=== PATIENT | female | born 1955 | race Caucasian/White ===

== ENCOUNTER 2016-02-29 07:53 | Outpatient (CLI) | payer MEDICARE, BC, OTHER ==
[~2016-02-29] VITALS: Ht 167.6 cm; Wt 86.4 kg
[~2016-02-29 07:53] MED LIST: GLYB5TA PO; OCTR200I IJ; OCTR50IN IM; SYNT137T7 PO; [UNRECOGNIZED DRUG - CODE] SQ
[2016-02-29] MEDS ORDERED: MAGNESIUM SULFATE IV ONE (08:15)
[2016-02-29] MEDS ORDERED: NS IV ONE (08:15)
== END 2016-02-29 09:45 | disposition home or self-care (01) ==
LOC: M INFU 07:53
PROVIDERS: ATTEND Internal Medicine
DX: N18.4 Chronic kidney disease, stage 4 (severe) (principal); D63.1 Anemia in chronic kidney disease; Z79.84 Long term (current) use of oral hypoglycemic drugs; Z87.891 Personal history of nicotine dependence; Z92.21 Personal history of antineoplastic chemotherapy; Z85.05 Personal history of malignant neoplasm of liver; Z88.8 Allergy status to other drugs, medicaments and biological substances; Z91.041 Radiographic dye allergy status; Z79.899 Other long term (current) drug therapy
CPT/HCPCS: 96360; J3475

== ENCOUNTER 2016-03-07 08:00 | Outpatient (CLI) | payer MEDICARE, BC, OTHER ==
[~2016-03-07 08:00] MED LIST changes: +MAGNESIUM SULFATE IV SCH; +NS IV SCH
== END 2016-03-07 09:45 | disposition home or self-care (01) ==
LOC: M INFU 08:00
PROVIDERS: ATTEND Internal Medicine
DX: N18.4 Chronic kidney disease, stage 4 (severe) (principal); Z79.899 Other long term (current) drug therapy
CPT/HCPCS: 96365; 96366; J3475

== ENCOUNTER 2016-03-14 07:59 | Outpatient (CLI) | payer MEDICARE, BC, OTHER ==
[~2016-03-14] VITALS: Ht 167.6 cm; Wt 86.4 kg
[~2016-03-14 07:59] MED LIST changes: -MAGNESIUM SULFATE IV SCH; -NS IV SCH
[2016-03-14] MEDS ORDERED: MAGNESIUM SULFATE IV SCH (09:00)
[2016-03-14] MEDS ORDERED: NS IV SCH (09:00)
== END 2016-03-14 09:30 | disposition home or self-care (01) ==
LOC: M INFU 07:59
PROVIDERS: ATTEND Internal Medicine
DX: N18.4 Chronic kidney disease, stage 4 (severe) (principal); Z79.899 Other long term (current) drug therapy; Z88.8 Allergy status to other drugs, medicaments and biological substances; Z91.040 Latex allergy status
CPT/HCPCS: 96374; J3475

== ENCOUNTER 2016-03-21 08:03 | Outpatient (CLI) | payer MEDICARE, BC, OTHER ==
[2016-03-21] MEDS ORDERED: MAGNESIUM SULFATE IV SCH (08:15)
[2016-03-21] MEDS ORDERED: NS IV SCH (08:15)
== END 2016-03-21 09:40 | disposition home or self-care (01) ==
LOC: M INFU 08:03
PROVIDERS: ATTEND Internal Medicine
DX: N18.4 Chronic kidney disease, stage 4 (severe) (principal); Z79.899 Other long term (current) drug therapy; Z88.8 Allergy status to other drugs, medicaments and biological substances; Z91.040 Latex allergy status; Z91.041 Radiographic dye allergy status
CPT/HCPCS: 96360; J3475

== ENCOUNTER 2016-03-28 08:00 | Outpatient (CLI) | payer MEDICARE, BC, OTHER ==
[~2016-03-28] VITALS: Ht 167.6 cm; Wt 86.4 kg
[~2016-03-28 08:00] MED LIST changes: +MAGNESIUM SULFATE IV SCH; +NS IV SCH
== END 2016-03-28 09:15 | disposition home or self-care (01) ==
LOC: M INFU 08:00
PROVIDERS: ATTEND Internal Medicine
DX: N18.4 Chronic kidney disease, stage 4 (severe) (principal); Z79.899 Other long term (current) drug therapy; Z88.8 Allergy status to other drugs, medicaments and biological substances; Z91.041 Radiographic dye allergy status
CPT/HCPCS: 96360; J3475

== ENCOUNTER 2016-04-04 07:57 | Outpatient (CLI) | payer MEDICARE, BC, OTHER ==
[~2016-04-04] VITALS: Ht 167.6 cm; Wt 86.4 kg
[~2016-04-04 07:57] MED LIST changes: -MAGNESIUM SULFATE IV SCH; -NS IV SCH
[2016-04-04] MEDS ORDERED: NS IV ONE (08:00)
[2016-04-04] MEDS ORDERED: MAGNESIUM SULFATE IV ONE (08:00)
== END 2016-04-04 09:45 | disposition home or self-care (01) ==
LOC: M INFU 07:57
PROVIDERS: ATTEND Hospitalist
DX: N18.4 Chronic kidney disease, stage 4 (severe) (principal); Z91.041 Radiographic dye allergy status; Z91.040 Latex allergy status; Z88.8 Allergy status to other drugs, medicaments and biological substances; Z79.899 Other long term (current) drug therapy
CPT/HCPCS: 96360; J3475

== ENCOUNTER 2016-04-10 07:52 | Outpatient (CLI) | payer MEDICARE, BC, OTHER ==
[~2016-04-10] VITALS: Ht 167.6 cm; Wt 86.4 kg
[2016-04-10] MEDS ORDERED: NS IV ONE (09:00)
[2016-04-10] MEDS ORDERED: MAGNESIUM SULFATE IV ONE (09:00)
== END 2016-04-10 09:25 | disposition home or self-care (01) ==
LOC: M INFU 07:52
PROVIDERS: ATTEND Internal Medicine
DX: N18.4 Chronic kidney disease, stage 4 (severe) (principal); Z91.041 Radiographic dye allergy status; Z88.8 Allergy status to other drugs, medicaments and biological substances; Z79.899 Other long term (current) drug therapy

== ENCOUNTER 2016-04-19 07:56 | Outpatient (CLI) | payer MEDICARE, BC, OTHER ==
[~2016-04-19] VITALS: Ht 167.6 cm; Wt 86.4 kg
[2016-04-19] MEDS ORDERED: MAGNESIUM SULFATE IV ONE (09:00)
[2016-04-19] MEDS ORDERED: NS IV ONE (09:00)
== END 2016-04-19 09:45 | disposition home or self-care (01) ==
LOC: M INFU 07:56
PROVIDERS: ATTEND Hospitalist
DX: E86.0 Dehydration (principal); E83.42 Hypomagnesemia; Z79.899 Other long term (current) drug therapy; Z88.8 Allergy status to other drugs, medicaments and biological substances; Z91.040 Latex allergy status
CPT/HCPCS: 96360; J3475

== ENCOUNTER 2016-04-20 08:01 | Outpatient (CLI) | payer MEDICARE, BC, OTHER ==
[~2016-04-20] VITALS: Ht 167.6 cm; Wt 85.5 kg
[~2016-04-20 08:01] MED LIST changes: +MAGNESIUM SULFATE IV ONE; +NS IV ONE
== END 2016-04-20 09:15 | disposition home or self-care (01) ==
LOC: M INFU 08:01
PROVIDERS: ATTEND Hospitalist
DX: E86.0 Dehydration (principal); E83.42 Hypomagnesemia; Z79.899 Other long term (current) drug therapy; Z88.8 Allergy status to other drugs, medicaments and biological substances; Z91.040 Latex allergy status
CPT/HCPCS: 96360; J3475

== ENCOUNTER 2016-05-15 08:02 | Outpatient (CLI) | payer MEDICARE, BC, OTHER ==
[~2016-05-15 08:02] MED LIST changes: -MAGNESIUM SULFATE IV ONE; +MAGNESIUM SULFATE IV SCH; -NS IV ONE; +NS IV SCH
== END 2016-05-15 09:45 | disposition home or self-care (01) ==
LOC: M INFU 08:02
PROVIDERS: ATTEND Hospitalist
DX: E86.0 Dehydration (principal); E83.42 Hypomagnesemia; E11.9 Type 2 diabetes mellitus without complications; D64.9 Anemia, unspecified; Z85.05 Personal history of malignant neoplasm of liver; Z91.041 Radiographic dye allergy status; Z88.8 Allergy status to other drugs, medicaments and biological substances; Z91.040 Latex allergy status; Z87.891 Personal history of nicotine dependence; Z79.899 Other long term (current) drug therapy
CPT/HCPCS: 96365; J3475

== ENCOUNTER 2016-05-18 07:52 | Outpatient (CLI) | payer MEDICARE, BC, OTHER ==
[~2016-05-18] VITALS: Ht 167.6 cm; Wt 83.2 kg
[~2016-05-18 07:52] MED LIST changes: -MAGNESIUM SULFATE IV SCH; -NS IV SCH
[2016-05-18] MEDS ORDERED: MAGNESIUM SULFATE IV ONE (08:00)
[2016-05-18] MEDS ORDERED: NS IV ONE (08:00)
== END 2016-05-18 10:00 | disposition home or self-care (01) ==
LOC: M INFU 07:52
PROVIDERS: ATTEND Hospitalist
DX: E86.0 Dehydration (principal); E83.42 Hypomagnesemia
CPT/HCPCS: 96365; J3475

== ENCOUNTER 2016-05-21 11:50 | Outpatient (CLI) | payer MEDICARE, BC, OTHER ==
[2016-05-21] MEDS ORDERED: NS IV ONE (12:00)
[2016-05-21] MEDS ORDERED: MAGNESIUM SULFATE IV ONE (12:00)
== END 2016-05-21 14:15 | disposition home or self-care (01) ==
LOC: M INFU 11:50
DX: E86.0 Dehydration (principal); E83.42 Hypomagnesemia
CPT/HCPCS: 96365; J3475

== ENCOUNTER 2016-05-29 07:56 | Outpatient (CLI) | payer MEDICARE, BC, OTHER ==
[~2016-05-29] VITALS: Ht 167.6 cm; Wt 83.2 kg
[2016-05-29] MEDS ORDERED: NS IV ONE (08:30)
[2016-05-29] MEDS ORDERED: MAGNESIUM SULFATE IV ONE (08:30)
== END 2016-05-29 09:45 | disposition home or self-care (01) ==
LOC: M INFU 07:56
PROVIDERS: ATTEND Internal Medicine
DX: E86.0 Dehydration (principal); E83.42 Hypomagnesemia; E11.9 Type 2 diabetes mellitus without complications; Z88.8 Allergy status to other drugs, medicaments and biological substances; Z91.041 Radiographic dye allergy status; Z91.040 Latex allergy status; Z79.899 Other long term (current) drug therapy; Z87.891 Personal history of nicotine dependence; Z85.09 Personal history of malignant neoplasm of other digestive organs; Z79.84 Long term (current) use of oral hypoglycemic drugs
CPT/HCPCS: 96365; J3475

== ENCOUNTER 2016-06-01 07:56 | Outpatient (CLI) | payer MEDICARE, BC, OTHER ==
[2016-06-01] MEDS ORDERED: MAGNESIUM SULFATE IV ONE (09:00)
[2016-06-01] MEDS ORDERED: NS IV ONE (09:00)
== END 2016-06-01 09:45 | disposition home or self-care (01) ==
LOC: M INFU 07:56
PROVIDERS: ATTEND Internal Medicine
DX: E86.0 Dehydration (principal); E83.42 Hypomagnesemia; E07.9 Disorder of thyroid, unspecified; D64.9 Anemia, unspecified; E11.9 Type 2 diabetes mellitus without complications; Z91.041 Radiographic dye allergy status; Z88.8 Allergy status to other drugs, medicaments and biological substances; Z91.040 Latex allergy status; Z80.8 Family history of malignant neoplasm of other organs or systems; Z85.05 Personal history of malignant neoplasm of liver; Z87.891 Personal history of nicotine dependence; Z79.84 Long term (current) use of oral hypoglycemic drugs; Z79.899 Other long term (current) drug therapy
CPT/HCPCS: 96365; J3475

== ENCOUNTER 2016-06-11 07:59 | Outpatient (CLI) | payer MEDICARE, BC, OTHER ==
[~2016-06-11] VITALS: Ht 167.6 cm; Wt 83.2 kg
[2016-06-11] MEDS ORDERED: MAGNESIUM SULFATE IV SCH (08:30)
[2016-06-11] MEDS ORDERED: NS IV SCH (08:30)
== END 2016-06-11 10:00 | disposition home or self-care (01) ==
LOC: M INFU 07:59
PROVIDERS: ATTEND Internal Medicine
DX: E86.0 Dehydration (principal); E83.42 Hypomagnesemia; E07.9 Disorder of thyroid, unspecified; D64.9 Anemia, unspecified; E11.9 Type 2 diabetes mellitus without complications; Z85.05 Personal history of malignant neoplasm of liver; N18.9 Chronic kidney disease, unspecified; Z87.891 Personal history of nicotine dependence; Z88.8 Allergy status to other drugs, medicaments and biological substances; Z91.040 Latex allergy status; Z91.041 Radiographic dye allergy status; Z88.3 Allergy status to other anti-infective agents; Z79.84 Long term (current) use of oral hypoglycemic drugs; Z79.899 Other long term (current) drug therapy
CPT/HCPCS: 96365; J3475

== ENCOUNTER 2016-06-15 06:50 | Outpatient (CLI) | payer MEDICARE, BC, OTHER ==
[2016-06-15] MEDS ORDERED: MAGNESIUM SULFATE IV SCH (07:30)
[2016-06-15] MEDS ORDERED: NS IV SCH (07:30)
== END 2016-06-15 08:35 | disposition home or self-care (01) ==
LOC: M INFU 06:50
PROVIDERS: ATTEND Internal Medicine
DX: E86.0 Dehydration (principal); E83.42 Hypomagnesemia; Z87.891 Personal history of nicotine dependence; E07.9 Disorder of thyroid, unspecified; E11.9 Type 2 diabetes mellitus without complications; Z79.899 Other long term (current) drug therapy; Z88.3 Allergy status to other anti-infective agents; Z88.8 Allergy status to other drugs, medicaments and biological substances; Z91.041 Radiographic dye allergy status; Z91.040 Latex allergy status
CPT/HCPCS: 96365; J3475

== ENCOUNTER 2016-06-20 08:00 | Outpatient (CLI) | payer MEDICARE, BC, OTHER ==
[~2016-06-20] VITALS: Ht 167.6 cm; Wt 85.5 kg
[2016-06-20] MEDS ORDERED: NS IV ONE (08:15)
[2016-06-20] MEDS ORDERED: MAGNESIUM SULFATE IV ONE (08:15)
== END 2016-06-20 09:40 | disposition home or self-care (01) ==
LOC: M INFU 08:00
PROVIDERS: ATTEND Internal Medicine
DX: E86.0 Dehydration (principal); E83.42 Hypomagnesemia; Z91.041 Radiographic dye allergy status; Z88.3 Allergy status to other anti-infective agents; Z88.8 Allergy status to other drugs, medicaments and biological substances; Z91.040 Latex allergy status; Z79.899 Other long term (current) drug therapy; Z79.84 Long term (current) use of oral hypoglycemic drugs
CPT/HCPCS: 96360; J3475

== ENCOUNTER 2016-06-22 07:52 | Outpatient (CLI) | payer MEDICARE, BC, OTHER ==
[~2016-06-22] VITALS: Ht 167.6 cm; Wt 85.5 kg
[2016-06-22] MEDS ORDERED: MAGNESIUM SULFATE IV ONE (08:00)
[2016-06-22] MEDS ORDERED: NS IV ONE (08:00)
== END 2016-06-22 09:30 | disposition home or self-care (01) ==
LOC: M INFU 07:52
PROVIDERS: ATTEND Internal Medicine
DX: E86.0 Dehydration (principal); E83.42 Hypomagnesemia; Z91.041 Radiographic dye allergy status; Z88.3 Allergy status to other anti-infective agents; Z88.8 Allergy status to other drugs, medicaments and biological substances; Z91.040 Latex allergy status; Z79.84 Long term (current) use of oral hypoglycemic drugs; Z79.899 Other long term (current) drug therapy; Z87.891 Personal history of nicotine dependence
CPT/HCPCS: 96360; J3475

== ENCOUNTER 2016-06-26 07:58 | Outpatient (CLI) | payer MEDICARE, BC, OTHER ==
[2016-06-26] MEDS ORDERED: NS IV SCH (08:15)
[2016-06-26] MEDS ORDERED: MAGNESIUM SULFATE IV SCH (08:15)
== END 2016-06-26 10:15 | disposition home or self-care (01) ==
LOC: M INFU 07:58
PROVIDERS: ATTEND Hospitalist
DX: E86.0 Dehydration (principal); E83.42 Hypomagnesemia; Z80.8 Family history of malignant neoplasm of other organs or systems; Z87.891 Personal history of nicotine dependence; Z91.041 Radiographic dye allergy status; Z88.8 Allergy status to other drugs, medicaments and biological substances; Z91.040 Latex allergy status; Z88.3 Allergy status to other anti-infective agents; Z79.899 Other long term (current) drug therapy
CPT/HCPCS: 96365; 96366; J3475

== ENCOUNTER 2016-07-03 07:56 | Outpatient (CLI) | payer MEDICARE, BC, OTHER ==
[~2016-07-03] VITALS: Ht 167.6 cm; Wt 85.5 kg
[2016-07-03] MEDS ORDERED: MAGNESIUM SULFATE IV ONE (08:00)
[2016-07-03] MEDS ORDERED: NS IV ONE (08:00)
== END 2016-07-03 09:25 | disposition home or self-care (01) ==
LOC: M INFU 07:56
PROVIDERS: ATTEND Internal Medicine
DX: E86.0 Dehydration (principal); E83.42 Hypomagnesemia; Z87.891 Personal history of nicotine dependence; Z91.041 Radiographic dye allergy status; Z79.899 Other long term (current) drug therapy; Z88.3 Allergy status to other anti-infective agents; Z88.8 Allergy status to other drugs, medicaments and biological substances; Z91.040 Latex allergy status
CPT/HCPCS: 96360; J3475

== ENCOUNTER → 2016-07-04 | Outpatient (CLI) | payer MEDICARE, BC, OTHER ==
[2016-07-04 10:50] LABS: BASO % 0.3 % (0.0-1.0); EOS # 0.2 K/mm3 (0.0-0.50); EOS % 4.9 % (0.0-3.0); LARGE UNSTAINED CELL # 0.1 K/mm3 (0.0-0.4); LARGE UNSTAINED CELL % 2.3 % (0.0-4.0); LYMPH # 1.3 K/mm3 (1.5-4.5); MEAN CORPUSCULAR HEMOGLOBIN 29.1 pg (27.0-33.0); MEAN CORPUSCULAR HGB CONC 32.2 g/dl (32.0-36.5); MEAN CORPUSCULAR VOLUME 90.4 fl (80.0-96.0); MONO # 0.3 K/mm3 (0.0-0.8); MONO % 7.1 % (0.0-5.0); NEUTROPHILS # 2.4 K/mm3 (1.8-7.7); NEUTROPHILS % 56.4 % (36.0-66.0); PLATELET COUNT, AUTOMATED 161 k/mm3 (150-450); RED CELL DISTRIBUTION WIDTH 15.4 % (11.5-14.5); WHITE BLOOD COUNT 4.2 K/mm3 (4.0-10.0)
[2016-07-04 11:12] LABS: ALBUMIN 3.4 GM/DL (3.2-5.2); ALBUMIN/GLOBULIN RATIO 0.85 (1.00-1.93); BILIRUBIN,TOTAL 0.6 MG/DL (0.2-1.0); CALCIUM LEVEL 8.9 MG/DL (8.8-10.2); CREATININE FOR GFR 1.65 MG/DL (0.55-1.02); FREE T4 1.19 NG/DL (0.76-1.46); GLOMERULAR FILTRATION RATE 33.8 (>45); TOTAL PROTEIN 7.4 GM/DL (6.4-8.2); URIC ACID 9.8 MG/DL (2.6-6.0)
== END ==
LOC: M LAB 10:24
PROVIDERS: ATTEND Family Medicine
DX: E11.9 Type 2 diabetes mellitus without complications (principal); E78.1 Pure hyperglyceridemia; E03.9 Hypothyroidism, unspecified; N18.3 Chronic kidney disease, stage 3 (moderate)

== ENCOUNTER 2016-07-06 09:30 | Outpatient (CLI) | payer MEDICARE, BC, OTHER ==
[~2016-07-06 09:30] MED LIST changes: +MAGNESIUM SULFATE IV ONE; +NS IV ONE
== END 2016-07-06 10:55 | disposition home or self-care (01) ==
LOC: M INFU 09:30
PROVIDERS: ATTEND Internal Medicine
DX: E86.0 Dehydration (principal); E83.42 Hypomagnesemia; Z91.041 Radiographic dye allergy status; Z88.8 Allergy status to other drugs, medicaments and biological substances; Z91.040 Latex allergy status; Z87.891 Personal history of nicotine dependence; Z79.84 Long term (current) use of oral hypoglycemic drugs; Z79.899 Other long term (current) drug therapy
CPT/HCPCS: 96365; J3475

== ENCOUNTER 2016-07-10 07:51 | Outpatient (CLI) | payer MEDICARE, BC, OTHER ==
[~2016-07-10 07:51] MED LIST changes: -MAGNESIUM SULFATE IV ONE; -NS IV ONE
[2016-07-10] MEDS ORDERED: NS IV ONE (08:00)
[2016-07-10] MEDS ORDERED: MAGNESIUM SULFATE IV ONE (08:00)
== END 2016-07-10 09:30 | disposition home or self-care (01) ==
LOC: M INFU 07:51
PROVIDERS: ATTEND Hospitalist
DX: E86.0 Dehydration (principal); E83.42 Hypomagnesemia; Z88.8 Allergy status to other drugs, medicaments and biological substances; Z91.040 Latex allergy status; Z91.041 Radiographic dye allergy status; Z87.891 Personal history of nicotine dependence; Z79.84 Long term (current) use of oral hypoglycemic drugs; Z79.899 Other long term (current) drug therapy
CPT/HCPCS: 96360; J3475

== ENCOUNTER 2016-07-13 08:02 | Outpatient (CLI) | payer MEDICARE, BC, OTHER ==
[2016-07-13] MEDS ORDERED: NS IV ONE (08:30)
[2016-07-13] MEDS ORDERED: MAGNESIUM SULFATE IV ONE (08:30)
== END 2016-07-13 09:30 | disposition home or self-care (01) ==
LOC: M INFU 08:02
PROVIDERS: ATTEND Hospitalist
DX: E86.0 Dehydration (principal); E83.42 Hypomagnesemia; Z88.8 Allergy status to other drugs, medicaments and biological substances; Z91.041 Radiographic dye allergy status; Z91.040 Latex allergy status; Z87.891 Personal history of nicotine dependence; Z79.84 Long term (current) use of oral hypoglycemic drugs; Z79.899 Other long term (current) drug therapy
CPT/HCPCS: 96360; J3475

== ENCOUNTER 2016-07-24 07:57 | Outpatient (CLI) | payer MEDICARE, BC, OTHER ==
[~2016-07-24] VITALS: Ht 167.6 cm; Wt 85.5 kg
[~2016-07-24 07:57] MED LIST changes: +MAGNESIUM SULFATE IV ONE; +NS IV ONE
== END 2016-07-24 09:25 | disposition home or self-care (01) ==
LOC: M INFU 07:57
PROVIDERS: ATTEND Internal Medicine
DX: E86.0 Dehydration (principal); E83.42 Hypomagnesemia; Z85.05 Personal history of malignant neoplasm of liver; Z87.891 Personal history of nicotine dependence; Z91.041 Radiographic dye allergy status; Z88.3 Allergy status to other anti-infective agents; Z91.040 Latex allergy status; Z88.8 Allergy status to other drugs, medicaments and biological substances; Z79.899 Other long term (current) drug therapy
CPT/HCPCS: 96360; J3475

== ENCOUNTER 2016-07-26 15:22 | Outpatient (CLI) | payer MEDICARE, BC, OTHER ==
[~2016-07-26] VITALS: Ht 167.6 cm; Wt 85.5 kg
== END 2016-07-26 16:46 | disposition home or self-care (01) ==
LOC: M INFU 15:22
PROVIDERS: ATTEND Internal Medicine
DX: E86.0 Dehydration (principal); E83.42 Hypomagnesemia; Z91.041 Radiographic dye allergy status; Z88.8 Allergy status to other drugs, medicaments and biological substances; Z91.040 Latex allergy status; Z87.891 Personal history of nicotine dependence; Z79.84 Long term (current) use of oral hypoglycemic drugs; Z79.899 Other long term (current) drug therapy
CPT/HCPCS: 96365; J3475

== ENCOUNTER 2016-07-31 07:59 | Outpatient (CLI) | payer MEDICARE, BC, OTHER ==
[~2016-07-31] VITALS: Ht 167.6 cm; Wt 85.5 kg
[~2016-07-31 07:59] MED LIST changes: -MAGNESIUM SULFATE IV ONE; -NS IV ONE
[2016-07-31] MEDS ORDERED: NS IV SCH (08:00)
[2016-07-31] MEDS ORDERED: MAGNESIUM SULFATE IV SCH (08:00)
== END 2016-07-31 09:30 | disposition home or self-care (01) ==
LOC: M INFU 07:59
PROVIDERS: ATTEND Internal Medicine Nephrology
DX: E86.0 Dehydration (principal); E83.42 Hypomagnesemia; Z91.040 Latex allergy status; Z91.041 Radiographic dye allergy status; Z88.8 Allergy status to other drugs, medicaments and biological substances; Z87.891 Personal history of nicotine dependence; Z79.84 Long term (current) use of oral hypoglycemic drugs; Z79.899 Other long term (current) drug therapy
CPT/HCPCS: 96360; J3475

== ENCOUNTER 2016-08-07 07:54 | Outpatient (CLI) | payer MEDICARE, BC, OTHER ==
[~2016-08-07] VITALS: Ht 167.6 cm; Wt 85.6 kg
[~2016-08-07 07:54] MED LIST changes: +MAGNESIUM SULFATE IV ONE; +NS IV ONE
== END 2016-08-07 09:25 | disposition home or self-care (01) ==
LOC: M INFU 07:54
PROVIDERS: ATTEND Hospitalist
DX: E83.42 Hypomagnesemia (principal); E86.0 Dehydration; Z88.8 Allergy status to other drugs, medicaments and biological substances; Z91.041 Radiographic dye allergy status; Z79.899 Other long term (current) drug therapy
CPT/HCPCS: 96360; J3475

== ENCOUNTER → 2016-08-11 | Outpatient (CLI) | payer MEDICARE, BC, OTHER ==
[~2016-08-11] MED LIST changes: -MAGNESIUM SULFATE IV ONE; -NS IV ONE
== END ==
LOC: M LAB 09:50
PROVIDERS: ATTEND Internal Medicine Nephrology
DX: E83.42 Hypomagnesemia (principal)

== ENCOUNTER → 2016-08-11 | Outpatient (CLI) | payer MEDICARE, BC, OTHER | LOC: M LAB 09:45 | PROVIDERS: ATTEND Family Medicine | DX: E11.22 Type 2 diabetes mellitus with diabetic chronic kidney disease (principal); E83.42 Hypomagnesemia ==

== ENCOUNTER 2016-08-15 13:54 | Outpatient (CLI) | payer MEDICARE, BC, OTHER ==
[2016-08-15] MEDS ORDERED: MAGNESIUM SULFATE IV ONE (15:00)
[2016-08-15] MEDS ORDERED: NS IV ONE (15:00)
[2016-12-18] MEDS ORDERED: LEVO10VL IM (07:55)
[2016-12-18] MEDS ORDERED: SYNT150T PO (07:55)
== END 2016-08-15 15:30 | disposition home or self-care (01) ==
LOC: M INFU 13:54
PROVIDERS: ATTEND Internal Medicine
DX: E86.0 Dehydration (principal); E83.42 Hypomagnesemia; Z88.8 Allergy status to other drugs, medicaments and biological substances; Z91.041 Radiographic dye allergy status; Z91.040 Latex allergy status; Z87.891 Personal history of nicotine dependence; Z79.84 Long term (current) use of oral hypoglycemic drugs; Z79.899 Other long term (current) drug therapy
CPT/HCPCS: 96365; J3475

== ENCOUNTER 2016-08-17 07:53 | Outpatient (CLI) | payer MEDICARE, BC, OTHER ==
[2016-08-17] MEDS ORDERED: NS IV ONE (08:00)
[2016-08-17] MEDS ORDERED: MAGNESIUM SULFATE IV ONE (08:00)
[2016-08-17] MEDS ORDERED: MAGN70CA IV (09:31)
[2016-08-17] MEDS ORDERED: MAGN20IN4 IV (09:31)
[2016-12-18] MEDS ORDERED: LEVO10VL IM (07:55)
[2016-12-18] MEDS ORDERED: SYNT150T PO (07:55)
== END 2016-08-17 09:25 | disposition home or self-care (01) ==
LOC: M INFU 07:53
PROVIDERS: ATTEND Internal Medicine
DX: E86.0 Dehydration (principal); E83.42 Hypomagnesemia; Z91.041 Radiographic dye allergy status; Z91.048 Other nonmedicinal substance allergy status; Z88.8 Allergy status to other drugs, medicaments and biological substances; Z87.891 Personal history of nicotine dependence; Z79.899 Other long term (current) drug therapy; Z79.84 Long term (current) use of oral hypoglycemic drugs
CPT/HCPCS: 96365; J3475

== ENCOUNTER 2016-08-23 07:29 | Outpatient (CLI) | payer MEDICARE, BC, OTHER ==
[~2016-08-23 07:29] MED LIST changes: +MAGN20IN4 IV; +MAGN70CA IV; +MAGNESIUM SULFATE IV ONE; +NS IV ONE
[2016-12-18] MEDS ORDERED: LEVO10VL IM (07:55)
[2016-12-18] MEDS ORDERED: SYNT150T PO (07:55)
== END 2016-08-23 09:00 | disposition home or self-care (01) ==
LOC: M INFU 07:29
PROVIDERS: ATTEND Internal Medicine
DX: E86.0 Dehydration (principal); E83.42 Hypomagnesemia; Z91.040 Latex allergy status; Z88.8 Allergy status to other drugs, medicaments and biological substances; Z91.041 Radiographic dye allergy status; Z87.891 Personal history of nicotine dependence; Z79.84 Long term (current) use of oral hypoglycemic drugs; Z79.899 Other long term (current) drug therapy
CPT/HCPCS: 96365; J3475

== ENCOUNTER 2016-08-28 08:31 | Outpatient (CLI) | payer MEDICARE, BC, OTHER ==
[~2016-08-28 08:31] MED LIST changes: -CIPR-249 PO; -HYDR-3713 PO; -LEVO10VL IM; -PYRI1TAB5 PO; -SYNT150T PO; -TYLE325T5 PO
[2016-08-28] MEDS ORDERED: MAGNESIUM SULFATE IV ONE (10:00)
[2016-08-28] MEDS ORDERED: NS IV ONE (10:00)
[2016-12-18] MEDS ORDERED: LEVO10VL IM (07:55)
[2016-12-18] MEDS ORDERED: SYNT150T PO (07:55)
== END 2016-08-28 10:15 | disposition home or self-care (01) ==
LOC: M INFU 08:31
PROVIDERS: ATTEND Internal Medicine Nephrology
DX: E86.0 Dehydration (principal); E83.42 Hypomagnesemia; C7A.012 Malignant carcinoid tumor of the ileum; Z91.041 Radiographic dye allergy status; Z91.040 Latex allergy status; Z88.8 Allergy status to other drugs, medicaments and biological substances; Z87.891 Personal history of nicotine dependence; Z79.84 Long term (current) use of oral hypoglycemic drugs; Z79.899 Other long term (current) drug therapy
CPT/HCPCS: 36415; 80048; 96365; J3475

== ENCOUNTER → 2016-08-28 | Outpatient (CLI) | payer MEDICARE, BC, OTHER ==
[~2016-08-28] MED LIST changes: +CIPR-249 PO; +HYDR-3713 PO; +LEVO10VL IM; -MAGNESIUM SULFATE IV ONE; -NS IV ONE; +PYRI1TAB5 PO; +SYNT150T PO; +TYLE325T5 PO
[2016-08-28 10:52] LABS: CALCIUM LEVEL 8.6 MG/DL (8.8-10.2); CREATININE FOR GFR 1.79 MG/DL (0.55-1.02); GLOMERULAR FILTRATION RATE 30.6 (>45); POTASSIUM SERUM 4.5 MEQ/L (3.5-5.1)
== END ==
LOC: M LAB 09:56
DX: C7A.012 Malignant carcinoid tumor of the ileum (principal)

== ENCOUNTER 2016-08-30 08:26 | Outpatient (CLI) | payer MEDICARE, BC, OTHER ==
[~2016-08-30] VITALS: Ht 167.6 cm; Wt 85.5 kg
[~2016-08-30 08:26] MED LIST changes: +MAGNESIUM SULFATE IV ONE; +NS IV ONE
[2016-12-18] MEDS ORDERED: LEVO10VL IM (07:55)
[2016-12-18] MEDS ORDERED: SYNT150T PO (07:55)
== END 2016-08-30 10:00 | disposition home or self-care (01) ==
LOC: M INFU 08:26
PROVIDERS: ATTEND Internal Medicine Nephrology
DX: E86.0 Dehydration (principal); E83.42 Hypomagnesemia; Z91.041 Radiographic dye allergy status; Z91.040 Latex allergy status; Z88.8 Allergy status to other drugs, medicaments and biological substances; Z87.891 Personal history of nicotine dependence; Z79.84 Long term (current) use of oral hypoglycemic drugs; Z79.899 Other long term (current) drug therapy
CPT/HCPCS: 96365; J3475

== ENCOUNTER 2016-09-04 08:28 | Outpatient (CLI) | payer MEDICARE, BC, OTHER ==
[~2016-09-04 08:28] MED LIST changes: -MAGNESIUM SULFATE IV ONE; -NS IV ONE
[2016-09-04] MEDS ORDERED: MAGNESIUM SULFATE IV ONE (09:00)
[2016-09-04] MEDS ORDERED: NS IV ONE (09:00)
[2016-12-18] MEDS ORDERED: SYNT150T PO (07:55)
[2016-12-18] MEDS ORDERED: LEVO10VL IM (07:55)
== END 2016-09-04 10:20 | disposition home or self-care (01) ==
LOC: M INFU 08:28
PROVIDERS: ATTEND Hospitalist
DX: E86.0 Dehydration (principal); E83.42 Hypomagnesemia; Z91.041 Radiographic dye allergy status; Z88.8 Allergy status to other drugs, medicaments and biological substances; Z91.040 Latex allergy status; Z87.891 Personal history of nicotine dependence; Z79.84 Long term (current) use of oral hypoglycemic drugs; Z79.899 Other long term (current) drug therapy
CPT/HCPCS: 96365; J3475

== ENCOUNTER 2016-09-06 07:57 | Outpatient (CLI) | payer MEDICARE, BC, OTHER ==
[2016-09-06] MEDS ORDERED: NS IV ONE (08:00)
[2016-09-06] MEDS ORDERED: MAGNESIUM SULFATE IV ONE (08:00)
[2016-12-18] MEDS ORDERED: SYNT150T PO (07:55)
[2016-12-18] MEDS ORDERED: LEVO10VL IM (07:55)
== END 2016-09-06 09:25 | disposition home or self-care (01) ==
LOC: M INFU 07:57
PROVIDERS: ATTEND Hospitalist
DX: E86.0 Dehydration (principal); E83.42 Hypomagnesemia; Z87.891 Personal history of nicotine dependence; Z88.8 Allergy status to other drugs, medicaments and biological substances; Z91.040 Latex allergy status; Z91.041 Radiographic dye allergy status; Z79.84 Long term (current) use of oral hypoglycemic drugs; Z79.899 Other long term (current) drug therapy
CPT/HCPCS: 96365; J3475

== ENCOUNTER 2016-09-12 07:53 | Outpatient (CLI) | payer MEDICARE, BC, OTHER ==
[~2016-09-12] VITALS: Ht 167.6 cm; Wt 85.5 kg
[2016-09-12] MEDS ORDERED: MAGNESIUM SULFATE IV SCH (08:00)
[2016-09-12] MEDS ORDERED: NS IV SCH (08:00)
[2016-12-18] MEDS ORDERED: LEVO10VL IM (07:55)
[2016-12-18] MEDS ORDERED: SYNT150T PO (07:55)
== END 2016-09-12 09:30 | disposition home or self-care (01) ==
LOC: M INFU 07:53
PROVIDERS: ATTEND Internal Medicine
DX: E86.0 Dehydration (principal); E83.42 Hypomagnesemia; Z91.041 Radiographic dye allergy status; Z88.8 Allergy status to other drugs, medicaments and biological substances; Z91.040 Latex allergy status; Z87.891 Personal history of nicotine dependence; Z79.84 Long term (current) use of oral hypoglycemic drugs; Z79.899 Other long term (current) drug therapy
CPT/HCPCS: 96365; J3475

== ENCOUNTER 2016-09-18 07:57 | Outpatient (CLI) | payer MEDICARE, BC, OTHER ==
[~2016-09-18] VITALS: Ht 167.6 cm; Wt 85.5 kg
[~2016-09-18 07:57] MED LIST changes: +MAGNESIUM SULFATE IV ONE; +NS IV ONE
[2016-12-18] MEDS ORDERED: LEVO10VL IM (07:55)
[2016-12-18] MEDS ORDERED: SYNT150T PO (07:55)
== END 2016-09-18 09:30 | disposition home or self-care (01) ==
LOC: M INFU 07:57
PROVIDERS: ATTEND Internal Medicine
DX: E86.0 Dehydration (principal); E83.42 Hypomagnesemia; Z91.041 Radiographic dye allergy status; Z91.040 Latex allergy status; Z88.8 Allergy status to other drugs, medicaments and biological substances; Z87.891 Personal history of nicotine dependence; Z79.84 Long term (current) use of oral hypoglycemic drugs; Z79.899 Other long term (current) drug therapy
CPT/HCPCS: 96365; J3475

== ENCOUNTER 2016-09-25 07:52 | Outpatient (CLI) | payer MEDICARE, BC, OTHER ==
[2016-12-18] MEDS ORDERED: LEVO10VL IM (07:55)
[2016-12-18] MEDS ORDERED: SYNT150T PO (07:55)
== END 2016-09-25 09:15 | disposition home or self-care (01) ==
LOC: M INFU 07:52
PROVIDERS: ATTEND Internal Medicine
DX: E86.0 Dehydration (principal); E83.42 Hypomagnesemia; Z88.8 Allergy status to other drugs, medicaments and biological substances; Z88.3 Allergy status to other anti-infective agents; Z91.040 Latex allergy status; Z91.041 Radiographic dye allergy status; Z87.891 Personal history of nicotine dependence; Z79.84 Long term (current) use of oral hypoglycemic drugs; Z79.899 Other long term (current) drug therapy
CPT/HCPCS: 96365; J3475

== ENCOUNTER 2016-10-02 07:52 | Outpatient (CLI) | payer MEDICARE, BC, OTHER ==
[~2016-10-02 07:52] MED LIST changes: -MAGNESIUM SULFATE IV ONE; -NS IV ONE
[2016-10-02] MEDS ORDERED: MAGNESIUM SULFATE IV ONE (08:00)
[2016-10-02] MEDS ORDERED: NS IV ONE (08:00)
[2016-12-18] MEDS ORDERED: LEVO10VL IM (07:55)
[2016-12-18] MEDS ORDERED: SYNT150T PO (07:55)
== END 2016-10-02 09:55 | disposition home or self-care (01) ==
LOC: M INFU 07:52
PROVIDERS: ATTEND Hospitalist
DX: E86.0 Dehydration (principal); E83.42 Hypomagnesemia; Z88.3 Allergy status to other anti-infective agents; Z88.8 Allergy status to other drugs, medicaments and biological substances; Z91.041 Radiographic dye allergy status; Z91.040 Latex allergy status; Z87.891 Personal history of nicotine dependence; Z79.84 Long term (current) use of oral hypoglycemic drugs; Z79.899 Other long term (current) drug therapy
CPT/HCPCS: 36415; 83735; 96365; 96366; J3475

== ENCOUNTER 2016-10-23 07:06 | Outpatient (CLI) | payer MEDICARE, BC, OTHER ==
[~2016-10-23 07:06] MED LIST changes: +MAGNESIUM SULFATE IV SCH; +NS IV SCH
[2016-12-18] MEDS ORDERED: SYNT150T PO (07:55)
[2016-12-18] MEDS ORDERED: LEVO10VL IM (07:55)
== END 2016-10-23 08:50 | disposition home or self-care (01) ==
LOC: M INFU 07:06
PROVIDERS: ATTEND Internal Medicine
DX: E83.42 Hypomagnesemia (principal); N18.3 Chronic kidney disease, stage 3 (moderate); Z88.3 Allergy status to other anti-infective agents; Z88.8 Allergy status to other drugs, medicaments and biological substances; Z91.040 Latex allergy status; Z91.041 Radiographic dye allergy status; Z87.891 Personal history of nicotine dependence; Z79.84 Long term (current) use of oral hypoglycemic drugs; Z79.899 Other long term (current) drug therapy; Z85.05 Personal history of malignant neoplasm of liver; Z92.21 Personal history of antineoplastic chemotherapy
CPT/HCPCS: 96365; J3475

== ENCOUNTER 2016-10-25 07:05 | Outpatient (CLI) | payer MEDICARE, BC, OTHER ==
[~2016-10-25] VITALS: Ht 142.2 cm; Wt 83.2 kg
[2016-12-18] MEDS ORDERED: SYNT150T PO (07:55)
[2016-12-18] MEDS ORDERED: LEVO10VL IM (07:55)
== END 2016-10-25 08:40 | disposition home or self-care (01) ==
LOC: M INFU 07:05
PROVIDERS: ATTEND Internal Medicine
DX: E83.42 Hypomagnesemia (principal); N18.3 Chronic kidney disease, stage 3 (moderate); Z88.3 Allergy status to other anti-infective agents; Z88.8 Allergy status to other drugs, medicaments and biological substances; Z91.040 Latex allergy status; Z91.041 Radiographic dye allergy status; Z79.84 Long term (current) use of oral hypoglycemic drugs; Z79.899 Other long term (current) drug therapy; Z85.05 Personal history of malignant neoplasm of liver; Z92.21 Personal history of antineoplastic chemotherapy; Z87.891 Personal history of nicotine dependence
CPT/HCPCS: 96365; J3475

== ENCOUNTER → 2016-10-29 | Outpatient (CLI) | payer MEDICARE, BC, OTHER ==
[~2016-10-29] VITALS: Ht 167.6 cm; Wt 83.2 kg
[~2016-10-29] MED LIST changes: +CIPR-249 PO; +HYDR-3713 PO; +LEVO10VL IM; +PYRI1TAB5 PO; +SYNT150T PO; +TYLE325T5 PO
== END ==
LOC: M INFU 16:40
PROVIDERS: ATTEND Internal Medicine
DX: E83.42 Hypomagnesemia (principal); Z53.9 Procedure and treatment not carried out, unspecified reason

== ENCOUNTER 2016-10-30 07:59 | Outpatient (CLI) | payer MEDICARE, BC, OTHER ==
[~2016-10-30 07:59] MED LIST changes: -CIPR-249 PO; -HYDR-3713 PO; -LEVO10VL IM; -MAGNESIUM SULFATE IV SCH; -NS IV SCH; -PYRI1TAB5 PO; -SYNT150T PO; -TYLE325T5 PO
[2016-10-30] MEDS ORDERED: MAGNESIUM SULFATE IV SCH (08:00)
[2016-10-30] MEDS ORDERED: NS IV SCH (08:00)
[2016-12-18] MEDS ORDERED: LEVO10VL IM (07:55)
[2016-12-18] MEDS ORDERED: SYNT150T PO (07:55)
== END 2016-10-30 09:30 | disposition home or self-care (01) ==
LOC: M INFU 07:59
PROVIDERS: ATTEND Hospitalist
DX: E83.42 Hypomagnesemia (principal); N18.3 Chronic kidney disease, stage 3 (moderate); Z88.8 Allergy status to other drugs, medicaments and biological substances; Z88.3 Allergy status to other anti-infective agents; Z91.041 Radiographic dye allergy status; Z91.040 Latex allergy status; Z85.05 Personal history of malignant neoplasm of liver; Z92.21 Personal history of antineoplastic chemotherapy; Z87.891 Personal history of nicotine dependence; Z79.84 Long term (current) use of oral hypoglycemic drugs; Z79.899 Other long term (current) drug therapy
CPT/HCPCS: 96365; J3475

== ENCOUNTER 2016-11-01 07:58 | Outpatient (CLI) | payer MEDICARE, BC, OTHER ==
[~2016-11-01] VITALS: Ht 167.6 cm; Wt 85.5 kg
[2016-11-01] MEDS ORDERED: NS IV SCH (08:00)
[2016-11-01] MEDS ORDERED: MAGNESIUM SULFATE IV SCH (08:00)
[2016-12-18] MEDS ORDERED: LEVO10VL IM (07:55)
[2016-12-18] MEDS ORDERED: SYNT150T PO (07:55)
== END 2016-11-01 09:15 | disposition home or self-care (01) ==
LOC: M INFU 07:58
PROVIDERS: ATTEND Hospitalist
DX: E83.42 Hypomagnesemia (principal); N18.3 Chronic kidney disease, stage 3 (moderate); Z85.05 Personal history of malignant neoplasm of liver; Z92.21 Personal history of antineoplastic chemotherapy; Z88.3 Allergy status to other anti-infective agents; Z88.8 Allergy status to other drugs, medicaments and biological substances; Z91.041 Radiographic dye allergy status; Z91.040 Latex allergy status; Z87.891 Personal history of nicotine dependence; Z79.84 Long term (current) use of oral hypoglycemic drugs; Z79.899 Other long term (current) drug therapy
CPT/HCPCS: 96365; J3475

== ENCOUNTER 2016-11-08 08:01 | Outpatient (CLI) | payer MEDICARE, BC, OTHER ==
[2016-11-08] MEDS ORDERED: MAGNESIUM SULFATE IV SCH (08:30)
[2016-11-08] MEDS ORDERED: NS IV SCH (08:30)
[2016-12-18] MEDS ORDERED: LEVO10VL IM (07:55)
[2016-12-18] MEDS ORDERED: SYNT150T PO (07:55)
== END 2016-11-08 09:30 | disposition home or self-care (01) ==
LOC: M INFU 08:01
PROVIDERS: ATTEND Internal Medicine
DX: E83.42 Hypomagnesemia (principal); N18.3 Chronic kidney disease, stage 3 (moderate); Z79.84 Long term (current) use of oral hypoglycemic drugs; Z79.899 Other long term (current) drug therapy; Z91.041 Radiographic dye allergy status
CPT/HCPCS: 96365; J3475

== ENCOUNTER 2016-11-13 07:57 | Outpatient (CLI) | payer MEDICARE, BC, OTHER ==
[~2016-11-13] VITALS: Ht 167.6 cm; Wt 85.5 kg
[2016-11-13] MEDS ORDERED: MAGNESIUM SULFATE IV ONE (09:00)
[2016-11-13] MEDS ORDERED: NS IV ONE (09:00)
[2016-12-18] MEDS ORDERED: LEVO10VL IM (07:55)
[2016-12-18] MEDS ORDERED: SYNT150T PO (07:55)
== END 2016-11-13 09:45 | disposition home or self-care (01) ==
LOC: M INFU 07:57
PROVIDERS: ATTEND Internal Medicine
DX: E83.42 Hypomagnesemia (principal); N18.3 Chronic kidney disease, stage 3 (moderate); Z85.05 Personal history of malignant neoplasm of liver; Z92.21 Personal history of antineoplastic chemotherapy; Z88.3 Allergy status to other anti-infective agents; Z88.8 Allergy status to other drugs, medicaments and biological substances; Z91.041 Radiographic dye allergy status; Z91.040 Latex allergy status; Z79.84 Long term (current) use of oral hypoglycemic drugs; Z79.899 Other long term (current) drug therapy; Z87.891 Personal history of nicotine dependence
CPT/HCPCS: 96365; J3475

== ENCOUNTER 2016-11-15 07:51 | Outpatient (CLI) | payer MEDICARE, BC, OTHER ==
[2016-11-15] MEDS ORDERED: NS IV ONE (08:00)
[2016-11-15] MEDS ORDERED: MAGNESIUM SULFATE IV ONE (08:00)
[2016-12-18] MEDS ORDERED: SYNT150T PO (07:55)
[2016-12-18] MEDS ORDERED: LEVO10VL IM (07:55)
== END 2016-11-15 09:30 | disposition home or self-care (01) ==
LOC: M INFU 07:51
PROVIDERS: ATTEND Internal Medicine
DX: E83.42 Hypomagnesemia (principal); N18.3 Chronic kidney disease, stage 3 (moderate); Z85.05 Personal history of malignant neoplasm of liver; Z92.21 Personal history of antineoplastic chemotherapy; Z88.3 Allergy status to other anti-infective agents; Z88.8 Allergy status to other drugs, medicaments and biological substances; Z91.041 Radiographic dye allergy status; Z91.040 Latex allergy status; Z79.84 Long term (current) use of oral hypoglycemic drugs; Z79.899 Other long term (current) drug therapy; Z87.891 Personal history of nicotine dependence
CPT/HCPCS: 96365; J3475

== ENCOUNTER 2016-11-20 07:59 | Outpatient (CLI) | payer MEDICARE, BC, OTHER ==
[~2016-11-20] VITALS: Ht 167.6 cm; Wt 85.5 kg
[2016-11-20] MEDS ORDERED: NS IV SCH (08:00)
[2016-11-20] MEDS ORDERED: MAGNESIUM SULFATE IV SCH (08:00)
[2016-12-18] MEDS ORDERED: LEVO10VL IM (07:55)
[2016-12-18] MEDS ORDERED: SYNT150T PO (07:55)
== END 2016-11-20 10:00 | disposition home or self-care (01) ==
LOC: M INFU 07:59
PROVIDERS: ATTEND Internal Medicine
DX: E83.42 Hypomagnesemia (principal); N18.3 Chronic kidney disease, stage 3 (moderate); Z85.05 Personal history of malignant neoplasm of liver; Z92.21 Personal history of antineoplastic chemotherapy; Z88.3 Allergy status to other anti-infective agents; Z88.8 Allergy status to other drugs, medicaments and biological substances; Z91.041 Radiographic dye allergy status; Z91.040 Latex allergy status; Z79.84 Long term (current) use of oral hypoglycemic drugs; Z79.899 Other long term (current) drug therapy; Z87.891 Personal history of nicotine dependence
CPT/HCPCS: 96365; J3475

== ENCOUNTER 2016-11-22 07:52 | Outpatient (CLI) | payer MEDICARE, BC, OTHER ==
[~2016-11-22] VITALS: Ht 167.6 cm; Wt 85.5 kg
[2016-11-22] MEDS ORDERED: MAGNESIUM SULFATE IV ONE (08:00)
[2016-11-22] MEDS ORDERED: NS IV ONE (08:00)
[2016-12-18] MEDS ORDERED: SYNT150T PO (07:55)
[2016-12-18] MEDS ORDERED: LEVO10VL IM (07:55)
== END 2016-11-22 08:45 | disposition home or self-care (01) ==
LOC: M INFU 07:52
PROVIDERS: ATTEND Internal Medicine
DX: E83.42 Hypomagnesemia (principal); N18.3 Chronic kidney disease, stage 3 (moderate); Z85.05 Personal history of malignant neoplasm of liver; Z92.21 Personal history of antineoplastic chemotherapy; Z88.3 Allergy status to other anti-infective agents; Z88.8 Allergy status to other drugs, medicaments and biological substances; Z91.040 Latex allergy status; Z91.041 Radiographic dye allergy status; Z87.891 Personal history of nicotine dependence; Z79.84 Long term (current) use of oral hypoglycemic drugs; Z79.899 Other long term (current) drug therapy
CPT/HCPCS: 96365; J3475

== ENCOUNTER → 2016-11-27 | Outpatient (CLI) | payer MEDICARE, BC, OTHER ==
[~2016-11-27] VITALS: Ht 167.6 cm; Wt 85.5 kg
[~2016-11-27] MED LIST changes: +CIPR-249 PO; +HYDR-3713 PO; +LEVO10VL IM; +MAGNESIUM SULFATE IV ONE; +NS IV ONE; +PYRI1TAB5 PO; +SYNT150T PO; +TYLE325T5 PO
== END ==
LOC: M INFU 07:50
PROVIDERS: ATTEND Hospitalist
DX: E83.42 Hypomagnesemia (principal); N18.3 Chronic kidney disease, stage 3 (moderate); Z85.05 Personal history of malignant neoplasm of liver; Z92.21 Personal history of antineoplastic chemotherapy; Z88.3 Allergy status to other anti-infective agents; Z88.8 Allergy status to other drugs, medicaments and biological substances; Z91.040 Latex allergy status; Z91.041 Radiographic dye allergy status; Z79.84 Long term (current) use of oral hypoglycemic drugs; Z79.899 Other long term (current) drug therapy; Z87.891 Personal history of nicotine dependence
CPT/HCPCS: 96365; J3475

== ENCOUNTER 2016-11-29 07:57 | Outpatient (CLI) | payer MEDICARE, BC, OTHER ==
[~2016-11-29] VITALS: Ht 167.6 cm; Wt 85.5 kg
[~2016-11-29 07:57] MED LIST changes: -CIPR-249 PO; -HYDR-3713 PO; -LEVO10VL IM; -MAGNESIUM SULFATE IV ONE; -NS IV ONE; -PYRI1TAB5 PO; -SYNT150T PO; -TYLE325T5 PO
[2016-11-29] MEDS ORDERED: NS IV ONE (08:00)
[2016-11-29] MEDS ORDERED: MAGNESIUM SULFATE IV ONE (08:00)
[2016-11-30] MEDS ORDERED: TYLE325T5 PO (16:28)
[2016-11-30] MEDS ORDERED: CIPR-249 PO (18:54)
[2016-11-30] MEDS ORDERED: PYRI1TAB5 PO (18:55)
[2016-11-30] MEDS ORDERED: HYDR-3713 PO (18:57)
[2016-12-18] MEDS ORDERED: LEVO10VL IM (07:55)
[2016-12-18] MEDS ORDERED: SYNT150T PO (07:55)
== END 2016-11-29 09:30 | disposition home or self-care (01) ==
LOC: M INFU 07:57
PROVIDERS: ATTEND Hospitalist
DX: E83.42 Hypomagnesemia (principal); N18.3 Chronic kidney disease, stage 3 (moderate); Z85.05 Personal history of malignant neoplasm of liver; Z92.21 Personal history of antineoplastic chemotherapy; Z88.3 Allergy status to other anti-infective agents; Z88.8 Allergy status to other drugs, medicaments and biological substances; Z91.040 Latex allergy status; Z91.041 Radiographic dye allergy status; Z79.899 Other long term (current) drug therapy; Z79.84 Long term (current) use of oral hypoglycemic drugs; Z87.891 Personal history of nicotine dependence
CPT/HCPCS: 96365; J3475

== ENCOUNTER 2016-11-30 16:12 | Emergency (ER) | payer MEDICARE, BC, OTHER ==
[~2016-11-30] VITALS: Ht 170.2 cm; Wt 82.8 kg
[2016-11-30] MEDS ORDERED: TYLE325T5 PO (16:28)
[2016-11-30 17:30] LABS: CALCIUM OXALATE CRYSTALS SMALL
[2016-11-30] MEDS ORDERED: NORCO, ANEXSIA 5/325MG TABLET (HYDROcodone/ACETAMINOPHEN) PO ONE (17:30)
[2016-11-30] MEDS ORDERED: CIPR-249 PO (18:54)
[2016-11-30] MEDS ORDERED: PYRI1TAB5 PO (18:55)
[2016-11-30] MEDS ORDERED: HYDR-3713 PO (18:57)
[2016-11-30 19:02] VITALS: BP 152/93
--- NOTE | 2016-11-30 19:08 | REP ---
Urinary tract sonography: History: Right flank pain. History of metastatic disease. Nephrolithiasis. Comparison renal sonography February 2008. Comparison CT study is from April 2008 as well. There was a history of metastatic carcinoid at that time. Sonographic findings: Scanning through the region of the urinary bladder demonstrates that it is empty at the time of scanning. Renal cortical echogenicity pattern is slightly increased which may reflect chronic renal disease. No hydronephrosis seen on either side. Right renal dimensions are 9.6 x 4.1 x 4.2 cm. The left kidney measures 8.6 x 4.3 x 4.5 cm. There is a lower pole shadowing calculus in the right kidney suspected measuring 1.1 cm in greatest diameter. A second suspected stone is seen in the lower pole right kidney measuring 0.9 cm. No renal mass lesion is seen. There is a 1.7 x 1.5 x 0.7 cm cyst in the lower pole of the left kidney. No renal mass lesion is seen. Impression: No evidence of hydronephrosis. Two possible stones right kidney. 1.7 cm cyst lower pole left kidney. Otherwise negative. Signed by Gage Sage MD 11/30/2016 07:25 P
[2016-12-18] MEDS ORDERED: LEVO10VL IM (07:55)
[2016-12-18] MEDS ORDERED: SYNT150T PO (07:55)
== END 2016-11-30 19:09 | disposition home or self-care (01) ==
LOC: M ED 16:12
DX: N10 Acute pyelonephritis (principal); N20.0 Calculus of kidney; C18.9 Malignant neoplasm of colon, unspecified; Z87.891 Personal history of nicotine dependence; Z79.899 Other long term (current) drug therapy; Z88.8 Allergy status to other drugs, medicaments and biological substances; Z91.040 Latex allergy status; Z91.89 Other specified personal risk factors, not elsewhere classified; Z91.041 Radiographic dye allergy status

== ENCOUNTER 2016-12-04 08:04 | Outpatient (CLI) | payer MEDICARE, BC, OTHER ==
[~2016-12-04] VITALS: Ht 167.6 cm; Wt 85.5 kg
[~2016-12-04 08:04] MED LIST changes: +CIPR-249 PO; +HYDR-3713 PO; +PYRI1TAB5 PO; +TYLE325T5 PO
[2016-12-04] MEDS: NS IV ONE (08:16)
[2016-12-04] MEDS: MAGNESIUM SULFATE IV ONE (08:16)
[2016-12-18] MEDS ORDERED: LEVO10VL IM (07:55)
[2016-12-18] MEDS ORDERED: SYNT150T PO (07:55)
== END 2016-12-04 09:25 | disposition home or self-care (01) ==
LOC: M INFU 08:04
PROVIDERS: ATTEND Internal Medicine
DX: E83.42 Hypomagnesemia (principal); N18.3 Chronic kidney disease, stage 3 (moderate); Z85.05 Personal history of malignant neoplasm of liver; Z92.21 Personal history of antineoplastic chemotherapy; Z88.8 Allergy status to other drugs, medicaments and biological substances; Z88.3 Allergy status to other anti-infective agents; Z91.040 Latex allergy status; Z91.041 Radiographic dye allergy status; Z79.84 Long term (current) use of oral hypoglycemic drugs; Z79.899 Other long term (current) drug therapy; Z87.891 Personal history of nicotine dependence
CPT/HCPCS: 96365; J3475

== ENCOUNTER 2017-01-02 14:28 | Outpatient (CLI) | payer MEDICARE, BC, OTHER ==
[~2017-01-02] VITALS: Ht 167.6 cm; Wt 85.5 kg
[~2017-01-02 14:28] MED LIST changes: +LEVO10VL IM; +SYNT150T PO
[2017-01-02] MEDS ORDERED: LEVO175T2 PO (14:57)
[2017-01-02] MEDS ORDERED: MAGNESIUM SULFATE IV ONE (15:00)
[2017-01-02] MEDS ORDERED: NS IV ONE (15:00)
== END 2017-01-02 16:25 | disposition home or self-care (01) ==
LOC: M INFU 14:28
PROVIDERS: ATTEND General Practice
DX: E83.42 Hypomagnesemia (principal); N18.3 Chronic kidney disease, stage 3 (moderate); Z85.05 Personal history of malignant neoplasm of liver; Z92.21 Personal history of antineoplastic chemotherapy; Z88.3 Allergy status to other anti-infective agents; Z88.8 Allergy status to other drugs, medicaments and biological substances; Z91.040 Latex allergy status; Z91.041 Radiographic dye allergy status; Z87.891 Personal history of nicotine dependence; Z79.84 Long term (current) use of oral hypoglycemic drugs; Z79.899 Other long term (current) drug therapy
CPT/HCPCS: 96365; J3475

== ENCOUNTER 2017-01-08 07:56 | Outpatient (CLI) | payer MEDICARE, BC, OTHER ==
[~2017-01-08 07:56] MED LIST changes: +LEVO175T2 PO
[2017-01-08] MEDS ORDERED: NS IV ONE (08:00)
[2017-01-08] MEDS ORDERED: MAGNESIUM SULFATE IV ONE (08:00)
== END 2017-01-08 09:25 | disposition home or self-care (01) ==
LOC: M INFU 07:56
PROVIDERS: ATTEND Internal Medicine
DX: E83.42 Hypomagnesemia (principal); N18.3 Chronic kidney disease, stage 3 (moderate); Z85.05 Personal history of malignant neoplasm of liver; Z92.21 Personal history of antineoplastic chemotherapy; Z88.3 Allergy status to other anti-infective agents; Z88.8 Allergy status to other drugs, medicaments and biological substances; Z91.041 Radiographic dye allergy status; Z91.040 Latex allergy status; Z87.891 Personal history of nicotine dependence; Z79.84 Long term (current) use of oral hypoglycemic drugs; Z79.899 Other long term (current) drug therapy
CPT/HCPCS: 96365; J3475

== ENCOUNTER 2017-01-15 07:59 | Outpatient (CLI) | payer MEDICARE, BC, OTHER ==
[~2017-01-15] VITALS: Ht 167.6 cm; Wt 85.5 kg
[2017-01-15] MEDS ORDERED: MAGNESIUM SULFATE IV ONE (09:00)
[2017-01-15] MEDS ORDERED: NS IV ONE (09:00)
== END 2017-01-15 09:30 | disposition home or self-care (01) ==
LOC: M INFU 07:59
PROVIDERS: ATTEND Internal Medicine
DX: E83.42 Hypomagnesemia (principal); N18.3 Chronic kidney disease, stage 3 (moderate); E11.9 Type 2 diabetes mellitus without complications; E03.9 Hypothyroidism, unspecified; D64.9 Anemia, unspecified; Z79.899 Other long term (current) drug therapy; Z87.891 Personal history of nicotine dependence; Z88.8 Allergy status to other drugs, medicaments and biological substances; Z91.041 Radiographic dye allergy status; Z85.05 Personal history of malignant neoplasm of liver
CPT/HCPCS: 96365; J3475

== ENCOUNTER 2017-01-17 07:36 | Outpatient (CLI) | payer MEDICARE, BC, OTHER ==
[~2017-01-17] VITALS: Ht 167.6 cm; Wt 85.5 kg
[2017-01-17 08:00] VITALS: BP 151/72
[2017-01-17] MEDS ORDERED: NS IV ONE (08:00)
[2017-01-17] MEDS ORDERED: MAGNESIUM SULFATE IV ONE (08:00)
== END 2017-01-17 09:25 | disposition home or self-care (01) ==
LOC: M INFU 07:36
PROVIDERS: ATTEND Internal Medicine
DX: E83.42 Hypomagnesemia (principal); N18.3 Chronic kidney disease, stage 3 (moderate); Z85.05 Personal history of malignant neoplasm of liver; Z92.21 Personal history of antineoplastic chemotherapy; Z88.3 Allergy status to other anti-infective agents; Z88.8 Allergy status to other drugs, medicaments and biological substances; Z91.041 Radiographic dye allergy status; Z91.040 Latex allergy status; Z79.899 Other long term (current) drug therapy; Z87.442 Personal history of urinary calculi; Z87.891 Personal history of nicotine dependence
CPT/HCPCS: 96365; J3475

== ENCOUNTER 2017-01-22 08:03 | Outpatient (CLI) | payer MEDICARE, BC, OTHER ==
[~2017-01-22] VITALS: Ht 167.6 cm; Wt 85.5 kg
[~2017-01-22 08:03] MED LIST changes: +MAGNESIUM SULFATE IV SCH; +NS IV SCH
== END 2017-01-22 09:30 | disposition home or self-care (01) ==
LOC: M INFU 08:03
PROVIDERS: ATTEND Internal Medicine
DX: E83.42 Hypomagnesemia (principal); N18.3 Chronic kidney disease, stage 3 (moderate); Z85.038 Personal history of other malignant neoplasm of large intestine; Z85.05 Personal history of malignant neoplasm of liver; Z92.21 Personal history of antineoplastic chemotherapy; Z87.442 Personal history of urinary calculi; Z87.891 Personal history of nicotine dependence; Z91.041 Radiographic dye allergy status; Z88.3 Allergy status to other anti-infective agents; Z88.8 Allergy status to other drugs, medicaments and biological substances; Z91.040 Latex allergy status; Z79.899 Other long term (current) drug therapy
CPT/HCPCS: 96365; J3475

== ENCOUNTER 2017-01-24 07:59 | Outpatient (CLI) | payer MEDICARE, BC, OTHER ==
[~2017-01-24] VITALS: Ht 167.6 cm; Wt 85.5 kg
[~2017-01-24 07:59] MED LIST changes: -MAGNESIUM SULFATE IV SCH; -NS IV SCH
[2017-01-24] MEDS ORDERED: NS IV ONE (08:00)
[2017-01-24] MEDS ORDERED: MAGNESIUM SULFATE IV ONE (08:00)
== END 2017-01-24 09:40 | disposition home or self-care (01) ==
LOC: M INFU 07:59
PROVIDERS: ATTEND Internal Medicine
DX: E83.42 Hypomagnesemia (principal); N18.3 Chronic kidney disease, stage 3 (moderate); Z85.038 Personal history of other malignant neoplasm of large intestine; Z85.05 Personal history of malignant neoplasm of liver; Z87.442 Personal history of urinary calculi; Z92.21 Personal history of antineoplastic chemotherapy; Z87.891 Personal history of nicotine dependence; Z91.041 Radiographic dye allergy status; Z88.3 Allergy status to other anti-infective agents; Z88.8 Allergy status to other drugs, medicaments and biological substances; Z91.040 Latex allergy status; Z79.84 Long term (current) use of oral hypoglycemic drugs; Z79.899 Other long term (current) drug therapy
CPT/HCPCS: 96365; J3475

== ENCOUNTER 2017-01-29 08:04 | Outpatient (CLI) | payer MEDICARE, BC, OTHER ==
[~2017-01-29] VITALS: Ht 167.6 cm; Wt 81.8 kg
[~2017-01-29 08:04] MED LIST changes: +MAGNESIUM SULFATE IV ONE; +NS IV ONE
== END 2017-01-29 10:00 | disposition home or self-care (01) ==
LOC: M INFU 08:04
PROVIDERS: ATTEND Internal Medicine
DX: E83.42 Hypomagnesemia (principal); N18.3 Chronic kidney disease, stage 3 (moderate); Z85.038 Personal history of other malignant neoplasm of large intestine; Z85.05 Personal history of malignant neoplasm of liver; Z87.442 Personal history of urinary calculi; Z87.891 Personal history of nicotine dependence; Z92.21 Personal history of antineoplastic chemotherapy; Z91.041 Radiographic dye allergy status; Z88.3 Allergy status to other anti-infective agents; Z88.8 Allergy status to other drugs, medicaments and biological substances; Z91.040 Latex allergy status; Z79.899 Other long term (current) drug therapy
CPT/HCPCS: 96365; J3475

== ENCOUNTER 2017-01-31 08:26 | Outpatient (CLI) | payer MEDICARE, BC, OTHER ==
[~2017-01-31] VITALS: Ht 167.6 cm; Wt 83.2 kg
[~2017-01-31 08:26] MED LIST changes: -MAGNESIUM SULFATE IV ONE; -NS IV ONE
[2017-01-31] MEDS ORDERED: MAGNESIUM SULFATE IV ONE (09:00)
[2017-01-31] MEDS ORDERED: NS IV ONE (09:00)
== END 2017-01-31 10:00 | disposition home or self-care (01) ==
LOC: M INFU 08:26
PROVIDERS: ATTEND Internal Medicine
DX: E83.42 Hypomagnesemia (principal); N18.3 Chronic kidney disease, stage 3 (moderate); Z85.038 Personal history of other malignant neoplasm of large intestine; Z85.05 Personal history of malignant neoplasm of liver; Z87.442 Personal history of urinary calculi; Z92.21 Personal history of antineoplastic chemotherapy; Z87.891 Personal history of nicotine dependence; Z91.041 Radiographic dye allergy status; Z88.3 Allergy status to other anti-infective agents; Z88.8 Allergy status to other drugs, medicaments and biological substances; Z91.040 Latex allergy status; Z79.899 Other long term (current) drug therapy
CPT/HCPCS: 96365; J3475

== ENCOUNTER 2017-02-14 08:05 | Outpatient (CLI) | payer MEDICARE, BC, OTHER ==
[2017-02-14] MEDS: NS IV (08:40)
[2017-02-14] MEDS: MAGNESIUM SULFATE IV (08:40)
== END 2017-02-14 10:00 | disposition home or self-care (01) ==
LOC: M INFU 08:05
DX: E83.42 Hypomagnesemia (principal); N18.3 Chronic kidney disease, stage 3 (moderate); Z85.038 Personal history of other malignant neoplasm of large intestine; Z85.05 Personal history of malignant neoplasm of liver; Z87.442 Personal history of urinary calculi; Z92.21 Personal history of antineoplastic chemotherapy; Z91.041 Radiographic dye allergy status; Z88.3 Allergy status to other anti-infective agents; Z88.8 Allergy status to other drugs, medicaments and biological substances; Z91.040 Latex allergy status; Z79.899 Other long term (current) drug therapy
CPT/HCPCS: 96365

== ENCOUNTER 2017-02-21 06:59 | Outpatient (CLI) | payer MEDICARE, BC, OTHER ==
[2017-02-21] MEDS: MAGNESIUM SULFATE IV (07:16)
[2017-02-21] MEDS: NS IV (07:16)
== END 2017-02-21 08:30 | disposition home or self-care (01) ==
LOC: M INFU 06:59
DX: E83.42 Hypomagnesemia (principal); N19 Unspecified kidney failure; Z85.038 Personal history of other malignant neoplasm of large intestine; Z85.05 Personal history of malignant neoplasm of liver; Z87.442 Personal history of urinary calculi; Z91.041 Radiographic dye allergy status; Z88.8 Allergy status to other drugs, medicaments and biological substances
CPT/HCPCS: 96365

== ENCOUNTER 2017-02-26 07:56 | Outpatient (CLI) | payer MEDICARE, BC, OTHER ==
[2017-02-26] MEDS: MAGNESIUM SULFATE IV (08:16)
[2017-02-26] MEDS: NS IV (08:16)
== END 2017-02-26 09:30 | disposition home or self-care (01) ==
LOC: M INFU 07:56
DX: E83.42 Hypomagnesemia (principal); N18.3 Chronic kidney disease, stage 3 (moderate); Z91.041 Radiographic dye allergy status; Z91.040 Latex allergy status; Z88.8 Allergy status to other drugs, medicaments and biological substances; Z79.899 Other long term (current) drug therapy
CPT/HCPCS: 96365

== ENCOUNTER 2017-02-28 08:02 | Outpatient (CLI) | payer MEDICARE, BC, OTHER ==
[~2017-02-28 08:02] MED LIST changes: -CIPR-249 PO; -GLYB5TA PO; -HYDR-3713 PO; -LEVO10VL IM; -LEVO175T2 PO; -MAGN20IN4 IV; -MAGN70CA IV; +MAGNESIUM SULFATE IV; +NS IV; -OCTR200I IJ; -OCTR50IN IM; -PYRI1TAB5 PO; -SYNT137T7 PO; -SYNT150T PO; -TYLE325T5 PO; -[UNRECOGNIZED DRUG - CODE] SQ
[2017-02-28] MEDS: MAGNESIUM SULFATE IV (08:16)
[2017-02-28] MEDS: NS IV (08:16)
== END 2017-02-28 09:30 | disposition home or self-care (01) ==
LOC: M INFU 08:02
DX: E83.42 Hypomagnesemia (principal); N18.3 Chronic kidney disease, stage 3 (moderate); Z91.041 Radiographic dye allergy status; Z91.040 Latex allergy status; Z88.8 Allergy status to other drugs, medicaments and biological substances; Z79.899 Other long term (current) drug therapy
CPT/HCPCS: 96365

== ENCOUNTER 2017-03-07 08:12 | Outpatient (CLI) | payer MEDICARE, BC, OTHER ==
[2017-03-07] MEDS: NS IV (09:01)
[2017-03-07] MEDS: MAGNESIUM SULFATE IV (09:01)
== END 2017-03-07 10:15 | disposition home or self-care (01) ==
LOC: M INFU 08:12
DX: E83.42 Hypomagnesemia (principal); N18.3 Chronic kidney disease, stage 3 (moderate); Z91.041 Radiographic dye allergy status; Z88.8 Allergy status to other drugs, medicaments and biological substances; Z91.040 Latex allergy status; Z88.3 Allergy status to other anti-infective agents; Z79.899 Other long term (current) drug therapy
CPT/HCPCS: 96365

== ENCOUNTER 2017-03-11 08:38 | Outpatient (CLI) | payer MEDICARE, BC, OTHER ==
[2017-03-11] MEDS: NS IV (09:03)
[2017-03-11] MEDS: MAGNESIUM SULFATE IV (09:03)
== END 2017-03-11 10:15 | disposition home or self-care (01) ==
LOC: M INFU 08:38
DX: E83.42 Hypomagnesemia (principal); N18.3 Chronic kidney disease, stage 3 (moderate); Z88.8 Allergy status to other drugs, medicaments and biological substances; Z91.040 Latex allergy status; Z91.041 Radiographic dye allergy status; Z88.3 Allergy status to other anti-infective agents; Z79.899 Other long term (current) drug therapy
CPT/HCPCS: 96365

== ENCOUNTER 2017-03-14 08:03 | Outpatient (CLI) | payer MEDICARE, BC, OTHER ==
[2017-03-14] MEDS: NS IV (08:16)
[2017-03-14] MEDS: MAGNESIUM SULFATE IV (08:16)
== END 2017-03-14 09:30 | disposition home or self-care (01) ==
LOC: M INFU 08:03
DX: E83.42 Hypomagnesemia (principal); N18.3 Chronic kidney disease, stage 3 (moderate); Z79.899 Other long term (current) drug therapy; Z91.041 Radiographic dye allergy status; Z88.3 Allergy status to other anti-infective agents; Z88.8 Allergy status to other drugs, medicaments and biological substances; Z91.040 Latex allergy status
CPT/HCPCS: 96365

== ENCOUNTER 2017-03-21 07:35 | Outpatient (CLI) | payer MEDICARE, BC, OTHER ==
[2017-03-21] MEDS: MAGNESIUM SULFATE IV (07:45)
[2017-03-21] MEDS: NS IV (07:45)
== END 2017-03-21 09:00 | disposition home or self-care (01) ==
LOC: M INFU 07:35
DX: E83.42 Hypomagnesemia (principal); N18.3 Chronic kidney disease, stage 3 (moderate); Z79.890 Hormone replacement therapy; Z79.899 Other long term (current) drug therapy; Z91.041 Radiographic dye allergy status; Z88.8 Allergy status to other drugs, medicaments and biological substances
CPT/HCPCS: J3475

== ENCOUNTER 2017-04-08 08:01 | Outpatient (CLI) | payer MEDICARE, BC, OTHER ==
[2017-04-08] MEDS: MAGNESIUM SULFATE IV (08:44)
[2017-04-08] MEDS: NS IV (08:44)
== END 2017-04-08 10:00 | disposition home or self-care (01) ==
LOC: M INFU 08:01
DX: E83.42 Hypomagnesemia (principal); N18.3 Chronic kidney disease, stage 3 (moderate); Z91.041 Radiographic dye allergy status; Z88.8 Allergy status to other drugs, medicaments and biological substances; Z88.3 Allergy status to other anti-infective agents; Z91.040 Latex allergy status; Z79.899 Other long term (current) drug therapy
CPT/HCPCS: J3475

== ENCOUNTER 2017-04-11 08:02 | Outpatient (CLI) | payer MEDICARE, BC, OTHER ==
[2017-04-11] MEDS: MAGNESIUM SULFATE IV (08:26)
[2017-04-11] MEDS: NS IV (08:26)
== END 2017-04-11 09:30 | disposition home or self-care (01) ==
LOC: M INFU 08:02
DX: E83.42 Hypomagnesemia (principal); N18.3 Chronic kidney disease, stage 3 (moderate); Z79.899 Other long term (current) drug therapy; Z91.040 Latex allergy status; Z88.3 Allergy status to other anti-infective agents; Z88.8 Allergy status to other drugs, medicaments and biological substances; Z91.041 Radiographic dye allergy status
CPT/HCPCS: J3475

== ENCOUNTER 2017-04-18 07:30 | Outpatient (CLI) | payer MEDICARE, BC, OTHER ==
[2017-04-18] MEDS: NS IV (08:01)
[2017-04-18] MEDS: MAGNESIUM SULFATE IV (08:01)
== END 2017-04-18 09:15 | disposition home or self-care (01) ==
LOC: M INFU 07:30
DX: E83.42 Hypomagnesemia (principal); N18.3 Chronic kidney disease, stage 3 (moderate); Z79.899 Other long term (current) drug therapy; Z91.041 Radiographic dye allergy status; Z88.8 Allergy status to other drugs, medicaments and biological substances; Z87.891 Personal history of nicotine dependence; Z85.05 Personal history of malignant neoplasm of liver
CPT/HCPCS: J3475

== ENCOUNTER 2017-04-24 07:53 | Outpatient (CLI) | payer MEDICARE, BC, OTHER ==
[2017-04-24] MEDS: MAGNESIUM SULFATE IV (08:22)
[2017-04-24] MEDS: NS IV (08:22)
== END 2017-04-24 09:30 | disposition home or self-care (01) ==
LOC: M INFU 07:53
DX: E83.42 Hypomagnesemia (principal); N18.3 Chronic kidney disease, stage 3 (moderate); E11.9 Type 2 diabetes mellitus without complications; I12.9 Hypertensive chronic kidney disease with stage 1 through stage 4 chronic kidney disease, or unspecified chronic kidney disease; Z79.84 Long term (current) use of oral hypoglycemic drugs; Z79.899 Other long term (current) drug therapy; Z85.05 Personal history of malignant neoplasm of liver; Z85.038 Personal history of other malignant neoplasm of large intestine; Z87.891 Personal history of nicotine dependence; Z91.040 Latex allergy status; Z91.041 Radiographic dye allergy status; Z88.8 Allergy status to other drugs, medicaments and biological substances
CPT/HCPCS: J3475

== ENCOUNTER 2017-04-26 08:07 | Outpatient (CLI) | payer MEDICARE, BC, OTHER ==
[2017-04-26] MEDS: MAGNESIUM SULFATE IV (08:22)
[2017-04-26] MEDS: NS IV (08:22)
== END 2017-04-26 09:35 | disposition home or self-care (01) ==
LOC: M INFU 08:07
DX: E83.42 Hypomagnesemia (principal); N18.3 Chronic kidney disease, stage 3 (moderate); D64.9 Anemia, unspecified; E11.9 Type 2 diabetes mellitus without complications; Z79.899 Other long term (current) drug therapy; Z88.8 Allergy status to other drugs, medicaments and biological substances; Z91.041 Radiographic dye allergy status; Z85.05 Personal history of malignant neoplasm of liver
CPT/HCPCS: J3475

== ENCOUNTER 2017-05-01 08:05 | Outpatient (CLI) | payer MEDICARE, BC, OTHER ==
[2017-05-01] MEDS: NS IV (08:14)
[2017-05-01] MEDS: MAGNESIUM SULFATE IV (08:14)
== END 2017-05-01 09:30 | disposition home or self-care (01) ==
LOC: M INFU 08:05
DX: E83.42 Hypomagnesemia (principal); N18.3 Chronic kidney disease, stage 3 (moderate); E11.9 Type 2 diabetes mellitus without complications; Z79.899 Other long term (current) drug therapy; Z91.041 Radiographic dye allergy status; Z87.891 Personal history of nicotine dependence; Z85.05 Personal history of malignant neoplasm of liver
CPT/HCPCS: J3475

== ENCOUNTER 2017-05-06 07:27 | Outpatient (CLI) | payer MEDICARE, BC, OTHER ==
[2017-05-06] MEDS: MAGNESIUM SULFATE IV (08:03)
[2017-05-06] MEDS: NS IV (08:03)
== END 2017-05-06 09:25 | disposition home or self-care (01) ==
LOC: M INFU 07:27
DX: E83.42 Hypomagnesemia (principal); N18.3 Chronic kidney disease, stage 3 (moderate); E11.9 Type 2 diabetes mellitus without complications; Z85.05 Personal history of malignant neoplasm of liver; Z79.899 Other long term (current) drug therapy; Z91.041 Radiographic dye allergy status; Z87.891 Personal history of nicotine dependence
CPT/HCPCS: J3475

== ENCOUNTER 2017-05-07 13:30 | Outpatient (CLI) | payer MEDICARE, BC, OTHER ==
[2017-05-07] MEDS: MAGNESIUM SULFATE IV (13:59)
[2017-05-07] MEDS: NS IV (13:59)
== END 2017-05-07 15:15 | disposition home or self-care (01) ==
LOC: M INFU 13:30
DX: E83.42 Hypomagnesemia (principal); N18.3 Chronic kidney disease, stage 3 (moderate); Z79.899 Other long term (current) drug therapy; Z91.041 Radiographic dye allergy status; Z88.3 Allergy status to other anti-infective agents; Z88.8 Allergy status to other drugs, medicaments and biological substances; Z91.040 Latex allergy status
CPT/HCPCS: J3475

== ENCOUNTER 2017-05-15 15:59 | Outpatient (CLI) | payer MEDICARE, BC, OTHER ==
[2017-05-15] MEDS: MAGNESIUM SULFATE IV (16:11)
[2017-05-15] MEDS: NS IV (16:11)
== END 2017-05-15 18:30 | disposition home or self-care (01) ==
LOC: M INFU 15:59
DX: E86.0 Dehydration (principal); E83.42 Hypomagnesemia; D64.9 Anemia, unspecified; Z79.899 Other long term (current) drug therapy; Z88.4 Allergy status to anesthetic agent; Z88.8 Allergy status to other drugs, medicaments and biological substances; Z91.040 Latex allergy status; Z91.041 Radiographic dye allergy status; Z85.05 Personal history of malignant neoplasm of liver; Z87.891 Personal history of nicotine dependence
CPT/HCPCS: J3475

== ENCOUNTER 2017-05-17 10:38 | Outpatient (CLI) | payer MEDICARE, BC, OTHER ==
[2017-05-17] MEDS: NS IV (11:14)
[2017-05-17] MEDS: MAGNESIUM SULFATE IV (11:14)
== END 2017-05-17 12:30 | disposition home or self-care (01) ==
LOC: M INFU 10:38
DX: E83.42 Hypomagnesemia (principal); E03.9 Hypothyroidism, unspecified; E86.0 Dehydration; E11.9 Type 2 diabetes mellitus without complications; D64.9 Anemia, unspecified; Z79.899 Other long term (current) drug therapy; Z91.040 Latex allergy status; Z91.048 Other nonmedicinal substance allergy status; Z87.891 Personal history of nicotine dependence; Z88.8 Allergy status to other drugs, medicaments and biological substances; Z85.05 Personal history of malignant neoplasm of liver
CPT/HCPCS: J3475

== ENCOUNTER 2017-05-31 13:31 | Outpatient (CLI) | payer MEDICARE, BC, OTHER ==
[2017-05-31] MEDS: MAGNESIUM SULFATE IV (13:43)
[2017-05-31] MEDS: NS IV (13:43)
== END 2017-05-31 16:25 | disposition home or self-care (01) ==
LOC: M INFU 13:31
DX: E83.42 Hypomagnesemia (principal); E86.0 Dehydration; D64.9 Anemia, unspecified; N18.9 Chronic kidney disease, unspecified; Z79.899 Other long term (current) drug therapy; Z85.05 Personal history of malignant neoplasm of liver; Z87.891 Personal history of nicotine dependence; Z91.040 Latex allergy status; Z91.041 Radiographic dye allergy status; Z88.8 Allergy status to other drugs, medicaments and biological substances
CPT/HCPCS: J3475

== ENCOUNTER 2017-06-05 07:59 | Outpatient (CLI) | payer MEDICARE, BC, OTHER ==
[2017-06-05] MEDS: NS IV (08:19)
[2017-06-05] MEDS: MAGNESIUM SULFATE IV (08:19)
== END 2017-06-05 10:35 | disposition home or self-care (01) ==
LOC: M INFU 07:59
DX: E86.0 Dehydration (principal); E83.42 Hypomagnesemia; N18.9 Chronic kidney disease, unspecified; E11.9 Type 2 diabetes mellitus without complications; D64.9 Anemia, unspecified; Z79.899 Other long term (current) drug therapy; Z91.040 Latex allergy status; Z91.041 Radiographic dye allergy status; Z88.8 Allergy status to other drugs, medicaments and biological substances; Z85.05 Personal history of malignant neoplasm of liver; Z87.891 Personal history of nicotine dependence
CPT/HCPCS: J3475

== ENCOUNTER 2017-06-07 08:20 | Outpatient (CLI) | payer MEDICARE, BC, OTHER ==
[2017-06-07] MEDS: NS IV (08:30)
[2017-06-07] MEDS: MAGNESIUM SULFATE IV (08:30)
== END 2017-06-07 10:45 | disposition home or self-care (01) ==
LOC: M INFU 08:20
DX: E86.0 Dehydration (principal); E83.42 Hypomagnesemia; Z79.899 Other long term (current) drug therapy; Z91.040 Latex allergy status; Z91.041 Radiographic dye allergy status; Z88.8 Allergy status to other drugs, medicaments and biological substances; Z85.05 Personal history of malignant neoplasm of liver; Z87.891 Personal history of nicotine dependence
CPT/HCPCS: J3475

== ENCOUNTER 2017-06-11 07:55 | Outpatient (CLI) | payer MEDICARE, BC, OTHER ==
[2017-06-11] MEDS: NS IV (08:14)
[2017-06-11] MEDS: MAGNESIUM SULFATE IV (08:14)
== END 2017-06-11 10:15 | disposition home or self-care (01) ==
LOC: M INFU 07:55
DX: E83.42 Hypomagnesemia (principal); E86.0 Dehydration; Z79.899 Other long term (current) drug therapy; Z91.041 Radiographic dye allergy status; Z88.8 Allergy status to other drugs, medicaments and biological substances; Z91.040 Latex allergy status; Z85.05 Personal history of malignant neoplasm of liver; Z87.891 Personal history of nicotine dependence
CPT/HCPCS: J3475

== ENCOUNTER 2017-06-14 08:01 | Outpatient (CLI) | payer MEDICARE, BC, OTHER ==
[2017-06-14] MEDS: MAGNESIUM SULFATE IV (08:16)
[2017-06-14] MEDS: NS IV (08:16)
== END 2017-06-14 10:25 | disposition home or self-care (01) ==
LOC: M INFU 08:01
DX: E86.0 Dehydration (principal); E83.42 Hypomagnesemia; Z91.041 Radiographic dye allergy status; Z88.8 Allergy status to other drugs, medicaments and biological substances; Z88.3 Allergy status to other anti-infective agents; Z91.040 Latex allergy status; Z79.899 Other long term (current) drug therapy
CPT/HCPCS: J3475

== ENCOUNTER 2017-06-18 13:52 | Outpatient (CLI) | payer MEDICARE, BC, OTHER ==
[2017-06-18] MEDS: MAGNESIUM SULFATE IV (14:43)
[2017-06-18] MEDS: NS IV (14:43)
== END 2017-06-18 15:55 | disposition home or self-care (01) ==
LOC: M INFU 13:52
DX: E86.0 Dehydration (principal); E83.42 Hypomagnesemia; Z79.899 Other long term (current) drug therapy; Z88.8 Allergy status to other drugs, medicaments and biological substances; Z91.041 Radiographic dye allergy status; Z91.040 Latex allergy status; Z85.05 Personal history of malignant neoplasm of liver; Z87.891 Personal history of nicotine dependence
CPT/HCPCS: J3475

== ENCOUNTER 2017-06-20 15:42 | Outpatient (CLI) | payer MEDICARE, BC, OTHER ==
[2017-06-20] MEDS: MAGNESIUM SULFATE IV (16:05)
[2017-06-20] MEDS: NS IV (16:05)
[2017-06-20 16:58] LABS: PTH INTACT 62.6 PG/ML (18.5-88.0)
[2017-06-20 20:56] LABS: MAGNESIUM LEVEL 1.9 MG/DL (1.8-2.4)
== END 2017-06-20 18:15 | disposition home or self-care (01) ==
LOC: M INFU 15:42
DX: E86.0 Dehydration (principal); E83.42 Hypomagnesemia; Z79.899 Other long term (current) drug therapy; Z88.8 Allergy status to other drugs, medicaments and biological substances; Z91.040 Latex allergy status; Z91.041 Radiographic dye allergy status; Z85.05 Personal history of malignant neoplasm of liver; Z87.891 Personal history of nicotine dependence
CPT/HCPCS: J3475

== ENCOUNTER 2017-06-26 12:58 | Outpatient (CLI) | payer MEDICARE, BC, OTHER ==
[2017-06-26] MEDS: NS IV (13:12)
[2017-06-26] MEDS: MAGNESIUM SULFATE IV (13:12)
== END 2017-06-26 15:25 | disposition home or self-care (01) ==
LOC: M INFU 12:58
DX: E83.42 Hypomagnesemia (principal); E86.0 Dehydration; Z79.899 Other long term (current) drug therapy; Z91.041 Radiographic dye allergy status; Z88.8 Allergy status to other drugs, medicaments and biological substances; Z91.040 Latex allergy status; Z85.05 Personal history of malignant neoplasm of liver; Z87.891 Personal history of nicotine dependence
CPT/HCPCS: J3475

== ENCOUNTER 2017-06-28 06:25 | Outpatient (CLI) | payer MEDICARE, BC, OTHER ==
[2017-06-28] MEDS: MAGNESIUM SULFATE IV (07:11)
[2017-06-28] MEDS: NS IV (07:11)
== END 2017-06-28 09:25 | disposition home or self-care (01) ==
LOC: M INFU 06:25
DX: E83.42 Hypomagnesemia (principal); E86.0 Dehydration; Z79.899 Other long term (current) drug therapy; Z91.041 Radiographic dye allergy status; Z88.8 Allergy status to other drugs, medicaments and biological substances; Z91.040 Latex allergy status; Z85.05 Personal history of malignant neoplasm of liver; Z87.891 Personal history of nicotine dependence
CPT/HCPCS: J3475

== ENCOUNTER 2017-07-02 08:01 | Outpatient (CLI) | payer MEDICARE, BC, OTHER ==
[2017-07-02] MEDS: NS IV (08:41)
[2017-07-02] MEDS: MAGNESIUM SULFATE IV (08:41)
== END 2017-07-02 11:00 | disposition home or self-care (01) ==
LOC: M INFU 08:01
DX: E83.42 Hypomagnesemia (principal); E86.0 Dehydration; Z79.899 Other long term (current) drug therapy; Z88.8 Allergy status to other drugs, medicaments and biological substances; Z91.040 Latex allergy status; Z85.05 Personal history of malignant neoplasm of liver; Z87.891 Personal history of nicotine dependence
CPT/HCPCS: J3475

== ENCOUNTER 2017-07-05 14:00 | Outpatient (CLI) | payer MEDICARE, BC, OTHER ==
[2017-07-05] MEDS: NS IV (14:20)
[2017-07-05] MEDS: MAGNESIUM SULFATE IV (14:20)
== END 2017-07-05 16:30 | disposition home or self-care (01) ==
LOC: M INFU 14:00
DX: E83.42 Hypomagnesemia (principal); E86.0 Dehydration; Z79.899 Other long term (current) drug therapy
CPT/HCPCS: J3475

== ENCOUNTER 2017-07-09 10:45 | Outpatient (CLI) | payer MEDICARE, BC, OTHER ==
[2017-07-09 11:25] LABS: HEMATOCRIT 22.2 % (36.0-47.0); HEMOGLOBIN 7.1 g/dl (12.0-15.5); MEAN CORPUSCULAR VOLUME 84.4 fl (80.0-96.0); PLATELET COUNT, AUTOMATED 181 10^3/uL (150-450); RED BLOOD COUNT 2.63 10^6/uL (4.00-5.40); WHITE BLOOD COUNT 3.2 10^3/uL (4.0-10.0)
[2017-07-09 14:06] LABS: IMMEDIATE SPIN CROSSMATCH 1 1
[2017-07-09 14:20] LABS: BASO % 0.7 % (0.0-1.0); EOS # 0.3 10^3/uL (0.0-0.50); EOS % 8.6 % (0.0-3.0); IMMATURE GRANULOCYTE % 0.7 % (0-3.0); LYMPH # 0.7 10^3/uL (1.5-4.5); LYMPH % 21.5 % (24.0-44.0); MONO # 0.3 10^3/uL (0.0-0.8); MONO % 11.3 % (0.0-5.0); NEUTROPHILS # 1.7 10^3/uL (1.8-7.7); NEUTROPHILS % 57.2 % (36.0-66.0)
[2017-07-09 14:25] LABS: PLATELET ESTIMATE NORMAL (NORMAL)
[2017-07-09 14:26] LABS: DIFF SLIDE NUMBER 261
== END 2017-07-09 16:30 | disposition home or self-care (01) ==
LOC: M INFU 10:45
DX: E86.0 Dehydration (principal); E83.42 Hypomagnesemia; D63.8 Anemia in other chronic diseases classified elsewhere; Z79.899 Other long term (current) drug therapy; Z91.041 Radiographic dye allergy status; Z88.8 Allergy status to other drugs, medicaments and biological substances; Z91.040 Latex allergy status; Z85.05 Personal history of malignant neoplasm of liver; Z87.891 Personal history of nicotine dependence
CPT/HCPCS: 36430

== ENCOUNTER 2017-07-16 06:58 | Outpatient (CLI) | payer MEDICARE, BC, OTHER ==
[2017-07-16] MEDS: MAGNESIUM SULFATE IV (07:46)
[2017-07-16] MEDS: NS IV (07:46)
== END 2017-07-16 10:00 | disposition home or self-care (01) ==
LOC: M INFU 06:58
DX: E86.0 Dehydration (principal); E83.42 Hypomagnesemia; D63.8 Anemia in other chronic diseases classified elsewhere; Z79.899 Other long term (current) drug therapy; Z91.040 Latex allergy status; Z91.041 Radiographic dye allergy status; Z88.8 Allergy status to other drugs, medicaments and biological substances; Z85.05 Personal history of malignant neoplasm of liver; Z87.891 Personal history of nicotine dependence
CPT/HCPCS: J3475

== ENCOUNTER 2017-07-19 13:50 | Outpatient (CLI) | payer MEDICARE, BC, OTHER ==
[2017-07-19] MEDS: MAGNESIUM SULFATE IV (14:30)
[2017-07-19] MEDS: NS IV (14:30)
== END 2017-07-19 16:25 | disposition home or self-care (01) ==
LOC: M INFU 13:50
DX: E83.42 Hypomagnesemia (principal); E89.0 Postprocedural hypothyroidism; D63.1 Anemia in chronic kidney disease; N18.9 Chronic kidney disease, unspecified; Z79.899 Other long term (current) drug therapy; Z91.040 Latex allergy status; Z91.041 Radiographic dye allergy status; Z88.8 Allergy status to other drugs, medicaments and biological substances; Z85.05 Personal history of malignant neoplasm of liver; Z87.891 Personal history of nicotine dependence
CPT/HCPCS: J3475

== ENCOUNTER 2017-07-22 08:04 | Outpatient (CLI) | payer MEDICARE, BC, OTHER ==
[2017-07-22] MEDS: MAGNESIUM SULFATE IV (08:19)
[2017-07-22] MEDS: NS IV (08:19)
== END 2017-07-22 10:20 | disposition home or self-care (01) ==
LOC: M INFU 08:04
DX: E86.0 Dehydration (principal); E83.42 Hypomagnesemia; D63.8 Anemia in other chronic diseases classified elsewhere; Z79.899 Other long term (current) drug therapy; Z91.040 Latex allergy status; Z91.041 Radiographic dye allergy status; Z88.8 Allergy status to other drugs, medicaments and biological substances; Z85.05 Personal history of malignant neoplasm of liver; Z87.891 Personal history of nicotine dependence
CPT/HCPCS: J3475

== ENCOUNTER 2017-07-25 07:25 | Outpatient (CLI) | payer MEDICARE, BC, OTHER ==
[2017-07-25] MEDS: NS IV (08:10)
[2017-07-25] MEDS: MAGNESIUM SULFATE IV (08:10)
[2017-07-25 08:15] LABS: HEMATOCRIT 26.8 % (36.0-47.0); HEMOGLOBIN 8.6 g/dl (12.0-15.5); MEAN CORPUSCULAR HGB CONC 32.1 g/dl (32.0-36.5); PLATELET COUNT, AUTOMATED 144 10^3/uL (150-450); RED BLOOD COUNT 3.19 10^6/uL (4.00-5.40); RED CELL DISTRIBUTION WIDTH 14.7 % (11.5-14.5); WHITE BLOOD COUNT 4.2 10^3/uL (4.0-10.0)
[2017-07-25 08:44] LABS: ALBUMIN 3.4 GM/DL (3.2-5.2); ALBUMIN/GLOBULIN RATIO 0.94 (1.00-1.93); ALKALINE PHOSPHATASE 132 U/L (45-117); ALT/SGPT 23 U/L (12-78); ANION GAP 9 MEQ/L (8-16); AST/SGOT 25 U/L (7-37); BILIRUBIN,TOTAL 0.5 MG/DL (0.2-1.0); BLOOD UREA NITROGEN 30 MG/DL (7-18); CALCIUM LEVEL 8.4 MG/DL (8.8-10.2); CARBON DIOXIDE LEVEL 17 MEQ/L (21-32); CHLORIDE LEVEL 116 MEQ/L (98-107); CREATININE FOR GFR 3.34 MG/DL (0.55-1.30); GLOMERULAR FILTRATION RATE 14.9 (>45); GLUCOSE, FASTING 160 MG/DL (70-100); SODIUM LEVEL 142 MEQ/L (136-145)
== END 2017-07-25 10:20 | disposition home or self-care (01) ==
LOC: M INFU 07:25
DX: E83.42 Hypomagnesemia (principal); N18.3 Chronic kidney disease, stage 3 (moderate); E86.0 Dehydration; Z79.899 Other long term (current) drug therapy; Z91.040 Latex allergy status; Z91.041 Radiographic dye allergy status; Z88.8 Allergy status to other drugs, medicaments and biological substances; Z85.05 Personal history of malignant neoplasm of liver; Z87.891 Personal history of nicotine dependence
CPT/HCPCS: J3475

== ENCOUNTER 2017-07-29 12:49 | Outpatient (CLI) | payer MEDICARE, BC, OTHER ==
[2017-07-29] MEDS: MAGNESIUM SULFATE IV (14:28)
[2017-07-29] MEDS: NS IV (14:28)
== END 2017-07-29 15:00 | disposition home or self-care (01) ==
LOC: M INFU 12:49
DX: E86.0 Dehydration (principal); E83.42 Hypomagnesemia; Z87.442 Personal history of urinary calculi; Z87.19 Personal history of other diseases of the digestive system; Z91.041 Radiographic dye allergy status; Z88.3 Allergy status to other anti-infective agents; Z88.8 Allergy status to other drugs, medicaments and biological substances; Z91.040 Latex allergy status; Z79.899 Other long term (current) drug therapy
CPT/HCPCS: J3475

== ENCOUNTER → 2017-08-03 | Outpatient (CLI) | payer MEDICARE, BC, OTHER | LOC: M INFU 08:00 | DX: Z53.09 Procedure and treatment not carried out because of other contraindication (principal) ==

== ENCOUNTER 2017-08-06 07:52 | Outpatient (CLI) | payer MEDICARE, BC, OTHER ==
[2017-08-06] MEDS: NS IV (08:13)
[2017-08-06] MEDS: MAGNESIUM SULFATE IV (08:13)
== END 2017-08-06 10:30 | disposition home or self-care (01) ==
LOC: M INFU 07:52
DX: E86.0 Dehydration (principal); E83.42 Hypomagnesemia; Z79.899 Other long term (current) drug therapy; Z91.041 Radiographic dye allergy status; Z88.8 Allergy status to other drugs, medicaments and biological substances; Z91.040 Latex allergy status; Z85.05 Personal history of malignant neoplasm of liver; Z87.891 Personal history of nicotine dependence
CPT/HCPCS: J3475

== ENCOUNTER 2017-08-09 06:54 | Outpatient (CLI) | payer MEDICARE, BC, OTHER ==
[2017-08-09] MEDS: NS IV (07:25)
[2017-08-09] MEDS: MAGNESIUM SULFATE IV (07:25)
== END 2017-08-09 09:25 | disposition home or self-care (01) ==
LOC: M INFU 06:54
DX: E86.0 Dehydration (principal); E83.42 Hypomagnesemia; Z87.442 Personal history of urinary calculi; Z79.899 Other long term (current) drug therapy; Z91.041 Radiographic dye allergy status; Z88.3 Allergy status to other anti-infective agents; Z88.8 Allergy status to other drugs, medicaments and biological substances; Z91.040 Latex allergy status
CPT/HCPCS: J3475

== ENCOUNTER 2017-08-13 07:51 | Outpatient (CLI) | payer MEDICARE, BC, OTHER ==
[2017-08-13] MEDS: NS IV (08:21)
[2017-08-13] MEDS: MAGNESIUM SULFATE IV (08:21)
== END 2017-08-13 10:30 | disposition home or self-care (01) ==
LOC: M INFU 07:51
DX: E86.0 Dehydration (principal); E83.42 Hypomagnesemia; Z87.442 Personal history of urinary calculi; Z91.041 Radiographic dye allergy status; Z88.3 Allergy status to other anti-infective agents; Z88.8 Allergy status to other drugs, medicaments and biological substances; Z91.040 Latex allergy status; Z79.899 Other long term (current) drug therapy
CPT/HCPCS: J3475

== ENCOUNTER 2017-08-16 07:56 | Outpatient (CLI) | payer MEDICARE, BC, OTHER ==
[2017-08-16] MEDS: NS IV (08:40)
[2017-08-16] MEDS: MAGNESIUM SULFATE IV (08:40)
[2017-08-16 12:12] LABS: CREATININE, URINE 69.1 MG/DL; MAU/CREAT RATIO 334.2 MCG/MG (0.0-30.0)
[2017-08-16 12:22] LABS: FREE T4 0.47 NG/DL (0.76-1.46); MAGNESIUM LEVEL 2.2 MG/DL (1.8-2.4)
[2017-08-16 12:22] LABS: URIC ACID 5.9 MG/DL (2.6-6.0)
[2017-08-16 12:28] LABS: ESTIMATED AVERAGE GLUCOSE 157 MG/DL (60-110); HEMOGLOBIN A1c 7.1 %
== END 2017-08-16 11:00 | disposition home or self-care (01) ==
LOC: M INFU 07:56
DX: E86.0 Dehydration (principal); E83.42 Hypomagnesemia; Z87.442 Personal history of urinary calculi; Z91.041 Radiographic dye allergy status; Z88.3 Allergy status to other anti-infective agents; Z88.8 Allergy status to other drugs, medicaments and biological substances; Z91.040 Latex allergy status; Z79.899 Other long term (current) drug therapy
CPT/HCPCS: J3475

== ENCOUNTER 2017-08-20 07:52 | Outpatient (CLI) | payer MEDICARE, BC, OTHER ==
[2017-08-20] MEDS: MAGNESIUM SULFATE IV (08:32)
[2017-08-20] MEDS: NS IV (08:32)
[2017-08-20 11:17] LABS: HEMATOCRIT 25.1 % (36.0-47.0); HEMOGLOBIN 7.7 g/dl (12.0-15.5)
[2017-08-22 15:43] LABS: IMMEDIATE SPIN CROSSMATCH 1 1
== END 2017-08-20 11:00 | disposition home or self-care (01) ==
LOC: M INFU 07:52
DX: E86.0 Dehydration (principal); E83.42 Hypomagnesemia; Z87.442 Personal history of urinary calculi; Z79.899 Other long term (current) drug therapy; Z91.041 Radiographic dye allergy status; Z88.3 Allergy status to other anti-infective agents; Z88.8 Allergy status to other drugs, medicaments and biological substances; Z91.040 Latex allergy status
CPT/HCPCS: J3475

== ENCOUNTER → 2017-08-22 | Outpatient (CLI) | payer MEDICARE, BC, OTHER | LOC: M INFU 15:05 | DX: D64.9 Anemia, unspecified (principal); Z91.041 Radiographic dye allergy status; Z88.3 Allergy status to other anti-infective agents; Z88.8 Allergy status to other drugs, medicaments and biological substances; Z79.899 Other long term (current) drug therapy | CPT/HCPCS: 36430 ==

== ENCOUNTER 2017-08-23 07:58 | Outpatient (CLI) | payer MEDICARE, BC, OTHER ==
[2017-08-23] MEDS: MAGNESIUM SULFATE IV (08:14)
[2017-08-23] MEDS: NS IV (08:14)
== END 2017-08-23 10:15 | disposition home or self-care (01) ==
LOC: M INFU 07:58
DX: E86.0 Dehydration (principal); E83.42 Hypomagnesemia; Z91.041 Radiographic dye allergy status; Z88.3 Allergy status to other anti-infective agents; Z88.8 Allergy status to other drugs, medicaments and biological substances; Z91.040 Latex allergy status; Z79.899 Other long term (current) drug therapy
CPT/HCPCS: J3475

== ENCOUNTER 2017-08-27 07:24 | Outpatient (CLI) | payer MEDICARE, BC, OTHER ==
[2017-08-27] MEDS: NS IV (07:41)
[2017-08-27] MEDS: MAGNESIUM SULFATE IV (07:41)
== END 2017-08-27 09:50 | disposition home or self-care (01) ==
LOC: M INFU 07:24
DX: E86.0 Dehydration (principal); E83.42 Hypomagnesemia; Z91.041 Radiographic dye allergy status; Z88.3 Allergy status to other anti-infective agents; Z91.040 Latex allergy status; Z88.8 Allergy status to other drugs, medicaments and biological substances; Z79.899 Other long term (current) drug therapy
CPT/HCPCS: J3475

== ENCOUNTER 2017-08-30 06:53 | Outpatient (CLI) | payer MEDICARE, BC, OTHER ==
[2017-08-30] MEDS: NS IV (07:05)
[2017-08-30] MEDS: MAGNESIUM SULFATE IV (07:05)
== END 2017-08-30 09:15 | disposition home or self-care (01) ==
LOC: M INFU 06:53
DX: E86.0 Dehydration (principal); E83.42 Hypomagnesemia; Z91.041 Radiographic dye allergy status; Z88.3 Allergy status to other anti-infective agents; Z88.8 Allergy status to other drugs, medicaments and biological substances; Z91.040 Latex allergy status
CPT/HCPCS: J3475

== ENCOUNTER 2017-09-04 07:52 | Outpatient (CLI) | payer MEDICARE, BC, OTHER ==
[2017-09-04] MEDS: NS IV (08:10)
[2017-09-04] MEDS: MAGNESIUM SULFATE IV (08:10)
== END 2017-09-04 10:25 | disposition home or self-care (01) ==
LOC: M INFU 07:52
DX: E83.42 Hypomagnesemia (principal); E86.0 Dehydration; D63.8 Anemia in other chronic diseases classified elsewhere; Z79.899 Other long term (current) drug therapy; Z91.040 Latex allergy status; Z91.041 Radiographic dye allergy status; Z88.8 Allergy status to other drugs, medicaments and biological substances; Z85.05 Personal history of malignant neoplasm of liver; Z87.891 Personal history of nicotine dependence
CPT/HCPCS: J3475

== ENCOUNTER 2017-09-06 07:24 | Outpatient (CLI) | payer MEDICARE, BC, OTHER ==
[2017-09-06] MEDS: NS IV (08:00)
[2017-09-06] MEDS: MAGNESIUM SULFATE IV (08:00)
== END 2017-09-06 10:20 | disposition home or self-care (01) ==
LOC: M INFU 07:24
DX: E83.42 Hypomagnesemia (principal); E86.0 Dehydration; Z79.899 Other long term (current) drug therapy; Z88.8 Allergy status to other drugs, medicaments and biological substances; Z91.040 Latex allergy status; Z91.041 Radiographic dye allergy status; Z87.891 Personal history of nicotine dependence; Z85.05 Personal history of malignant neoplasm of liver
CPT/HCPCS: J3475

== ENCOUNTER 2017-09-09 07:54 | Outpatient (CLI) | payer MEDICARE, BC, OTHER ==
[2017-09-09] MEDS: NS IV (08:47)
[2017-09-09] MEDS: MAGNESIUM SULFATE IV (08:47)
== END 2017-09-09 10:30 | disposition home or self-care (01) ==
LOC: M INFU 07:54
DX: E83.42 Hypomagnesemia (principal); E86.0 Dehydration; D63.8 Anemia in other chronic diseases classified elsewhere; Z79.899 Other long term (current) drug therapy; Z91.040 Latex allergy status; Z91.041 Radiographic dye allergy status; Z88.8 Allergy status to other drugs, medicaments and biological substances; Z85.05 Personal history of malignant neoplasm of liver; Z87.891 Personal history of nicotine dependence
CPT/HCPCS: J3475

== ENCOUNTER 2017-09-12 07:48 | Outpatient (CLI) | payer MEDICARE, BC, OTHER ==
[2017-09-12] MEDS: NS IV (08:09)
[2017-09-12] MEDS: MAGNESIUM SULFATE IV (08:09)
== END 2017-09-12 10:20 | disposition home or self-care (01) ==
LOC: M INFU 07:48
DX: E86.0 Dehydration (principal); E83.42 Hypomagnesemia; Z91.041 Radiographic dye allergy status; Z88.3 Allergy status to other anti-infective agents; Z88.8 Allergy status to other drugs, medicaments and biological substances; Z91.040 Latex allergy status; Z79.899 Other long term (current) drug therapy
CPT/HCPCS: J3475

== ENCOUNTER 2017-09-17 08:29 | Outpatient (CLI) | payer MEDICARE, BC, OTHER ==
[2017-09-17] MEDS: NS IV (08:46)
[2017-09-17] MEDS: MAGNESIUM SULFATE IV (08:46)
== END 2017-09-17 10:45 | disposition home or self-care (01) ==
LOC: M INFU 08:29
DX: E86.0 Dehydration (principal); E83.42 Hypomagnesemia; Z91.041 Radiographic dye allergy status; Z88.3 Allergy status to other anti-infective agents; Z88.8 Allergy status to other drugs, medicaments and biological substances; Z91.040 Latex allergy status; Z79.899 Other long term (current) drug therapy
CPT/HCPCS: J3475

== ENCOUNTER 2017-09-18 11:15 | Outpatient (CLI) | payer MEDICARE, BC, OTHER ==
[2017-09-18] MEDS: NS IV (11:39)
[2017-09-18] MEDS: MAGNESIUM SULFATE IV (11:39)
[2017-09-18 12:29] LABS: PHOSPHORUS LEVEL 3.9 MG/DL (2.5-4.9)
[2017-09-18 12:29] LABS: ANION GAP 13 MEQ/L (8-16); BLOOD UREA NITROGEN 54 MG/DL (7-18); CALCIUM LEVEL 8.9 MG/DL (8.8-10.2); CARBON DIOXIDE LEVEL 15 MEQ/L (21-32); CHLORIDE LEVEL 113 MEQ/L (98-107); CREATININE FOR GFR 5.37 MG/DL (0.55-1.30); GLOMERULAR FILTRATION RATE 8.6 (>45); GLUCOSE, FASTING 173 MG/DL (70-100); POTASSIUM SERUM 3.9 MEQ/L (3.5-5.1); SODIUM LEVEL 141 MEQ/L (136-145)
== END 2017-09-18 13:00 | disposition home or self-care (01) ==
LOC: M INFU 11:15
DX: E86.0 Dehydration (principal); E83.42 Hypomagnesemia; N18.5 Chronic kidney disease, stage 5; Z79.899 Other long term (current) drug therapy; Z91.041 Radiographic dye allergy status; Z88.3 Allergy status to other anti-infective agents; Z88.8 Allergy status to other drugs, medicaments and biological substances; Z91.040 Latex allergy status
CPT/HCPCS: J3475

== ENCOUNTER 2017-09-20 07:09 | Outpatient (CLI) | payer MEDICARE, BC, OTHER ==
[2017-09-20] MEDS: MAGNESIUM SULFATE IV (07:37)
[2017-09-20] MEDS: NS IV (07:37)
== END 2017-09-20 08:45 | disposition home or self-care (01) ==
LOC: M INFU 07:09
DX: E86.0 Dehydration (principal); E83.42 Hypomagnesemia; Z91.041 Radiographic dye allergy status; Z91.040 Latex allergy status; Z88.3 Allergy status to other anti-infective agents; Z88.8 Allergy status to other drugs, medicaments and biological substances; Z79.899 Other long term (current) drug therapy
CPT/HCPCS: J3475

== ENCOUNTER 2017-09-23 07:30 | Outpatient (CLI) | payer MEDICARE, BC, OTHER ==
[2017-09-23] MEDS: MAGNESIUM SULFATE IV (07:47)
[2017-09-23] MEDS: NS IV (07:47)
== END 2017-09-23 10:00 | disposition home or self-care (01) ==
LOC: M INFU 07:30
DX: E86.0 Dehydration (principal); E83.42 Hypomagnesemia; Z91.041 Radiographic dye allergy status; Z91.040 Latex allergy status; Z88.8 Allergy status to other drugs, medicaments and biological substances; Z88.3 Allergy status to other anti-infective agents; Z79.899 Other long term (current) drug therapy
CPT/HCPCS: J3475

== ENCOUNTER 2017-09-24 07:55 | Outpatient (CLI) | payer MEDICARE, BC, OTHER ==
[2017-09-24] MEDS: MAGNESIUM SULFATE IV (08:20)
[2017-09-24] MEDS: NS IV (08:20)
[2017-09-24 08:54] LABS: ANION GAP 14 MEQ/L (8-16); BLOOD UREA NITROGEN 53 MG/DL (7-18); CALCIUM LEVEL 8.8 MG/DL (8.8-10.2); CARBON DIOXIDE LEVEL 14 MEQ/L (21-32); CHLORIDE LEVEL 112 MEQ/L (98-107); CREATININE FOR GFR 4.93 MG/DL (0.55-1.30); GLOMERULAR FILTRATION RATE 9.5 (>45); GLUCOSE, FASTING 139 MG/DL (70-100); POTASSIUM SERUM 3.7 MEQ/L (3.5-5.1); SODIUM LEVEL 140 MEQ/L (136-145)
== END 2017-09-24 10:20 | disposition home or self-care (01) ==
LOC: M INFU 07:55
DX: E86.0 Dehydration (principal); E83.42 Hypomagnesemia; N18.5 Chronic kidney disease, stage 5; Z91.040 Latex allergy status; Z91.041 Radiographic dye allergy status; Z88.3 Allergy status to other anti-infective agents; Z88.8 Allergy status to other drugs, medicaments and biological substances; Z79.899 Other long term (current) drug therapy
CPT/HCPCS: J3475

== ENCOUNTER 2017-09-27 07:37 | Outpatient (CLI) | payer MEDICARE, BC, OTHER | END 2017-09-27 10:00 | disposition home or self-care (01) | LOC: M INFU 07:37 | DX: E86.0 Dehydration (principal); E83.42 Hypomagnesemia; N18.5 Chronic kidney disease, stage 5; Z91.040 Latex allergy status; Z91.041 Radiographic dye allergy status; Z88.3 Allergy status to other anti-infective agents; Z88.8 Allergy status to other drugs, medicaments and biological substances; Z79.899 Other long term (current) drug therapy | CPT/HCPCS: 96365 ==

== ENCOUNTER 2017-09-30 08:03 | Outpatient (CLI) | payer MEDICARE, BC, OTHER ==
[2017-09-30] MEDS: NS IV (08:17)
[2017-09-30] MEDS: MAGNESIUM SULFATE IV (08:17)
== END 2017-09-30 10:25 | disposition home or self-care (01) ==
LOC: M INFU 08:03
DX: E86.0 Dehydration (principal); E83.42 Hypomagnesemia; N18.5 Chronic kidney disease, stage 5; Z91.041 Radiographic dye allergy status; Z88.3 Allergy status to other anti-infective agents; Z88.8 Allergy status to other drugs, medicaments and biological substances; Z91.040 Latex allergy status; Z79.899 Other long term (current) drug therapy
CPT/HCPCS: J3475

== ENCOUNTER 2017-10-04 15:08 | Outpatient (CLI) | payer MEDICARE, BC, OTHER ==
[2017-10-08] MEDS: MAGNESIUM SULFATE IV (07:00)
[2017-10-08] MEDS: NS IV (07:00)
== END 2017-10-08 10:45 | disposition home or self-care (01) ==
LOC: M INFU 15:08
DX: E86.0 Dehydration (principal); E83.42 Hypomagnesemia; N18.5 Chronic kidney disease, stage 5; Z91.041 Radiographic dye allergy status; Z88.3 Allergy status to other anti-infective agents; Z88.8 Allergy status to other drugs, medicaments and biological substances; Z91.040 Latex allergy status; Z79.899 Other long term (current) drug therapy
CPT/HCPCS: J3475

== ENCOUNTER 2017-10-04 15:27 | Inpatient (IN) | payer MEDICARE, BC, OTHER ==
[2017-10-04 17:45] LABS: HEMATOCRIT 27.7 % (36.0-47.0); HEMOGLOBIN 8.7 g/dl (12.0-15.5); MEAN CORPUSCULAR HGB CONC 31.4 g/dl (32.0-36.5); MEAN CORPUSCULAR VOLUME 79.6 fl (80.0-96.0); PLATELET COUNT, AUTOMATED 235 10^3/uL (150-450); RED BLOOD COUNT 3.48 10^6/uL (4.00-5.40); RED CELL DISTRIBUTION WIDTH 14.8 % (11.5-14.5); WHITE BLOOD COUNT 6.3 10^3/uL (4.0-10.0)
[2017-10-04] MEDS: NS IV (17:45)
[2017-10-04] MEDS: MAGNESIUM SULFATE IV (17:45)
[2017-10-04] MEDS ORDERED: ENTER DRUG NAME HERE (PATIENT'S OWN MED) IV (17:45)
[2017-10-04 18:07] LABS: ALKALINE PHOSPHATASE 304 U/L (45-117); ALT/SGPT 54 U/L (12-78); ANION GAP 14 MEQ/L (8-16); AST/SGOT 73 U/L (7-37); BLOOD UREA NITROGEN 56 MG/DL (7-18); CALCIUM LEVEL 9.8 MG/DL (8.8-10.2); CARBON DIOXIDE LEVEL 17 MEQ/L (21-32); CHLORIDE LEVEL 107 MEQ/L (98-107); CREATININE FOR GFR 5.67 MG/DL (0.55-1.30); GLOMERULAR FILTRATION RATE 8.1 (>45); GLUCOSE, FASTING 181 MG/DL (70-100); MAGNESIUM LEVEL 2.1 MG/DL (1.8-2.4); PHOSPHORUS LEVEL 4.9 MG/DL (2.5-4.9); POTASSIUM SERUM 3.7 MEQ/L (3.5-5.1); SODIUM LEVEL 138 MEQ/L (136-145); URIC ACID 6.9 MG/DL (2.6-6.0)
[2017-10-04] MEDS ORDERED: LIDOCAINE 1% MDV 20ML VIAL As Ordered (18:09)
[2017-10-04] MEDS: LIDOCAINE 1% MDV 20ML VIAL SC (18:15)
[2017-10-04 19:45] LABS: CRYSTALS, BODY FLUID URIC ACID (NONE SEEN); SOURCE, BODY FLUID CRYSTALS LFT KNEE
[2017-10-04 19:48] LABS: SOURCE, BODY FLUID GLUCOSE LFT KNEE
[2017-10-04 19:49] LABS: SOURCE, BODY FLUID URIC ACID LFT KNEE; URIC ACID, BODY FLUID 28.8 MG/DL (NOT ESTABLISHED)
[2017-10-04 20:15] LABS: BF MONONUCLEAR CELL % 3.9 % (0-0); BF POLYMORPHONUCLEAR CELL % 96.1 % (0-0)
[2017-10-04 20:18] LABS: APPEARANCE, BODY FLUID TURBID (CLEAR); BF DIFF IF INDICATED? YES (NO); RBC BODY FLUID 5 10^3/uL (<2); SOURCE, BODY FLUID LFT KNEE; SYNOVIAL FLUID COLOR YELLOW (YELLOW); WBC BODY FLUID 14250 /uL (0-10)
[2017-10-04] MEDS: predniSONE 20 MG TAB PO (21:32)
[2017-10-04] MEDS: NS 1,000 ML IV (23:02)
[2017-10-04] MEDS ORDERED: VANCOMYCIN HCL 1,000 MG, VIAL MATE ADAPTER 1 EACH in D5W 250 ML IV (23:15)
[2017-10-04] MEDS ORDERED: ACETAMINOPHEN TAB 650MG DOSE (2X325MG) PO (23:15)
[2017-10-05] MEDS: cefTRIAXone SOD 2 GM in D5W MINI-BAG PLUS 50 ML IV
[2017-10-05 01:17] LABS: ERYTHROCYTE SEDIMENTATION RATE > 140 mm/hr (0-30)
[2017-10-05] MEDS: VANCOMYCIN HCL 500 MG in D5W MINI-BAG PLUS 100 ML IV (03:35)
[2017-10-05 05:11] LABS: HEMATOCRIT 23.5 % (36.0-47.0); HEMOGLOBIN 7.3 g/dl (12.0-15.5); MEAN CORPUSCULAR HEMOGLOBIN 24.7 pg (27.0-33.0); MEAN CORPUSCULAR HGB CONC 31.1 g/dl (32.0-36.5); MEAN CORPUSCULAR VOLUME 79.7 fl (80.0-96.0); PLATELET COUNT, AUTOMATED 194 10^3/uL (150-450); RED BLOOD COUNT 2.95 10^6/uL (4.00-5.40); RED CELL DISTRIBUTION WIDTH 14.7 % (11.5-14.5); WHITE BLOOD COUNT 3.9 10^3/uL (4.0-10.0)
[2017-10-05] MEDS: LEVOTHYROXINE 150MCG TABLET (0.15MG) PO (05:30)
[2017-10-05] MEDS: VANCOMYCIN HCL 750 MG, VIAL MATE ADAPTER 1 EACH in D5W 250 ML IV (05:30)
[2017-10-05 05:31] LABS: ALBUMIN 2.5 GM/DL (3.2-5.2); ALKALINE PHOSPHATASE 313 U/L (45-117); ALT/SGPT 48 U/L (12-78); ANION GAP 12 MEQ/L (8-16); AST/SGOT 78 U/L (7-37); BILIRUBIN,TOTAL 0.7 MG/DL (0.2-1.0); BLOOD UREA NITROGEN 57 MG/DL (7-18); CALCIUM LEVEL 9.5 MG/DL (8.8-10.2); CARBON DIOXIDE LEVEL 16 MEQ/L (21-32); CHLORIDE LEVEL 109 MEQ/L (98-107); CREATININE FOR GFR 5.43 MG/DL (0.55-1.30); GLOMERULAR FILTRATION RATE 8.5 (>45); GLUCOSE, FASTING 258 MG/DL (70-100); POTASSIUM SERUM 4.2 MEQ/L (3.5-5.1); SODIUM LEVEL 137 MEQ/L (136-145); TOTAL PROTEIN 7.5 GM/DL (6.4-8.2)
[2017-10-05] MEDS: HEPARIN SOD (PORCINE) 5000 UNITS/ML VIAL SC ×2 (05:34→18:15)
[2017-10-05 06:43] LABS: BODY FLUID RHEUMATOID SCREEN NEGATIVE (NEGATIVE)
[2017-10-05 06:45] LABS: MUCIN CLOT TEST 4+ (4+)
[2017-10-05] MEDS: predniSONE 20 MG TAB PO (10:31)
[2017-10-05 11:12] LABS: FERRITIN 464 NG/ML (8-252); IRON (FE) 17 UG/DL (50-170); TOTAL IRON BINDING CAPACITY 154 UG/DL (250-450)
[2017-10-05] MEDS: SODIUM BICARBONATE 325 MG TAB PO ×2 (12:14→21:51)
[2017-10-05] MEDS: SODIUM BICARBONATE 75 MEQ in NS 0.45% 1,000 ML IV (12:15)
[2017-10-05] MEDS: FEBUXOSTAT 40 MG TABLET (ULORIC) PO (12:24)
[2017-10-05 12:50] LABS: HEMATOCRIT 23.8 % (36.0-47.0); HEMOGLOBIN 7.5 g/dl (12.0-15.5); MEAN CORPUSCULAR HEMOGLOBIN 24.8 pg (27.0-33.0); MEAN CORPUSCULAR HGB CONC 31.5 g/dl (32.0-36.5); MEAN CORPUSCULAR VOLUME 78.8 fl (80.0-96.0); PLATELET COUNT, AUTOMATED 191 10^3/uL (150-450); RED BLOOD COUNT 3.02 10^6/uL (4.00-5.40); RED CELL DISTRIBUTION WIDTH 14.8 % (11.5-14.5); WHITE BLOOD COUNT 4.1 10^3/uL (4.0-10.0)
[2017-10-05] MEDS ORDERED: VANCOMYCIN INTERMITTENT/PULSE DOSING BY CLINICAL PHARMACIST PER DOSING PROTOCOL XX (13:30)
[2017-10-05 16:47] LABS: APPEARANCE, URINE CLEAR (CLEAR); BACTERIA, URINE AUTO 1+ (NEGATIVE); BILIRUBIN, URINE AUTO NEGATIVE (NEGATIVE); BLOOD, URINE BLOOD 1+ (NEGATIVE); COLOR, URINE YELLOW (YELLOW); GLUCOSE, URINE (UA) AUTO 2+ mg/dL (NEGATIVE); KETONE, URINE AUTO NEGATIVE (NEGATIVE); LEUKOCYTE ESTERASE, URINE AUTO TRACE (NEGATIVE); MUCUS, URINE SMALL (NEGATIVE); NITRITE, URINE AUTO NEGATIVE (NEGATIVE); PROTEIN, URINE AUTO 1+ mg/dL (NEGATIVE); RBC, URINE AUTO 2 /HPF (0-3); SPECIFIC GRAVITY URINE AUTO 1.012 (1.002-1.035); SQUAMOUS EPITHELIAL CELL UR AU 0 /HPF (0-6); UROBILINOGEN, URINE AUTO 0.2 mg/dL (0.0-2.0); WBC, URINE AUTO 6 /HPF (0-3)
[2017-10-05] MEDS: IRON SUCROSE 25 MG in NS 50 ML IV (19:29)
[2017-10-05] MEDS: IRON SUCROSE 375 MG in NS 250 ML IV (21:28)
[2017-10-05] MEDS: PANTOPRAZOLE 40MG TAB (PROTONIX) PO (22:50)
[2017-10-06 01:59] LABS: IMMEDIATE SPIN CROSSMATCH 1 1
[2017-10-06 06:21] LABS: HEMATOCRIT 28.8 % (36.0-47.0); HEMOGLOBIN 9.4 g/dl (12.0-15.5); MEAN CORPUSCULAR HEMOGLOBIN 25.9 pg (27.0-33.0); MEAN CORPUSCULAR HGB CONC 32.6 g/dl (32.0-36.5); MEAN CORPUSCULAR VOLUME 79.3 fl (80.0-96.0); PLATELET COUNT, AUTOMATED 238 10^3/uL (150-450); RED BLOOD COUNT 3.63 10^6/uL (4.00-5.40); RED CELL DISTRIBUTION WIDTH 16.2 % (11.5-14.5); WHITE BLOOD COUNT 8.9 10^3/uL (4.0-10.0)
[2017-10-06 06:45] LABS: ALBUMIN 2.5 GM/DL (3.2-5.2); ALBUMIN/GLOBULIN RATIO 0.51 (1.00-1.93); ALKALINE PHOSPHATASE 257 U/L (45-117); ALT/SGPT 39 U/L (12-78); ANION GAP 13 MEQ/L (8-16); AST/SGOT 38 U/L (7-37); BILIRUBIN,TOTAL 0.8 MG/DL (0.2-1.0); BLOOD UREA NITROGEN 63 MG/DL (7-18); CALCIUM LEVEL 9.5 MG/DL (8.8-10.2); CARBON DIOXIDE LEVEL 16 MEQ/L (21-32); CHLORIDE LEVEL 108 MEQ/L (98-107); CREATININE FOR GFR 4.92 MG/DL (0.55-1.30); GLOMERULAR FILTRATION RATE 9.5 (>45); GLUCOSE, FASTING 239 MG/DL (70-100); POTASSIUM SERUM 3.5 MEQ/L (3.5-5.1); SODIUM LEVEL 137 MEQ/L (136-145); TOTAL PROTEIN 7.4 GM/DL (6.4-8.2); VANCOMYCIN RANDOM 15.5 UG/ML
[2017-10-06] MEDS: LEVOTHYROXINE 150MCG TABLET (0.15MG) PO (06:56)
[2017-10-06] MEDS ORDERED: IRON SUCROSE 100MG 5ML VIAL (J1756 PER 1MG) IV (08:00)
[2017-10-06] MEDS: SODIUM BICARBONATE 325 MG TAB PO ×2 (10:15→20:33)
[2017-10-06] MEDS: FEBUXOSTAT 40 MG TABLET (ULORIC) PO (10:15)
[2017-10-06] MEDS: predniSONE 20 MG TAB PO (10:16)
[2017-10-06] MEDS: PANTOPRAZOLE 40MG TAB (PROTONIX) PO (10:16)
[2017-10-06] MEDS: SODIUM BICARBONATE 75 MEQ in NS 0.45% 1,000 ML IV ×3 (11:31→22:13)
[2017-10-06] MEDS: HEPARIN SOD (PORCINE) 5000 UNITS/ML VIAL SC ×2 (15:16→22:13)
[2017-10-07 05:13] LABS: HEMATOCRIT 25.2 % (36.0-47.0); HEMOGLOBIN 8.2 g/dl (12.0-15.5); MEAN CORPUSCULAR HEMOGLOBIN 25.9 pg (27.0-33.0); MEAN CORPUSCULAR HGB CONC 32.5 g/dl (32.0-36.5); MEAN CORPUSCULAR VOLUME 79.5 fl (80.0-96.0); PLATELET COUNT, AUTOMATED 204 10^3/uL (150-450); RED BLOOD COUNT 3.17 10^6/uL (4.00-5.40); RED CELL DISTRIBUTION WIDTH 15.7 % (11.5-14.5); WHITE BLOOD COUNT 6.1 10^3/uL (4.0-10.0)
[2017-10-07] MEDS: HEPARIN SOD (PORCINE) 5000 UNITS/ML VIAL SC (05:20)
[2017-10-07] MEDS: LEVOTHYROXINE 150MCG TABLET (0.15MG) PO (05:20)
[2017-10-07 05:30] LABS: ALBUMIN 2.2 GM/DL (3.2-5.2); ALBUMIN/GLOBULIN RATIO 0.52 (1.00-1.93); ALKALINE PHOSPHATASE 192 U/L (45-117); ALT/SGPT 32 U/L (12-78); ANION GAP 12 MEQ/L (8-16); AST/SGOT 22 U/L (7-37); BILIRUBIN,TOTAL 0.6 MG/DL (0.2-1.0); BLOOD UREA NITROGEN 64 MG/DL (7-18); C REACTIVE PROTEIN QUANTITATIV 7.64 MG/DL (0.00-0.30); CALCIUM LEVEL 8.5 MG/DL (8.8-10.2); CARBON DIOXIDE LEVEL 21 MEQ/L (21-32); CHLORIDE LEVEL 108 MEQ/L (98-107); GLOMERULAR FILTRATION RATE 10.3 (>45); GLUCOSE, FASTING 231 MG/DL (70-100); POTASSIUM SERUM 3.4 MEQ/L (3.5-5.1); SODIUM LEVEL 141 MEQ/L (136-145); TOTAL PROTEIN 6.4 GM/DL (6.4-8.2)
[2017-10-07] MEDS: POTASSIUM CHLORIDE 10 MEQ SR TABLET PO (06:44)
[2017-10-07] MEDS: predniSONE 10 MG TAB PO (08:27)
[2017-10-07] MEDS: SODIUM BICARBONATE 325 MG TAB PO (08:27)
[2017-10-07] MEDS: FEBUXOSTAT 40 MG TABLET (ULORIC) PO (08:27)
[2017-10-07] MEDS: PANTOPRAZOLE 40MG TAB (PROTONIX) PO (08:27)
[2017-10-07] MEDS: SODIUM BICARBONATE 75 MEQ in NS 0.45% 1,000 ML IV (08:28)
[2017-10-07 09:52] LABS: PTH INTACT 111.2 PG/ML (18.5-88.0)
== END 2017-10-07 14:35 | disposition home or self-care (01) | DRG 683 ==
LOC: M PCU 10-05 03:17 → M ED 15:27 → M ED INP 22:57
PROC: 30233N1 Transfusion of Nonautologous Red Blood Cells into Peripheral Vein, Percutaneous Approach (ICD-10-PCS; principal; 2017-10-06)
DX: N18.4 Chronic kidney disease, stage 4 (severe) (principal); E87.2 Acidosis; M1A.3620 Chronic gout due to renal impairment, left knee, without tophus (tophi); N17.9 Acute kidney failure, unspecified; D63.1 Anemia in chronic kidney disease; E03.9 Hypothyroidism, unspecified; Z92.21 Personal history of antineoplastic chemotherapy; Z85.030 Personal history of malignant carcinoid tumor of large intestine; Z90.49 Acquired absence of other specified parts of digestive tract; Z87.442 Personal history of urinary calculi; Z79.899 Other long term (current) drug therapy; Z90.712 Acquired absence of cervix with remaining uterus; Z91.041 Radiographic dye allergy status; Z91.040 Latex allergy status; Z88.8 Allergy status to other drugs, medicaments and biological substances; Z87.891 Personal history of nicotine dependence; Z93.3 Colostomy status; Z92.3 Personal history of irradiation

== ENCOUNTER 2017-10-09 15:56 | Outpatient (CLI) | payer MEDICARE, BC, OTHER ==
[2017-10-09] MEDS ORDERED: MAGNESIUM SULFATE IV (16:00)
[2017-10-09] MEDS ORDERED: NS IV (16:00)
[2017-10-09] MEDS: NS IV (16:14)
[2017-10-09] MEDS: MAGNESIUM SULFATE IV (16:14)
[2017-10-09 17:27] LABS: ANION GAP 12 MEQ/L (8-16); BLOOD UREA NITROGEN 55 MG/DL (7-18); CALCIUM LEVEL 8.3 MG/DL (8.8-10.2); CARBON DIOXIDE LEVEL 21 MEQ/L (21-32); CHLORIDE LEVEL 107 MEQ/L (98-107); GLOMERULAR FILTRATION RATE 12.1 (>45); GLUCOSE, FASTING 189 MG/DL (70-100); PHOSPHORUS LEVEL 3.1 MG/DL (2.5-4.9); POTASSIUM SERUM 3.2 MEQ/L (3.5-5.1); SODIUM LEVEL 140 MEQ/L (136-145)
== END 2017-10-09 18:30 | disposition home or self-care (01) ==
LOC: M INFU 15:56
DX: E83.42 Hypomagnesemia (principal); E86.0 Dehydration; D63.8 Anemia in other chronic diseases classified elsewhere; Z79.899 Other long term (current) drug therapy; Z91.040 Latex allergy status; Z91.041 Radiographic dye allergy status; Z88.8 Allergy status to other drugs, medicaments and biological substances; Z85.05 Personal history of malignant neoplasm of liver; Z87.891 Personal history of nicotine dependence
CPT/HCPCS: J3475

== ENCOUNTER 2017-10-11 07:01 | Outpatient (CLI) | payer MEDICARE, BC, OTHER ==
[2017-10-11] MEDS: MAGNESIUM SULFATE IV (07:13)
[2017-10-11] MEDS: NS IV (07:13)
== END 2017-10-11 09:35 ==
LOC: M INFU 07:01
DX: E86.0 Dehydration (principal); E83.42 Hypomagnesemia; N18.5 Chronic kidney disease, stage 5; C34.90 Malignant neoplasm of unspecified part of unspecified bronchus or lung; C18.9 Malignant neoplasm of colon, unspecified; E11.9 Type 2 diabetes mellitus without complications; Z79.899 Other long term (current) drug therapy; Z91.041 Radiographic dye allergy status; Z88.3 Allergy status to other anti-infective agents; Z88.8 Allergy status to other drugs, medicaments and biological substances
CPT/HCPCS: J3475

== ENCOUNTER 2017-10-15 07:33 | Outpatient (CLI) | payer MEDICARE, BC, OTHER ==
[2017-10-15] MEDS: NS IV (08:06)
[2017-10-15] MEDS: MAGNESIUM SULFATE IV (08:06)
== END 2017-10-15 09:45 | disposition home or self-care (01) ==
LOC: M INFU 07:33
DX: E86.0 Dehydration (principal); E83.42 Hypomagnesemia; N17.9 Acute kidney failure, unspecified; N18.4 Chronic kidney disease, stage 4 (severe); C34.90 Malignant neoplasm of unspecified part of unspecified bronchus or lung; C18.9 Malignant neoplasm of colon, unspecified; D64.9 Anemia, unspecified; E11.9 Type 2 diabetes mellitus without complications; M10.9 Gout, unspecified; Z79.899 Other long term (current) drug therapy
CPT/HCPCS: J3475

== ENCOUNTER 2017-10-16 13:57 | Outpatient (CLI) | payer MEDICARE, BC, OTHER ==
[2017-10-16] MEDS: SODIUM CHLORIDE 0.9% 1000 ML IV (14:11)
== END 2017-10-16 16:15 | disposition home or self-care (01) ==
LOC: M INFU 13:57
DX: E86.0 Dehydration (principal); E83.42 Hypomagnesemia; N17.9 Acute kidney failure, unspecified; M10.9 Gout, unspecified; C34.90 Malignant neoplasm of unspecified part of unspecified bronchus or lung; C18.9 Malignant neoplasm of colon, unspecified; N18.4 Chronic kidney disease, stage 4 (severe); E11.9 Type 2 diabetes mellitus without complications; Z87.442 Personal history of urinary calculi; Z79.899 Other long term (current) drug therapy; Z91.041 Radiographic dye allergy status; Z88.8 Allergy status to other drugs, medicaments and biological substances; Z88.3 Allergy status to other anti-infective agents
CPT/HCPCS: 96360

== ENCOUNTER 2017-10-17 07:28 | Outpatient (CLI) | payer MEDICARE, BC, OTHER ==
[2017-10-17] MEDS ORDERED: MAGNESIUM SULFATE IV (07:45)
[2017-10-17] MEDS ORDERED: NS IV (07:45)
== END 2017-10-17 09:45 | disposition home or self-care (01) ==
LOC: M INFU 07:28
DX: E86.0 Dehydration (principal); E83.42 Hypomagnesemia; N18.5 Chronic kidney disease, stage 5; Z91.041 Radiographic dye allergy status; Z88.8 Allergy status to other drugs, medicaments and biological substances
CPT/HCPCS: 96365

== ENCOUNTER 2017-10-22 09:06 | Outpatient (CLI) | payer MEDICARE, BC, OTHER ==
[2017-10-22] MEDS: NS IV (09:25)
[2017-10-22] MEDS: MAGNESIUM SULFATE IV (09:25)
== END 2017-10-22 11:45 | disposition home or self-care (01) ==
LOC: M INFU 09:06
DX: E86.0 Dehydration (principal); E83.42 Hypomagnesemia; N17.9 Acute kidney failure, unspecified; Z91.041 Radiographic dye allergy status; Z88.8 Allergy status to other drugs, medicaments and biological substances
CPT/HCPCS: J3475

== ENCOUNTER 2017-10-25 07:25 | Outpatient (CLI) | payer MEDICARE, BC, OTHER ==
[2017-10-25] MEDS: NS 1,000 ML IV (07:42)
== END 2017-10-25 10:30 | disposition home or self-care (01) ==
LOC: M INFU 07:25
DX: E83.42 Hypomagnesemia (principal); E86.0 Dehydration; D63.8 Anemia in other chronic diseases classified elsewhere; Z79.899 Other long term (current) drug therapy; Z91.040 Latex allergy status; Z91.041 Radiographic dye allergy status; Z88.8 Allergy status to other drugs, medicaments and biological substances; Z85.05 Personal history of malignant neoplasm of liver; Z87.891 Personal history of nicotine dependence
CPT/HCPCS: 96365

== ENCOUNTER 2017-10-28 06:56 | Outpatient (CLI) | payer MEDICARE, BC, OTHER ==
[2017-10-28] MEDS: NS IV (08:27)
[2017-10-28] MEDS: MAGNESIUM SULFATE IV (08:27)
== END 2017-10-28 10:15 | disposition home or self-care (01) ==
LOC: M INFU 06:56
DX: E86.0 Dehydration (principal); E83.42 Hypomagnesemia; N17.9 Acute kidney failure, unspecified; Z91.040 Latex allergy status; Z88.8 Allergy status to other drugs, medicaments and biological substances; Z79.899 Other long term (current) drug therapy
CPT/HCPCS: J3475

== ENCOUNTER 2017-10-30 08:10 | Outpatient (CLI) | payer MEDICARE, BC, OTHER ==
[~2017-10-30 08:10] MED LIST changes: -MAGNESIUM SULFATE IV; +NS 1,000 ML IV; -NS IV
[2017-10-30] MEDS: MAGNESIUM SULFATE IV (08:24)
[2017-10-30] MEDS: NS IV (08:24)
== END 2017-10-30 10:20 | disposition home or self-care (01) ==
LOC: M INFU 08:10
DX: E86.0 Dehydration (principal); E83.42 Hypomagnesemia; N18.4 Chronic kidney disease, stage 4 (severe); E11.9 Type 2 diabetes mellitus without complications; Z79.899 Other long term (current) drug therapy; Z88.3 Allergy status to other anti-infective agents; Z88.8 Allergy status to other drugs, medicaments and biological substances; Z91.041 Radiographic dye allergy status; Z87.891 Personal history of nicotine dependence; Z85.07 Personal history of malignant neoplasm of pancreas; Z90.49 Acquired absence of other specified parts of digestive tract; Z90.710 Acquired absence of both cervix and uterus; Z87.442 Personal history of urinary calculi; Z85.118 Personal history of other malignant neoplasm of bronchus and lung; Z85.038 Personal history of other malignant neoplasm of large intestine
CPT/HCPCS: J3475

== ENCOUNTER 2017-11-04 07:41 | Outpatient (CLI) | payer MEDICARE, BC, OTHER ==
[2017-11-04] MEDS: MAGNESIUM SULFATE IV (08:05)
[2017-11-04] MEDS: NS IV (08:05)
== END 2017-11-04 10:30 | disposition home or self-care (01) ==
LOC: M INFU 07:41
DX: E86.0 Dehydration (principal); E83.42 Hypomagnesemia; N18.4 Chronic kidney disease, stage 4 (severe); E11.9 Type 2 diabetes mellitus without complications; Z79.899 Other long term (current) drug therapy; Z88.3 Allergy status to other anti-infective agents; Z88.8 Allergy status to other drugs, medicaments and biological substances; Z91.041 Radiographic dye allergy status; Z90.49 Acquired absence of other specified parts of digestive tract; Z90.710 Acquired absence of both cervix and uterus; Z87.442 Personal history of urinary calculi; Z85.118 Personal history of other malignant neoplasm of bronchus and lung; Z85.038 Personal history of other malignant neoplasm of large intestine; Z85.07 Personal history of malignant neoplasm of pancreas; Z87.891 Personal history of nicotine dependence
CPT/HCPCS: J3475

== ENCOUNTER 2017-11-06 07:22 | Outpatient (CLI) | payer MEDICARE, BC, OTHER ==
[2017-11-06] MEDS: NS 1,000 ML IV (07:15)
== END 2017-11-06 09:40 | disposition home or self-care (01) ==
LOC: M INFU 07:22
DX: E86.0 Dehydration (principal); E83.42 Hypomagnesemia; N18.4 Chronic kidney disease, stage 4 (severe); E11.9 Type 2 diabetes mellitus without complications; Z79.899 Other long term (current) drug therapy; Z88.8 Allergy status to other drugs, medicaments and biological substances; Z88.3 Allergy status to other anti-infective agents; Z91.041 Radiographic dye allergy status; Z90.49 Acquired absence of other specified parts of digestive tract; Z90.710 Acquired absence of both cervix and uterus; Z87.442 Personal history of urinary calculi; Z85.118 Personal history of other malignant neoplasm of bronchus and lung; Z85.038 Personal history of other malignant neoplasm of large intestine; Z85.07 Personal history of malignant neoplasm of pancreas; Z87.891 Personal history of nicotine dependence
CPT/HCPCS: 96365

== ENCOUNTER 2017-11-07 07:01 | Outpatient (CLI) | payer MEDICARE, BC, OTHER ==
[2017-11-07] MEDS: MAGNESIUM SULFATE IV (07:57)
[2017-11-07] MEDS: NS IV (07:57)
== END 2017-11-07 10:15 ==
LOC: M INFU 07:01
DX: E86.0 Dehydration (principal); E83.42 Hypomagnesemia; N18.4 Chronic kidney disease, stage 4 (severe); E11.9 Type 2 diabetes mellitus without complications; Z79.899 Other long term (current) drug therapy; Z91.041 Radiographic dye allergy status; Z88.8 Allergy status to other drugs, medicaments and biological substances; Z88.3 Allergy status to other anti-infective agents; Z90.49 Acquired absence of other specified parts of digestive tract; Z90.710 Acquired absence of both cervix and uterus; Z87.442 Personal history of urinary calculi; Z85.118 Personal history of other malignant neoplasm of bronchus and lung; Z85.038 Personal history of other malignant neoplasm of large intestine; Z87.891 Personal history of nicotine dependence; Z85.07 Personal history of malignant neoplasm of pancreas
CPT/HCPCS: J3475

== ENCOUNTER 2017-11-11 07:55 | Outpatient (CLI) | payer MEDICARE, BC, OTHER ==
[2017-11-11] MEDS: MAGNESIUM SULFATE IV (08:13)
[2017-11-11] MEDS: NS IV (08:13)
== END 2017-11-11 10:30 | disposition home or self-care (01) ==
LOC: M INFU 07:55
DX: E86.0 Dehydration (principal); E83.42 Hypomagnesemia; N18.4 Chronic kidney disease, stage 4 (severe); E11.9 Type 2 diabetes mellitus without complications; Z87.891 Personal history of nicotine dependence; Z85.07 Personal history of malignant neoplasm of pancreas; Z87.442 Personal history of urinary calculi; Z85.118 Personal history of other malignant neoplasm of bronchus and lung; Z85.038 Personal history of other malignant neoplasm of large intestine; Z88.8 Allergy status to other drugs, medicaments and biological substances; Z88.3 Allergy status to other anti-infective agents; Z79.899 Other long term (current) drug therapy; Z90.49 Acquired absence of other specified parts of digestive tract; Z90.710 Acquired absence of both cervix and uterus
CPT/HCPCS: J3475

== ENCOUNTER 2017-11-13 08:00 | Outpatient (CLI) | payer MEDICARE, BC, OTHER ==
[2017-11-13] MEDS: NS 1,000 ML IV (08:17)
== END 2017-11-13 10:25 | disposition home or self-care (01) ==
LOC: M INFU 08:00
DX: E83.42 Hypomagnesemia (principal); E86.0 Dehydration; N18.4 Chronic kidney disease, stage 4 (severe); E11.9 Type 2 diabetes mellitus without complications; D63.1 Anemia in chronic kidney disease; Z79.899 Other long term (current) drug therapy; Z91.040 Latex allergy status; Z91.041 Radiographic dye allergy status; Z88.8 Allergy status to other drugs, medicaments and biological substances; Z85.05 Personal history of malignant neoplasm of liver; Z87.891 Personal history of nicotine dependence; Z85.07 Personal history of malignant neoplasm of pancreas; Z90.49 Acquired absence of other specified parts of digestive tract; Z90.710 Acquired absence of both cervix and uterus; Z87.442 Personal history of urinary calculi; Z85.118 Personal history of other malignant neoplasm of bronchus and lung; Z85.038 Personal history of other malignant neoplasm of large intestine
CPT/HCPCS: 96365

== ENCOUNTER 2017-11-14 13:41 | Outpatient (CLI) | payer MEDICARE, BC, OTHER ==
[2017-11-14] MEDS: MAGNESIUM SULFATE IV (13:54)
[2017-11-14] MEDS: NS IV (13:54)
== END 2017-11-14 16:15 | disposition home or self-care (01) ==
LOC: M INFU 13:41
DX: E86.0 Dehydration (principal); E83.42 Hypomagnesemia; N17.9 Acute kidney failure, unspecified; Z91.041 Radiographic dye allergy status; Z88.8 Allergy status to other drugs, medicaments and biological substances
CPT/HCPCS: J3475

== ENCOUNTER 2017-11-18 08:04 | Outpatient (CLI) | payer MEDICARE, BC, OTHER ==
[2017-11-18] MEDS: NS 1,000 ML IV (08:20)
== END 2017-11-18 10:30 | disposition home or self-care (01) ==
LOC: M INFU 08:04
DX: E86.0 Dehydration (principal); E83.42 Hypomagnesemia; N17.9 Acute kidney failure, unspecified; Z91.041 Radiographic dye allergy status; Z88.8 Allergy status to other drugs, medicaments and biological substances
CPT/HCPCS: 96365

== ENCOUNTER 2017-11-21 13:49 | Outpatient (CLI) | payer MEDICARE, BC, OTHER | END 2017-11-21 16:20 | disposition home or self-care (01) | LOC: M INFU 13:49 | DX: E86.0 Dehydration (principal); E83.42 Hypomagnesemia; M10.9 Gout, unspecified; N17.9 Acute kidney failure, unspecified; Z91.041 Radiographic dye allergy status; Z88.8 Allergy status to other drugs, medicaments and biological substances | CPT/HCPCS: 96360 ==

== ENCOUNTER 2017-11-22 07:33 | Outpatient (CLI) | payer MEDICARE, BC, OTHER ==
[2017-11-22] MEDS: MAGNESIUM SULFATE IV (08:03)
[2017-11-22] MEDS: NS IV (08:03)
== END 2017-11-22 10:15 | disposition home or self-care (01) ==
LOC: M INFU 07:33
DX: E86.0 Dehydration (principal); E83.42 Hypomagnesemia; M10.9 Gout, unspecified; N17.9 Acute kidney failure, unspecified; Z91.041 Radiographic dye allergy status; Z88.8 Allergy status to other drugs, medicaments and biological substances
CPT/HCPCS: J3475

== ENCOUNTER 2017-11-25 07:58 | Outpatient (CLI) | payer MEDICARE, BC, OTHER ==
[2017-11-25] MEDS: NS IV (09:20)
[2017-11-25] MEDS: MAGNESIUM SULFATE IV (09:20)
== END 2017-11-25 10:25 | disposition home or self-care (01) ==
LOC: M INFU 07:58
DX: E83.42 Hypomagnesemia (principal); E86.0 Dehydration; N17.9 Acute kidney failure, unspecified; Z79.899 Other long term (current) drug therapy; Z91.040 Latex allergy status; Z88.8 Allergy status to other drugs, medicaments and biological substances; Z87.891 Personal history of nicotine dependence
CPT/HCPCS: J3475

== ENCOUNTER 2017-11-27 08:02 | Outpatient (CLI) | payer MEDICARE, BC, OTHER ==
[2017-11-27] MEDS: NS 1,000 ML IV (08:30)
[2017-11-27 08:51] LABS: ANION GAP 12 MEQ/L (8-16); BLOOD UREA NITROGEN 54 MG/DL (7-18); CALCIUM LEVEL 8.7 MG/DL (8.8-10.2); CARBON DIOXIDE LEVEL 16 MEQ/L (21-32); CHLORIDE LEVEL 113 MEQ/L (98-107); CREATININE FOR GFR 7.36 MG/DL (0.55-1.30); GLUCOSE, FASTING 125 MG/DL (70-100); MAGNESIUM LEVEL 1.8 MG/DL (1.8-2.4); POTASSIUM SERUM 3.5 MEQ/L (3.5-5.1); SODIUM LEVEL 141 MEQ/L (136-145); URIC ACID 5.5 MG/DL (2.6-6.0)
== END 2017-11-27 10:45 | disposition home or self-care (01) ==
LOC: M INFU 08:02
DX: E86.0 Dehydration (principal); E83.42 Hypomagnesemia; N17.9 Acute kidney failure, unspecified; M10.9 Gout, unspecified; Z91.041 Radiographic dye allergy status; Z88.8 Allergy status to other drugs, medicaments and biological substances
CPT/HCPCS: 83735

== ENCOUNTER 2017-11-29 07:58 | Outpatient (CLI) | payer MEDICARE, BC, OTHER ==
[2017-11-29] MEDS: NS IV (08:34)
[2017-11-29] MEDS: MAGNESIUM SULFATE IV (08:34)
== END 2017-11-29 10:55 | disposition home or self-care (01) ==
LOC: M INFU 07:58
DX: E86.0 Dehydration (principal); E83.42 Hypomagnesemia; N17.9 Acute kidney failure, unspecified; M10.9 Gout, unspecified; Z91.041 Radiographic dye allergy status; Z88.8 Allergy status to other drugs, medicaments and biological substances
CPT/HCPCS: J3475

== ENCOUNTER 2017-12-02 07:56 | Outpatient (CLI) | payer MEDICARE, BC, OTHER ==
[2017-12-02] MEDS: NS IV (08:10)
[2017-12-02] MEDS: MAGNESIUM SULFATE IV (08:10)
== END 2017-12-02 10:30 | disposition home or self-care (01) ==
LOC: M INFU 07:56
DX: E86.0 Dehydration (principal); E83.42 Hypomagnesemia; N17.9 Acute kidney failure, unspecified; M10.9 Gout, unspecified; Z91.041 Radiographic dye allergy status; Z88.8 Allergy status to other drugs, medicaments and biological substances
CPT/HCPCS: J3475

== ENCOUNTER 2017-12-05 12:50 | Outpatient (CLI) | payer MEDICARE, BC, OTHER | END 2017-12-05 15:10 | disposition home or self-care (01) | LOC: M INFU 12:50 | DX: E86.0 Dehydration (principal); E83.42 Hypomagnesemia; N17.9 Acute kidney failure, unspecified; M10.9 Gout, unspecified; Z91.041 Radiographic dye allergy status; Z88.8 Allergy status to other drugs, medicaments and biological substances | CPT/HCPCS: 96360 ==

== ENCOUNTER 2017-12-06 07:52 | Outpatient (CLI) | payer MEDICARE, BC, OTHER ==
[2017-12-06] MEDS: MAGNESIUM SULFATE IV (08:04)
[2017-12-06] MEDS: NS IV (08:04)
== END 2017-12-06 10:15 | disposition home or self-care (01) ==
LOC: M INFU 07:52
DX: E86.0 Dehydration (principal); E83.42 Hypomagnesemia; N17.9 Acute kidney failure, unspecified; M10.9 Gout, unspecified; Z91.041 Radiographic dye allergy status; Z88.8 Allergy status to other drugs, medicaments and biological substances
CPT/HCPCS: J3475

== ENCOUNTER 2017-12-09 07:59 | Outpatient (CLI) | payer MEDICARE, BC, OTHER ==
[2017-12-09] MEDS: NS IV (08:28)
[2017-12-09] MEDS: MAGNESIUM SULFATE IV (08:28)
== END 2017-12-09 10:45 | disposition home or self-care (01) ==
LOC: M INFU 07:59
DX: E83.42 Hypomagnesemia (principal); E86.0 Dehydration; N18.4 Chronic kidney disease, stage 4 (severe); E11.9 Type 2 diabetes mellitus without complications; Z79.899 Other long term (current) drug therapy; Z91.041 Radiographic dye allergy status; Z88.8 Allergy status to other drugs, medicaments and biological substances; Z85.038 Personal history of other malignant neoplasm of large intestine; Z85.118 Personal history of other malignant neoplasm of bronchus and lung; Z85.07 Personal history of malignant neoplasm of pancreas; Z90.710 Acquired absence of both cervix and uterus; Z90.49 Acquired absence of other specified parts of digestive tract
CPT/HCPCS: J3475

== ENCOUNTER 2017-12-11 07:52 | Outpatient (CLI) | payer MEDICARE, BC, OTHER ==
[2017-12-11] MEDS: NS 1,000 ML IV (08:16)
== END 2017-12-11 10:25 | disposition home or self-care (01) ==
LOC: M INFU 07:52
DX: E83.42 Hypomagnesemia (principal); E86.0 Dehydration; N18.6 End stage renal disease; M10.9 Gout, unspecified; Z79.899 Other long term (current) drug therapy; Z88.8 Allergy status to other drugs, medicaments and biological substances; Z91.041 Radiographic dye allergy status
CPT/HCPCS: 96365

== ENCOUNTER 2017-12-13 07:56 | Outpatient (CLI) | payer MEDICARE, BC, OTHER ==
[2017-12-13] MEDS: MAGNESIUM SULFATE IV (08:23)
[2017-12-13] MEDS: NS IV (08:23)
[2017-12-13 08:35] LABS: BASO % 0.5 % (0.0-1.0); EOS # 0.2 10^3/uL (0.0-0.50); EOS % 3.1 % (0.0-3.0); HEMATOCRIT 24.2 % (36.0-47.0); HEMOGLOBIN 7.1 g/dl (12.0-15.5); IMMATURE GRANULOCYTE % 0.5 % (0-3.0); LYMPH # 0.9 10^3/uL (1.5-4.5); LYMPH % 16.2 % (24.0-44.0); MEAN CORPUSCULAR HGB CONC 29.3 g/dl (32.0-36.5); MEAN CORPUSCULAR VOLUME 88.6 fl (80.0-96.0); MONO # 0.4 10^3/uL (0.0-0.8); MONO % 7.9 % (0.0-5.0); NEUTROPHILS % 71.8 % (36.0-66.0); PLATELET COUNT, AUTOMATED 195 10^3/uL (150-450); RED BLOOD COUNT 2.73 10^6/uL (4.00-5.40); RED CELL DISTRIBUTION WIDTH 19.5 % (11.5-14.5); WHITE BLOOD COUNT 5.6 10^3/uL (4.0-10.0)
[2017-12-13 09:03] LABS: ANION GAP 13 MEQ/L (8-16); BLOOD UREA NITROGEN 62 MG/DL (7-18); CALCIUM LEVEL 8.8 MG/DL (8.8-10.2); CARBON DIOXIDE LEVEL 15 MEQ/L (21-32); CHLORIDE LEVEL 115 MEQ/L (98-107); CREATININE FOR GFR 6.99 MG/DL (0.55-1.30); GLOMERULAR FILTRATION RATE 6.3 (>45); GLUCOSE, FASTING 126 MG/DL (70-100); MAGNESIUM LEVEL 1.7 MG/DL (1.8-2.4); POTASSIUM SERUM 4.9 MEQ/L (3.5-5.1); SODIUM LEVEL 143 MEQ/L (136-145); URIC ACID 7.3 MG/DL (2.6-6.0)
== END 2017-12-13 10:30 | disposition home or self-care (01) ==
LOC: M INFU 07:56
DX: E83.42 Hypomagnesemia (principal); E86.0 Dehydration; N17.9 Acute kidney failure, unspecified; M10.9 Gout, unspecified; Z79.899 Other long term (current) drug therapy; Z88.8 Allergy status to other drugs, medicaments and biological substances; Z91.041 Radiographic dye allergy status
CPT/HCPCS: J3475

== ENCOUNTER 2017-12-16 08:56 | Outpatient (CLI) | payer MEDICARE, BC, OTHER ==
[2017-12-16] MEDS: MAGNESIUM SULFATE IV (09:29)
[2017-12-16] MEDS: NS IV (09:29)
[2017-12-16 11:44] LABS: IMMEDIATE SPIN CROSSMATCH 1 1
== END 2017-12-16 14:45 | disposition home or self-care (01) ==
LOC: M INFU 08:56
DX: E86.0 Dehydration (principal); E83.42 Hypomagnesemia; N18.6 End stage renal disease; M10.9 Gout, unspecified; Z79.899 Other long term (current) drug therapy; Z88.8 Allergy status to other drugs, medicaments and biological substances; Z91.041 Radiographic dye allergy status
CPT/HCPCS: 36430

== ENCOUNTER 2017-12-20 07:33 | Outpatient (CLI) | payer MEDICARE, BC, OTHER ==
[2017-12-20] MEDS: NS IV (08:01)
[2017-12-20] MEDS: MAGNESIUM SULFATE IV (08:01)
[2017-12-20 10:02] LABS: IMMEDIATE SPIN CROSSMATCH 1 1
== END 2017-12-20 12:15 | disposition home or self-care (01) ==
LOC: M INFU 07:33
DX: E86.0 Dehydration (principal); E83.42 Hypomagnesemia; D63.8 Anemia in other chronic diseases classified elsewhere; N17.9 Acute kidney failure, unspecified; M10.9 Gout, unspecified; Z91.041 Radiographic dye allergy status; Z88.8 Allergy status to other drugs, medicaments and biological substances
CPT/HCPCS: 36430

== ENCOUNTER 2017-12-23 07:48 | Outpatient (CLI) | payer MEDICARE, BC, OTHER ==
[2017-12-23] MEDS: MAGNESIUM SULFATE IV (08:33)
[2017-12-23] MEDS: NS IV (08:33)
[2017-12-23 08:44] LABS: HEMATOCRIT 31.4 % (36.0-47.0); HEMOGLOBIN 9.4 g/dl (12.0-15.5); MEAN CORPUSCULAR HEMOGLOBIN 26.8 pg (27.0-33.0); MEAN CORPUSCULAR HGB CONC 29.9 g/dl (32.0-36.5); MEAN CORPUSCULAR VOLUME 89.5 fl (80.0-96.0); PLATELET COUNT, AUTOMATED 180 10^3/uL (150-450); RED BLOOD COUNT 3.51 10^6/uL (4.00-5.40); RED CELL DISTRIBUTION WIDTH 19.1 % (11.5-14.5); WHITE BLOOD COUNT 5.3 10^3/uL (4.0-10.0)
[2017-12-23 09:04] LABS: ANION GAP 11 MEQ/L (8-16); BLOOD UREA NITROGEN 58 MG/DL (7-18); CALCIUM LEVEL 8.7 MG/DL (8.8-10.2); CARBON DIOXIDE LEVEL 16 MEQ/L (21-32); CHLORIDE LEVEL 112 MEQ/L (98-107); CREATININE FOR GFR 6.81 MG/DL (0.55-1.30); GLOMERULAR FILTRATION RATE 6.5 (>45); GLUCOSE, FASTING 143 MG/DL (70-100); MAGNESIUM LEVEL 1.9 MG/DL (1.8-2.4); POTASSIUM SERUM 4.8 MEQ/L (3.5-5.1); SODIUM LEVEL 139 MEQ/L (136-145); URIC ACID 6.1 MG/DL (2.6-6.0)
[2017-12-23 10:33] LABS: BASO % 0.6 % (0.0-1.0); EOS # 0.3 10^3/uL (0.0-0.50); EOS % 4.6 % (0.0-3.0); IMMATURE GRANULOCYTE % 0.2 % (0-3.0); LYMPH % 18.6 % (24.0-44.0); MONO # 0.4 10^3/uL (0.0-0.8); MONO % 7.5 % (0.0-5.0); NEUTROPHILS # 3.7 10^3/uL (1.8-7.7); NEUTROPHILS % 68.5 % (36.0-66.0)
[2017-12-23 10:40] LABS: DIFF SLIDE NUMBER 149
== END 2017-12-23 10:45 | disposition home or self-care (01) ==
LOC: M INFU 07:48
DX: E86.0 Dehydration (principal); E83.42 Hypomagnesemia; N17.9 Acute kidney failure, unspecified; M10.9 Gout, unspecified; Z91.041 Radiographic dye allergy status
CPT/HCPCS: 36591

== ENCOUNTER 2017-12-24 07:53 | Outpatient (CLI) | payer MEDICARE, BC, OTHER ==
[2017-12-24] MEDS ORDERED: NS 1,000 ML IV (08:15)
== END 2017-12-24 10:30 | disposition home or self-care (01) ==
LOC: M INFU 07:53
DX: E86.0 Dehydration (principal); E83.42 Hypomagnesemia; N17.9 Acute kidney failure, unspecified; M10.9 Gout, unspecified
CPT/HCPCS: 96365

== ENCOUNTER 2017-12-27 12:54 | Outpatient (CLI) | payer MEDICARE, BC, OTHER ==
[2017-12-27] MEDS: MAGNESIUM SULFATE IV (13:42)
[2017-12-27] MEDS: NS IV (13:42)
== END 2017-12-27 15:50 | disposition home or self-care (01) ==
LOC: M INFU 12:54
DX: E86.0 Dehydration (principal); N17.9 Acute kidney failure, unspecified; N83.4 Prolapse and hernia of ovary and fallopian tube; M10.9 Gout, unspecified
CPT/HCPCS: J3475

== ENCOUNTER 2017-12-30 07:53 | Outpatient (CLI) | payer MEDICARE, BC, OTHER ==
[2017-12-30] MEDS: MAGNESIUM SULFATE IV (08:12)
[2017-12-30] MEDS: NS IV (08:12)
== END 2017-12-30 10:30 | disposition home or self-care (01) ==
LOC: M INFU 07:53
DX: E83.42 Hypomagnesemia (principal); E86.0 Dehydration; N17.9 Acute kidney failure, unspecified; M10.9 Gout, unspecified; Z79.899 Other long term (current) drug therapy; Z91.041 Radiographic dye allergy status; Z88.3 Allergy status to other anti-infective agents; Z88.8 Allergy status to other drugs, medicaments and biological substances
CPT/HCPCS: J3475

== ENCOUNTER 2018-01-01 07:51 | Outpatient (CLI) | payer MEDICARE, BC, OTHER ==
[2018-01-01] MEDS: NS 1,000 ML IV (07:57)
== END 2018-01-01 10:25 | disposition home or self-care (01) ==
LOC: M INFU 07:51
DX: E83.42 Hypomagnesemia (principal); E86.0 Dehydration; M10.9 Gout, unspecified; Z79.899 Other long term (current) drug therapy; Z88.8 Allergy status to other drugs, medicaments and biological substances; Z91.041 Radiographic dye allergy status
CPT/HCPCS: 96365

== ENCOUNTER 2018-01-03 08:36 | Outpatient (CLI) | payer MEDICARE, BC, OTHER ==
[2018-01-03] MEDS: NS IV (08:52)
[2018-01-03] MEDS: MAGNESIUM SULFATE IV (08:52)
== END 2018-01-03 11:10 | disposition home or self-care (01) ==
LOC: M INFU 08:36
DX: E83.42 Hypomagnesemia (principal); E86.0 Dehydration; N17.9 Acute kidney failure, unspecified; M10.9 Gout, unspecified; Z79.899 Other long term (current) drug therapy; Z91.040 Latex allergy status; Z88.8 Allergy status to other drugs, medicaments and biological substances; Z85.05 Personal history of malignant neoplasm of liver; Z87.891 Personal history of nicotine dependence
CPT/HCPCS: J3475

== ENCOUNTER 2018-01-06 08:05 | Outpatient (CLI) | payer MEDICARE, BC, OTHER ==
[2018-01-06] MEDS: MAGNESIUM SULFATE IV (07:30)
[2018-01-06] MEDS: NS IV (07:30)
== END 2018-01-06 10:40 | disposition home or self-care (01) ==
LOC: M INFU 08:05
DX: E86.0 Dehydration (principal); E83.42 Hypomagnesemia; N17.9 Acute kidney failure, unspecified; M10.9 Gout, unspecified; Z91.041 Radiographic dye allergy status; Z88.8 Allergy status to other drugs, medicaments and biological substances
CPT/HCPCS: J3475

== ENCOUNTER 2018-01-08 07:54 | Outpatient (CLI) | payer MEDICARE, BC, OTHER ==
[2018-01-08] MEDS: NS IV (08:33)
[2018-01-08] MEDS: MAGNESIUM SULFATE IV (08:33)
[2018-01-08 09:04] LABS: ANION GAP 10 MEQ/L (8-16); BLOOD UREA NITROGEN 54 MG/DL (7-18); CALCIUM LEVEL 8.8 MG/DL (8.8-10.2); CARBON DIOXIDE LEVEL 17 MEQ/L (21-32); CHLORIDE LEVEL 114 MEQ/L (98-107); CREATININE FOR GFR 5.34 MG/DL (0.55-1.30); GLOMERULAR FILTRATION RATE 8.7 (>45); GLUCOSE, FASTING 214 MG/DL (70-100); MAGNESIUM LEVEL 1.7 MG/DL (1.8-2.4); POTASSIUM SERUM 4.2 MEQ/L (3.5-5.1); SODIUM LEVEL 141 MEQ/L (136-145); URIC ACID 5.8 MG/DL (2.6-6.0)
== END 2018-01-08 10:55 | disposition home or self-care (01) ==
LOC: M INFU 07:54
DX: E86.0 Dehydration (principal); E83.42 Hypomagnesemia; N17.9 Acute kidney failure, unspecified; M10.9 Gout, unspecified
CPT/HCPCS: J3475

== ENCOUNTER 2018-01-13 07:59 | Outpatient (CLI) | payer MEDICARE, BC, OTHER ==
[2018-01-13] MEDS: NS IV (08:13)
[2018-01-13] MEDS: MAGNESIUM SULFATE IV (08:13)
== END 2018-01-13 10:30 | disposition home or self-care (01) ==
LOC: M INFU 07:59
DX: E86.0 Dehydration (principal); E83.42 Hypomagnesemia; N17.9 Acute kidney failure, unspecified; M10.9 Gout, unspecified; Z91.041 Radiographic dye allergy status; Z88.8 Allergy status to other drugs, medicaments and biological substances
CPT/HCPCS: J3475

== ENCOUNTER 2018-01-15 08:02 | Outpatient (CLI) | payer MEDICARE, BC, OTHER ==
[2018-01-15] MEDS: NS 1,000 ML IV (08:21)
[2018-01-15 08:30] LABS: BASO % 0.4 % (0.0-1.0); EOS # 0.2 10^3/uL (0.0-0.50); EOS % 3.6 % (0.0-3.0); HEMATOCRIT 34.9 % (36.0-47.0); HEMOGLOBIN 10.6 g/dl (12.0-15.5); IMMATURE GRANULOCYTE % 0.7 % (0-3.0); LYMPH # 1.1 10^3/uL (1.5-4.5); LYMPH % 24.4 % (24.0-44.0); MEAN CORPUSCULAR HEMOGLOBIN 27.7 pg (27.0-33.0); MEAN CORPUSCULAR HGB CONC 30.4 g/dl (32.0-36.5); MEAN CORPUSCULAR VOLUME 91.1 fl (80.0-96.0); MONO # 0.5 10^3/uL (0.0-0.8); MONO % 11.2 % (0.0-5.0); NEUTROPHILS # 2.7 10^3/uL (1.8-7.7); NEUTROPHILS % 59.7 % (36.0-66.0); PLATELET COUNT, AUTOMATED 165 10^3/uL (150-450); RED BLOOD COUNT 3.83 10^6/uL (4.00-5.40); RED CELL DISTRIBUTION WIDTH 18.7 % (11.5-14.5); WHITE BLOOD COUNT 4.5 10^3/uL (4.0-10.0)
[2018-01-15 08:53] LABS: ANION GAP 11 MEQ/L (8-16); BLOOD UREA NITROGEN 58 MG/DL (7-18); CALCIUM LEVEL 8.5 MG/DL (8.8-10.2); CARBON DIOXIDE LEVEL 16 MEQ/L (21-32); CHLORIDE LEVEL 113 MEQ/L (98-107); CREATININE FOR GFR 5.06 MG/DL (0.55-1.30); GLOMERULAR FILTRATION RATE 9.2 (>45); GLUCOSE, FASTING 122 MG/DL (70-100); MAGNESIUM LEVEL 1.6 MG/DL (1.8-2.4); POTASSIUM SERUM 3.9 MEQ/L (3.5-5.1); SODIUM LEVEL 140 MEQ/L (136-145); URIC ACID 3.9 MG/DL (2.6-6.0)
== END 2018-01-15 10:35 | disposition home or self-care (01) ==
LOC: M INFU 08:02
DX: E86.0 Dehydration (principal); E83.42 Hypomagnesemia; N17.9 Acute kidney failure, unspecified; M10.9 Gout, unspecified; Z91.041 Radiographic dye allergy status; Z88.8 Allergy status to other drugs, medicaments and biological substances
CPT/HCPCS: 83735

== ENCOUNTER 2018-01-16 08:59 | Outpatient (CLI) | payer MEDICARE, BC, OTHER ==
[2018-01-16] MEDS: NS IV (09:23)
[2018-01-16] MEDS: MAGNESIUM SULFATE IV (09:23)
== END 2018-01-16 10:40 | disposition home or self-care (01) ==
LOC: M INFU 08:59
DX: E83.42 Hypomagnesemia (principal); E86.0 Dehydration; N17.9 Acute kidney failure, unspecified; M10.9 Gout, unspecified; Z79.899 Other long term (current) drug therapy; Z88.8 Allergy status to other drugs, medicaments and biological substances; Z91.041 Radiographic dye allergy status; Z85.038 Personal history of other malignant neoplasm of large intestine; Z85.07 Personal history of malignant neoplasm of pancreas; Z85.05 Personal history of malignant neoplasm of liver; Z87.891 Personal history of nicotine dependence
CPT/HCPCS: J3475

== ENCOUNTER 2018-01-20 08:03 | Outpatient (CLI) | payer MEDICARE, BC, OTHER ==
[2018-01-20] MEDS: NS IV (08:29)
[2018-01-20] MEDS: MAGNESIUM SULFATE IV (08:29)
== END 2018-01-20 10:45 | disposition home or self-care (01) ==
LOC: M INFU 08:03
DX: E86.0 Dehydration (principal); E83.42 Hypomagnesemia; Z91.041 Radiographic dye allergy status; Z88.8 Allergy status to other drugs, medicaments and biological substances
CPT/HCPCS: J3475

== ENCOUNTER 2018-01-24 07:59 | Outpatient (CLI) | payer MEDICARE, BC, OTHER ==
[2018-01-24] MEDS: NS IV (08:48)
[2018-01-24] MEDS: MAGNESIUM SULFATE IV (08:48)
== END 2018-01-24 10:08 | disposition home or self-care (01) ==
LOC: M INFU 07:59
DX: E86.0 Dehydration (principal); E83.42 Hypomagnesemia; N17.9 Acute kidney failure, unspecified; M10.9 Gout, unspecified; Z91.041 Radiographic dye allergy status; Z88.8 Allergy status to other drugs, medicaments and biological substances
CPT/HCPCS: J3475

== ENCOUNTER 2018-01-27 15:56 | Outpatient (CLI) | payer MEDICARE, BC, OTHER ==
[2018-01-27] MEDS: NS IV (16:30)
[2018-01-27] MEDS: MAGNESIUM SULFATE IV (16:30)
== END 2018-01-27 18:35 | disposition home or self-care (01) ==
LOC: M INFU 15:56
DX: E86.0 Dehydration (principal); E83.42 Hypomagnesemia
CPT/HCPCS: J3475

== ENCOUNTER 2018-01-31 14:02 | Outpatient (CLI) | payer MEDICARE, BC, OTHER ==
[~2018-01-31] VITALS: Ht 167.6 cm; Wt 65.0 kg
[~2018-01-31 14:02] MED LIST changes: +AFIN5TAB PO; +ALLO100T PO; +CIPR-249 PO; +FEBU40TA PO; +GLYB5TA PO; +HYDR-3713 PO; +LEVO10VL IM; +LEVO175T2 PO; +MAGN20IN5 IV; +MAGN70CA IV; +MAGNESIUM SULFATE IV ONE; -NS 1,000 ML IV; +NS IV ONE; +OCTR200I IJ; +OCTR50IN IM; +PRED10TA2 PO; +PYRI1TAB5 PO; +SODI325T9 PO; +SYNT137T7 PO; +SYNT150T PO; +TYLE325T5 PO; +[UNRECOGNIZED DRUG - CODE] INJ; +[UNRECOGNIZED DRUG - CODE] SQ
[2018-01-31 14:05] VITALS: BP 110/98
[2018-01-31 16:30] VITALS: BP 134/68
== END 2018-01-31 16:30 | disposition home or self-care (01) ==
LOC: M INFU 14:02
PROVIDERS: ATTEND Internal Medicine Nephrology
DX: E86.0 Dehydration (principal); E83.42 Hypomagnesemia
CPT/HCPCS: 96365; 96366; J3475

== ENCOUNTER 2018-02-03 08:04 | Outpatient (CLI) | payer MEDICARE, BC, OTHER ==
[~2018-02-03] VITALS: Ht 167.6 cm; Wt 65.0 kg
[2018-02-03 08:10] VITALS: BP 112/69
[2018-02-03 10:30] VITALS: BP 134/68
[2018-02-03] MEDS ORDERED: SODI325T9 PO (15:13)
== END 2018-02-03 10:30 | disposition home or self-care (01) ==
LOC: M INFU 08:04
PROVIDERS: ATTEND Internal Medicine Nephrology
DX: E86.0 Dehydration (principal); E83.42 Hypomagnesemia; Z91.041 Radiographic dye allergy status; Z88.8 Allergy status to other drugs, medicaments and biological substances
CPT/HCPCS: 96365; 96366; J3475

== ENCOUNTER → 2018-02-05 | Outpatient (CLI) | payer MEDICARE, BC, OTHER ==
[~2018-02-05] MED LIST changes: -MAGNESIUM SULFATE IV ONE; -NS IV ONE
--- NOTE | 2018-02-05 17:36 | REP ---
Bilateral upper extremity arterial and venous Doppler ultrasound: Vein mapping study. History: End-stage renal disease. Findings: There is no evidence of venous thrombosis in either left or right upper extremity veins. A brachial duplication or high brachial artery bifurcation is noted on the right incidentally. The right basilic vein originates from a single large brachial vein on the right at the level of the distal humerus. Right upper extremity vein diameter chart: Upper humerus cephalic vein 1.5 mm, lower humerus basilic vein 2.3 mm, cephalic vein 1.2 mm, upper forearm basilic 0.9, cephalic 1.2, wrist basilic 0.9, cephalic 0.6, median cubital 1.1. Left upper extremity vein diameter chart: Upper humerus basilic 2.8 mm, cephalic 1.3 mm, lower humerus basilic 2.7, cephalic 0.9, upper forearm basilic 1.0, cephalic 1.2, wrist basilic 0.7, cephalic 0.8, median cubital 1.3. Left upper extremity arterial Doppler velocity and size chart: Left axillary 47 cm/s, 4.5 mm. Brachial 8.4 cm/s, 3.3 mm. Radial 42 cm/s, 1.5 mm. Ulnar 62 cm/s, 1.3 mm. Right upper extremity arterial Doppler velocity and size chart: Right axillary artery 45 cm/s, 6.0 mm. Brachial 83.7 mm and 58.7 mm, 3.1 and 1.9 mm duplication. Radial 48 cm/s, 1.5 mm. Ulnar 40.5 cm/s, 1.2 mm. Electronically Signed by Gage Sage MD 02/05/2018 08:45 P
== END ==
LOC: M RAD 13:36
PROVIDERS: ATTEND Internal Medicine Nephrology
DX: N18.6 End stage renal disease (principal)

== ENCOUNTER 2018-02-06 09:54 | Day surgery (SDC) | payer MEDICARE, BC, OTHER ==
[~2018-02-06] VITALS: Ht 167.6 cm; Wt 61.6 kg
[2018-02-06] MEDS ORDERED: LR 1,000 ML IV SCH (10:15)
[2018-02-06] MEDS ORDERED: NS 1,000 ML IV SCH (11:15)
[2018-02-06] MEDS ORDERED: SODIUM CHLORIDE 0.9% 1000ML IV ONE (11:15)
[2018-02-06] MEDS ORDERED: fentaNYL 100 MCG/2 ML INJECTION (J3010) As Ordered ONE (11:20)
[2018-02-06] MEDS ORDERED: ONDANSETRON 4MG/2ML VIAL (J2405) As Ordered ONE (11:20)
[2018-02-06] MEDS ORDERED: dexameTHASONE 4 MG/ML 1ML VIAL (J1100) As Ordered ONE ×2 (11:20→11:24)
[2018-02-06] MEDS ORDERED: PROPOFOL 500 MG/50 ML VIAL As Ordered ONE (11:20)
[2018-02-06] MEDS ORDERED: LIDOCAINE 2% INJ 100 MG/5 ML SDV (FOR ANES.) As Ordered ONE (11:20)
[2018-02-06] MEDS ORDERED: MIDAZOLAM INJ 2 MG/2 ML VIAL (J2250) As Ordered ONE (11:20)
[2018-02-06] MEDS ORDERED: HEPARIN SOD (PORCINE) 5000 UNITS/ML VIAL As Ordered ONE (11:27)
[2018-02-06] MEDS ORDERED: LIDOCAINE 1% SDV INJ 30 ML VIAL As Ordered ONE (11:27)
[2018-02-06] MEDS ORDERED: BUPIVACAINE HCL 0.5% 30 ML VIAL As Ordered ONE (11:27)
[2018-02-06 14:10] VITALS: BP 110/69
--- NOTE | 2018-03-12 08:17 | RO ---
DATE OF PROCEDURE: 02/06/2019 PREOPERATIVE DIAGNOSIS: Chronic renal insufficiency nearing end-stage renal disease requiring renal replacement therapy. POSTOPERATIVE DIAGNOSIS: Chronic renal insufficiency nearing end-stage renal disease requiring renal replacement therapy. PROCEDURE PERFORMED: Left brachiocephalic arteriovenous fistula creation. SURGEON: Dr. Maverick Mendoza. OPERATING ROOM SPECIALIST: None. ANESTHESIA: Local monitored anesthesia care (MAC). ESTIMATED BLOOD LOSS: 25 mL ' IV FLUID: 800 mL. HEPARIN: None. COMPLICATIONS: None. DRAINS: None. SPECIMENS: None. IMPLANTS: None. INDICATION: The patient is a 62-year-old female with chronic renal insufficiency and an estimated GFR of approximately 7% who is nearing the requirement for renal replacement therapy via hemodialysis. The patient was evaluated and recommendation was to undergo a left radiocephalic possible brachiocephalic arteriovenous fistula creation. The procedure was described explained to the patient in detail including drawing of pictures demonstrating the procedure and the pertinent anatomy. Risks, benefits and alternative options were discussed with the patient. Alternative options included but were not limited to no intervention, benefits included but were not limited to having access for hemodialysis without having placement of a tunneled central venous catheter for graft placement. Risks included but were not limited to infection, bleeding, failure arteriovenous access to maintain patency with thrombolysis, failure of arteriovenous access to mature requiring secondary intervention, steal syndrome, possible need for further open surgical intervention cerebrovascular accident, myocardial infarction, pulmonary embolus, deep venous thrombosis (DVT) loss of limb, loss of life, poor outcome and poor results. All the patient's questions were answered. The patient voices understanding and acceptance of these risks, benefits and alternative options and consents to proceed. DESCRIPTION OF PROCEDURE: The patient was taken to the operating room, placed supine on the operating room table and then prepped and draped in a standard surgical fashion. An incision was made transversely at the antecubital fossa after tourniquet was applied and this did not demonstrate any adequate cephalic vein in the forearm or at the wrist for a left radiocephalic arteriovenous fistula. There was good cephalic vein noted at the antecubital fossa with the tourniquet in place. The cephalic vein was then dissected free and there was noted to be immediate antecubital vein which coursed from the cephalic vein to the basilic vein. The median antecubital vein was then sharply dissected free encircled with a Vesseloops. The brachial artery was sharply dissected free encircled with a Vesseloops. The median antecubital vein was transected after being ligated as far distal as possible. The median antecubital basilic vein and cephalic vein were dilated using heparinized saline. After which the median antecubital vein was anastomosed to the brachial artery in an end-to-side fashion with #6-0 Prolene suture. Flow was re-established in the brachial artery and noted to have good flow with Doppler ultrasound proximally and distally to the arteriovenous anastomosis as well as good flow into the median antecubital vein which had outflow into both the cephalic and basilic veins. The basilic vein was noted to be larger than the cephalic vein but there was good flow in the cephalic vein proximally and distally. Hemostasis was obtained after which the incision was closed using #2-0 Vicryl to approximate deeper layers and #3-0 Monocryl to approximate the skin in a running subcuticular fashion. Steri-Strips and dressings were applied. The patient tolerated the procedure well. All instrument, sponge, needle counts were correct at the end of the case were no complications. Dr. Mendoza was present for directed the entire case. The patient was transferred to recovery room awake, alert, extubated and in stable condition. The procedure was described and results discussed with the patient and her with all their questions being answered.
== END 2018-02-06 14:15 | disposition home or self-care (01) ==
LOC: M SDC 09:54
PROVIDERS: ATTEND Surgery Vascular Surgery
DX: N18.9 Chronic kidney disease, unspecified (principal)
CPT/HCPCS: 36821; J1100; J2250; J2405; J3010

== ENCOUNTER 2018-02-07 07:57 | Outpatient (CLI) | payer MEDICARE, BC, OTHER ==
[~2018-02-07] VITALS: Ht 167.6 cm; Wt 65.0 kg
[2018-02-07 08:00] VITALS: BP 141/73
[2018-02-07] MEDS ORDERED: NS IV ONE (08:00)
[2018-02-07] MEDS ORDERED: MAGNESIUM SULFATE IV ONE (08:00)
[2018-02-07 10:22] VITALS: BP 138/74
== END 2018-02-07 10:15 | disposition home or self-care (01) ==
LOC: M INFU 07:57
PROVIDERS: ATTEND Internal Medicine Nephrology
DX: E83.42 Hypomagnesemia (principal); E86.0 Dehydration

== ENCOUNTER 2018-02-12 13:00 | Outpatient (CLI) | payer MEDICARE, BC, OTHER ==
[~2018-02-12] VITALS: Ht 165.1 cm; Wt 65.0 kg
[2018-02-12 13:00] VITALS: BP 133/79
[~2018-02-12 13:00] MED LIST changes: +MAGNESIUM SULFATE IV ONE; +NS IV ONE
[2018-02-12 15:35] VITALS: BP 159/82
== END 2018-02-12 15:35 | disposition home or self-care (01) ==
LOC: M INFU 13:00
PROVIDERS: ATTEND Internal Medicine Nephrology
DX: E83.42 Hypomagnesemia (principal); E86.0 Dehydration
CPT/HCPCS: 96365; 96366; J3475

== ENCOUNTER 2018-02-14 09:27 | Outpatient (CLI) | payer MEDICARE, BC, OTHER ==
[~2018-02-14] VITALS: Ht 167.6 cm; Wt 61.8 kg
[2018-02-14] MEDS ORDERED: LIDOCAINE 2% MDV 20 ML VIAL As Ordered ONE (09:42)
[2018-02-14] MEDS ORDERED: ISOVUE-300 61% 50ML VIAL (Q9967) As Ordered ONE (09:42)
[2018-02-14] MEDS ORDERED: fentaNYL 100 MCG/2 ML INJECTION (J3010) As Ordered ONE (09:52)
[2018-02-14] MEDS ORDERED: MIDAZOLAM INJ 2 MG/2 ML VIAL (J2250) As Ordered ONE (09:52)
[2018-02-14] MEDS ORDERED: MAGNESIUM SULFATE IV ONE (14:00)
[2018-02-14] MEDS ORDERED: NS IV ONE (14:00)
[2018-02-14 14:10] VITALS: BP 149/70
[2018-02-14 16:49] VITALS: BP 144/77
== END 2018-02-14 16:50 | disposition home or self-care (01) ==
LOC: M INFU 09:27
PROVIDERS: ATTEND Internal Medicine Nephrology
DX: E83.42 Hypomagnesemia (principal); E86.0 Dehydration

== ENCOUNTER → 2018-02-14 | Outpatient (CLI) | payer MEDICARE, BC, OTHER ==
[~2018-02-14] MED LIST changes: -MAGNESIUM SULFATE IV ONE; -NS IV ONE
--- NOTE | 2018-03-17 09:54 | REPIR ---
DATE OF PROCEDURE: 02/14/2018 ATTENDING SURGEON: Dr. Maverick Mendoza RESEARCH AND DEVELOPMENT SCIENTIST: Sean Martinez and Chantell Roque PREOPERATIVE DIAGNOSIS: Chronic renal insufficiency nearing end-stage renal disease. threatened left brachiocephalic arteriovenous fistula. POSTOPERATIVE DIAGNOSIS: Chronic renal insufficiency nearing end-stage renal disease. threatened left brachiocephalic arteriovenous fistula. PROCEDURE: Left brachiocephalic arteriovenous fistulogram, left cephalic vein angioplasty with 3 mm x 20 mm balloon, left cephalic vein angioplasty with 4 mm x 100 mm balloon, left basilic vein angioplasty with 4 mm x 100 mm balloon. INDICATION: The patient is a 62-year-old female with renal failure requiring access for hemodialysis with an estimated GFR of approximately 7%. The patient underwent creation of a left brachiocephalic arteriovenous fistula with the veins being small and the patient will now undergo a fistulogram in order to ensure maintained patency and maturation of the arteriovenous fistula. Risks, benefits and alternative treatment options were discussed with the patient. ANESTHESIA: Local with sedation of 1 mg Versed, 100 mcg of fentanyl and 2 mL of 2% lidocaine. FLUORO TIME: 2.5 minutes. CONTRAST: 4 mL of Isovue-300. SEDATION TIME: 11:20 a.m. to 12:01 p.m. for a total of 41 minutes. The sedation was administered by myself through the access in the arteriovenous fistula. The cardiopulmonary monitoring was performed by the registered nurse in the room. The procedure was performed under my direct supervision and I was present for and directed the entire case. There were no sedation related complications. The patient was returned to pre sedation levels at the completion of the procedure. COMPLICATIONS: None. DRAINS: None. SPECIMENS: None. IMPLANTS: None. DESCRIPTION OF PROCEDURE: The patient was taken to the angiography suite, placed supine on the angiography table. The left upper extremity was prepped and draped in a standard surgical fashion. The arteriovenous fistula was cannulated with a micropuncture needle after anesthetizing the overlying skin with 2% lidocaine. The fistulogram showed dual outflow of the fistula through the connection to the brachial artery through the cephalic vein and basilic vein into the upper arm. There was stenosis at the translocated portion of vein in the antecubital fossa. The cephalic vein was then angioplastied with a 3 x 200 mm balloon and then further angioplastied with a 4 x 100 mm balloon. The basilic vein was angioplastied with a 4 x 100 mm balloon. A completion fistulogram showed resolution of the stenosis with excellent flow through the cephalic vein and basilic vein into the upper arm and centrally. The catheter and wires were removed. The sheath was removed and manual compression applied at the puncture site for hemostasis. Dressings were then applied. The patient tolerated the procedure well. All instrument, sponge and needle counts were correct at the end of the case. There were no complications. Dr. Mendoza was present for and directed the entire case. The patient was transferred to the holding area and subsequently discharged in stable condition.
== END | disposition home or self-care (01) ==
LOC: M IRPRO 09:25
PROVIDERS: ATTEND Surgery Vascular Surgery
DX: T82.858A Stenosis of other vascular prosthetic devices, implants and grafts, initial encounter (principal); N18.9 Chronic kidney disease, unspecified; E83.42 Hypomagnesemia; E86.0 Dehydration
CPT/HCPCS: 36902; 99152; 99153; C1725; C1769; C1894; J2250; J3010; J3475; Q9967

== ENCOUNTER 2018-02-20 15:34 | Outpatient (CLI) | payer MEDICARE, BC, OTHER ==
[~2018-02-20] VITALS: Ht 167.6 cm; Wt 61.8 kg
[~2018-02-20 15:34] MED LIST changes: +MAGNESIUM SULFATE IV ONE; +NS IV ONE
[2018-02-20 15:40] VITALS: BP 105/66
[2018-02-20 18:02] VITALS: BP 130/65
== END 2018-02-20 18:05 | disposition home or self-care (01) ==
LOC: M INFU 15:34
PROVIDERS: ATTEND Internal Medicine Nephrology
DX: E83.42 Hypomagnesemia (principal); E86.0 Dehydration
CPT/HCPCS: 96365; 96366; J3475

== ENCOUNTER 2018-02-21 09:59 | Outpatient (CLI) | payer MEDICARE, BC, OTHER ==
[~2018-02-21] VITALS: Ht 165.1 cm; Wt 61.8 kg
[~2018-02-21 09:59] MED LIST changes: -MAGNESIUM SULFATE IV ONE; +MAGNESIUM SULFATE IV SCH; -NS IV ONE; +NS IV SCH
[2018-02-21 10:09] VITALS: BP 125/64
[2018-02-21 12:35] VITALS: BP 118/63
== END 2018-02-21 12:30 | disposition home or self-care (01) ==
LOC: M INFU 09:59
PROVIDERS: ATTEND Internal Medicine Nephrology
DX: E83.42 Hypomagnesemia (principal); E86.0 Dehydration
CPT/HCPCS: 96365; 96366; J3475

== ENCOUNTER 2018-02-24 09:34 | Outpatient (CLI) | payer MEDICARE, BC, OTHER ==
[~2018-02-24] VITALS: Ht 167.6 cm; Wt 61.8 kg
[~2018-02-24 09:34] MED LIST changes: +MAGNESIUM SULFATE IV ONE; -MAGNESIUM SULFATE IV SCH; +NS IV ONE; -NS IV SCH
[2018-02-24 09:40] VITALS: BP 113/63
[2018-02-24 12:10] VITALS: BP 137/73
== END 2018-02-24 12:10 | disposition home or self-care (01) ==
LOC: M INFU 09:34
PROVIDERS: ATTEND Internal Medicine Nephrology
DX: E83.42 Hypomagnesemia (principal); E86.0 Dehydration; Z88.8 Allergy status to other drugs, medicaments and biological substances; Z91.041 Radiographic dye allergy status
CPT/HCPCS: 96365; 96366; J3475

== ENCOUNTER 2018-02-25 13:53 | Outpatient (CLI) | payer MEDICARE, BC, OTHER ==
[~2018-02-25] VITALS: Ht 165.1 cm; Wt 61.8 kg
[2018-02-25 14:00] VITALS: BP 147/77
[2018-02-25 16:47] VITALS: BP 152/86
== END 2018-02-25 15:50 | disposition home or self-care (01) ==
LOC: M INFU 13:53
PROVIDERS: ATTEND Internal Medicine Nephrology
DX: E83.42 Hypomagnesemia (principal); E86.0 Dehydration
CPT/HCPCS: 96365; 96366; J3475

== ENCOUNTER 2018-02-28 09:25 | Outpatient (CLI) | payer MEDICARE, BC, OTHER ==
[~2018-02-28] VITALS: Ht 165.1 cm; Wt 61.8 kg
[2018-02-28] MEDS ORDERED: NS IV ONE (12:00)
[2018-02-28] MEDS ORDERED: MAGNESIUM SULFATE IV ONE (12:00)
[2018-02-28 12:07] VITALS: BP 161/73
[2018-02-28 14:35] VITALS: BP 150/66
== END 2018-02-28 14:45 | disposition home or self-care (01) ==
LOC: M INFU 09:25
PROVIDERS: ATTEND Internal Medicine Nephrology
DX: E86.0 Dehydration (principal); E83.42 Hypomagnesemia
CPT/HCPCS: 96360; 96361; J3475

== ENCOUNTER → 2018-02-28 | Outpatient (CLI) | payer MEDICARE, BC, OTHER ==
[~2018-02-28] MED LIST changes: -MAGNESIUM SULFATE IV ONE; -NS IV ONE
== END ==
LOC: M IRPRO 09:24
PROVIDERS: ATTEND Surgery Vascular Surgery
DX: Z53.8 Procedure and treatment not carried out for other reasons (principal)

== ENCOUNTER 2018-03-03 08:04 | Outpatient (CLI) | payer MEDICARE, BC, OTHER ==
[~2018-03-03] VITALS: Ht 165.1 cm; Wt 61.8 kg
[~2018-03-03 08:04] MED LIST changes: +MAGNESIUM SULFATE IV ONE; +NS IV ONE
[2018-03-03 08:05] VITALS: BP 145/80
[2018-03-03 08:10] VITALS: BP 145/80
[2018-03-03 11:00] VITALS: BP 157/75
== END 2018-03-03 11:00 | disposition home or self-care (01) ==
LOC: M INFU 08:04
PROVIDERS: ATTEND Internal Medicine Nephrology
DX: E86.0 Dehydration (principal)
CPT/HCPCS: 96360; 96361; J3475

== ENCOUNTER 2018-03-05 13:11 | Outpatient (CLI) | payer MEDICARE, BC, OTHER ==
[~2018-03-05] VITALS: Ht 167.6 cm; Wt 61.8 kg
[2018-03-05 13:15] VITALS: BP 143/79
[2018-03-05 15:45] VITALS: BP 148/72
== END 2018-03-05 15:45 | disposition home or self-care (01) ==
LOC: M INFU 13:11
PROVIDERS: ATTEND Internal Medicine Nephrology
DX: E86.0 Dehydration (principal); E83.42 Hypomagnesemia
CPT/HCPCS: 96360; 96361; J3475

== ENCOUNTER 2018-03-07 13:52 | Outpatient (CLI) | payer MEDICARE, BC, OTHER ==
[~2018-03-07] VITALS: Ht 165.1 cm; Wt 61.8 kg
[2018-03-07 08:45] VITALS: BP 112/67
[~2018-03-07 13:52] MED LIST changes: -MAGNESIUM SULFATE IV ONE; +NS 1,000 ML IV SCH; -NS IV ONE
[2018-03-07 13:55] VITALS: BP 128/68
[2018-03-07] MEDS ORDERED: MAGNESIUM SULFATE 1 GM/100 ML D5W BAG (10MG/ML) (J3475) As Ordered ONE (13:58)
[2018-03-07] MEDS: MAGNESIUM SULFATE 1 GM/100 ML D5W BAG (10MG/ML) (J3475) IV SCH ×2 (14:11→15:35)
== END 2018-03-07 17:15 | disposition home or self-care (01) ==
LOC: M INFU 13:52
PROVIDERS: ATTEND Internal Medicine Nephrology
DX: E83.42 Hypomagnesemia (principal); E86.0 Dehydration; Z88.8 Allergy status to other drugs, medicaments and biological substances; Z91.041 Radiographic dye allergy status
CPT/HCPCS: 96365; 96366; J3475

== ENCOUNTER 2018-03-10 08:00 | Outpatient (CLI) | payer MEDICARE, BC, OTHER ==
[~2018-03-10] VITALS: Ht 165.1 cm; Wt 61.8 kg
[2018-03-10 08:00] VITALS: BP 119/58
[~2018-03-10 08:00] MED LIST changes: +MAGNESIUM SULFATE IV SCH; -NS 1,000 ML IV SCH; +NS IV SCH
[2018-03-10 10:40] VITALS: BP 125/59
== END 2018-03-10 10:40 | disposition home or self-care (01) ==
LOC: M INFU 08:00
PROVIDERS: ATTEND Internal Medicine Nephrology
DX: E83.42 Hypomagnesemia (principal); E86.0 Dehydration; Z88.8 Allergy status to other drugs, medicaments and biological substances; Z91.041 Radiographic dye allergy status
CPT/HCPCS: 96365; 96366; J3475

== ENCOUNTER 2018-03-12 08:02 | Outpatient (CLI) | payer MEDICARE, BC, OTHER ==
[~2018-03-12] VITALS: Ht 165.1 cm; Wt 61.8 kg
[~2018-03-12 08:02] MED LIST changes: +MAGNESIUM SULFATE IV ONE; -MAGNESIUM SULFATE IV SCH; +NS IV ONE; -NS IV SCH
[2018-03-12 08:05] VITALS: BP 135/74
[2018-03-12 11:00] VITALS: BP 157/69
== END 2018-03-12 11:00 | disposition home or self-care (01) ==
LOC: M INFU 08:02
PROVIDERS: ATTEND Internal Medicine Nephrology
DX: E86.0 Dehydration (principal); E83.42 Hypomagnesemia; Z88.8 Allergy status to other drugs, medicaments and biological substances; Z91.041 Radiographic dye allergy status
CPT/HCPCS: 96360; 96361; J3475

== ENCOUNTER 2018-03-14 07:57 | Outpatient (CLI) | payer MEDICARE, BC, OTHER ==
[~2018-03-14] VITALS: Ht 165.1 cm; Wt 61.8 kg
[2018-03-14 08:00] VITALS: BP 119/63
[2018-03-14 10:40] VITALS: BP 122/60
== END 2018-03-14 10:40 | disposition home or self-care (01) ==
LOC: M INFU 07:57
PROVIDERS: ATTEND Internal Medicine Nephrology
DX: E86.0 Dehydration (principal); E83.42 Hypomagnesemia; Z88.8 Allergy status to other drugs, medicaments and biological substances; Z91.041 Radiographic dye allergy status
CPT/HCPCS: 96365; 96366; J3475

== ENCOUNTER 2018-03-17 08:03 | Outpatient (CLI) | payer MEDICARE, BC, OTHER ==
[~2018-03-17] VITALS: Ht 162.6 cm; Wt 61.8 kg
[2018-03-17 08:05] VITALS: BP 137/64
[2018-03-17 10:20] VITALS: BP 134/73
== END 2018-03-17 10:25 | disposition home or self-care (01) ==
LOC: M INFU 08:03
PROVIDERS: ATTEND Internal Medicine Nephrology
DX: E86.0 Dehydration (principal); E83.42 Hypomagnesemia; Z88.8 Allergy status to other drugs, medicaments and biological substances; Z91.041 Radiographic dye allergy status
CPT/HCPCS: 96365; 96366; J3475

== ENCOUNTER 2018-03-21 15:10 | Outpatient (CLI) | payer MEDICARE, BC, OTHER ==
[~2018-03-21] VITALS: Ht 165.1 cm; Wt 60.5 kg
[2018-03-21 15:10] VITALS: BP 140/67
[2018-03-21 17:50] VITALS: BP 154/77
== END 2018-03-21 17:50 | disposition home or self-care (01) ==
LOC: M INFU 15:10
PROVIDERS: ATTEND Internal Medicine Nephrology
DX: E86.0 Dehydration (principal); E83.42 Hypomagnesemia; Z88.8 Allergy status to other drugs, medicaments and biological substances; Z91.041 Radiographic dye allergy status
CPT/HCPCS: 96365; 96366; J3475

== ENCOUNTER 2018-03-24 07:58 | Outpatient (CLI) | payer MEDICARE, BC, OTHER ==
[~2018-03-24] VITALS: Ht 165.1 cm; Wt 61.8 kg
[~2018-03-24 07:58] MED LIST changes: -MAGNESIUM SULFATE IV ONE; -NS IV ONE
[2018-03-24 08:00] VITALS: BP 119/61
[2018-03-24] MEDS ORDERED: MAGNESIUM SULFATE IV ONE (08:00)
[2018-03-24] MEDS ORDERED: NS IV ONE (08:00)
[2018-03-24 10:30] VITALS: BP 118/59
== END 2018-03-24 10:30 | disposition home or self-care (01) ==
LOC: M INFU 07:58
PROVIDERS: ATTEND Internal Medicine Nephrology
DX: E86.0 Dehydration (principal); E83.42 Hypomagnesemia; Z88.8 Allergy status to other drugs, medicaments and biological substances; Z91.041 Radiographic dye allergy status
CPT/HCPCS: 96365; 96366; J3475

== ENCOUNTER 2018-03-28 08:02 | Outpatient (CLI) | payer MEDICARE, BC, OTHER ==
[~2018-03-28] VITALS: Ht 165.1 cm; Wt 61.8 kg
[~2018-03-28 08:02] MED LIST changes: +MAGNESIUM SULFATE IV ONE; +NS IV ONE
[2018-03-28 08:05] VITALS: BP 112/58
[2018-03-28 10:45] VITALS: BP 150/67
== END 2018-03-28 10:45 | disposition home or self-care (01) ==
LOC: M INFU 08:02
PROVIDERS: ATTEND Internal Medicine Nephrology
DX: E86.0 Dehydration (principal); E83.49 Other disorders of magnesium metabolism; Z88.8 Allergy status to other drugs, medicaments and biological substances; Z91.041 Radiographic dye allergy status
CPT/HCPCS: 96365; 96366; J3475

== ENCOUNTER 2018-03-31 07:58 | Outpatient (CLI) | payer MEDICARE, BC, OTHER ==
[~2018-03-31] VITALS: Ht 154.9 cm; Wt 61.8 kg
[2018-03-31 08:00] VITALS: BP 143/84
[2018-03-31 10:43] VITALS: BP 135/70
== END 2018-03-31 10:35 | disposition home or self-care (01) ==
LOC: M INFU 07:58
PROVIDERS: ATTEND Internal Medicine Nephrology
DX: E80.6 Other disorders of bilirubin metabolism (principal); E83.42 Hypomagnesemia; Z79.84 Long term (current) use of oral hypoglycemic drugs; Z88.8 Allergy status to other drugs, medicaments and biological substances; Z91.041 Radiographic dye allergy status
CPT/HCPCS: 96365; 96366; J3475

== ENCOUNTER 2018-04-02 08:02 | Outpatient (CLI) | payer MEDICARE, BC, OTHER ==
[~2018-04-02] VITALS: Ht 162.6 cm; Wt 61.8 kg
[2018-04-02 08:00] VITALS: BP 135/66
[2018-04-02 10:40] VITALS: BP 143/71
== END 2018-04-02 10:45 ==
LOC: M INFU 08:02
PROVIDERS: ATTEND Internal Medicine Nephrology
DX: E86.0 Dehydration (principal); E83.49 Other disorders of magnesium metabolism; Z91.041 Radiographic dye allergy status; Z88.8 Allergy status to other drugs, medicaments and biological substances
CPT/HCPCS: 96365; 96366; J3475

== ENCOUNTER 2018-04-04 07:58 | Outpatient (CLI) | payer MEDICARE, BC, OTHER ==
[~2018-04-04] VITALS: Ht 165.1 cm; Wt 61.8 kg
[~2018-04-04 07:58] MED LIST changes: -MAGNESIUM SULFATE IV ONE; -NS IV ONE
[2018-04-04 08:00] VITALS: BP 146/62
[2018-04-04] MEDS ORDERED: MAGNESIUM SULFATE IV ONE (08:00)
[2018-04-04] MEDS ORDERED: NS IV ONE (08:00)
[2018-04-04 10:35] VITALS: BP 159/73
== END 2018-04-04 10:35 | disposition home or self-care (01) ==
LOC: M INFU 07:58
PROVIDERS: ATTEND Internal Medicine Nephrology
DX: E86.0 Dehydration (principal); E83.42 Hypomagnesemia; N19 Unspecified kidney failure; Z88.8 Allergy status to other drugs, medicaments and biological substances; Z91.041 Radiographic dye allergy status
CPT/HCPCS: 96365; 96366; J3475

== ENCOUNTER 2018-04-07 08:01 | Outpatient (CLI) | payer MEDICARE, BC, OTHER ==
[~2018-04-07] VITALS: Ht 165.1 cm; Wt 61.8 kg
[~2018-04-07 08:01] MED LIST changes: +MAGNESIUM SULFATE IV ONE; +NS IV ONE
[2018-04-07 08:12] VITALS: BP 127/61
[2018-04-07 10:45] VITALS: BP 149/71
== END 2018-04-07 10:45 | disposition home or self-care (01) ==
LOC: M INFU 08:01
PROVIDERS: ATTEND Internal Medicine Nephrology
DX: E86.0 Dehydration (principal); E83.42 Hypomagnesemia; Z88.8 Allergy status to other drugs, medicaments and biological substances; Z88.3 Allergy status to other anti-infective agents; Z91.041 Radiographic dye allergy status; D50.9 Iron deficiency anemia, unspecified
CPT/HCPCS: 82728; 83550; 86850; 86900; 86901; 86920; 96365; 96366; J3475

== ENCOUNTER → 2018-04-07 | Outpatient (REF) | payer MEDICARE, BC, OTHER ==
[2018-04-07 17:54] LABS: PERCENT SATURATION 36.1 % (13.2-45.0)
== END ==
LOC: M LAB REF 16:55
PROVIDERS: ATTEND Internal Medicine Nephrology
DX: D50.9 Iron deficiency anemia, unspecified (principal)

== ENCOUNTER 2018-04-08 09:29 | Outpatient (CLI) | payer MEDICARE, BC, OTHER ==
[~2018-04-08] VITALS: Ht 165.1 cm; Wt 61.9 kg
[2018-04-08] VITALS (8 sets, daily range): BP systolic 131–154; BP diastolic 65–82
[~2018-04-08 09:29] MED LIST changes: -MAGNESIUM SULFATE IV ONE; -NS IV ONE
== END 2018-04-08 15:30 | disposition home or self-care (01) ==
LOC: M INFU 09:29
PROVIDERS: ATTEND Internal Medicine Nephrology
DX: D64.9 Anemia, unspecified (principal); Z79.899 Other long term (current) drug therapy
CPT/HCPCS: 36430; P9016

== ENCOUNTER 2018-04-09 07:54 | Outpatient (CLI) | payer MEDICARE, BC, OTHER ==
[~2018-04-09] VITALS: Ht 167.6 cm; Wt 60.0 kg
[2018-04-09 08:00] VITALS: BP 156/71
[2018-04-09] MEDS ORDERED: NS IV ONE (08:00)
[2018-04-09] MEDS ORDERED: MAGNESIUM SULFATE IV ONE (08:00)
[2018-04-09 10:45] VITALS: BP 145/70
== END 2018-04-09 10:45 | disposition home or self-care (01) ==
LOC: M INFU 07:54
PROVIDERS: ATTEND Internal Medicine Nephrology
DX: E83.42 Hypomagnesemia (principal); E86.0 Dehydration; N18.9 Chronic kidney disease, unspecified; Z88.8 Allergy status to other drugs, medicaments and biological substances; Z91.041 Radiographic dye allergy status
CPT/HCPCS: 96365; 96366; J3475

== ENCOUNTER 2018-04-11 07:57 | Outpatient (CLI) | payer MEDICARE, BC, OTHER ==
[~2018-04-11] VITALS: Ht 165.1 cm; Wt 61.8 kg
[2018-04-11 08:00] VITALS: BP 141/68
[2018-04-11] MEDS ORDERED: NS IV ONE (08:00)
[2018-04-11] MEDS ORDERED: MAGNESIUM SULFATE IV ONE (08:00)
[2018-04-11 10:34] VITALS: BP 158/78
== END 2018-04-11 10:40 | disposition home or self-care (01) ==
LOC: M INFU 07:57
PROVIDERS: ATTEND Internal Medicine Nephrology
DX: N18.9 Chronic kidney disease, unspecified (principal); E86.0 Dehydration; E83.42 Hypomagnesemia; Z88.8 Allergy status to other drugs, medicaments and biological substances; Z91.041 Radiographic dye allergy status
CPT/HCPCS: 96365; 96366; J3475

== ENCOUNTER 2018-04-14 08:29 | Outpatient (CLI) | payer MEDICARE, BC, OTHER ==
[~2018-04-14] VITALS: Ht 165.1 cm; Wt 61.8 kg
[2018-04-14 08:35] VITALS: BP 146/70
[2018-04-14] MEDS ORDERED: NS IV ONE (09:00)
[2018-04-14] MEDS ORDERED: MAGNESIUM SULFATE IV ONE (09:00)
[2018-04-14 11:00] VITALS: BP 162/79
== END 2018-04-14 11:00 | disposition home or self-care (01) ==
LOC: M INFU 08:29
PROVIDERS: ATTEND Internal Medicine Nephrology
DX: E83.42 Hypomagnesemia (principal); E86.0 Dehydration; N18.9 Chronic kidney disease, unspecified; Z88.8 Allergy status to other drugs, medicaments and biological substances; Z91.041 Radiographic dye allergy status
CPT/HCPCS: 96365; 96366; J3475

== ENCOUNTER 2018-04-15 07:57 | Outpatient (CLI) | payer MEDICARE, BC, OTHER ==
[~2018-04-15] VITALS: Ht 165.1 cm; Wt 61.8 kg
[2018-04-15 08:00] VITALS: BP 144/72
[2018-04-15] MEDS ORDERED: NS IV ONE (09:00)
[2018-04-15] MEDS ORDERED: MAGNESIUM SULFATE IV ONE (09:00)
[2018-04-15 11:15] VITALS: BP 146/70
== END 2018-04-15 11:25 | disposition home or self-care (01) ==
LOC: M INFU 07:57
PROVIDERS: ATTEND Internal Medicine Nephrology
DX: E83.42 Hypomagnesemia (principal); E86.0 Dehydration; N18.9 Chronic kidney disease, unspecified; Z88.8 Allergy status to other drugs, medicaments and biological substances; Z88.3 Allergy status to other anti-infective agents; Z91.041 Radiographic dye allergy status; Z79.899 Other long term (current) drug therapy
CPT/HCPCS: 96365; 96366; J3475

== ENCOUNTER 2018-04-18 07:57 | Outpatient (CLI) | payer MEDICARE, BC, OTHER ==
[~2018-04-18] VITALS: Ht 162.6 cm; Wt 61.8 kg
[2018-04-18 08:00] VITALS: BP_SYST 145; BP_SYST 146; BP_DIAS 66; BP_DIAS 69
[2018-04-18] MEDS ORDERED: MAGNESIUM SULFATE IV ONE (08:00)
[2018-04-18] MEDS ORDERED: NS IV ONE (08:00)
[2018-04-18 10:58] VITALS: BP 163/76
== END 2018-04-18 11:00 | disposition home or self-care (01) ==
LOC: M INFU 07:57
PROVIDERS: ATTEND Internal Medicine Nephrology
DX: E86.0 Dehydration (principal); E83.42 Hypomagnesemia; Z88.8 Allergy status to other drugs, medicaments and biological substances; Z91.041 Radiographic dye allergy status
CPT/HCPCS: 96365; 96366; J3475

== ENCOUNTER 2018-04-21 15:00 | Outpatient (CLI) | payer MEDICARE, BC, OTHER ==
[~2018-04-21] VITALS: Ht 165.1 cm; Wt 61.8 kg
[~2018-04-21 15:00] MED LIST changes: +MAGNESIUM SULFATE IV ONE; +NS IV ONE
[2018-04-21 15:10] VITALS: BP 160/77
[2018-04-21 17:27] VITALS: BP 161/68
== END 2018-04-21 17:30 | disposition home or self-care (01) ==
LOC: M INFU 15:00
PROVIDERS: ATTEND Internal Medicine Nephrology
DX: E86.0 Dehydration (principal); E83.42 Hypomagnesemia; N18.9 Chronic kidney disease, unspecified; Z91.041 Radiographic dye allergy status; Z88.8 Allergy status to other drugs, medicaments and biological substances
CPT/HCPCS: 96365; 96366; J3475

== ENCOUNTER 2018-04-23 08:00 | Outpatient (CLI) | payer MEDICARE, BC, OTHER ==
[~2018-04-23] VITALS: Ht 165.1 cm; Wt 61.8 kg
[2018-04-23 08:05] VITALS: BP 152/82
[2018-04-23 11:00] VITALS: BP 158/76
== END 2018-04-23 11:00 | disposition home or self-care (01) ==
LOC: M INFU 08:00
PROVIDERS: ATTEND Internal Medicine Nephrology
DX: E86.0 Dehydration (principal); E83.42 Hypomagnesemia; Z88.8 Allergy status to other drugs, medicaments and biological substances; Z91.041 Radiographic dye allergy status
CPT/HCPCS: 96365; 96366; J3475

== ENCOUNTER 2018-04-25 07:55 | Outpatient (CLI) | payer MEDICARE, BC, OTHER ==
[~2018-04-25] VITALS: Ht 165.1 cm; Wt 61.8 kg
[~2018-04-25 07:55] MED LIST changes: -MAGNESIUM SULFATE IV ONE; -NS IV ONE
[2018-04-25] MEDS ORDERED: MAGNESIUM SULFATE IV ONE (08:00)
[2018-04-25] MEDS ORDERED: NS IV ONE (08:00)
[2018-04-25 08:23] VITALS: BP 148/73
[2018-04-25 11:00] VITALS: BP 166/77
== END 2018-04-25 10:50 | disposition home or self-care (01) ==
LOC: M INFU 07:55
PROVIDERS: ATTEND Internal Medicine Nephrology
DX: E86.0 Dehydration (principal); E83.42 Hypomagnesemia; Z88.8 Allergy status to other drugs, medicaments and biological substances; Z91.041 Radiographic dye allergy status
CPT/HCPCS: 96365; 96366; J3475

== ENCOUNTER → 2018-04-28 | Outpatient (CLI) | payer MEDICARE, BC, OTHER ==
[~2018-04-28] VITALS: Ht 165.1 cm; Wt 61.8 kg
[~2018-04-28] MED LIST changes: +MAGNESIUM SULFATE IV ONE; +NS IV ONE
[2018-04-28 08:02] VITALS: BP 142/67
[2018-04-28 10:40] VITALS: BP 142/76
== END ==
LOC: M INFU 07:52
PROVIDERS: ATTEND Internal Medicine Nephrology
DX: E83.42 Hypomagnesemia (principal); E86.0 Dehydration; Z91.041 Radiographic dye allergy status; Z88.8 Allergy status to other drugs, medicaments and biological substances
CPT/HCPCS: 96365; 96366; J3475

== ENCOUNTER 2018-05-01 14:24 | Outpatient (CLI) | payer MEDICARE, BC, OTHER ==
[~2018-05-01] VITALS: Ht 165.1 cm; Wt 61.8 kg
[~2018-05-01 14:24] MED LIST changes: -MAGNESIUM SULFATE IV ONE; -NS IV ONE
[2018-05-01 14:30] VITALS: BP 161/79
[2018-05-01] MEDS ORDERED: MAGNESIUM SULFATE IV ONE (14:45)
[2018-05-01] MEDS ORDERED: NS IV ONE (14:45)
[2018-05-01 17:02] VITALS: BP 162/70
== END 2018-05-01 17:00 | disposition home or self-care (01) ==
LOC: M INFU 14:24
PROVIDERS: ATTEND Internal Medicine Nephrology
DX: E83.42 Hypomagnesemia (principal); Z88.8 Allergy status to other drugs, medicaments and biological substances; Z91.041 Radiographic dye allergy status
CPT/HCPCS: 96365; 96366; J3475

== ENCOUNTER 2018-05-02 07:52 | Outpatient (CLI) | payer MEDICARE, BC, OTHER ==
[~2018-05-02] VITALS: Ht 162.6 cm; Wt 61.8 kg
[~2018-05-02 07:52] MED LIST changes: +MAGNESIUM SULFATE IV ONE; +NS IV ONE
[2018-05-02 07:55] VITALS: BP 168/77
[2018-05-02 10:15] VITALS: BP 140/81
== END 2018-05-02 10:20 | disposition home or self-care (01) ==
LOC: M INFU 07:52
PROVIDERS: ATTEND Internal Medicine Nephrology
DX: E83.42 Hypomagnesemia (principal); Z91.041 Radiographic dye allergy status; Z88.3 Allergy status to other anti-infective agents; Z88.8 Allergy status to other drugs, medicaments and biological substances
CPT/HCPCS: 96365; 96366; J3475

== ENCOUNTER 2018-05-07 17:30 | Outpatient (CLI) | payer MEDICARE, BC, OTHER ==
[~2018-05-07] VITALS: Ht 165.1 cm; Wt 61.8 kg
[~2018-05-07 17:30] MED LIST changes: -MAGNESIUM SULFATE IV ONE; -NS IV ONE
[2018-05-07 17:47] VITALS: BP 168/75
[2018-05-07] MEDS ORDERED: NS IV ONE (18:00)
[2018-05-07] MEDS ORDERED: MAGNESIUM SULFATE IV ONE (18:00)
[2018-05-07 20:35] VITALS: BP 164/77
== END 2018-05-07 20:45 | disposition home or self-care (01) ==
LOC: M INFU 17:30
PROVIDERS: ATTEND Internal Medicine Nephrology
DX: E83.42 Hypomagnesemia (principal); E86.0 Dehydration; Z88.3 Allergy status to other anti-infective agents; Z88.8 Allergy status to other drugs, medicaments and biological substances; Z91.041 Radiographic dye allergy status
CPT/HCPCS: 96365; 96366; J3475

== ENCOUNTER 2018-05-09 07:53 | Outpatient (CLI) | payer MEDICARE, BC, OTHER ==
[~2018-05-09] VITALS: Ht 167.6 cm; Wt 61.8 kg
[2018-05-09 07:55] VITALS: BP 155/77
[2018-05-09] MEDS ORDERED: MAGNESIUM SULFATE IV ONE (08:00)
[2018-05-09] MEDS ORDERED: NS IV ONE (08:00)
[2018-05-09 10:35] VITALS: BP 147/70
== END 2018-05-09 10:35 | disposition home or self-care (01) ==
LOC: M INFU 07:53
PROVIDERS: ATTEND Internal Medicine Nephrology
DX: E83.42 Hypomagnesemia (principal); E86.0 Dehydration; Z88.8 Allergy status to other drugs, medicaments and biological substances; Z91.041 Radiographic dye allergy status
CPT/HCPCS: 96365; 96366; J3475

== ENCOUNTER 2018-05-15 14:22 | Outpatient (CLI) | payer MEDICARE, BC, OTHER ==
[~2018-05-15] VITALS: Ht 162.6 cm; Wt 61.8 kg
[2018-05-15 14:25] VITALS: BP 141/65
[2018-05-15] MEDS ORDERED: NS IV ONE (14:30)
[2018-05-15] MEDS ORDERED: MAGNESIUM SULFATE IV ONE (14:30)
[2018-05-15 17:20] VITALS: BP 145/68
== END 2018-05-15 17:25 | disposition home or self-care (01) ==
LOC: M INFU 14:22
PROVIDERS: ATTEND Internal Medicine Nephrology
DX: E86.0 Dehydration (principal); E83.42 Hypomagnesemia; Z88.8 Allergy status to other drugs, medicaments and biological substances; Z91.041 Radiographic dye allergy status
CPT/HCPCS: 36415; 86850; 86900; 86901; 86920; 96365; 96366; J3475

== ENCOUNTER 2018-05-16 07:55 | Outpatient (CLI) | payer MEDICARE, BC, OTHER ==
[~2018-05-16] VITALS: Ht 165.1 cm; Wt 61.8 kg
[~2018-05-16 07:55] MED LIST changes: +MAGNESIUM SULFATE IV ONE; +NS IV ONE
[2018-05-16 08:05] VITALS: BP 125/58
[2018-05-16 10:25] VITALS: BP 158/76
[2018-05-16 15:00] VITALS: BP 140/56
== END 2018-05-16 10:30 | disposition home or self-care (01) ==
LOC: M INFU 07:55
PROVIDERS: ATTEND Internal Medicine Nephrology
DX: E83.42 Hypomagnesemia (principal); E86.0 Dehydration; Z88.8 Allergy status to other drugs, medicaments and biological substances; Z91.041 Radiographic dye allergy status
CPT/HCPCS: 96365; 96366; J3475

== ENCOUNTER 2018-05-16 07:56 | Outpatient (CLI) | payer MEDICARE, BC, OTHER ==
[~2018-05-16] VITALS: Ht 165.1 cm; Wt 61.8 kg
[~2018-05-16 07:56] MED LIST changes: -MAGNESIUM SULFATE IV ONE; -NS IV ONE
[2018-05-16 10:30] VITALS: BP 158/76
== END 2018-05-16 15:00 | disposition home or self-care (01) ==
LOC: M INFU 07:56
PROVIDERS: ATTEND Family Medicine
DX: D64.9 Anemia, unspecified (principal); Z91.041 Radiographic dye allergy status; Z88.8 Allergy status to other drugs, medicaments and biological substances
CPT/HCPCS: 36430; 96365; 96366; J3475; P9016

== ENCOUNTER 2018-05-19 08:09 | Outpatient (CLI) | payer MEDICARE, BC, OTHER ==
[~2018-05-19] VITALS: Ht 165.1 cm; Wt 62.8 kg
[~2018-05-19 08:09] MED LIST changes: +MAGNESIUM SULFATE IV ONE; +NS IV ONE
[2018-05-19 08:29] VITALS: BP 152/69
[2018-05-19 10:35] VITALS: BP 131/63
== END 2018-05-19 10:40 | disposition home or self-care (01) ==
LOC: M INFU 08:09
PROVIDERS: ATTEND Internal Medicine Nephrology
DX: E83.42 Hypomagnesemia (principal); E86.0 Dehydration; Z88.8 Allergy status to other drugs, medicaments and biological substances; Z91.041 Radiographic dye allergy status
CPT/HCPCS: 96365; 96366; J3475

== ENCOUNTER 2018-05-21 07:57 | Outpatient (CLI) | payer MEDICARE, BC, OTHER ==
[~2018-05-21] VITALS: Ht 165.1 cm; Wt 61.8 kg
[~2018-05-21 07:57] MED LIST changes: -MAGNESIUM SULFATE IV ONE; -NS IV ONE
[2018-05-21 08:00] VITALS: BP 148/71
[2018-05-21] MEDS ORDERED: NS IV ONE (08:00)
[2018-05-21] MEDS ORDERED: MAGNESIUM SULFATE IV ONE (08:00)
[2018-05-21 10:30] VITALS: BP 146/66
== END 2018-05-21 10:30 | disposition home or self-care (01) ==
LOC: M INFU 07:57
PROVIDERS: ATTEND Internal Medicine Nephrology
DX: E86.0 Dehydration (principal); E83.42 Hypomagnesemia; Z88.8 Allergy status to other drugs, medicaments and biological substances; Z91.041 Radiographic dye allergy status
CPT/HCPCS: 96365; 96366; J3475

== ENCOUNTER 2018-05-23 09:36 | Outpatient (CLI) | payer MEDICARE, BC, OTHER ==
[~2018-05-23] VITALS: Ht 165.1 cm; Wt 61.8 kg
[~2018-05-23 09:36] MED LIST changes: +MAGNESIUM SULFATE IV ONE; +NS IV ONE
[2018-05-23 09:55] VITALS: BP 161/74
[2018-05-23 12:04] VITALS: BP 144/73
== END 2018-05-23 12:10 | disposition home or self-care (01) ==
LOC: M INFU 09:36
PROVIDERS: ATTEND Internal Medicine Nephrology
DX: E86.0 Dehydration (principal); E83.42 Hypomagnesemia; Z88.8 Allergy status to other drugs, medicaments and biological substances; Z91.041 Radiographic dye allergy status
CPT/HCPCS: 96365; 96366; J3475

== ENCOUNTER 2018-05-28 07:57 | Outpatient (CLI) | payer MEDICARE, BC, OTHER ==
[~2018-05-28] VITALS: Ht 165.1 cm; Wt 62.8 kg
[2018-05-28 08:00] VITALS: BP 141/67
[2018-05-28 10:30] VITALS: BP 150/77
== END 2018-05-28 10:30 | disposition home or self-care (01) ==
LOC: M INFU 07:57
PROVIDERS: ATTEND Internal Medicine Nephrology
DX: E86.0 Dehydration (principal); E83.42 Hypomagnesemia; Z88.8 Allergy status to other drugs, medicaments and biological substances; Z91.041 Radiographic dye allergy status
CPT/HCPCS: 96365; 96366; J3475

== ENCOUNTER 2018-05-29 07:59 | Outpatient (CLI) | payer MEDICARE, BC, OTHER ==
[~2018-05-29] VITALS: Ht 165.1 cm; Wt 61.8 kg
[~2018-05-29 07:59] MED LIST changes: -MAGNESIUM SULFATE IV ONE; -NS IV ONE
[2018-05-29 08:00] VITALS: BP 141/66
[2018-05-29] MEDS ORDERED: MAGNESIUM SULFATE IV ONE (08:00)
[2018-05-29] MEDS ORDERED: NS IV ONE (08:00)
[2018-05-29 10:27] VITALS: BP 150/70
== END 2018-05-29 10:30 | disposition home or self-care (01) ==
LOC: M INFU 07:59
PROVIDERS: ATTEND Internal Medicine Nephrology
DX: E86.0 Dehydration (principal); E83.42 Hypomagnesemia; Z88.8 Allergy status to other drugs, medicaments and biological substances; Z91.041 Radiographic dye allergy status
CPT/HCPCS: 96365; 96366; J3475

== ENCOUNTER 2018-05-30 11:50 | Outpatient (CLI) | payer MEDICARE, BC, OTHER ==
[~2018-05-30] VITALS: Ht 154.9 cm; Wt 61.8 kg
[~2018-05-30 11:50] MED LIST changes: +MAGNESIUM SULFATE IV ONE; +NS IV ONE
[2018-05-30 12:00] VITALS: BP 129/63
[2018-05-30 14:15] VITALS: BP 132/66
== END 2018-05-30 14:15 | disposition home or self-care (01) ==
LOC: M INFU 11:50
PROVIDERS: ATTEND Internal Medicine Nephrology
DX: E86.0 Dehydration (principal); E83.42 Hypomagnesemia; Z88.8 Allergy status to other drugs, medicaments and biological substances; Z91.041 Radiographic dye allergy status
CPT/HCPCS: 96365; 96366; J3475

== ENCOUNTER 2018-06-03 07:55 | Outpatient (CLI) | payer MEDICARE, BC, OTHER ==
[~2018-06-03] VITALS: Ht 162.6 cm; Wt 61.8 kg
[~2018-06-03 07:55] MED LIST changes: -MAGNESIUM SULFATE IV ONE; -NS IV ONE
[2018-06-03 07:58] VITALS: BP 162/70
[2018-06-03] MEDS ORDERED: NS IV ONE (08:15)
[2018-06-03] MEDS ORDERED: MAGNESIUM SULFATE IV ONE (08:15)
[2018-06-03 10:40] VITALS: BP 151/72
== END 2018-06-03 10:45 | disposition home or self-care (01) ==
LOC: M INFU 07:55
PROVIDERS: ATTEND Internal Medicine Nephrology
DX: E86.0 Dehydration (principal); E83.42 Hypomagnesemia; Z88.8 Allergy status to other drugs, medicaments and biological substances; Z91.041 Radiographic dye allergy status
CPT/HCPCS: 96365; 96366; J3475

== ENCOUNTER 2018-06-04 07:54 | Outpatient (CLI) | payer MEDICARE, BC, OTHER ==
[~2018-06-04] VITALS: Ht 165.1 cm; Wt 61.8 kg
[2018-06-04] MEDS ORDERED: MAGNESIUM SULFATE IV ONE (08:00)
[2018-06-04] MEDS ORDERED: NS IV ONE (08:00)
[2018-06-04 08:10] VITALS: BP 144/69
[2018-06-04 10:41] VITALS: BP 155/67
== END 2018-06-04 10:40 | disposition home or self-care (01) ==
LOC: M INFU 07:54
PROVIDERS: ATTEND Internal Medicine Nephrology
DX: E86.0 Dehydration (principal); E83.42 Hypomagnesemia; Z88.8 Allergy status to other drugs, medicaments and biological substances; Z91.041 Radiographic dye allergy status
CPT/HCPCS: 96365; 96366; J3475

== ENCOUNTER 2018-06-06 07:56 | Outpatient (CLI) | payer MEDICARE, BC, OTHER ==
[~2018-06-06] VITALS: Ht 165.1 cm; Wt 61.8 kg
[~2018-06-06 07:56] MED LIST changes: +MAGNESIUM SULFATE IV ONE; +NS IV ONE
[2018-06-06 08:00] VITALS: BP 163/72
[2018-06-06 10:35] VITALS: BP 143/66
== END 2018-06-06 10:35 | disposition home or self-care (01) ==
LOC: M INFU 07:56
PROVIDERS: ATTEND Internal Medicine Nephrology
DX: E86.0 Dehydration (principal); E83.42 Hypomagnesemia; Z88.8 Allergy status to other drugs, medicaments and biological substances; Z91.041 Radiographic dye allergy status
CPT/HCPCS: 96365; 96366; J3475

== ENCOUNTER 2018-06-09 07:58 | Outpatient (CLI) | payer MEDICARE, BC, OTHER ==
[~2018-06-09] VITALS: Ht 167.6 cm; Wt 61.8 kg
[~2018-06-09 07:58] MED LIST changes: -MAGNESIUM SULFATE IV ONE; -NS IV ONE
[2018-06-09 08:00] VITALS: BP 143/62
[2018-06-09] MEDS ORDERED: NS IV ONE (08:00)
[2018-06-09] MEDS ORDERED: MAGNESIUM SULFATE IV ONE (08:00)
[2018-06-09 10:28] VITALS: BP 139/65
== END 2018-06-09 10:30 | disposition home or self-care (01) ==
LOC: M INFU 07:58
PROVIDERS: ATTEND Internal Medicine Nephrology
DX: E86.0 Dehydration (principal); E83.42 Hypomagnesemia
CPT/HCPCS: 96365; 96366; J3475

== ENCOUNTER 2018-06-12 14:18 | Outpatient (CLI) | payer MEDICARE, BC, OTHER ==
[~2018-06-12] VITALS: Ht 165.1 cm; Wt 61.8 kg
[2018-06-12 14:29] VITALS: BP 126/63
[2018-06-12] MEDS ORDERED: NS IV ONE (15:00)
[2018-06-12] MEDS ORDERED: MAGNESIUM SULFATE IV ONE (15:00)
[2018-06-12 17:30] VITALS: BP 149/67
== END 2018-06-12 17:30 | disposition home or self-care (01) ==
LOC: M INFU 14:18
PROVIDERS: ATTEND Internal Medicine Nephrology
DX: E86.0 Dehydration (principal); E83.42 Hypomagnesemia
CPT/HCPCS: 96365; 96366; J3475

== ENCOUNTER 2018-06-13 11:27 | Outpatient (CLI) | payer MEDICARE, BC, OTHER ==
[~2018-06-13] VITALS: Ht 165.1 cm; Wt 61.8 kg
[~2018-06-13 11:27] MED LIST changes: +MAGNESIUM SULFATE IV ONE; +NS IV ONE
[2018-06-13 11:44] VITALS: BP 148/66
[2018-06-13 14:00] VITALS: BP 160/68
== END 2018-06-13 14:00 | disposition home or self-care (01) ==
LOC: M INFU 11:27
PROVIDERS: ATTEND Internal Medicine Nephrology
DX: E86.0 Dehydration (principal); E83.42 Hypomagnesemia
CPT/HCPCS: 96365; 96366; J3475

== ENCOUNTER 2018-06-16 08:03 | Outpatient (CLI) | payer MEDICARE, BC, OTHER ==
[~2018-06-16] VITALS: Ht 165.1 cm; Wt 61.8 kg
[2018-06-16 08:25] VITALS: BP 139/63
[2018-06-16 10:30] VITALS: BP 121/62
== END 2018-06-16 10:30 | disposition home or self-care (01) ==
LOC: M INFU 08:03
PROVIDERS: ATTEND Internal Medicine Nephrology
DX: E86.0 Dehydration (principal); E83.42 Hypomagnesemia
CPT/HCPCS: 96365; 96366; J3475

== ENCOUNTER 2018-06-19 16:22 | Outpatient (CLI) | payer MEDICARE, BC, OTHER ==
[~2018-06-19] VITALS: Ht 162.6 cm; Wt 61.8 kg
[~2018-06-19 16:22] MED LIST changes: -MAGNESIUM SULFATE IV ONE; -NS IV ONE
[2018-06-19 16:30] VITALS: BP 147/70
[2018-06-19] MEDS ORDERED: NS IV ONE (17:00)
[2018-06-19] MEDS ORDERED: MAGNESIUM SULFATE IV ONE (17:00)
[2018-06-19 19:00] VITALS: BP 143/64
== END 2018-06-19 20:16 | disposition home or self-care (01) ==
LOC: M INFU 16:22
PROVIDERS: ATTEND Internal Medicine Nephrology
DX: E86.0 Dehydration (principal); E83.42 Hypomagnesemia
CPT/HCPCS: 96365; 96366; J3475

== ENCOUNTER 2018-06-20 12:49 | Outpatient (CLI) | payer MEDICARE, BC, OTHER ==
[~2018-06-20] VITALS: Ht 165.1 cm; Wt 61.8 kg
[2018-06-20 12:55] VITALS: BP 157/67
[2018-06-20 13:05] VITALS: BP 154/78
[2018-06-20] MEDS ORDERED: NS IV ONE (13:30)
[2018-06-20] MEDS ORDERED: MAGNESIUM SULFATE IV ONE (13:30)
[2018-06-20 15:45] VITALS: BP 147/65
== END 2018-06-20 15:05 | disposition home or self-care (01) ==
LOC: M INFU 12:49
PROVIDERS: ATTEND Internal Medicine Nephrology
DX: E86.0 Dehydration (principal); E83.42 Hypomagnesemia
CPT/HCPCS: 36415; 96365; 96366; J3475

== ENCOUNTER 2018-06-23 09:34 | Outpatient (CLI) | payer MEDICARE, BC, OTHER ==
[~2018-06-23] VITALS: Ht 165.1 cm; Wt 61.8 kg
[2018-06-23 09:30] VITALS: BP 132/69
[~2018-06-23 09:34] MED LIST changes: +MAGNESIUM SULFATE IV ONE; +NS IV ONE
[2018-06-23 12:00] VITALS: BP 145/66
== END 2018-06-23 12:00 | disposition home or self-care (01) ==
LOC: M INFU 09:34
PROVIDERS: ATTEND Internal Medicine Nephrology
DX: E86.0 Dehydration (principal); E83.42 Hypomagnesemia
CPT/HCPCS: 96365; 96366; J3475

== ENCOUNTER 2018-06-25 07:55 | Outpatient (CLI) | payer MEDICARE, BC, OTHER ==
[~2018-06-25] VITALS: Ht 167.6 cm; Wt 61.8 kg
[2018-06-25 08:00] VITALS: BP 135/61
[2018-06-25 10:20] VITALS: BP 150/68
== END 2018-06-25 10:20 | disposition home or self-care (01) ==
LOC: M INFU 07:55
PROVIDERS: ATTEND Internal Medicine Nephrology
DX: E83.42 Hypomagnesemia (principal); E86.0 Dehydration; Z91.041 Radiographic dye allergy status; Z88.8 Allergy status to other drugs, medicaments and biological substances
CPT/HCPCS: 96365; 96366; J3475

== ENCOUNTER 2018-06-27 07:56 | Outpatient (CLI) | payer MEDICARE, BC, OTHER ==
[~2018-06-27] VITALS: Ht 165.1 cm; Wt 61.8 kg
[2018-06-27 08:26] VITALS: BP 148/65
[2018-06-27 10:32] VITALS: BP 154/70
== END 2018-06-27 11:00 | disposition home or self-care (01) ==
LOC: M INFU 07:56
PROVIDERS: ATTEND Internal Medicine Nephrology
DX: E83.42 Hypomagnesemia (principal); E86.0 Dehydration
CPT/HCPCS: 96365; 96366; J3475

== ENCOUNTER 2018-06-30 07:58 | Outpatient (CLI) | payer MEDICARE, BC, OTHER ==
[~2018-06-30] VITALS: Ht 165.1 cm; Wt 61.8 kg
[~2018-06-30 07:58] MED LIST changes: -MAGNESIUM SULFATE IV ONE; -NS IV ONE
[2018-06-30] MEDS ORDERED: NS IV ONE ×4 (08:00)
[2018-06-30] MEDS ORDERED: MAGNESIUM SULFATE IV ONE ×4 (08:00)
[2018-06-30 08:05] VITALS: BP 159/65
[2018-06-30 10:27] VITALS: BP 149/70
== END 2018-06-30 10:35 | disposition home or self-care (01) ==
LOC: M INFU 07:58
PROVIDERS: ATTEND Internal Medicine Nephrology
DX: E86.0 Dehydration (principal); E83.42 Hypomagnesemia
CPT/HCPCS: 96365; 96366; J3475

== ENCOUNTER 2018-07-02 08:58 | Outpatient (CLI) | payer MEDICARE, BC, OTHER ==
[~2018-07-02] VITALS: Ht 165.1 cm; Wt 61.8 kg
[2018-07-02 09:00] VITALS: BP 151/70
[2018-07-02] MEDS ORDERED: NS IV ONE (10:00)
[2018-07-02] MEDS ORDERED: MAGNESIUM SULFATE IV ONE (10:00)
[2018-07-02 11:30] VITALS: BP 161/74
== END 2018-07-02 11:30 | disposition home or self-care (01) ==
LOC: M INFU 08:58
PROVIDERS: ATTEND Internal Medicine Nephrology
DX: E86.0 Dehydration (principal); E83.42 Hypomagnesemia
CPT/HCPCS: 96365; 96366; J3475

== ENCOUNTER 2018-07-07 07:55 | Outpatient (CLI) | payer MEDICARE, BC, OTHER ==
[~2018-07-07] VITALS: Ht 165.1 cm; Wt 61.8 kg
[2018-07-07 08:00] VITALS: BP 141/63
[2018-07-07] MEDS ORDERED: NS IV ONE (09:00)
[2018-07-07] MEDS ORDERED: MAGNESIUM SULFATE IV ONE (09:00)
[2018-07-07 10:40] VITALS: BP 146/70
== END 2018-07-07 10:40 | disposition home or self-care (01) ==
LOC: M INFU 07:55
PROVIDERS: ATTEND Internal Medicine Nephrology
DX: E83.42 Hypomagnesemia (principal); E86.0 Dehydration
CPT/HCPCS: 96365; 96366; J3475

== ENCOUNTER 2018-07-09 07:52 | Outpatient (CLI) | payer MEDICARE, BC, OTHER ==
[~2018-07-09] VITALS: Ht 162.6 cm; Wt 61.8 kg
[~2018-07-09 07:52] MED LIST changes: +MAGNESIUM SULFATE IV ONE; +NS IV ONE
[2018-07-09 07:55] VITALS: BP 156/67
[2018-07-09 08:20] VITALS: BP 131/78
[2018-07-09 10:30] VITALS: BP 164/71
== END 2018-07-09 10:30 | disposition home or self-care (01) ==
LOC: M INFU 07:52
PROVIDERS: ATTEND Internal Medicine Nephrology
DX: E83.42 Hypomagnesemia (principal); E86.0 Dehydration
CPT/HCPCS: 96365; 96366; J3475

== ENCOUNTER 2018-07-17 08:59 | Outpatient (CLI) | payer MEDICARE, BC, OTHER ==
[~2018-07-17] VITALS: Ht 165.1 cm; Wt 61.8 kg
[~2018-07-17 08:59] MED LIST changes: -MAGNESIUM SULFATE IV ONE; -NS IV ONE
[2018-07-17] MEDS ORDERED: NS IV ONE (09:15)
[2018-07-17] MEDS ORDERED: MAGNESIUM SULFATE IV ONE (09:15)
[2018-07-17 09:28] VITALS: BP 167/67
[2018-07-17 15:29] VITALS: BP 161/70
== END 2018-07-17 15:30 | disposition home or self-care (01) ==
LOC: M INFU 08:59
PROVIDERS: ATTEND Internal Medicine Nephrology
DX: E86.0 Dehydration (principal); E83.42 Hypomagnesemia; D63.1 Anemia in chronic kidney disease; N18.9 Chronic kidney disease, unspecified
CPT/HCPCS: 36430; 36592; 86850; 86920; 96365; 96366; J3475; P9016

== ENCOUNTER 2018-07-18 07:58 | Outpatient (CLI) | payer MEDICARE, BC, OTHER ==
[~2018-07-18] VITALS: Ht 165.1 cm; Wt 61.8 kg
[2018-07-18 08:00] VITALS: BP 161/97
[2018-07-18] MEDS ORDERED: NS IV ONE (08:00)
[2018-07-18] MEDS ORDERED: MAGNESIUM SULFATE IV ONE (08:00)
[2018-07-18 11:15] VITALS: BP 164/74
== END 2018-07-18 11:15 | disposition home or self-care (01) ==
LOC: M INFU 07:58
PROVIDERS: ATTEND Internal Medicine Nephrology
DX: E83.42 Hypomagnesemia (principal); E86.0 Dehydration
CPT/HCPCS: 96365; 96366; J3475

== ENCOUNTER 2018-07-21 08:30 | Outpatient (CLI) | payer MEDICARE, BC, OTHER ==
[~2018-07-21] VITALS: Ht 165.1 cm; Wt 61.8 kg
[~2018-07-21 08:30] MED LIST changes: +MAGNESIUM SULFATE IV ONE; +NS IV ONE
[2018-07-21 08:35] VITALS: BP 145/73
[2018-07-21 10:30] VITALS: BP 154/80
== END 2018-07-21 10:35 | disposition home or self-care (01) ==
LOC: M INFU 08:30
PROVIDERS: ATTEND Internal Medicine Nephrology
DX: E83.42 Hypomagnesemia (principal); E86.0 Dehydration
CPT/HCPCS: 96365; J3475

== ENCOUNTER 2018-07-23 07:54 | Outpatient (CLI) | payer MEDICARE, BC, OTHER ==
[~2018-07-23] VITALS: Ht 165.1 cm; Wt 61.8 kg
[2018-07-23 08:00] VITALS: BP 151/73
[2018-07-23 10:45] VITALS: BP 153/71
== END 2018-07-23 10:45 | disposition home or self-care (01) ==
LOC: M INFU 07:54
PROVIDERS: ATTEND Internal Medicine Nephrology
DX: E83.42 Hypomagnesemia (principal); E86.0 Dehydration
CPT/HCPCS: 96365; 96366; J3475

== ENCOUNTER 2018-07-25 08:00 | Outpatient (CLI) | payer MEDICARE, BC, OTHER ==
[~2018-07-25] VITALS: Ht 165.1 cm; Wt 61.8 kg
[2018-07-25 08:11] VITALS: BP 168/74
[2018-07-25 10:45] VITALS: BP 166/77
== END 2018-07-25 10:45 | disposition home or self-care (01) ==
LOC: M INFU 08:00
PROVIDERS: ATTEND Internal Medicine Nephrology
DX: E83.42 Hypomagnesemia (principal); E86.0 Dehydration
CPT/HCPCS: 96365; 96366; J3475

== ENCOUNTER 2018-07-30 08:50 | Outpatient (CLI) | payer MEDICARE, BC, OTHER ==
[~2018-07-30] VITALS: Ht 165.1 cm; Wt 61.8 kg
[~2018-07-30 08:50] MED LIST changes: -MAGNESIUM SULFATE IV ONE; -NS IV ONE
[2018-07-30 08:55] VITALS: BP 169/75
[2018-07-30] MEDS ORDERED: NS IV ONE (09:00)
[2018-07-30] MEDS ORDERED: MAGNESIUM SULFATE IV ONE (09:00)
[2018-07-30 10:45] VITALS: BP 165/82
== END 2018-07-30 10:40 | disposition home or self-care (01) ==
LOC: M INFU 08:50
PROVIDERS: ATTEND Internal Medicine Nephrology
DX: E83.42 Hypomagnesemia (principal); E86.0 Dehydration
CPT/HCPCS: 96365; J3475

== ENCOUNTER 2018-08-01 07:54 | Outpatient (CLI) | payer MEDICARE, BC, OTHER ==
[~2018-08-01] VITALS: Ht 165.1 cm; Wt 61.8 kg
[2018-08-01] MEDS ORDERED: NS IV ONE (08:00)
[2018-08-01] MEDS ORDERED: MAGNESIUM SULFATE IV ONE (08:00)
[2018-08-01 08:10] VITALS: BP 168/74
[2018-08-01 09:50] VITALS: BP 170/76
== END 2018-08-01 09:50 | disposition home or self-care (01) ==
LOC: M INFU 07:54
PROVIDERS: ATTEND Internal Medicine Nephrology
DX: E83.42 Hypomagnesemia (principal); E86.0 Dehydration
CPT/HCPCS: 96365; 96366; J3475

== ENCOUNTER 2018-08-04 07:55 | Outpatient (CLI) | payer MEDICARE, BC, OTHER ==
[~2018-08-04] VITALS: Ht 165.1 cm; Wt 61.8 kg
[2018-08-04] MEDS ORDERED: MAGNESIUM SULFATE IV ONE (08:00)
[2018-08-04] MEDS ORDERED: NS IV ONE (08:00)
[2018-08-04 08:02] VITALS: BP 168/72
[2018-08-04 09:40] VITALS: BP 182/74
== END 2018-08-04 09:40 | disposition home or self-care (01) ==
LOC: M INFU 07:55
PROVIDERS: ATTEND Internal Medicine Nephrology
DX: E83.42 Hypomagnesemia (principal); E86.0 Dehydration
CPT/HCPCS: 96365; J3475

== ENCOUNTER 2018-08-06 07:51 | Outpatient (CLI) | payer MEDICARE, BC, OTHER ==
[~2018-08-06] VITALS: Ht 162.6 cm; Wt 61.8 kg
[2018-08-06 07:55] VITALS: BP 166/76
[2018-08-06] MEDS ORDERED: MAGNESIUM SULFATE IV ONE (08:00)
[2018-08-06] MEDS ORDERED: NS IV ONE (08:00)
[2018-08-06 09:48] VITALS: BP 180/81
== END 2018-08-06 09:50 | disposition home or self-care (01) ==
LOC: M INFU 07:51
PROVIDERS: ATTEND Internal Medicine Nephrology
DX: E83.42 Hypomagnesemia (principal); E86.0 Dehydration
CPT/HCPCS: 96365; 96366; J3475

== ENCOUNTER 2018-08-08 07:57 | Outpatient (CLI) | payer MEDICARE, BC, OTHER ==
[~2018-08-08] VITALS: Ht 165.1 cm; Wt 61.8 kg
[2018-08-08 08:00] VITALS: BP 152/70
[2018-08-08] MEDS ORDERED: MAGNESIUM SULFATE IV ONE (08:00)
[2018-08-08] MEDS ORDERED: NS IV ONE (08:00)
[2018-08-08 09:40] VITALS: BP 158/74
== END 2018-08-08 09:40 | disposition home or self-care (01) ==
LOC: M INFU 07:57
PROVIDERS: ATTEND Internal Medicine Nephrology
DX: E83.42 Hypomagnesemia (principal); E86.0 Dehydration
CPT/HCPCS: 96365; 96366; J3475

== ENCOUNTER 2018-08-11 07:55 | Outpatient (CLI) | payer MEDICARE, BC, OTHER ==
[~2018-08-11] VITALS: Ht 162.6 cm; Wt 61.8 kg
[2018-08-11 07:55] VITALS: BP 142/62
[2018-08-11] MEDS ORDERED: NS IV ONE (08:00)
[2018-08-11] MEDS ORDERED: MAGNESIUM SULFATE 8 MEQ in NS 100 ML IV ONE (08:00)
[2018-08-11] MEDS ORDERED: MAGNESIUM SULFATE IV ONE (08:00)
[2018-08-11 09:45] VITALS: BP 132/76
== END 2018-08-11 09:45 | disposition home or self-care (01) ==
LOC: M INFU 07:55
PROVIDERS: ATTEND Internal Medicine Nephrology
DX: E83.42 Hypomagnesemia (principal); E86.0 Dehydration
CPT/HCPCS: 96365; 96366; J3475

== ENCOUNTER 2018-08-14 08:55 | Outpatient (CLI) | payer MEDICARE, BC, OTHER ==
[~2018-08-14] VITALS: Ht 162.6 cm; Wt 61.8 kg
[2018-08-14 08:59] VITALS: BP 154/71
[2018-08-14] MEDS ORDERED: NS IV ONE (09:30)
[2018-08-14] MEDS ORDERED: MAGNESIUM SULFATE IV ONE (09:30)
[2018-08-14 10:45] VITALS: BP 151/71
== END 2018-08-14 10:45 | disposition home or self-care (01) ==
LOC: M INFU 08:55
PROVIDERS: ATTEND Internal Medicine Nephrology
DX: E83.42 Hypomagnesemia (principal); E86.0 Dehydration
CPT/HCPCS: 96365; 96366; J3475

== ENCOUNTER 2018-08-15 07:55 | Outpatient (CLI) | payer MEDICARE, BC, OTHER ==
[~2018-08-15] VITALS: Ht 165.1 cm; Wt 61.8 kg
[2018-08-15 08:00] VITALS: BP 139/79
[2018-08-15] MEDS ORDERED: NS IV ONE (08:30)
[2018-08-15] MEDS ORDERED: MAGNESIUM SULFATE IV ONE (08:30)
[2018-08-15 09:50] VITALS: BP 152/78
== END 2018-08-15 10:00 | disposition home or self-care (01) ==
LOC: M INFU 07:55
PROVIDERS: ATTEND Internal Medicine Nephrology
DX: E83.42 Hypomagnesemia (principal); E86.0 Dehydration
CPT/HCPCS: 96365; 96366; J3475

== ENCOUNTER 2018-08-18 08:21 | Outpatient (CLI) | payer MEDICARE, BC, OTHER ==
[~2018-08-18] VITALS: Ht 165.1 cm; Wt 61.8 kg
[~2018-08-18 08:21] MED LIST changes: +MAGNESIUM SULFATE IV ONE; +NS IV ONE
[2018-08-18 08:25] VITALS: BP 156/72
[2018-08-18 10:25] VITALS: BP 137/72
== END 2018-08-18 10:25 | disposition home or self-care (01) ==
LOC: M INFU 08:21
PROVIDERS: ATTEND Internal Medicine Nephrology
DX: E83.42 Hypomagnesemia (principal); E86.0 Dehydration
CPT/HCPCS: 96365; 96366; J3475

== ENCOUNTER 2018-08-20 12:04 | Outpatient (CLI) | payer MEDICARE, BC, OTHER ==
[~2018-08-20] VITALS: Ht 165.1 cm; Wt 61.8 kg
[2018-08-20] MEDS ORDERED: NS IV SCH (12:15)
[2018-08-20] MEDS ORDERED: MAGNESIUM SULFATE IV SCH (12:15)
[2018-08-20 12:22] VITALS: BP 160/76
[2018-08-20] MEDS: NS IV SCH ×2 (12:49→13:10)
[2018-08-20] MEDS: MAGNESIUM SULFATE IV SCH ×2 (12:49→13:10)
[2018-08-20 14:33] VITALS: BP 151/69
== END 2018-08-20 14:30 | disposition home or self-care (01) ==
LOC: M INFU 12:04
PROVIDERS: ATTEND Internal Medicine Nephrology
DX: E83.42 Hypomagnesemia (principal); E86.0 Dehydration; N18.6 End stage renal disease; E78.2 Mixed hyperlipidemia
CPT/HCPCS: 80061; 86705; 86706; 86803; 87340; 96365; J3475

== ENCOUNTER → 2018-08-20 | Outpatient (REF) | payer MEDICARE, BC, OTHER ==
[~2018-08-20] MED LIST changes: -MAGNESIUM SULFATE IV ONE; -NS IV ONE
[2018-08-20 13:30] LABS: CHOLESTEROL LEVEL 125 MG/DL (<200); CHOLESTEROL RISK RATIO 1.666 (<5); HDL CHOLESTEROL 75 MG/DL (>40); LDL CHOLESTEROL 34 MG/DL (<100); NON-HDL-C 50 MG/DL; TRIGLYCERIDES LEVEL 81 MG/DL (<150)
[2018-08-20 13:41] LABS: HEPATITIS B SURFACE ANTIBODY NEGATIVE (POSITIVE)
[2018-08-20 13:51] LABS: HEPATITIS B SURFACE ANTIGEN NEGATIVE (NEGATIVE)
[2018-08-20 14:19] LABS: HEPATITIS C VIRUS ABY INDEX 0.1 INDEX (<0.8)
[2018-08-20 14:20] LABS: HEPATITIS B CORE ANTIBODY IGM NEGATIVE (NEGATIVE)
== END ==
LOC: M LAB REF 12:45
PROVIDERS: ATTEND Internal Medicine Nephrology
DX: N18.6 End stage renal disease (principal); N18.4 Chronic kidney disease, stage 4 (severe); E78.2 Mixed hyperlipidemia

== ENCOUNTER 2018-08-25 07:57 | Outpatient (CLI) | payer MEDICARE, BC, OTHER ==
[~2018-08-25] VITALS: Ht 165.1 cm; Wt 61.8 kg
[~2018-08-25 07:57] MED LIST changes: -FEBU40TA PO; +FEBU40TA4 PO
[2018-08-25] MEDS ORDERED: NS IV ONE (08:00)
[2018-08-25] MEDS ORDERED: MAGNESIUM SULFATE IV ONE (08:00)
[2018-08-25 08:04] VITALS: BP 148/81
[2018-08-25 10:08] VITALS: BP 161/66
== END 2018-08-25 10:10 | disposition home or self-care (01) ==
LOC: M INFU 07:57
PROVIDERS: ATTEND Internal Medicine Nephrology
DX: E83.42 Hypomagnesemia (principal); E86.0 Dehydration
CPT/HCPCS: 96365; 96366; J3475

== ENCOUNTER 2018-08-27 08:49 | Outpatient (CLI) | payer MEDICARE, BC, OTHER ==
[~2018-08-27] VITALS: Ht 165.1 cm; Wt 61.8 kg
[~2018-08-27 08:49] MED LIST changes: +FEBU40TA PO; -FEBU40TA4 PO
[2018-08-27 08:55] VITALS: BP 146/65
[2018-08-27] MEDS ORDERED: NS IV ONE (09:30)
[2018-08-27] MEDS ORDERED: MAGNESIUM SULFATE IV ONE (09:30)
[2018-08-27 11:10] VITALS: BP 140/68
== END 2018-08-27 11:05 | disposition home or self-care (01) ==
LOC: M INFU 08:49
PROVIDERS: ATTEND Internal Medicine Nephrology
DX: E83.42 Hypomagnesemia (principal); E86.0 Dehydration
CPT/HCPCS: 96365; J3475

== ENCOUNTER 2018-08-29 07:56 | Outpatient (CLI) | payer MEDICARE, BC, OTHER ==
[~2018-08-29] VITALS: Ht 165.1 cm; Wt 61.8 kg
[~2018-08-29 07:56] MED LIST changes: -FEBU40TA PO; +FEBU40TA4 PO; +MAGNESIUM SULFATE IV ONE; +NS IV ONE
[2018-08-29 08:00] VITALS: BP 136/69
[2018-08-29 09:50] VITALS: BP 151/70
== END 2018-08-29 09:50 | disposition home or self-care (01) ==
LOC: M INFU 07:56
PROVIDERS: ATTEND Internal Medicine Nephrology
DX: E83.42 Hypomagnesemia (principal); E86.0 Dehydration; Z88.8 Allergy status to other drugs, medicaments and biological substances; Z79.899 Other long term (current) drug therapy; Z91.040 Latex allergy status; Z91.041 Radiographic dye allergy status; Z88.3 Allergy status to other anti-infective agents
CPT/HCPCS: 96365; J3475

== ENCOUNTER 2018-09-01 07:58 | Outpatient (CLI) | payer MEDICARE, BC, OTHER ==
[~2018-09-01] VITALS: Ht 165.1 cm; Wt 61.8 kg
[2018-09-01 08:02] VITALS: BP 129/73
[2018-09-01 10:07] VITALS: BP 150/68
== END 2018-09-01 10:00 | disposition home or self-care (01) ==
LOC: M INFU 07:58
PROVIDERS: ATTEND Internal Medicine Nephrology
DX: E83.42 Hypomagnesemia (principal); E86.0 Dehydration; E03.9 Hypothyroidism, unspecified; Z91.040 Latex allergy status; Z91.041 Radiographic dye allergy status; Z88.3 Allergy status to other anti-infective agents; Z88.8 Allergy status to other drugs, medicaments and biological substances
CPT/HCPCS: 96365; 96366; J3475

== ENCOUNTER 2018-09-03 13:53 | Outpatient (CLI) | payer MEDICARE, BC, OTHER ==
[~2018-09-03] VITALS: Ht 162.6 cm; Wt 61.8 kg
[~2018-09-03 13:53] MED LIST changes: -MAGNESIUM SULFATE IV ONE; -NS IV ONE
[2018-09-03 13:55] VITALS: BP 142/63
[2018-09-03] MEDS ORDERED: MAGNESIUM SULFATE IV ONE (14:00)
[2018-09-03] MEDS ORDERED: NS IV ONE (14:00)
[2018-09-03 15:50] VITALS: BP 136/63
== END 2018-09-03 16:00 | disposition home or self-care (01) ==
LOC: M INFU 13:53
PROVIDERS: ATTEND Internal Medicine Nephrology
DX: E83.42 Hypomagnesemia (principal); E86.0 Dehydration; E03.9 Hypothyroidism, unspecified; N18.9 Chronic kidney disease, unspecified; Z91.040 Latex allergy status; Z91.041 Radiographic dye allergy status; Z88.3 Allergy status to other anti-infective agents; Z88.8 Allergy status to other drugs, medicaments and biological substances
CPT/HCPCS: 96365; 96366; J3475

== ENCOUNTER 2018-09-08 08:56 | Outpatient (CLI) | payer MEDICARE, BC, OTHER ==
[~2018-09-08] VITALS: Ht 165.1 cm; Wt 61.8 kg
[~2018-09-08 08:56] MED LIST changes: +FEBU40TA PO; -FEBU40TA4 PO; +MAGNESIUM SULFATE IV ONE; +NS IV ONE
[2018-09-08 09:00] VITALS: BP 134/62
[2018-09-08 10:40] VITALS: BP 137/66
== END 2018-09-08 10:40 | disposition home or self-care (01) ==
LOC: M INFU 08:56
PROVIDERS: ATTEND Internal Medicine Nephrology
DX: E83.42 Hypomagnesemia (principal); E86.0 Dehydration
CPT/HCPCS: 96365; J3475

== ENCOUNTER 2018-09-11 13:58 | Outpatient (CLI) | payer MEDICARE, BC, OTHER ==
[~2018-09-11] VITALS: Ht 165.1 cm; Wt 61.8 kg
[~2018-09-11 13:58] MED LIST changes: -MAGNESIUM SULFATE IV ONE; -NS IV ONE
[2018-09-11 14:00] VITALS: BP 147/70
[2018-09-11] MEDS ORDERED: NS IV ONE (15:00)
[2018-09-11] MEDS ORDERED: MAGNESIUM SULFATE IV ONE (15:00)
[2018-09-11 16:15] VITALS: BP 151/68
== END 2018-09-11 16:15 | disposition home or self-care (01) ==
LOC: M INFU 13:58
PROVIDERS: ATTEND Internal Medicine Nephrology
DX: E83.42 Hypomagnesemia (principal); E86.0 Dehydration
CPT/HCPCS: 96365; J3475

== ENCOUNTER 2018-09-12 07:52 | Outpatient (CLI) | payer MEDICARE, BC, OTHER ==
[~2018-09-12] VITALS: Ht 195.6 cm; Wt 61.8 kg
[~2018-09-12 07:52] MED LIST changes: +MAGNESIUM SULFATE IV ONE; +NS IV ONE
[2018-09-12 08:03] VITALS: BP 149/65
[2018-09-12 10:00] VITALS: BP 156/71
== END 2018-09-12 10:15 | disposition home or self-care (01) ==
LOC: M INFU 07:52
PROVIDERS: ATTEND Internal Medicine Nephrology
DX: E83.42 Hypomagnesemia (principal); E86.0 Dehydration
CPT/HCPCS: 96365; 96366; J3475

== ENCOUNTER 2018-09-15 09:31 | Outpatient (CLI) | payer MEDICARE, BC, OTHER ==
[~2018-09-15] VITALS: Ht 165.1 cm; Wt 61.8 kg
[~2018-09-15 09:31] MED LIST changes: -MAGNESIUM SULFATE IV ONE; -NS IV ONE
[2018-09-15 09:35] VITALS: BP 156/70
[2018-09-15] MEDS ORDERED: MAGNESIUM SULFATE IV ONE (09:45)
[2018-09-15] MEDS ORDERED: NS IV ONE (09:45)
[2018-09-15 11:20] VITALS: BP 167/69
== END 2018-09-15 11:20 | disposition home or self-care (01) ==
LOC: M INFU 09:31
PROVIDERS: ATTEND Internal Medicine Nephrology
DX: E83.42 Hypomagnesemia (principal); E86.0 Dehydration
CPT/HCPCS: 96365; J3475

== ENCOUNTER 2018-09-17 07:56 | Outpatient (CLI) | payer MEDICARE, BC, OTHER ==
[~2018-09-17] VITALS: Ht 165.1 cm; Wt 61.8 kg
[2018-09-17] MEDS ORDERED: NS IV ONE (08:30)
[2018-09-17] MEDS ORDERED: MAGNESIUM SULFATE IV ONE (08:30)
[2018-09-17 08:38] VITALS: BP 155/71
[2018-09-17 10:00] VITALS: BP 164/74
== END 2018-09-17 10:00 | disposition home or self-care (01) ==
LOC: M INFU 07:56
PROVIDERS: ATTEND Internal Medicine Nephrology
DX: E86.0 Dehydration (principal); E83.42 Hypomagnesemia
CPT/HCPCS: 96365; J3475

== ENCOUNTER 2018-09-19 08:25 | Outpatient (CLI) | payer MEDICARE, BC, OTHER ==
[~2018-09-19] VITALS: Ht 165.1 cm; Wt 61.8 kg
[~2018-09-19 08:25] MED LIST changes: +MAGNESIUM SULFATE IV ONE; +NS IV ONE
[2018-09-19 08:30] VITALS: BP 157/70
[2018-09-19 10:55] VITALS: BP 153/67
== END 2018-09-19 11:00 | disposition home or self-care (01) ==
LOC: M INFU 08:25
PROVIDERS: ATTEND Internal Medicine Nephrology
DX: E86.0 Dehydration (principal); E83.42 Hypomagnesemia
CPT/HCPCS: 96365; 96366; J3475

== ENCOUNTER 2018-09-22 08:56 | Outpatient (CLI) | payer MEDICARE, BC, OTHER ==
[~2018-09-22] VITALS: Ht 165.1 cm; Wt 61.8 kg
[~2018-09-22 08:56] MED LIST changes: -MAGNESIUM SULFATE IV ONE; -NS IV ONE
[2018-09-22 09:00] VITALS: BP 120/59
[2018-09-22] MEDS ORDERED: NS IV ONE (09:00)
[2018-09-22] MEDS ORDERED: MAGNESIUM SULFATE IV ONE (09:00)
[2018-09-22 10:43] VITALS: BP 145/65
== END 2018-09-22 10:45 | disposition home or self-care (01) ==
LOC: M INFU 08:56
PROVIDERS: ATTEND Internal Medicine Nephrology
DX: E86.0 Dehydration (principal); E83.42 Hypomagnesemia
CPT/HCPCS: 96365; J3475

== ENCOUNTER 2018-09-24 07:59 | Outpatient (CLI) | payer MEDICARE, BC, OTHER ==
[~2018-09-24] VITALS: Ht 165.1 cm; Wt 61.8 kg
[~2018-09-24 07:59] MED LIST changes: +MAGNESIUM SULFATE IV ONE; +NS IV ONE
[2018-09-24 08:05] VITALS: BP 152/70
[2018-09-24 09:50] VITALS: BP 153/72
== END 2018-09-24 10:00 | disposition home or self-care (01) ==
LOC: M INFU 07:59
PROVIDERS: ATTEND Internal Medicine Nephrology
DX: E86.0 Dehydration (principal); E83.42 Hypomagnesemia
CPT/HCPCS: 96365; 96366; J3475

== ENCOUNTER 2018-09-26 07:54 | Outpatient (CLI) | payer MEDICARE, BC, OTHER ==
[~2018-09-26] VITALS: Ht 167.6 cm; Wt 61.8 kg
[2018-09-26 08:00] VITALS: BP 152/70
[2018-09-26 10:00] VITALS: BP 160/67
== END 2018-09-26 10:00 | disposition home or self-care (01) ==
LOC: M INFU 07:54
PROVIDERS: ATTEND Internal Medicine Nephrology
DX: E86.0 Dehydration (principal); E83.42 Hypomagnesemia
CPT/HCPCS: 96365; 96366; J3475

== ENCOUNTER 2018-09-29 09:25 | Outpatient (CLI) | payer MEDICARE, BC, OTHER ==
[~2018-09-29] VITALS: Ht 165.1 cm; Wt 61.8 kg
[~2018-09-29 09:25] MED LIST changes: -FEBU40TA PO; +FEBU40TA4 PO; -MAGNESIUM SULFATE IV ONE; -NS IV ONE
[2018-09-29 09:30] VITALS: BP 168/72
[2018-09-29] MEDS ORDERED: MAGNESIUM SULFATE IV ONE (09:30)
[2018-09-29] MEDS ORDERED: NS IV ONE (09:30)
[2018-09-29 11:15] VITALS: BP 153/70
== END 2018-09-29 11:20 | disposition home or self-care (01) ==
LOC: M INFU 09:25
PROVIDERS: ATTEND Internal Medicine Nephrology
DX: E83.42 Hypomagnesemia (principal); E86.0 Dehydration
CPT/HCPCS: 96365; 96366; J3475

== ENCOUNTER 2018-10-01 07:56 | Outpatient (CLI) | payer MEDICARE, BC, OTHER ==
[~2018-10-01] VITALS: Ht 165.1 cm; Wt 61.8 kg
[2018-10-01 08:00] VITALS: BP 165/70
[2018-10-01] MEDS ORDERED: MAGNESIUM SULFATE IV ONE (09:00)
[2018-10-01] MEDS ORDERED: NS IV ONE (09:00)
[2018-10-01 09:55] VITALS: BP 159/67
== END 2018-10-01 10:00 | disposition home or self-care (01) ==
LOC: M INFU 07:56
PROVIDERS: ATTEND Internal Medicine Nephrology
DX: E86.0 Dehydration (principal); E83.42 Hypomagnesemia
CPT/HCPCS: 96365; 96366; J3475

== ENCOUNTER 2018-10-03 07:56 | Outpatient (CLI) | payer MEDICARE, BC, OTHER ==
[~2018-10-03] VITALS: Ht 165.1 cm; Wt 61.8 kg
[~2018-10-03 07:56] MED LIST changes: +MAGNESIUM SULFATE IV ONE; +NS IV ONE
[2018-10-03 08:00] VITALS: BP 137/63
[2018-10-03 10:00] VITALS: BP 143/59
== END 2018-10-03 10:00 | disposition home or self-care (01) ==
LOC: M INFU 07:56
PROVIDERS: ATTEND Internal Medicine Nephrology
DX: E83.42 Hypomagnesemia (principal); E86.0 Dehydration
CPT/HCPCS: 96365; 96366; J3475

== ENCOUNTER 2018-10-06 07:51 | Outpatient (CLI) | payer MEDICARE, BC, OTHER ==
[~2018-10-06] VITALS: Ht 165.1 cm; Wt 61.8 kg
[2018-10-06 08:00] VITALS: BP 131/63
[2018-10-06 09:35] VITALS: BP 139/63
== END 2018-10-06 09:45 | disposition home or self-care (01) ==
LOC: M INFU 07:51
PROVIDERS: ATTEND Internal Medicine Nephrology
DX: E83.42 Hypomagnesemia (principal); E86.0 Dehydration
CPT/HCPCS: 96365; 96366; J3475

== ENCOUNTER 2018-10-07 07:53 | Outpatient (CLI) | payer MEDICARE, BC, OTHER ==
[~2018-10-07] VITALS: Ht 165.1 cm; Wt 61.8 kg
[~2018-10-07 07:53] MED LIST changes: -MAGNESIUM SULFATE IV ONE; -NS IV ONE
[2018-10-07 08:00] VITALS: BP 142/70
[2018-10-07] MEDS: MAGNESIUM SULFATE IV ONE (08:09)
[2018-10-07] MEDS: NS IV ONE (08:09)
[2018-10-07 09:50] VITALS: BP 150/70
== END 2018-10-07 09:50 | disposition home or self-care (01) ==
LOC: M INFU 07:53
PROVIDERS: ATTEND Internal Medicine Nephrology
DX: E83.42 Hypomagnesemia (principal); E86.0 Dehydration
CPT/HCPCS: 96365; 96366; J3475

== ENCOUNTER 2018-10-10 08:19 | Outpatient (CLI) | payer MEDICARE, BC, OTHER ==
[~2018-10-10] VITALS: Ht 165.1 cm; Wt 61.8 kg
[~2018-10-10 08:19] MED LIST changes: +MAGNESIUM SULFATE IV ONE; +NS IV ONE
[2018-10-10 08:20] VITALS: BP 143/63
[2018-10-10 10:10] VITALS: BP 140/67
== END 2018-10-10 10:10 | disposition home or self-care (01) ==
LOC: M INFU 08:19
PROVIDERS: ATTEND Internal Medicine Nephrology
DX: E83.42 Hypomagnesemia (principal); E86.0 Dehydration; Z91.041 Radiographic dye allergy status
CPT/HCPCS: 96365; J3475

== ENCOUNTER 2018-10-13 07:59 | Outpatient (CLI) | payer MEDICARE, BC, OTHER ==
[~2018-10-13] VITALS: Ht 165.1 cm; Wt 61.8 kg
[~2018-10-13 07:59] MED LIST changes: -MAGNESIUM SULFATE IV ONE; -NS IV ONE
[2018-10-13 08:05] VITALS: BP 140/65
[2018-10-13] MEDS ORDERED: MAGNESIUM SULFATE IV ONE (09:00)
[2018-10-13] MEDS ORDERED: NS IV ONE (09:00)
[2018-10-13 10:40] VITALS: BP 151/69
== END 2018-10-13 10:40 | disposition home or self-care (01) ==
LOC: M INFU 07:59
PROVIDERS: ATTEND Internal Medicine Nephrology
DX: E83.42 Hypomagnesemia (principal); E86.0 Dehydration
CPT/HCPCS: 96365; 96366; J3475

== ENCOUNTER 2018-10-14 07:56 | Outpatient (CLI) | payer MEDICARE, BC, OTHER ==
[~2018-10-14] VITALS: Ht 165.1 cm; Wt 61.8 kg
[~2018-10-14 07:56] MED LIST changes: +MAGNESIUM SULFATE IV ONE; +NS IV ONE
[2018-10-14 08:00] VITALS: BP 136/61
[2018-10-14 10:00] VITALS: BP 150/67
== END 2018-10-14 10:00 | disposition home or self-care (01) ==
LOC: M INFU 07:56
PROVIDERS: ATTEND Internal Medicine Nephrology
DX: E83.42 Hypomagnesemia (principal); E86.0 Dehydration
CPT/HCPCS: 96365; J3475

== ENCOUNTER 2018-10-17 07:52 | Outpatient (CLI) | payer MEDICARE, BC, OTHER ==
[~2018-10-17] VITALS: Ht 165.1 cm; Wt 61.8 kg
[~2018-10-17 07:52] MED LIST changes: -MAGNESIUM SULFATE IV ONE; -NS IV ONE
[2018-10-17 07:55] VITALS: BP 137/66
[2018-10-17] MEDS ORDERED: MAGNESIUM SULFATE IV ONE (08:00)
[2018-10-17] MEDS ORDERED: NS IV ONE (08:00)
[2018-10-17 10:15] VITALS: BP 148/69
== END 2018-10-17 10:15 ==
LOC: M INFU 07:52
PROVIDERS: ATTEND Internal Medicine Nephrology
DX: E83.42 Hypomagnesemia (principal); E86.0 Dehydration; Z88.8 Allergy status to other drugs, medicaments and biological substances; Z88.3 Allergy status to other anti-infective agents; Z91.041 Radiographic dye allergy status
CPT/HCPCS: 96365; 96366; J3475

== ENCOUNTER 2018-10-21 14:28 | Outpatient (CLI) | payer MEDICARE, BC, OTHER ==
[~2018-10-21] VITALS: Ht 165.1 cm; Wt 61.8 kg
[2018-10-21 14:30] VITALS: BP 139/65
[2018-10-21] MEDS ORDERED: MAGNESIUM SULFATE IV ONE (15:00)
[2018-10-21] MEDS ORDERED: NS IV ONE (15:00)
[2018-10-21 16:20] VITALS: BP 148/66
== END 2018-10-21 16:30 | disposition home or self-care (01) ==
LOC: M INFU 14:28
PROVIDERS: ATTEND Internal Medicine Nephrology
DX: E83.42 Hypomagnesemia (principal); E86.0 Dehydration; Z91.041 Radiographic dye allergy status
CPT/HCPCS: 96365; J3475

== ENCOUNTER 2018-10-22 07:59 | Outpatient (CLI) | payer MEDICARE, BC, OTHER ==
[~2018-10-22] VITALS: Ht 165.1 cm; Wt 61.8 kg
[~2018-10-22 07:59] MED LIST changes: +MAGNESIUM SULFATE IV ONE; +NS IV ONE
[2018-10-22 08:00] VITALS: BP 148/67
[2018-10-22 10:15] VITALS: BP 143/60
== END 2018-10-22 10:15 | disposition home or self-care (01) ==
LOC: M INFU 07:59
PROVIDERS: ATTEND Internal Medicine Nephrology
DX: E83.42 Hypomagnesemia (principal); E86.0 Dehydration; Z91.041 Radiographic dye allergy status
CPT/HCPCS: 96365; 96366; J3475

== ENCOUNTER 2018-10-24 07:58 | Outpatient (CLI) | payer MEDICARE, BC, OTHER ==
[~2018-10-24] VITALS: Ht 165.1 cm; Wt 61.8 kg
[~2018-10-24 07:58] MED LIST changes: -MAGNESIUM SULFATE IV ONE; -NS IV ONE
[2018-10-24 08:00] VITALS: BP 152/68
[2018-10-24] MEDS ORDERED: NS IV ONE (08:00)
[2018-10-24] MEDS ORDERED: MAGNESIUM SULFATE IV ONE (08:00)
[2018-10-24 10:00] VITALS: BP 152/71
== END 2018-10-24 10:00 | disposition home or self-care (01) ==
LOC: M INFU 07:58
PROVIDERS: ATTEND Internal Medicine Nephrology
DX: E83.42 Hypomagnesemia (principal); E86.0 Dehydration; Z91.041 Radiographic dye allergy status
CPT/HCPCS: 96365; 96366; J3475

== ENCOUNTER 2018-10-28 13:28 | Outpatient (CLI) | payer MEDICARE, BC, OTHER ==
[~2018-10-28] VITALS: Ht 165.1 cm; Wt 61.8 kg
[~2018-10-28 13:28] MED LIST changes: +MAGNESIUM SULFATE IV ONE; +NS IV ONE
[2018-10-28 13:30] VITALS: BP 125/51
[2018-10-28] MEDS ORDERED: MAGNESIUM SULFATE IV ONE (14:00)
[2018-10-28] MEDS ORDERED: NS IV ONE (14:00)
[2018-10-28 16:15] VITALS: BP 136/71
== END 2018-10-28 16:15 | disposition home or self-care (01) ==
LOC: M INFU 13:28
PROVIDERS: ATTEND Internal Medicine Nephrology
DX: E83.42 Hypomagnesemia (principal); E86.0 Dehydration; Z91.041 Radiographic dye allergy status
CPT/HCPCS: 96365; 96366; J3475

== ENCOUNTER 2018-10-31 08:34 | Outpatient (CLI) | payer MEDICARE, BC, OTHER ==
[~2018-10-31] VITALS: Ht 165.1 cm; Wt 61.8 kg
[2018-10-31 08:35] VITALS: BP 139/67
[2018-10-31 10:35] VITALS: BP 155/72
== END 2018-10-31 10:35 | disposition home or self-care (01) ==
LOC: M INFU 08:34
PROVIDERS: ATTEND Internal Medicine Nephrology
DX: E83.42 Hypomagnesemia (principal); E86.0 Dehydration; Z91.041 Radiographic dye allergy status
CPT/HCPCS: 96365; J3475

== ENCOUNTER 2018-11-05 08:06 | Outpatient (CLI) | payer MEDICARE, BC, OTHER ==
[~2018-11-05] VITALS: Ht 165.1 cm; Wt 61.8 kg
[2018-11-05 08:05] VITALS: BP 131/63
[2018-11-05 09:45] VITALS: BP 137/62
[2018-11-06] MEDS ORDERED: FEBU40TA4 PO (17:24)
== END 2018-11-05 09:45 ==
LOC: M INFU 08:06
PROVIDERS: ATTEND Internal Medicine Nephrology
DX: E86.0 Dehydration (principal); E83.42 Hypomagnesemia

== ENCOUNTER 2018-11-06 14:55 | Inpatient (IN) | payer MEDICARE, BC, OTHER ==
[~2018-11-06] VITALS: Ht 165.1 cm; Wt 59.5 kg
[~2018-11-06 14:55] MED LIST changes: -MAGNESIUM SULFATE IV ONE; -NS IV ONE
--- NOTE | 2018-11-06 15:38 | REP ---
CHEST, SINGLE VIEW: There is no evidence of acute infiltrate. No pleural effusion is seen. The heart is normal in size. The mediastinal silhouette is unremarkable. The visualized osseous structures are intact. IMPRESSION: No acute pulmonary disease. Electronically Signed by Ezequiel Harris MD 11/06/2018 05:52 P
[2018-11-06 15:45] LABS: BASO # 0.1 10^3/uL (0.0-0.2); BASO % 0.9 % (0.0-1.0); EOS # 0.1 10^3/uL (0.0-0.5); EOS % 1.4 % (0.0-3.0); HEMATOCRIT 20.9 % (36.0-47.0); LYMPH # 1.1 10^3/uL (1.5-5.0); LYMPH % 19.3 % (24.0-44.0); MEAN CORPUSCULAR HEMOGLOBIN 29.9 pg (27.0-33.0); MEAN CORPUSCULAR HGB CONC 31.6 g/dl (32.0-36.5); MEAN CORPUSCULAR VOLUME 94.6 fl (80.0-96.0); MONO # 0.5 10^3/uL (0.0-0.8); MONO % 7.8 % (0.0-5.0); NEUTROPHILS # 4.1 10^3/uL (1.5-8.5); NEUTROPHILS % 70.1 % (36.0-66.0); PLATELET COUNT, AUTOMATED 214 10^3/uL (150-450); RED BLOOD COUNT 2.21 10^6/uL (4.00-5.40); WHITE BLOOD COUNT 5.8 10^3/uL (4.0-10.0)
[2018-11-06 15:50] LABS: HEMOGLOBIN 6.6 g/dl (12.0-15.5)
[2018-11-06 15:59] LABS: INR 1.38; PROTHROMBIN TIME 16.7 SECONDS (11.8-14.0)
[2018-11-06] MEDS ORDERED: BUPIVACAINE HCL 0.5% 10 ML VIAL As Ordered ONE (16:02)
[2018-11-06] MEDS ORDERED: HEPARIN 1,000 UNITS/ML 10ML VIAL (FOR RADIOLOGY& DIALYSIS ONLY) As Ordered ONE (16:03)
[2018-11-06] MEDS ORDERED: LIDOCAINE 1% MDV 20ML VIAL As Ordered ONE (16:03)
[2018-11-06 16:20] LABS: ALBUMIN 2.6 GM/DL (3.2-5.2); BILIRUBIN,DIRECT 0.2 MG/DL (0.0-0.2); BILIRUBIN,TOTAL 1.1 MG/DL (0.2-1.0); TOTAL PROTEIN 6.3 GM/DL (6.4-8.2)
[2018-11-06 17:03] LABS: CALCIUM LEVEL 8.2 MG/DL (8.8-10.2); CREATININE FOR GFR 6.27 MG/DL (0.55-1.30); GLOMERULAR FILTRATION RATE 7.2 (>45); POTASSIUM SERUM 3.5 MEQ/L (3.5-5.1)
[2018-11-06] MEDS ORDERED: FEBU40TA4 PO (17:24)
--- NOTE | 2018-11-06 17:32 | ROOPDOC ---
[facility] Report Of Operation Report of Operation DATE OF PROCEDURE: 11/06/2018 PREPROCEDURE DIAGNOSES: End-stage renal disease requiring access for renal replacement therapy. POSTPROCEDURE DIAGNOSES: End-stage renal disease requiring access for renal replacement therapy. PROCEDURE: Ultrasound guided right internal jugular vein cannulation. Fluoroscopic guided right internal jugular vein 19 cm tip to cuff tunneled central venous catheter insertion. ATTENDING SURGEON: DR. Maverick Mendoza M.D. PIGMENT AND LACQUER MIXER: Sean Mcmullen INDICATION:Patient is an 63-year-old female with chronic renal insufficiency who is now reached end-stage renal disease and has fluid retention who has renal failure who requires access for renal replacement therapy. Patient has a left brachial artery to basilic vein arteriovenous fistula that requires translocation to be used for access for renal replacement therapy via hemodialysis. Patient will undergo ultrasound and fluoroscopic guided placement of a right internal jugular vein tunneled central venous catheter. The procedure was described and explained to the patient in detail including drawing of pictures demonstrating the procedure and anatomy. Risks, benefits and alternative treatment options were discussed with the patient. Alternative treatment options included but were not limited to no intervention. Benefits included but were not limited to access for hemodialysis until permanent access for renal replacement therapy is created. Risks included, but were not limited to infection, bleeding, pneumothorax, hemothorax, cannulation site deep venous thrombosis, possible need for open surgical intervention, allergic reaction or complication from prepping and draping materials, possible need for transfusion of blood products, anesthetic complications, cerebrovascular accident, myocardial infarction, pulmonary embolus, deep venous thrombosis, loss of limb, loss of life, poor satisfaction and poor outcome. Risks of not performing the procedure included but were not limited to inability to obtain renal replacement therapy via hemodialysis and . The patient's questions were answered. The patient voices understanding of these risks, benefits and alternative treatment options. The patient voices acceptance of the risks associated with the procedure and agrees to proceed with an ultrasound and fluoroscopic guided right internal jugular vein tunneled central venous catheter insertion. There were no promises or guarantees made to the patient regarding the outcome or results of the procedure. ANESTHESIA: Local with 20 mL of 2% lidocaine mixed with 0.5% Marcaine. EBL: 10 ml. IVF: 50 ml. FLUORO TIME: 0.1 minutes. CONTRAST: None. COMPLICATIONS: None. DRAINS: None. SPECIMENS: None. IMPLANTS: Right internal jugular vein tunneled central venous catheter with use of a 19 cm tip to cuff [place] hemodialysis catheter. DESCRIPTION OF PROCEDURE: Patient was taken to the angiography suite, placed supine on the angiography room table and then prepped and draped in a standard surgical fashion. A timeout was conducted by myself and the team members in the room confirming the correct patient, procedure and laterality. Ultrasound guidance was used to cannulate the right internal jugular vein using a micropuncture needle after anesthetizing the overlying skin and subcutaneous tissue with 2% lidocaine mixed with 0.5% Marcaine. The cannulation of the right internal jugular vein was performed with real-time concurrent visualization of the entry of the micropuncture needle into the right internal jugular vein with a hardcopy image preserved. The ultrasound showed the right internal jugular vein to be widely patent, easily compressible and free of thrombus. The micropuncture wire was advanced through the micropuncture needle which was upsized to a micropuncture sheath. An Amplatz wire was advanced through the micropuncture sheath which was then used to sequentially dilate the right internal jugular vein under fluoroscopic guidance. An introducer sheath was then placed over the Amplatz wire and the wire was removed. The catheter was tunneled through a puncture wound in the right chest after anesthetizing the overlying skin and subcutaneous tissue with 2% lidocaine mixed with 0.5% Marcaine and brought out through a puncture wound at the right internal jugular vein entry site. The catheter was then advanced through the introducer sheath which had been positioned under fluoroscopic guidance. The catheter was positioned under fluoroscopic guidance with the tip in the superior vena cava right atrial junction. Both ports of the catheter were aspirated, noted to aspirate easily and then flushed with heparinized saline. The catheter was secured to the right anterior chest wall using #2-0 Prolene suture after anesthetizing the overlying skin and subcutaneous tissue with 2% lidocaine mixed with 0.5% Marcaine. The puncture wound in the right neck was closed using #4-0 Monocryl in inverted interrupted fashion. Steri-Strips and dressings were applied. The patient tolerated the procedure well. All instrument, sponge and needle counts were correct at the end of the case. There were no complications. Dr. Mendoza was present for and directed the entire case. Patient was transferred to the recovery area and subsequently to the emergency room in stable condition. The tunneled central venous catheter is stable for use for hemodialysis access. RADIOLOGIC SUPERVISION AND INTERPRETATION: The initial ultrasound showed the right internal jugular vein to be easily compressible, widely patent and free of thrombus. Ultrasound was used to guide cannulation of the right internal jugular vein with real-time concurrent visualization of the entry of the needle into the right internal jugular vein with a hardcopy image preserved. Fluoroscopic guidance was then used to sequentially dilate the right internal jugular vein, place an introducer sheath and position the catheter with the tip in the superior vena cava/right atrial junction. Final fluoroscopic image showed the catheter to be in good position and good alignment with no pneumo- or hemothorax noted with the tip in the superior vena cava/right atrial junction. The tunneled central venous catheter is stable for use for hemodialysis access. Buzz Mendoza MD Nov 06, 2018 17:32
[2018-11-06] MEDS ORDERED: ACETAMINOPHEN TAB 650MG DOSE (2X325MG) PO PRN (18:15)
[2018-11-06 20:24] VITALS: BP 159/79
[2018-11-06] MEDS: DOCUSATE SODIUM 100 MG CAP PO SCH ×2 (21:00→22:16)
--- NOTE | 2018-11-06 21:42 | ECGEPIP ---
[facility] - ED Test Date: 2018-11-06 Pat Name: NATALIA SHARMA Department: Room: - Gender: Female Technical Rep: JJv : 1955 Requested By: Natividad Franklin Order Number: [id number] Reading MD: Natividad Franklin Measurements Intervals [place] Rate: 73 P: 30 MO: 163 QRS: 1 QRSD: 93 T: 29 QT: 387 QTc: 428 Interpretive Statements SINUS RHYTHM NSTTW ABNORMALITY NO PRIOR Electronically Signed on 11-06-2018 21:42:30 EDT by Natividad Franklin
--- NOTE | 2018-11-07 01:34 | HPEPDOC ---
[facility] Medical History & Physical Date of Admission Nov 06, 2018 Date of Service: Nov 06, 2018 History and Physical CHIEF COMPLAINT: [N/V ] HISTORY OF PRESENT ILLNESS: [This is a 63 yo female w carcinoid cancer with mets, ckd stage 4 , and hypothyroidism who was sent in by Dr. Herrera for treatment of anemia and to initiate HD . Patient said since Saturday, she has been having intermittent nausea and vomiting. ] PAST MEDICAL HISTORY: carcinoid cancer with mets, ckd stage 4 , and hypothyroidism PAST SURGICAL HISTORY: gall bladder removal hysterectomy - for fibroid appendectomy avf colectomy SOCIAL HISTORY: smoked for 4 yrs, but quit many years ago minimal etoh use lives with and son retired , was a nurse FAMILY HISTORY: father - glioblastoma mother - breast cancer maternal grandparents -cad/mi paternal grandfather - sarcoma ALLERGIES: Please see below. HOME MEDICATIONS: Please see below. LABORATORY DATA: See below. IMAGING: MICROBIOLOGY: Please see below. ROS - all 10 point review of system is negative except for whats listed in HPI Physical exam Gen: NAD, healthy appearing , HEENT: normocephalic, atraumatic, no discharge from ears or nose, no oropharyngeal erythema or exudate, neck is supple, no lymphadenopathy, trachea midline CVS: RRR, normal S1n S2, no murmur, rubs, or gallops, ++ edema, no jvd , permacath in right subclavian, avf on left arm Resp: LCTAB, no rhonchi, wheezes or crackles Abd : soft nontender, normal bowel sounds, no rebound tenderness or guarding MSK: no swelling, full range of motion, strength 5/5 Neuro: AOAx3, no confusion, no focal deficit Psych: normal mood and affect, good judgment ASSESSMENT and plan esrd -plan for HD -NEPHRO - dR. HERRERA consulted Anemia f/u w/u to receive 2 units carcinoid tumor -receiving chemo hypothyroidism c/w synthroid dvt ppx - heparin sq full code, from home , no svc Vital Signs Vital Signs Date Time Temp Pulse Resp B/P (MAP) Pulse Ox O2 Delivery O2 Flow Rate FiO2 11/06/18 20:01 97.6 82 20 172/85 (114) 99 11/06/18 16:39 2 11/06/18 14:55 Room Air Laboratory Data Labs 24H Laboratory Tests 2 11/06/18 15:32: Immature Granulocyte % (Auto) 0.5, White Blood Count 5.8, Red Blood Count 2.21L, Hemoglobin 6.6*L, Hematocrit 20.9L, Mean Corpuscular Volume 94.6, Mean Corpuscular Hemoglobin 29.9, Mean Corpuscular Hemoglobin Concent 31.6L, Red Cell Distribution Width 17.3H, Platelet Count 214, Neutrophils (%) (Auto) 70.1H, Lymphocytes (%) (Auto) 19.3L, Monocytes (%) (Auto) 7.8H, Eosinophils (%) (Auto) 1.4, Basophils (%) (Auto) 0.9, Neutrophils # (Auto) 4.1, Lymphocytes # (Auto) 1.1L, Monocytes # (Auto) 0.5, Eosinophils # (Auto) 0.1, Basophils # (Auto) 0.1, Nucleated Red Blood Cells % (auto) 0.0, Prothrombin Time 16.7H, Prothromb Time International Ratio 1.38, Anion Gap 17H, Glomerular Filtration Rate 7.2L, Calcium Level 8.2L, Phosphorus Level 5.0H, Magnesium Level 2.0, Aspartate Amino Transf (AST/SGOT) 22, Alanine Aminotransferase (ALT/SGPT) 18, Alkaline Phosphatase 126H, Total Bilirubin 1.1H, Direct Bilirubin 0.2, Total Protein 6.3 L, Albumin 2.6L, Albumin/Globulin Ratio 0.70L, Lipase 345 11/06/18 15:33: POC Glucose (Misc Panel) 126H, POC Sodium (Misc Panel) 139, POC Potassium (Misc Panel) 3.4L, POC Chloride (Misc Panel) 114H, POC Total CO2 (Misc Panel) 12.0L, POC Blood Urea Nitrogen (Misc Panel 70H, POC Ionized Calcium (Misc Panel) 5.2, POC Creatinine (Misc Panel) 7.9H, POC Hematocrit (Misc Panel) 20.0L CBC/BMP Laboratory Tests 11/06/18 15:32 Red Blood Count 2.21 L, Mean Corpuscular Volume 94.6, Mean Corpuscular Hemoglobin 29.9, Mean Corpuscular Hemoglobin Concent 31.6 L, Red Cell Distribution Width 17.3 H, Neutrophils (%) (Auto) 70.1 H, Lymphocytes (%) (Auto) 19.3 L, Monocytes (%) (Auto) 7.8 H, Eosinophils (%) (Auto) 1.4, Basophils (%) (Auto) 0.9, Neutrophils # (Auto) 4.1, Lymphocytes # (Auto) 1.1 L, Monocytes # (Auto) 0.5, Eosinophils # (Auto) 0.1, Basophils # (Auto) 0.1 Home Medications Scheduled Febuxostat (Uloric) 40 Mg Tablet, 40 MG PO DAILY Levothyroxine Sodium (Synthroid) 150 Mcg Tab, 150 MCG PO DAILY Octreotide Acetate (Octreotide Acetate) 50 Mcg/Ml Inj, 30 MCG IM QMONTH RECEIVES IN [place] MONTHLY Sodium Bicarbonate (Sodium Bicarbonate) 325 Mg Tab, 975 MG PO QID Allergies Coded Allergies: Contrast Media (Verified Allergy, Intermediate, RADIOPAQUE CONTRAST - HIVES, 02/06/18) Iodinated Contrast- Oral and IV Dye (Verified Allergy, Intermediate, hives, 05/14/18) iodine (Verified Allergy, Intermediate, hives, 05/14/18) iopamidol (Verified Allergy, Intermediate, hives, 05/14/18) metformin (Verified Adverse Reaction, Mild, diarrhea, 05/14/18) A-FIB/CHADSVASC A-FIB History Current/History of A-Fib/PAF?: No Age/Risk Factor Scoring CHADSVASC: CHADSVASC Response (Comments) Value Age Risk Factor Age < 65 years old 0 Gender Risk Factor Female 1 Hx of CHF No 0 Hx of HTN No 0 Hx of Stroke/TIA/or VTE No 0 Hx of Diabetes No 0 Hx of Vascular Disease No 0 Total 1 Treatment Treatment ordered: NONE Reason Anticoagulant not given: Not indicated/[id number] MARTINEZ VARGAS MD Nov 07, 2018 00:57
[2018-11-07 06:00] VITALS: BP 144/77
[2018-11-07] MEDS: LEVOTHYROXINE 150MCG TABLET (0.15MG) PO SCH (06:01)
[2018-11-07 06:11] LABS: HEMATOCRIT 26.5 % (36.0-47.0); HEMOGLOBIN 8.5 g/dl (12.0-15.5); MEAN CORPUSCULAR HEMOGLOBIN 29.4 pg (27.0-33.0); MEAN CORPUSCULAR HGB CONC 32.1 g/dl (32.0-36.5); MEAN CORPUSCULAR VOLUME 91.7 fl (80.0-96.0); PLATELET COUNT, AUTOMATED 168 10^3/uL (150-450); RED BLOOD COUNT 2.89 10^6/uL (4.00-5.40); WHITE BLOOD COUNT 5.3 10^3/uL (4.0-10.0)
[2018-11-07 06:34] LABS: CALCIUM LEVEL 8.1 MG/DL (8.8-10.2); CREATININE FOR GFR 6.44 MG/DL (0.55-1.30); GLOMERULAR FILTRATION RATE 6.9 (>45); MAGNESIUM LEVEL 1.9 MG/DL (1.8-2.4); POTASSIUM SERUM 3.7 MEQ/L (3.5-5.1)
[2018-11-07] MEDS: DOCUSATE SODIUM 100 MG CAP PO SCH ×3 (07:52→20:16)
[2018-11-07] MEDS: FEBUXOSTAT 40 MG TABLET (ULORIC) PO SCH ×2 (07:53→09:07)
[2018-11-07] MEDS: ENOXAPARIN 40 MG/0.4 ML SYRINGE (J1650) SC SCH ×2 (07:53→09:00)
[2018-11-07 09:15] LABS: PERCENT SATURATION 103.4 % (13.2-45.0)
[2018-11-07 09:25] LABS: CHOLESTEROL LEVEL 106 MG/DL (<200); CHOLESTEROL RISK RATIO 1.656 (<5); FERRITIN 1188 NG/ML (8-252); HDL CHOLESTEROL 64 MG/DL (>40); IRON (FE) 102 UG/DL (50-170); LDL CHOLESTEROL 19 MG/DL (<100); NON-HDL-C 42 MG/DL; PERCENT SATURATION 107.4 % (13.2-45.0); TOTAL IRON BINDING CAPACITY 95 UG/DL (250-450); TRIGLYCERIDES LEVEL 114 MG/DL (<150)
[2018-11-07 09:35] LABS: PTH INTACT 375.6 PG/ML (18.5-88.0)
[2018-11-07 09:36] LABS: HEPATITIS B SURFACE ANTIBODY NEGATIVE (POSITIVE)
[2018-11-07 09:47] LABS: HEPATITIS B SURFACE ANTIGEN NEGATIVE (NEGATIVE)
[2018-11-07 10:14] LABS: HEPATITIS C VIRUS ABY INDEX 0.2 INDEX (<0.8)
[2018-11-07 10:15] LABS: HEPATITIS B CORE ANTIBODY IGM NEGATIVE (NEGATIVE)
[2018-11-07 10:18] LABS: HEMOGLOBIN A1c 4.9 %
--- NOTE | 2018-11-07 11:01 | IPNPDOC ---
Subjective Date Seen The patient was seen on 11/07/18. Subjective Chief Complaint/HPI Patient is comfortable. His right sided HD catheter on the chest wall in no apparent distress General: Denies: ROS Unobtainable, Chills, Night Sweats, Fatigue, Malaise, Normal Appetite, Other Symptoms Constitutional: Denies: Chills, Fever, Malaise, Night Sweats, Weakness, Fatigue, Weight Loss, Lethargy, Other Skin: Denies: Rash, Lesions, Jaundice, Bruising, Itching, Dry, Breakdown, Nail Changes, Other Pulmonary: Denies: Dyspnea, Cough, Pleuritic Chest Pain, Other Symptoms Cardiovascular: Denies: Chest Pain, Palpitations, Orthopnea, Paroxysmal Noc. Dyspnea, Edema, Lt Headedness, Other Symptoms Gastrointestinal: Denies: Nausea, Vomiting, Abdominal Pain, Diarrhea, Constipation, Melena, Hematochezia, Other Symptoms Genitourinary: Denies: Dysuria, Frequency, Incontinence, Hematuria, Retention, Other Symptoms Hematologic: Denies: Bruising, Bleeding Excessively, Petecchia, Purpura, Enlarged Lymph Nodes, Other Hematologic Endocrine: Denies: Polydipsia, Polyphagia, Polyuria, Heat Intolerance, Cold Intolerance, Other Endocrine Sx Musculoskeletal: Denies: Neck Pain, Back Pain, Shoulder Pain, Arm Pain, Hand Pain, Leg Pain, Foot Pain, Joint Pain, Muscle Pain, Spasms, Other Symptoms Neurological: Denies: Weakness, Numbness, Incoordination, Change in speech, Confusion, Seizures, Other Symptoms Psych: Denies: Mood Normal, Anxiety, Depression, Memory Issues, Thoughts of Self Harm, Anger, Thoughts of Harming Other, Other Psych Objective Physical Examination General Exam: Positive: Alert, Cooperative Eye Exam: Positive: Conjunctiva & lids normal ENT Exam: Positive: Atraumatic, Mucous membr. moist/pink Neck Exam: Positive: Supple Chest Exam: Positive: Clear to auscultation, Normal air movement Heart Exam: Positive: Rate Normal, Normal S1, Normal S2 Abdomen Exam: Positive: Normal bowel sounds, Soft Extremity Exam: Positive: Normal pulses Skin Exam: Positive: Nl turgor and temperature Neuro Exam: Positive: Normal Gait, Strength at 5/5 X4 ext, Sensation Intact Assessment /Plan Problems (1) Renal failure (ARF), acute on chronic Status: Acute Problem Text: Patient had a temperature catheter placed in the right chest wall Discussed with she will be started on hemodialysis today Further, as per nephrology Continue with home meds Plan/VTE VTE Prophylaxis Ordered?: Yes VS, I&O, 24H, Mariusz Vital Signs/I&O Vital Signs Date Time Temp Pulse Resp B/P (MAP) Pulse Ox O2 Delivery O2 Flow Rate FiO2 11/07/18 06:00 98.2 63 15 144/77 (99) 100 11/06/18 16:39 2 11/06/18 14:55 Room Air I&O- Last 24 Hours up to 6 AM 11/07/18 06:00 Intake Total 630 ml Output Total 200 ml Balance 430 ml Laboratory Data 24H LABS Laboratory Tests 2 11/06/18 15:32: Immature Granulocyte % (Auto) 0.5, White Blood Count 5.8, Red Blood Count 2.21L, Hemoglobin 6.6*L, Hematocrit 20.9L, Mean Corpuscular Volume 94.6, Mean Corpuscu lar Hemoglobin 29.9, Mean Corpuscular Hemoglobin Concent 31.6L, Red Cell Distribution Width 17.3H, Platelet Count 214, Neutrophils (%) (Auto) 70.1H, Lymphocytes (%) (Auto) 19.3L, Monocytes (%) (Auto) 7.8H, Eosinophils (%) (Auto) 1.4, Basophils (%) (Auto) 0.9, Neutrophils # (Auto) 4.1, Lymphocytes # (Auto) 1.1L, Monocytes # (Auto) 0.5, Eosinophils # (Auto) 0.1, Basophils # (Auto) 0.1, Nucleated Red Blood Cells % (auto) 0.0, Prothrombin Time 16.7H, Prothromb Time International Ratio 1.38, Anion Gap 17H, Glomerular Filtration Rate 7.2L, Calcium Level 8.2L, Phosphorus Level 5.0H, Magnesium Level 2.0, Aspartate Amino Transf (AST/SGOT) 22, Alanine Aminotransferase (ALT/SGPT) 18, Alkaline Phosphata se 126H, Total Bilirubin 1.1H, Direct Bilirubin 0.2, Total Protein 6.3L, Albumin 2.6L, Albumin/Globulin Ratio 0.70L, Lipase 345 11/06/18 15:33: POC Glucose (Misc Panel) 126H, POC Sodium (Misc Panel) 139, POC Potassium (Misc Panel) 3.4L, POC Chloride (Misc Panel) 114H, POC Total CO2 (Misc Panel) 12.0L, POC Blood Urea Nitrogen (Misc Panel 70H, POC Ionized Calcium (Misc Panel) 5.2, POC Creatinine (Misc Panel) 7.9H, POC Hematocrit (Misc Panel) 20.0L 11/07/18 05:12: Nucleated Red Blood Cells % (auto) 0.0, Anion Gap 14, Glomerular Filtration Rate 6.9L, Calcium Level 8.1L, Magnesium Level 1.9, Blood Urea Nitrogen 67H, Creatinine 6.44H, Sodium Level 144, Potassium Level 3.7, Chloride Level 118H, Carbon Dioxide Level 12L, Iron Level 90, Total Iron Binding Capacity 87L, Transferrin % Saturation 103.4H, Ferritin 969H 11/07/18 08:31: Estimated Mean Plasma Glucose 94, Hemoglobin A1c 4.9 11/07/18 08:45: Iron Level 102, Total Iron Binding Capacity 95L, Transferrin % Saturation 107.4H, Ferritin 1188H, Triglycerides Level 114, LDL Cholesterol 19, Total Cholesterol 106, Non-HDL Cholesterol (LDL + VLDL) 42, Total HDL Cholesterol 64, Cholesterol/HDL Ratio 1.656, Parathyroid Hormone (Intact) 375.6H, Hepatitis B Surface Antigen NEGATIVE, Hepatitis B Surface Antibody NEGATIVE, Hepatitis B Core IgM Antibody NEGATIVE, Hepatitis C Antibody Index 0.2 CBC/BMP Laboratory Tests 11/06/18 15:32 Red Blood Count 2.21 L, Mean Corpuscular Volume 94.6, Mean Corpuscular Hemoglobin 29.9, Mean Corpuscular Hemoglobin Concent 31.6 L, Red Cell Distribution Width 17.3 H, Neutrophils (%) (Auto) 70.1 H, Lymphocytes (%) (Auto) 19.3 L, Monocytes (%) (Auto) 7.8 H, Eosinophils (%) (Auto) 1.4, Basophils (%) (Auto) 0.9, Neutrophils # (Auto) 4.1, Lymphocytes # (Auto) 1.1 L, Monocytes # (Auto) 0.5, Eosinophils # (Auto) 0.1, Basophils # (Auto) 0.1 11/07/18 05:12 Red Blood Count 2.89 L, Mean Corpuscular Volume 91.7, Mean Corpuscular Hemoglobin 29.4, Mean Corpuscular Hemoglobin Concent 32.1, Red Cell Distribution Width 16.0 H, Calcium Level 8.1 L JONO VILLELA MD Nov 07, 2018 11:01
[2018-11-07] MEDS ORDERED: DARBEPOETIN 100 MCG/0.5 ML *DIALYSIS* SYRINGE (J0882) IV SCH (11:45)
[2018-11-07] MEDS ORDERED: HEPARIN 1,000 UNITS/ML 10ML VIAL (FOR RADIOLOGY& DIALYSIS ONLY) IV ONE (12:15)
[2018-11-07] MEDS ORDERED: HEPARIN 1,000 UNITS/ML 10ML VIAL (FOR RADIOLOGY& DIALYSIS ONLY) XX ONE (12:15)
--- NOTE | 2018-11-07 12:36 | CR ---
DATE OF CONSULTATION: 11/07/2018 REQUESTING PHYSICIAN: Dr. Bryson Camejo CONSULTING PHYSICIAN: Dr. Flaherty REASON FOR CONSULTATION: Management of acute kidney injury superimposed on chronic kidney disease and metabolic acidosis. CHIEF COMPLAINT: The patient was complaining of nausea and vomiting and she was sent from the nephrology office for further management of renal failure. 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 She follows up with Dr. Mcdaniels as outpatient and she was seen by him yesterday and she was found to have worsening renal failure along with worsening metabolic acidosis. She had a creatinine of more than 6, so the patient was sent to the emergency room for further management of renal failure and initiation of hemodialysis. I saw and evaluated the patient today morning at the bedside. She is awake and alert and she was able to provide the history to me. She did report that she had been having intermittent nausea and vomiting. She does go to the outpatient infusion center and gets IV fluids three times a week because of the colostomy status. However, despite the IV fluid hydration, she went into end-stage renal disease and she agreed to start hemodialysis. She already got the tunneled dialysis catheter placed by vascular surgery yesterday. PAST MEDICAL HISTORY: History of chronic kidney disease stage IV which has progressed to end-stage renal disease now, hypothyroidism, carcinoid tumor with mets currently on chemotherapy and she goes to [facility] for that, and anemia secondary to chronic kidney disease. PAST SURGICAL HISTORY: Status post cholecystectomy, status post hysterectomy for fibroids, status post appendectomy, status post left upper arm AV fistula placement, status post colectomy, and colostomy status. ALLERGIES: She is allergic to IV CONTRAST MEDIA and METFORMIN. FAMILY HISTORY: No significant family history of end-stage renal disease requiring hemodialysis. Her father had glioblastoma, mother had breast cancer. SOCIAL HISTORY: The patient lives at home. She denies any smoking, illicit drug abuse or alcohol abuse. REVIEW OF SYSTEMS: Constitutional: The patient reports feeling weak, tired and fatigued. Eyes: She denies any blurry vision or double vision. ENT: She denies any dysphagia or odynophagia. Cardiovascular: She denies any chest pain or palpitation. Respiratory: She denies any shortness of breath or cough. GI: She reports history of carcinoid tumor and colostomy status. Genitourinary: She denies any dysuria or hematuria. Musculoskeletal: She does report lower extremity edema. Skin: She denies any rashes or ulcers. Psych: She denies any depression or anxiety. Hematology/Oncology: She denies any easy bleeding or bruising. SALES ENABLEMENT ANALYST: She denies any strokes or seizures. All other review of systems is negative. PHYSICAL EXAMINATION: General: The patient is awake, alert, oriented times three, laying in bed. Vital Signs: Temperature is 98.2 degrees Fahrenheit, blood pressure 144/77, pulse is 63, respiratory rate of 15, saturating 100% on room air. Head and Neck Exam: Extraocular muscles intact. Pupils equally round and reactive to light. Mucous membranes are moist. Neck is supple. There is no jugular venous distention (JVD). She has a right internal jugular (IJ) tunneled hemodialysis catheter. There is a mild amount of blood at the catheter dressing. Cardiovascular: S1 and S2, regular rate. 1+ edema of the bilateral ankles. Respiratory: Chest is clear to auscultation bilaterally. Bilateral equal air entry. No rales or rhonchi. Abdomen: Soft, positive bowel sounds. Nontender. Left lower quadrant colostomy was noted. Musculoskeletal: No clubbing or cyanosis. Pulses are 2+. 1+ edema of the ankles was noted. SALES ENABLEMENT ANALYST: No focal deficit. Power is 5/5 in all extremities. LAB REVIEW: CBC showed a WBC 5.8, hemoglobin 6.6 on arrival and platelets 214. Hemoglobin level after blood transfusion today is 8.5. BMP showed sodium 144, potassium 3.7, chloride 118, bicarb is 12, BUN 67, creatinine is 6.4, glucose 91, A1c is 4.9, iron is 102, TIBC is 95, transferrin saturation is 107%, ferritin is 1188. PTH is 375. Hepatitis B surface antibody is negative. IMAGING STUDIES: A chest x-ray was done yesterday which showed no acute pathology. CURRENT INPATIENT MEDICATIONS: The patient's medications were all reviewed by me. She has been started on Aranesp to be given during dialysis. She is on Colace, Lovenox 40 mg subcu daily, Uloric 40 mg p.o. daily, levothyroxine 150 mcg p.o. daily ASSESSMENT: 63-year-old female with metastatic carcinoid tumor status post colectomy and colostomy admitted at this time with symptomatic anemia and progression of chronic kidney disease to end-stage renal disease. PLAN: 1. End-stage renal disease. The patient got the tunneled dialysis catheter placed yesterday. She will be dialyzed today for 2 hours. No fluid removal will be done today. Next hemodialysis will be done tomorrow for 3 hours. 2. Symptomatic anemia. The patient got 2 units of packed red blood cell (PRBC) transfused. Hemoglobin level is 8.5, which is still suboptimal. Iron levels are adequate. I am starting her on Aranesp injections with dialysis. 3. High anion gap metabolic acidosis. It is secondary to renal failure and loss of bicarb from the colostomy. He was on oral bicarb as outpatient, however, now acidosis will be managed with dialysis. No need of oral bicarb administration. 4. Chronic kidney disease mineral bone disease. The patient has a phosphorus of 5, which is expected to improve after dialysis. No need of phosphorus binders at this time. 5. Secondary hyperparathyroidism. PTH level is 375, which is optimal for a patient with end-stage renal disease. The patient was not taking calcitriol as outpatient. 6. Hypothyroidism. Continue current dose of levothyroxine 150 mcg by mouth daily. 7. Chronic gout secondary to chronic kidney disease. Continue current dose of Uloric 40 mg by mouth daily. 8. Metastatic carcinoid tumor. The patient receives octreotide monthly at [facility]. No further need of three times a week IV fluids at outpatient infusion center. Depending upon her volume status if she needs fluids she will be given during dialysis. Thank you for involving me in the care of this patient. I shall be happy to follow the patient along with you tomorrow morning. MTDD
[2018-11-07 14:00] VITALS: BP 145/73
[2018-11-07 22:00] VITALS: BP 145/76
[2018-11-07] MEDS ORDERED: [UNRECOGNIZED DRUG - OTHER] IM ONE (22:00)
[2018-11-08 06:00] VITALS: BP 117/74
[2018-11-08] MEDS: ENOXAPARIN 40 MG/0.4 ML SYRINGE (J1650) SC SCH (06:03)
[2018-11-08] MEDS: DOCUSATE SODIUM 100 MG CAP PO SCH ×2 (06:03→20:44)
[2018-11-08] MEDS: FEBUXOSTAT 40 MG TABLET (ULORIC) PO SCH (06:03)
[2018-11-08] MEDS: LEVOTHYROXINE 150MCG TABLET (0.15MG) PO SCH (06:03)
[2018-11-08] MEDS: MAGNESIUM OXIDE 400 MG TAB (MAG-OX) PO SCH ×2 (09:00→20:43)
[2018-11-08 09:18] LABS: HEMATOCRIT 29.4 % (36.0-47.0); HEMOGLOBIN 9.6 g/dl (12.0-15.5); MEAN CORPUSCULAR HEMOGLOBIN 30.5 pg (27.0-33.0); MEAN CORPUSCULAR HGB CONC 32.7 g/dl (32.0-36.5); MEAN CORPUSCULAR VOLUME 93.3 fl (80.0-96.0); PLATELET COUNT, AUTOMATED 153 10^3/uL (150-450); RED BLOOD COUNT 3.15 10^6/uL (4.00-5.40); WHITE BLOOD COUNT 4.6 10^3/uL (4.0-10.0)
[2018-11-08 09:24] LABS: ALBUMIN 2.4 GM/DL (3.2-5.2); CALCIUM LEVEL 8.1 MG/DL (8.8-10.2); CREATININE FOR GFR 4.79 MG/DL (0.55-1.30); GLOMERULAR FILTRATION RATE 9.8 (>45); PHOSPHORUS LEVEL 3.8 MG/DL (2.5-4.9); POTASSIUM SERUM 3.7 MEQ/L (3.5-5.1)
--- NOTE | 2018-11-08 11:02 | IPNPDOC ---
Subjective Date Seen The patient was seen on 11/08/18. Subjective Chief Complaint/HPI Patient is comfortable offers no new complaints. His hemodialysis done yesterday General: Denies: ROS Unobtainable, Chills, Night Sweats, Fatigue, Malaise, Normal Appetite, Other Symptoms Constitutional: Denies: Chills, Fever, Malaise, Night Sweats, Weakness, Fatigue, Weight Loss, Lethargy, Other Pulmonary: Denies: Dyspnea, Cough, Pleuritic Chest Pain, Other Symptoms Cardiovascular: Denies: Chest Pain, Palpitations, Orthopnea, Paroxysmal Noc. Dyspnea, Edema, Lt Headedness, Other Symptoms Gastrointestinal: Denies: Nausea, Vomiting, Abdominal Pain, Diarrhea, Constipation, Melena, Hematochezia, Other Symptoms Endocrine: Denies: Polydipsia, Polyphagia, Polyuria, Heat Intolerance, Cold Intolerance, Other Endocrine Sx Musculoskeletal: Denies: Neck Pain, Back Pain, Shoulder Pain, Arm Pain, Hand Pain, Leg Pain, Foot Pain, Joint Pain, Muscle Pain, Spasms, Other Symptoms Neurological: Denies: Weakness, Numbness, Incoordination, Change in speech, Confusion, Seizures, Other Symptoms Objective Physical Examination ENT Exam: Positive: Atraumatic, Mucous membr. moist/pink Neck Exam: Positive: Supple Chest Exam: Positive: Clear to auscultation, Normal air movement Heart Exam: Positive: Rate Normal, Normal S1, Normal S2 Abdomen Exam: Positive: Normal bowel sounds, Soft Extremity Exam: Positive: Normal pulses Skin Exam: Positive: Nl turgor and temperature Neuro Exam: Positive: Normal Gait, Strength at 5/5 X4 ext, Sensation Intact Assessment /Plan Problems (1) Renal failure (ARF), acute on chronic Status: Acute Problem Text: Patient had a temporary catheter placed in the right chest wall Hemodialysis was started yesterday Patient's hemoglobin is 9.6 and hematocrit 29.4 after transfusion Further, as per nephrology Continue with home meds (2) Anemia Status: Acute Problem Text: H&H is improved after transfusion Continue hemodialysis Other as per nephrology Plan/VTE VTE Prophylaxis Ordered?: Yes VS, I&O, 24H, Fishbone Vital Signs/I&O Vital Signs Date Time Temp Pulse Resp B/P (MAP) Pulse Ox O2 Delivery O2 Flow Rate FiO2 11/08/18 06:00 98.0 78 17 117/74 (88) 98 9/19/19 16:39 2 11/06/18 14:55 Room Air I&O- Last 24 Hours up to 6 AM 11/08/18 06:00 Intake Total 955 ml Output Total 100 ml Balance 855 ml Laboratory Data 24H LABS Laboratory Tests 2 11/08/18 08:49: Nucleated Red Blood Cells % (auto) 0.0, Blood Urea Nitrogen 43H, Creatinine 4.79H, Sodium Level 144, Potassium Level 3.7, Chloride Level 116H, Carbon Dioxide Level 17L, Anion Gap 11, Glomerular Filtration Rate 9.8L, Calcium Level 8.1L, Phosphorus Level 3.8#, Albumin 2.4L CBC/BMP Laboratory Tests 11/08/18 08:49 Red Blood Count 3.15 L, Mean Corpuscular Volume 93.3, Mean Corpuscular Hemoglob in 30.5, Mean Corpuscular Hemoglobin Concent 32.7, Red Cell Distribution Width 17.3 H, Anion Gap 11 JONO VILLELA MD Nov 08, 2018 11:01
[2018-11-08] MEDS ORDERED: POTASSIUM CHLORIDE 10 MEQ SR TABLET PO ONE (11:15)
[2018-11-08 11:31] LABS: MAGNESIUM LEVEL 1.8 MG/DL (1.8-2.4)
[2018-11-08 16:20] VITALS: BP 144/82
[2018-11-08] MEDS ORDERED: HEPARIN 1,000 UNITS/ML 10ML VIAL (FOR RADIOLOGY& DIALYSIS ONLY) XX ONE (18:30)
[2018-11-08] MEDS ORDERED: HEPARIN 1,000 UNITS/ML 10ML VIAL (FOR RADIOLOGY& DIALYSIS ONLY) IV ONE (18:30)
[2018-11-08 22:00] VITALS: BP 144/81
[2018-11-09] MEDS: LEVOTHYROXINE 150MCG TABLET (0.15MG) PO SCH (05:47)
[2018-11-09 06:00] VITALS: BP 146/78
--- NOTE | 2018-11-09 07:06 | IPN ---
DATE OF VISIT: 11/08/2018 Mrs. Moulton is seen this morning on her bedside. She was admitted 2 days ago due to severe anemia, advanced renal failure and electrolyte and metabolic abnormalities. She underwent a PermaCath placement the same day and underwent first hemodialysis yesterday. She was also transfused 2 units of packed red blood cells (RBCs) on day of admission. Today she is feeling much better and denies any nausea or vomiting. She is not eating well as she does not like hospital food. She denies any dyspnea or chest pain. Her ostomy is functioning well. On physical exam, temperature 98.0 degrees Fahrenheit, heart rate 78 per minute and respiratory rate 18 per minute. Blood pressure 117/74 mmHg and oxygen saturation 98% on room air. Head is atraumatic. She is without any acute distress. She has significant loss of facial fat. Her neck is supple and jugular venous distention (JVD) is not elevated. PermaCath is present in right upper chest. Heart sounds are regular and lungs clear to auscultation. Abdomen is soft and nontender, and her ileostomy is functioning. Extremities without any cyanosis or clubbing. Neurologically she is awake, alert and oriented times three. Today's labs show WBC count 4.6, hemoglobin 9.6 and hematocrit 29.4. Platelets 153. Sodium 144, potassium 3.7, CO2 17, BUN 43, creatinine 4.79, calcium 8.1 and albumin 2.4. PROBLEMS: 1. End-stage renal disease. Patient has started dialysis and underwent her first dialysis yesterday. We will plan to dialyze her again today and will dialyze her for 3 hours today. 2. Metabolic acidosis. She has chronic metabolic acidosis related to high output ostomy and advanced renal failure. She was on oral sodium bicarbonate at home. Her acidosis is likely to correct with dialysis and she will not need sodium bicarbonate anymore. It has already been stopped. 3. Anemia . She had anemia due to advanced renal failure and her iron studies are appropriate. She will be given Aranesp 100 mcg once a week. She has already been transfused with 2 units of packed RBCs and anemia has improved. 4. Hypomagnesemia. She has history of chronic hypomagnesemia and has been receiving intravenous magnesium as an outpatient. Her magnesium level was 2.0 on admission and this is down to 1.8 today. I am going to start her on oral magnesium oxide 400 mg twice a day. 5. Hypothyroidism. She remains on levothyroxine at her home dose. DISPOSITION: I have explained to the patient that she will need outpatient dialysis arrangements, which will hopefully be done on Saturday, and then we will consider discharging her home next week.
[2018-11-09] MEDS: DOCUSATE SODIUM 100 MG CAP PO SCH ×2 (09:00→21:00)
[2018-11-09] MEDS: ENOXAPARIN 40 MG/0.4 ML SYRINGE (J1650) SC SCH (09:00)
[2018-11-09] MEDS: MAGNESIUM OXIDE 400 MG TAB (MAG-OX) PO SCH ×2 (09:33→21:55)
[2018-11-09] MEDS: FEBUXOSTAT 40 MG TABLET (ULORIC) PO SCH (09:33)
--- NOTE | 2018-11-09 10:52 | IPNPDOC ---
Subjective Date Seen The patient was seen on 11/09/18. Subjective Chief Complaint/HPI Patient offers no new complaints at the present time General: Denies: ROS Unobtainable, Chills, Night Sweats, Fatigue, Malaise, Normal Appetite, Other Symptoms Constitutional: Denies: Chills, Fever, Malaise, Night Sweats, Weakness, Fatigue, Weight Loss, Lethargy, Other Skin: Denies: Rash, Lesions, Jaundice, Bruising, Itching, Dry, Breakdown, Nail Changes, Other Pulmonary: Denies: Dyspnea, Cough, Pleuritic Chest Pain, Other Symptoms Cardiovascular: Denies: Chest Pain, Palpitations, Orthopnea, Paroxysmal Noc. Dyspnea, Edema, Lt Headedness, Other Symptoms Gastrointestinal: Denies: Nausea, Vomiting, Abdominal Pain, Diarrhea, Constipation, Melena, Hematochezia, Other Symptoms Musculoskeletal: Denies: Neck Pain, Back Pain, Shoulder Pain, Arm Pain, Hand Pain, Leg Pain, Foot Pain, Joint Pain, Muscle Pain, Spasms, Other Symptoms Neurological: Denies: Weakness, Numbness, Incoordination, Change in speech, Confusion, Seizures, Other Symptoms Objective Physical Examination ENT Exam: Positive: Atraumatic, Mucous membr. moist/pink Neck Exam: Positive: Supple Chest Exam: Positive: Clear to auscultation, Normal air movement Heart Exam: Positive: Rate Normal, Normal S1, Normal S2 Abdomen Exam: Positive: Normal bowel sounds, Soft Extremity Exam: Positive: Normal pulses Skin Exam: Positive: Nl turgor and temperature Neuro Exam: Positive: Normal Gait, Strength at 5/5 X4 ext, Sensation Intact Assessment /Plan Problems (1) Renal failure (ARF), acute on chronic Status: Acute Problem Text: Patient had a temporary catheter placed in the right chest wall Hemodialysis was started yesterday Patient's hemoglobin is 9.6 and hematocrit 29.4 after transfusion Patient is scheduled for HD today for 3 hours Nephrology follow-up appreciated Other as per Dr. Mcdaniels (2) Anemia Status: Acute Problem Text: H&H is improved after transfusion Continue hemodialysis Other as per nephrology Plan/VTE VTE Prophylaxis Ordered?: Yes VS, I&O, 24H, Fishbone Vital Signs/I&O Vital Signs Date Time Temp Pulse Resp B/P (MAP) Pulse Ox O2 Delivery O2 Flow Rate FiO2 9/22/19 06:00 98.3 75 18 146/78 (100) 99 11/06/18 16:39 2 11/06/18 14:55 Room Air I&O- Last 24 Hours up to 6 AM 11/09/18 05:59 Intake Total 1350 ml Output Total 1400 ml Balance -50 ml JONO VILLELA MD Nov 09, 2018 10:52
[2018-11-09 14:00] VITALS: BP 164/91
[2018-11-09 14:30] VITALS: BP 150/62
[2018-11-09 22:00] VITALS: BP 152/86
[2018-11-10] MEDS: ENOXAPARIN 40 MG/0.4 ML SYRINGE (J1650) SC SCH (05:10)
[2018-11-10] MEDS: DOCUSATE SODIUM 100 MG CAP PO SCH (05:10)
[2018-11-10] MEDS: MAGNESIUM OXIDE 400 MG TAB (MAG-OX) PO SCH ×2 (05:19→21:38)
[2018-11-10] MEDS: LEVOTHYROXINE 150MCG TABLET (0.15MG) PO SCH (05:19)
[2018-11-10] MEDS: FEBUXOSTAT 40 MG TABLET (ULORIC) PO SCH (05:19)
[2018-11-10 06:00] VITALS: BP 136/80
[2018-11-10 06:06] LABS: HEMATOCRIT 28.6 % (36.0-47.0); HEMOGLOBIN 9.1 g/dl (12.0-15.5); MEAN CORPUSCULAR HEMOGLOBIN 30.2 pg (27.0-33.0); MEAN CORPUSCULAR HGB CONC 31.8 g/dl (32.0-36.5); PLATELET COUNT, AUTOMATED 137 10^3/uL (150-450); RED BLOOD COUNT 3.01 10^6/uL (4.00-5.40); WHITE BLOOD COUNT 5.5 10^3/uL (4.0-10.0)
[2018-11-10 06:42] LABS: ALBUMIN 2.2 GM/DL (3.2-5.2); CREATININE FOR GFR 3.88 MG/DL (0.55-1.30); GLOMERULAR FILTRATION RATE 12.5 (>45); POTASSIUM SERUM 3.7 MEQ/L (3.5-5.1)
--- NOTE | 2018-11-10 10:21 | IPNPDOC ---
Subjective Date Seen The patient was seen on 11/10/18. Subjective Chief Complaint/HPI Patient is comfortable offers no new complaints. Asked if her Colace to be DC'd General: Denies: ROS Unobtainable, Chills, Night Sweats, Fatigue, Malaise, Normal Appetite, Other Symptoms Constitutional: Denies: Chills, Fever, Malaise, Night Sweats, Weakness, Fatigue, Weight Loss, Lethargy, Other Skin: Denies: Rash, Lesions, Jaundice, Bruising, Itching, Dry, Breakdown, Nail Changes, Other Pulmonary: Denies: Dyspnea, Cough, Pleuritic Chest Pain, Other Symptoms Cardiovascular: Denies: Chest Pain, Palpitations, Orthopnea, Paroxysmal Noc. Dyspnea, Edema, Lt Headedness, Other Symptoms Gastrointestinal: Denies: Nausea, Vomiting, Abdominal Pain, Diarrhea, Constipation, Melena, Hematochezia, Other Symptoms Musculoskeletal: Denies: Neck Pain, Back Pain, Shoulder Pain, Arm Pain, Hand Pain, Leg Pain, Foot Pain, Joint Pain, Muscle Pain, Spasms, Other Symptoms Neurological: Denies: Weakness, Numbness, Incoordination, Change in speech, Confusion, Seizures, Other Symptoms Objective Physical Examination ENT Exam: Positive: Atraumatic, Mucous membr. moist/pink Neck Exam: Positive: Supple Chest Exam: Positive: Clear to auscultation, Normal air movement Heart Exam: Positive: Rate Normal, Normal S1, Normal S2 Abdomen Exam: Positive: Normal bowel sounds, Soft Extremity Exam: Positive: Normal pulses Skin Exam: Positive: Nl turgor and temperature Neuro Exam: Positive: Normal Gait, Strength at 5/5 X4 ext, Sensation Intact Assessment /Plan Problems (1) Renal failure (ARF), acute on chronic Status: Acute Problem Text: Patient had a temporary HD catheter placed in the right chest wall Hemodialysis schedule again today Patient's hemoglobin is 9.1 and hematocrit 28.6 today Further plans as per nephrology (2) Anemia Status: Acute Problem Text: H&H is improved after transfusion Continue hemodialysis Further recommendation as per nephrology Plan/VTE VTE Prophylaxis Ordered?: Yes VS, I&O, 24H, Fishbone Vital Signs/I&O Vital Signs Date Time Temp Pulse Resp B/P (MAP) Pulse Ox O2 Delivery O2 Flow Rate FiO2 11/10/18 06:00 97.8 78 17 136/80 (98) 99 11/06/18 16:39 2 11/06/18 14:55 Room Air I&O- Last 24 Hours up to 6 AM 11/10/18 06:00 Intake Total 1980 ml Balance 1980 ml Laboratory Data 24H LABS Laboratory Tests 2 11/10/18 05:30: Nucleated Red Blood Cells % (auto) 0.0, Blood Urea Nitrogen 32H, Creatinine 3.88H, Sodium Level 141, Potassium Level 3.7, Chloride Level 109H, Carbon Dioxide Level 24, Anion Gap 8, Glomerular Filtration Rate 12.5L, Calcium Level 8.0L, Phosphorus Level 2.0#L, Albumin 2.2L CBC/BMP Laboratory Tests 11/10/18 05:30 Red Blood Count 3.01 L, Mean Corpuscular Volume 95.0, Mean Corpuscular Hemoglobin 30.2, Mean Corpuscular Hemoglobin Concent 31.8 L, Red Cell Distribution Width 17.2 H, Anion Gap 8 JONO VILLELA MD Nov 10, 2018 10:21
[2018-11-10 14:00] VITALS: BP 137/80
--- NOTE | 2018-11-10 19:02 | IPN ---
DATE: 11/09/2018 Mrs. Moulton is seen this morning on her bedside. She is feeling much better today and denies any nausea, vomiting, dyspnea or chest pain. Her ileostomy is functioning as usual. She is eating well and reports that her diet and appetite has improved. She was dialyzed yesterday for second time and she tolerated her dialysis treatment well. PHYSICAL EXAMINATION: Temperature 98.3 degrees Fahrenheit, heart rate 75 per minute and respiratory rate 18 per minute. Blood pressure 146/78 mmHg and oxygen saturation 99% on room air. Head is atraumatic. Neck is supple and without jugular venous distention (JVD) or thyroid enlargement. Heart sounds are regular. Lungs clear to auscultation. Abdomen soft and nontender and bowel sounds are present. Ileostomy is functioning. Extremities without any cyanosis or clubbing. Her lower extremity edema has resolved. Left arm arteriovenous (AV) fistula is patent, but not very well developed. She has a Perma-Cath in the right upper chest without any signs of infection. Neurologically she is awake, alert and oriented times three. She did not have any new labs today and her labs from yesterday have already been reviewed. PROBLEMS: 1. End-stage renal disease. Patient was admitted with advanced renal failure and uremic symptoms. She has received two dialysis treatments and we will evaluate her tomorrow for another dialysis. She will continue outpatient dialysis after discharge. Patient and family services will arrange for outpatient dialysis tomorrow. 2. Metabolic acidosis. Her acidosis is chronic and related to high output ostomy and advanced renal failure. This will be corrected with dialysis and we will check her renal profile tomorrow morning. 3. Hypomagnesemia. She has chronic hypomagnesemia and has been receiving intravenous magnesium infusions as an outpatient. Her magnesium level has been normal during this admission and we will try to treat it with oral magnesium oxide 400 mg twice a day and see how she does. 4. Anemia. Patient has severe anemia on admission and received transfusion of 2 units of packed red blood cells. Her iron studies are appropriate and we will start with Aranesp 100 mcg once a week. Her anemia will be managed as an outpatient with dialysis. 5. Gout. She is currently asymptomatic and remains on Uloric 40 mg daily.
[2018-11-10 22:00] VITALS: BP 136/67
[2018-11-11] MEDS: LEVOTHYROXINE 150MCG TABLET (0.15MG) PO SCH (05:30)
[2018-11-11 06:00] VITALS: BP 126/71
--- NOTE | 2018-11-11 07:09 | IPN ---
DATE OF VISIT: 11/10/2018 Ms. Moulton is seen this morning during dialysis. She had some bleeding from her dialysis catheter site last evening and nursing staff called me a couple of times. Initially, we advised digital pressure. However, she continued to bleed, due to which a sandbag was ordered. This morning, her bleeding has already stopped. The patient denies any nausea or vomiting. She has no dyspnea or chest pain and her leg edema has improved. On physical examination, temperature 97.8 degrees Fahrenheit, heart rate 78 per minute and respiratory rate 17 per minute. Blood pressure 136/80 mmHg and oxygen saturation 99% on room air. Head is atraumatic. Neck is supple and without jugular venous distention (JVD) or thyroid enlargement. Heart sounds are regular and lungs clear to auscultation. Abdomen: Soft and nontender and her ostomy is functioning. Extremities have no cyanosis or clubbing. Perma-Cath in right upper chest is intact without any signs of infection and without any active bleeding. Today's labs show WBC count 5.5, hemoglobin 9.1 and hematocrit 28.6. Platelets 137. Sodium 141, potassium 3.7, CO2 24, BUN 32 and creatinine 3.88. Calcium level is 8.0 and phosphorus 2.0. PROBLEMS: 1. End-stage renal disease. The patient is being dialyzed this morning. She feels much better now and her symptoms have improved significantly. She is tolerating her dialysis treatment well. 2. Anemia. Her anemia improved following transfusion. We are giving her Aranesp 100 mcg once a week and her iron studies have been appropriate. 3. Metabolic acidosis. She had chronic metabolic acidosis related to high output from her ostomy and advanced renal failure. Now with dialysis, her acidosis has improved and her oral sodium bicarbonate has already been stopped. 4. Hypomagnesemia. She is currently on oral magnesium oxide 400 mg twice a day, which will be continued. She will not need any intravenous magnesium at this point. 5. Disposition. I have discussed with patient and family services who will wait for an outpatient dialysis slot. From a clinical and renal standpoint, she seems to be stable for discharge. 6. Immature left arm AV fistula. The patient will need transposition of her left arm AVF as outpt. MTDD
[2018-11-11] MEDS: FEBUXOSTAT 40 MG TABLET (ULORIC) PO SCH (08:02)
[2018-11-11] MEDS: ENOXAPARIN 40 MG/0.4 ML SYRINGE (J1650) SC SCH (08:03)
[2018-11-11] MEDS: MAGNESIUM OXIDE 400 MG TAB (MAG-OX) PO SCH (08:03)
[2018-11-11] MEDS ORDERED: MAG400TA PO (11:14)
--- NOTE | 2018-11-11 16:20 | DS.PDOC ---
Discharge Summary General Date of Admission Nov 06, 2018 at 18:09 Date of Discharge 11/11/2018 Discharge Summary PROCEDURES PERFORMED DURING STAY: 11/09/2018: Placement of dialysis catheter with Dr. Mendoza ADMITTING DIAGNOSES / DISCHARGE DIAGNOSES: Acute renal failure on CKD4; requiring HD Anemia Hypothyroidism Carcinoid cancer DVT prophylaxis COMPLICATIONS/CHIEF COMPLAINT: Sent in by nephrology for worsening renal function and anemia HISTORY OF PRESENT ILLNESS: Patient is a 63-year-old female with a past medical history of Car cinoid cancer with metastasis, CKD4, Hypothyroidism who was sent in by Dr. Mcdaniels for worsening renal function and anemia. Patient was admitted to hospice service for further evaluation and treatment. Vascular surgery and nephrology were called on consultation. HOSPITAL COURSE: Acute renal failure on CKD4 - Patient has not had dialysis catheter placed by Dr. Mendoza - Patient has received hemodialysis 3 sessions while inpatient - Her outpatient urinalysis schedule has been coordinated and patient has been c leared for discharge home today - Vascular surgery and nephrology on consultation; appreciate their input Anemia - c/w Darbepoetin as per nephrology Hypothyroidism - c/w Levothyroxine Carcinoid cancer - Follows with Oncology as an outpatient - c/w Febuxostat DVT prophylaxis - c/w Lovenox DISCHARGE MEDICATIONS: Please see below. ALLERGIES: Please see below. PHYSICAL EXAMINATION ON DISCHARGE: Vitals (See below) General: Lying in bed, no acute distress, comfortable, AAOx3 HEENT: NC, AT CVS: +S1S2 Lungs: Fair air entry b/l, -w/r/r Abdomen: Soft, ND, NT Extremities: - Edema, - Calf tenderness LABORATORY DATA: Please see below. ACTIVITY: [As tolerated]. DISCHARGE PLAN: Follow up with Dr. Shahram Mcdaniels and Dr. Maverick Hendricks Remain compliant with treatment plan and medications Return to the ER if you experience any problems DISPOSITION: Home, Self-Care. DISCHARGE CONDITION: [Stable]. TIME SPENT ON DISCHARGE: 32 minutes Vital Signs/I&Os Vital Signs Date Time Temp Pulse Resp B/P (MAP) Pulse Ox O2 Delivery O2 Flow Rate FiO2 11/11/18 06:00 99.0 77 18 126/71 (89) 100 11/06/18 16:39 2 11/06/18 14:55 Room Air I&O- Last 24 Hours up to 6 AM 11/11/18 06:00 Intake Total 1220 ml Output Total 1300 ml Balance -80 ml Discharge Medications Scheduled Febuxostat (Uloric) 40 Mg Tablet, 40 MG PO DAILY, (Reported) Levothyroxine Sodium (Synthroid) 150 Mcg Tab, 150 MCG PO DAILY, (Reported) Magnesium Oxide (Magnesium Oxide) 400 Mg Tablet, 400 MG PO BID Octreotide Acetate (Octreotide Acetate) 50 Mcg/Ml Inj, 30 MCG IM QMONTH, (Reported) RECEIVES IN [place] MONTHLY Sodium Bicarbonate (Sodium Bicarbonate) 325 Mg Tab, 975 MG PO QID, (Reported) Allergies Coded Allergies: Contrast Media (Verified Allergy, Intermediate, RADIOPAQUE CONTRAST - HIVES, 02/06/18) Iodinated Contrast- Oral and IV Dye (Verified Allergy, Intermediate, hives, 05/14/18) iodine (Verified Allergy, Intermediate, hives, 05/14/18) iopamidol (Verified Allergy, Intermediate, hives, 05/14/18) metformin (Verified Adverse Reaction, Mild, diarrhea, 05/14/18) JOSE MARQUEZ MD Nov 11, 2018 16:20
--- NOTE | 2018-11-11 18:38 | MHIPN ---
DATE: 11/11/2018 Mrs. Moulton is seen this morning on her bedside. She is feeling very good and is excited to go home. She was dialyzed yesterday, and she tolerated her dialysis well. She denies any nausea, vomiting, dyspnea or chest pain and her leg edema has improved. PHYSICAL EXAMINATION: Temperature 99 degrees Fahrenheit, heart rate 78 per minute and respiratory rate 18 per minute. Blood pressure 126/70 mmHg and oxygen saturation 100% on room air. Head is atraumatic. Neck is supple and without jugular venous distention (JVD) or thyroid enlargement. Perma-Cath is present on right upper chest. There is no bleeding at this time and no signs of infection. Heart sounds are regular and lungs clear to auscultation. Abdomen: Soft and nontender. Bowel sounds are normal. Extremities: Without any cyanosis or clubbing. Neurologically, she is awake, alert and oriented times three. The patient did not have any new labs today. PROBLEM #1: End-stage renal disease. The patient started hemodialysis just last week, and she has received three treatments so far. She has tolerated dialysis treatment very well and will continue with maintenance hemodialysis as an outpatient. She is scheduled for Saturday, Saturday and Saturday schedule at 4:30 p.m. Her next dialysis will be on Saturday. PROBLEM #2: Anemia. She required transfusion on admission and anemia improved. She has normal iron studies, and we will start with Aranesp once a week with dialysis. At this point, she will be monitored in the outpatient dialysis clinic for her anemia. PROBLEM #3: Metabolic acidosis. Her acidosis has corrected completely with dialysis, and she will not need oral sodium bicarbonate anymore, which is being stopped. PROBLEM #4: Hypomagnesemia. Her last magnesium level was 1.8 yesterday, which is still normal. She is now on oral magnesium oxide 400 mg twice a day. Will continue with magnesium oxide or magnesium gluconate twice a day as an outpatient and will be monitored as an outpatient. All her IV infusions are being stopped. DISPOSITION: The patient is being discharged to home today and will follow up in my clinic in a couple of weeks. She will return to the next dialysis treatment tomorrow at 4:30 p.m.
== END 2018-11-11 12:33 | disposition home or self-care (01) | DRG 674 ==
LOC: M ED 14:55 → M ED INP 18:09 → M MSPAV 20:24
PROVIDERS: ADMIT Internal Medicine; ATTEND Internal Medicine
PROC: 02HV33Z Insertion of Infusion Device into Superior Vena Cava, Percutaneous Approach (ICD-10-PCS; 2018-11-06)
PROC: 30233N1 Transfusion of Nonautologous Red Blood Cells into Peripheral Vein, Percutaneous Approach (ICD-10-PCS; 2018-11-06)
PROC: 0JH63XZ Insertion of Tunneled Vascular Access Device into Chest Subcutaneous Tissue and Fascia, Percutaneous Approach (ICD-10-PCS; principal; 2018-11-06 16:00)
PROC: 5A1D70Z Performance of Urinary Filtration, Intermittent, Less than 6 Hours Per Day (ICD-10-PCS; 2018-11-07)
DX: N18.6 End stage renal disease (principal); C7A.00 Malignant carcinoid tumor of unspecified site; E87.2 Acidosis; N25.81 Secondary hyperparathyroidism of renal origin; C79.9 Secondary malignant neoplasm of unspecified site; D63.1 Anemia in chronic kidney disease; N17.9 Acute kidney failure, unspecified; E83.42 Hypomagnesemia; E03.9 Hypothyroidism, unspecified; Z87.891 Personal history of nicotine dependence; Z79.899 Other long term (current) drug therapy; Z91.041 Radiographic dye allergy status

== ENCOUNTER 2019-02-10 11:40 | Emergency (ER) | payer MEDICARE, BC, OTHER ==
[~2019-02-10] VITALS: Ht 167.6 cm; Wt 55.9 kg
[~2019-02-10 11:40] MED LIST changes: +MAG400TA PO
[2019-02-10] MEDS ORDERED: RENATAB5 PO (11:48)
--- NOTE | 2019-02-10 12:41 | REP ---
Clinical: Abnormal neurological findings . Findings: Age-related atrophy and microvascular ischemic changes are appreciated. The ventricles and sulci are symmetric. Harris-white differentiation is maintained. There is no evidence for acute intracranial hemorrhage, mass/mass effect, pathology or infarction. No extra-axial fluid collection. Calvarium is intact. Paranasal sinuses and mastoid air cells are clear. Impression: Age related atrophy and microvascular ischemic changes. No acute intracranial hemorrhage, infarction, or mass/mass effect. Electronically Signed by Obdulio Cortes MD 02/10/2019 12:33 P
[2019-02-10 13:35] LABS: HEMATOCRIT 35.2 % (36.0-47.0); HEMOGLOBIN 11.2 g/dl (12.0-15.5); MEAN CORPUSCULAR HEMOGLOBIN 30.7 pg (27.0-33.0); MEAN CORPUSCULAR HGB CONC 31.8 g/dl (32.0-36.5); MEAN CORPUSCULAR VOLUME 96.4 fl (80.0-96.0); PLATELET COUNT, AUTOMATED 184 10^3/uL (150-450); RED BLOOD COUNT 3.65 10^6/uL (4.00-5.40); WHITE BLOOD COUNT 11.7 10^3/uL (4.0-10.0)
--- NOTE | 2019-02-10 14:32 | REP ---
Clinical: Transient ischemic attack . Comparison: 11/06/2018 . Findings: The mediastinum and cardiac silhouette are stable and within normal limits for portable technique. Double-lumen catheter with tip in the SVC/right atrium. The lung chavarria are clear without acute consolidation, effusion, or pneumothorax. Skeletal structures are intact. Impression: No acute cardiopulmonary process appreciated. Electronically Signed by Obdulio Cortes MD 02/10/2019 02:24 P
[2019-02-10 14:40] LABS: ANISOCYTOSIS 1+; ATYPICAL LYMPH 4 % (0-5); EOSINOPHILS 1 % (0-3); LYMPHOCYTES 5 % (16-44); MONOCYTES 8 % (0-5); NEUTROPHILS 75 % (28-66)
[2019-02-10 14:41] LABS: HYPOCHROMASIA 1+; PLATELET ESTIMATE DECREASED (NORMAL)
[2019-02-10 15:00] VITALS: BP 114/73
--- NOTE | 2019-02-10 20:36 | ECGEPIP ---
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
== END 2019-02-10 15:26 | disposition home or self-care (01) ==
LOC: M ED 11:40
DX: G45.9 Transient cerebral ischemic attack, unspecified (principal); Z53.21 Procedure and treatment not carried out due to patient leaving prior to being seen by health care provider; C34.90 Malignant neoplasm of unspecified part of unspecified bronchus or lung; C25.9 Malignant neoplasm of pancreas, unspecified; N18.6 End stage renal disease; E03.9 Hypothyroidism, unspecified; D63.1 Anemia in chronic kidney disease; Z92.21 Personal history of antineoplastic chemotherapy; Z79.899 Other long term (current) drug therapy; Z91.041 Radiographic dye allergy status; Z91.89 Other specified personal risk factors, not elsewhere classified; Z88.8 Allergy status to other drugs, medicaments and biological substances

== ENCOUNTER 2019-02-19 15:13 | Inpatient (IN) | payer MEDICARE, BC, OTHER ==
[~2019-02-19] VITALS: Ht 198.1 cm; Wt 65.7 kg
[~2019-02-19 15:13] MED LIST changes: +RENATAB5 PO
[2019-02-19 16:27] LABS: BASO % 0.3 % (0.0-1.0); EOS # 0.1 10^3/uL (0.0-0.5); EOS % 0.7 % (0.0-3.0); HEMATOCRIT 37.4 % (36.0-47.0); HEMOGLOBIN 11.9 g/dl (12.0-15.5); LYMPH # 1.4 10^3/uL (1.5-5.0); LYMPH % 10.5 % (24.0-44.0); MEAN CORPUSCULAR HEMOGLOBIN 30.1 pg (27.0-33.0); MEAN CORPUSCULAR HGB CONC 31.8 g/dl (32.0-36.5); MEAN CORPUSCULAR VOLUME 94.7 fl (80.0-96.0); MONO # 0.7 10^3/uL (0.0-0.8); MONO % 5.3 % (0.0-5.0); NEUTROPHILS # 11.1 10^3/uL (1.5-8.5); NEUTROPHILS % 81.1 % (36.0-66.0); PLATELET COUNT, AUTOMATED 200 10^3/uL (150-450); RED BLOOD COUNT 3.95 10^6/uL (4.00-5.40); WHITE BLOOD COUNT 13.7 10^3/uL (4.0-10.0)
[2019-02-19 17:03] LABS: ALBUMIN 1.8 GM/DL (3.2-5.2); BILIRUBIN,DIRECT 0.8 MG/DL (0.0-0.2); BILIRUBIN,TOTAL 2.9 MG/DL (0.2-1.0); CALCIUM LEVEL 9.4 MG/DL (8.8-10.2); CREATININE FOR GFR 5.46 MG/DL (0.55-1.30); GLOMERULAR FILTRATION RATE 8.4 (>45); MAGNESIUM LEVEL 2.2 MG/DL (1.8-2.4); POTASSIUM SERUM 3.9 MEQ/L (3.5-5.1); TOTAL PROTEIN 6.9 GM/DL (6.4-8.2)
[2019-02-19] MEDS ORDERED: MAGN400T2 PO (17:28)
[2019-02-19] MEDS ORDERED: RENATAB5 PO (17:28)
[2019-02-19] MEDS ORDERED: NS 1,000 ML IV SCH (18:15)
--- NOTE | 2019-02-19 19:35 | HPEPDOC ---
General Date of Admission Feb 19, 2019 at 17:52 Date of Service: Feb 19, 2019 Chief Complaint The patient is a 63-year-old female admitted with a reason for visit of Esrd;Failure To Thrive In Adult;Liver Ca W/Mets. Source: Patient, RN/, Old records History of Present Illness This is a 63-year-old female with PMH of ESRD on HD since oct 2018, Carcinoid tumor from 2005 recurrence with metastatic carcinoid tumor 2008 on chemotherapy since , bowel obstruction s/p colectomy with colostomy in 2012 , High output from colostomy, gout, hypothyroid whose in Dec 2018 and since then has been finding it very difficult to manage at home. She has lost about 60 lbs in the past year. Unable to eat much, early satiety, has been getting weaker and weaker and at present unable to stand up from a chair. Went to see PMD today and was sent to the ED for failure to thrive extreme weakness unable to ambulate. Patient also complains of mucus like discharge from her anus which is new for the past 2 months. Her last chemo was on Jan 07, 2019. SHe could not get the one in January as her and she wanted to delay it a bit till she was ready. Home Medications Scheduled Folic Acid/Vit B Complex and C (Raegan-Thalia Tablet) 0.8 Mg Tablet, 1 TAB PO DAILY, (Reported) Levothyroxine Sodium (Synthroid) 150 Mcg Tab, 150 MCG PO DAILY, (Reported) Magnesium Oxide (Magnesium Oxide) 400 Mg Tablet, 400 MG PO DAILY, (Reported) Octreotide Acetate (Octreotide Acetate) 50 Mcg/Ml Inj, 30 MCG IM QMONTH, (Reported) RECEIVES IN [place] MONTHLY Allergies Coded Allergies: Contrast Media (Verified Allergy, Intermediate, RADIOPAQUE CONTRAST - HIVES, 01/19/19) Iodinated Contrast Media (Verified Allergy, Intermediate, hives, 01/19/19) iodine (Verified Allergy, Intermediate, hives, 01/19/19) iopamidol (Verified Allergy, Intermediate, hives, 01/19/19) metformin (Verified Adverse Reaction, Mild, diarrhea, 01/19/19) Past Medical History Medical History ESRD on HD from oct 2018, Carcinoid tumor from 2005 She was found to have carcinoid tumor found in the cecum and terminal ileum. After which, she had a hemicolectomy in 2005. However, she was found to have metastatic carcinoid cancer again in 2008 on chemotherapy since then , bowel obstruction s/p colon resection with colostomy in 2013 , High output from colostomy ,gout, nephrolithiasis, Hypothyroid. Surgical History right hemicolectomy with ileocolonic anastomosis in 2005 further colectomy due to bowel obstruction in 2013 with colostomy Total abdominal hystrectomy lithotripsy Left AVF cholecystectomy appendectomy Family History father - glioblastoma mother - breast cancer maternal grandparents -cad/mi paternal grandfather - sarcoma Social History * Smoker: Denies Alcohol: rarely Drugs: denies A-FIB/CHADSVASC A-FIB History Current/History of A-Fib/PAF?: No Review of Systems Constitutional: Reports: Weakness, Fatigue, Weight Loss; Denies: Chills, Fever, Night Sweats Eyes: Denies: Pain, Vision change ENT: Denies: Head Aches, Ear Pain, Dysphagia Skin: Denies: Rash, Lesions, Breakdown Pulmonary: Denies: Dyspnea, Cough Cardiovascular: Reports: Edema; Denies: Chest Pain, Palpitations, Orthopnea, Paroxysmal Noc. Dyspnea, Lt Headedness, Other Symptoms Gastrointestinal: Reports: Abdominal Pain, Diarrhea; Denies: Nausea, Vomiting Physical Examination General Exam: Positive: Alert, Cooperative, No Acute Distress Eye Exam: Positive: PERRLA, Conjunctiva & lids normal, EOMI; Negative: Sclera icteric ENT Exam: Positive: Atraumatic, Mucous membr. moist/pink, Pharynx Normal Neck Exam: Positive: Supple; Negative: JVD, thyromegaly Chest Exam: Positive: Clear to auscultation, Normal air movement Heart Exam: Positive: Rate Normal, Regular Rhythm, Normal S1, Normal S2; Negative: Murmurs, Rubs Abdomen Exam: Positive: Normal bowel sounds, Soft, Other (ostomy present in left quadrant); Negative: Tenderness, Hepatospenomegaly Extremity Exam: Positive: Edema; Negative: Clubbing, Cyanosis Skin Exam: Positive: Nl turgor and temperature; Negative: Breakdown, Lesion Neuro Exam: Positive: Normal Speech, Normal Tone Psych Exam: Positive: Mental status NL, Mood NL, Memory Intact, Oriented x 3 Vital Signs Vital Signs Date Time Temp Pulse Resp B/P (MAP) Pulse Ox O2 Delivery O2 Flow Rate FiO2 02/19/19 18:13 79 20 100 1/2/20 17:58 118/76 (90) 02/19/19 15:45 Room Air 02/19/19 15:14 98.1 Laboratory Data Labs 24H Laboratory Tests 2 02/19/19 16:06: Immature Granulocyte % (Auto) 2.1, Neutrophils (%) (Auto) 81.1H, Lymphocytes (%) (Auto) 10.5L, Monocytes (%) (Auto) 5.3H, Eosinophils (%) (Auto) 0.7, Basophils (%) (Auto) 0.3, Neutrophils # (Auto) 11.1H, Lymphocytes # (Auto) 1.4L, Monocytes # (Auto) 0.7, Eosinophils # (Auto) 0.1, Basophils # (Auto) 0.0, Nucleated Red Blood Cells % (auto) 0.0, Anion Gap 9, Glomerular Filtration Rate 8.4L, Calcium Level 9.4, Magnesium Level 2.2, Total Bilirubin 2.9H, Direct Bilirubin 0.8H, Aspartate Amino Transf (AST/SGOT) 64H, Alanine Aminotransferase (ALT/SGPT) 55, Alkaline Phosphatase 905H, Total Protein 6.9, Albumin 1.8L, Albumin/Globulin Ratio 0.35L CBC/BMP Laboratory Tests 02/19/19 16:06 Assessment/Plan This is a 63-year-old female with PMH of ESRD on HD since oct 2018, Carcinoid tumor from 2005 recurrence with metastatic carcinoid tumor 2008 on chemotherapy since , bowel obstruction s/p colectomy with colostomy in 2012 , High output from colostomy, gout, hypothyroid whose in Dec 2018 and since then has been finding it very difficult to manage at home. She has lost about 60 lbs in the past year. Unable to eat much, early satiety, has been getting weaker and weaker and at present unable to stand up from a chair. Went to see PMD today and was sent to the ED for failure to thrive. Failure to thrive , weakness, unable to ambulate. probably due to her progressing cancer, cachexia. will get commercial property administrator consult PT evaluation Severe protein calorie malnutrition with BMI of 19.8, bitemporal wasting, wasting of muscles of all the mucles of the body, wasting of intercostal muscles. albumin 1.8 dietary consult. Abnormal LFTs this is new will get an ultrasound of the abdomen. ESRD will continue with maintainence HD History of carcinoid tumor in the cecum and terminal ileum, status post a right hemicolectomy in 2005 and chemotherapy since 2008. she gets once a month at [place] but has been trying to set up her chemotreatments at [place] as since her ,s passing travelling has become difficult. also on octreotide. S/p Ostomy after bowel obstruction in 2012 and removal of the rest of the bowel high output from there. Hypothyroidism. Continue home Synthroid. History of nephrolithiasis status post extracorporeal shock wave lithotripsy in the past. History of bowel obstruction with multiple abdominal surgeries in the past, status post colon resection in 2012 with left ostomy bag present currently. H/o Hypothyroid and gout not on any meds at present Plan / VTE VTE Prophylaxis Ordered?: Yes RICHIE COCHRAN MD Feb 19, 2019 19:35
--- NOTE | 2019-02-19 20:36 | REPVR ---
PROCEDURE INFORMATION: Exam: US Abdomen Complete Exam date and time: 02/19/2019 7:23 PM Age: 63 years old Clinical indication: Abnormal findings; Abnormal lab test; Other: Elevated alkaline phophatase; Prior surgery; Surgery date: 6+ months; Surgery type: S/P cholecystectomy; Additional info: Elevated alkaline phophatase, S/P shanita, metasttic cancer TECHNIQUE: Imaging protocol: Real-time ultrasound of the abdomen with image documentation. COMPARISON: RENAL US 10/04/2017 11:22 PM FINDINGS: Pleural space: Right-sided pleural effusion. Liver: Markedly heterogeneous hepatic echotexture with innumerable masses, largest measuring up to by 0.8 cm. Gallbladder: Previous cholecystectomy. Common bile duct: Normal. No stones. No dilation. Pancreas: Pancreas is poorly evaluated. Right kidney: Echogenic kidneys compatible with chronic medical renal disease. No hydronephrosis. Left kidney: 2 cm inferior left renal cyst. Spleen: Normal. No splenomegaly. Aorta: Visualized abdominal aorta is non-aneurysmal. Inferior vena cava: Normal. Intraperitoneal space: Moderate ascites. IMPRESSION: 1. Innumerable hepatic masses compatible with hepatic metastatic disease. 2. Moderate ascites. 3. Previous cholecystectomy. Electronically signed by: Sabino Da Silva On 02/19/2019 20:31:31 PM
[2019-02-19 21:18] VITALS: BP 123/77
[2019-02-20] MEDS: LEVOTHYROXINE 150MCG TABLET (0.15MG) PO SCH (06:26)
[2019-02-20 06:33] VITALS: BP 124/78
[2019-02-20] MEDS: MAGNESIUM OXIDE 400 MG TAB (MAG-OX) PO SCH (07:57)
[2019-02-20] MEDS: NEPHRO-VIT TAB (NEPHROCAPS) PO SCH (09:00)
--- NOTE | 2019-02-20 11:35 | CR ---
DATE OF CONSULTATION: 02/20/2019 REQUESTING PHYSICIAN: Dr. Katty Rdz CONSULTING PHYSICIAN: Dr. Flaherty REASON FOR CONSULTATION: Management of end-stage renal disease on hemodialysis. CHIEF COMPLAINT: The patient presented to the emergency room yesterday with failure to thrive, extreme weakness. 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 Other comorbidities as mentioned below. She presented to the emergency room yesterday with progressive weakness, inability to walk around and take care of herself, progressive failure to thrive. Primary medical doctor asked her to go to the emergency room admission IV fluid hydration. The patient was admitted under the hospitalist service last night. She was given some IV fluid hydration, however the patient reported that she was having lower extremity edema so IV fluids were stopped. I saw and evaluated the patient at the bedside today morning when she was getting hemodialysis done. I had already arranged her hemodialysis to be done today morning. The patient is otherwise afebrile and hemodynamically stable and she was able to provide me complete history. PAST MEDICAL HISTORY: Past medical history of end-stage renal disease on hemodialysis since October 2018, history of carcinoid tumor since 2005, she has metastatic carcinoid lesions, her liver is full of mets, she has history of bowel obstruction in the past which needed colon resection and colostomy in 2012 and because of the high output colostomy she does not get any fluid removed during dialysis. She also has history of gout secondary to end-stage renal disease. History of kidney stones in the past and she has hypothyroidism. PAST SURGICAL HISTORY: Status post a right hemicolectomy in 2005 and she had further colectomy in 2012 with a colostomy in the left lower quadrant, status post total abdominal hysterectomy, history of lithotripsy, history of the left arm AV fistula, status post cholecystectomy and status post appendectomy in the past. ALLERGIES: She is allergic to IV CONTRAST MEDIA and METFORMIN. FAMILY HISTORY: There is no history of end-stage renal disease the family, however, her father had glioblastoma, mother had breast cancer and paternal grandfather had sarcoma. SOCIAL HISTORY: The patient denies any smoking, illicit drug abuse or alcohol abuse. Her just 2 months ago. REVIEW OF SYSTEMS: Constitutional: Patient reports extreme fatigue and weakness and inability to take care of herself. Eyes: She denies any blurry vision, double vision. ENT: She denies any dysphagia, odynophagia, ear discharge. Cardiovascular: She denies any chest pain or palpitation. Respiratory: She denies any shortness of breath. Gastrointestinal (GI): She reports colostomy status and multiple carcinoid mets in the liver and in the abdomen. Genitourinary: She reports a decrease in urine output. Musculoskeletal: She reports muscle weakness. Skin: She denies any rashes or ulcers. Psych: She does report some depression. Endocrine: She denies any history of diabetes. She does have history of hypothyroidism. Hematological/Oncological: She denies any easy bleeding or bruising. She does have history of carcinoid the tumor. All other review of system is negative. PHYSICAL EXAMINATION: General: The patient is awake, alert, oriented times three, laying in the bed getting hemodialysis done. Vital signs: Temperature is 98.2 degrees Fahrenheit, blood pressure 124/78, pulse 78, respiratory rate of 16, saturating 99% on room air. Head and neck exam: The patient has extremely weak, cachectic with bitemporal wasting. Mucous membranes are moist. Neck is supple. She has a right IJ tunneled hemodialysis catheter which is being used for dialysis. Cardiovascular: S1, S2, regular rate. 1+ edema of the bilateral lower extremities. Respiratory: Chest is clear to auscultation bilaterally. Bilateral equal air entry. No rales or rhonchi. Abdomen: Soft, positive bowel sounds. Hepatomegaly was noted. The patient has a colostomy. Musculoskeletal: No clubbing or cyanosis. 1+ edema of the bilateral lower extremities as mentioned above. PRETZEL PACKER: No focal deficit. Power is 5/5 in all extremities. Psych: Normal mood and affect. LAB REVIEW: CBC showed a WBC 13.7, hemoglobin 11.9, platelets 200. BMP showed sodium 137, potassium 3.9, chloride 99, bicarb 29, BUN 43, creatinine 5.4, calcium 9.4, total bilirubin is 2.9, albumin is 1.8. IMAGING STUDIES: An ultrasound of the abdomen was done yesterday which showed innumerable hepatic masses compatible with hepatic metastatic disease. Moderate amount of ascites. CURRENT INPATIENT MEDICATIONS: The patient is currently on levothyroxine 150 mcg by mouth daily. She was on normal saline overnight which was stopped. She is getting magnesium oxide 400 mg by mouth daily and vitamin B complex ASSESSMENT AND PLAN: 1. End-stage renal disease. The patient is dialysis dependent. She is being dialyzed at this time. Minimal fluid removal will be done because of malnutrition and metastatic disease. 2. Protein calorie malnutrition. It is secondary to metastatic lesions in the liver. Continue regular diet and continue Ensure daily. 3. Metastatic carcinoid tumor. The patient has multiple lesions in the liver. She has elevated total bilirubin. The patient is already aware of her liver lesions. She follows up with Hematology/Oncology in [place] and she gets [facility] Sandostatin 30 mg injections from them. 4. Colostomy status. The patient has history of high output ostomy. She used to get IV fluids as outpatient previously, however, now of fluid status is optimized during dialysis and if she needs any fluid she gets it during dialysis sessions. 5. Hypothyroidism. Continue current dose of levothyroxine. 6. Anemia in end-stage renal disease. Hemoglobin level is 11.9 which is optimal. No need of Aranesp today. Thank you for involving me in the care of this patient. I shall be happy to follow the patient along with you tomorrow morning.
[2019-02-20] MEDS ORDERED: HEPARIN 1,000 UNITS/ML 10ML VIAL (FOR RADIOLOGY& DIALYSIS ONLY) XX ONE (12:00)
[2019-02-20] MEDS ORDERED: HEPARIN 1,000 UNITS/ML 10ML VIAL (FOR RADIOLOGY& DIALYSIS ONLY) IV ONE (12:00)
[2019-02-20 14:00] VITALS: BP 118/77
--- NOTE | 2019-02-20 16:40 | IPNPDOC ---
Subjective Date Seen The patient was seen on 02/20/19. Subjective Chief Complaint/HPI No acute events overnight. Pateint going for her maintainence HD today. Complains of intermittent lower abdominal pain when she walks. No fever or chills, no chest pain or sob . Objective Physical Examination General Exam: Positive: Alert, Cooperative, No Acute Distress Eye Exam: Positive: PERRLA, Conjunctiva & lids normal, EOMI; Negative: Sclera icteric ENT Exam: Positive: Atraumatic, Mucous membr. moist/pink, Pharynx Normal Neck Exam: Positive: Supple; Negative: JVD, thyromegaly Chest Exam: Positive: Clear to auscultation, Normal air movement Heart Exam: Positive: Rate Normal, Regular Rhythm, Normal S1, Normal S2; Negative: Murmurs, Rubs Abdomen Exam: Positive: Normal bowel sounds, Soft, Other (ostomy present in left quadrant); Negative: Tenderness, Hepatospenomegaly Extremity Exam: Positive: Edema; Negative: Clubbing, Cyanosis Skin Exam: Positive: Nl turgor and temperature; Negative: Breakdown, Lesion Neuro Exam: Positive: Normal Speech, Normal Tone Psych Exam: Positive: Mental status NL, Mood NL, Memory Intact, Oriented x 3 Assessment /Plan Assessment This is a 63-year-old female with PMH of ESRD on HD since oct 2018, Carcinoid tumor from 2005 recurrence with metastatic carcinoid tumor 2008 on chemotherapy since , bowel obstruction s/p colectomy with colostomy in 2012 , High output from colostomy, gout, hypothyroid whose in Dec 2018 and since then has been finding it very difficult to manage at home. She has lost about 60 lbs in the past year. Unable to eat much, early satiety, has been getting weaker and weaker and at present unable to stand up from a chair. Went to see PMD today and was sent to the ED for failure to thrive. Failure to thrive , weakness, unable to ambulate. probably due to her progressing cancer, cachexia. will get brick dropper consult PT evaluation Severe protein calorie malnutrition with BMI of 19.8, bitemporal wasting, wasting of muscles of all the mucles of the body, wasting of intercostal muscles. albumin 1.8 dietary consult. Abnormal LFTs this is new will get an ultrasound of the abdomen. ESRD will continue with maintainence HD History of carcinoid tumor in the cecum and terminal ileum, status post a right hemicolectomy in 2005 and chemotherapy since 2008. she gets once a month at [place] but has been trying to set up her chemo treatments at [place] as since her ,s passing travelling has become difficult. also on octreotide. S/p colostomy after bowel obstruction in 2012 and segmental colectomy in the remaining colon. high output from there. Hypothyroidism. Continue home Synthroid. History of nephrolithiasis status post extracorporeal shock wave lithotripsy in the past. History of bowel obstruction with multiple abdominal surgeries in the past, status post segmental colon resection in 2012 with left colostomy bag present currently. H/o Hypothyroid and gout not on any meds at present VS, I&O, 24H, Fishbone Vital Signs/I&O Vital Signs Date Time Temp Pulse Resp B/P (MAP) Pulse Ox O2 Delivery O2 Flow Rate FiO2 02/20/19 06:33 98.2 78 16 124/78 (93) 99 Room Air I&O- Last 24 Hours up to 6 AM 02/20/19 06:00 Intake Total 180 ml Output Total 0 ml Balance 180 ml RICHIE COCHRAN MD Feb 20, 2019 16:40
[2019-02-20] MEDS: ACETAMINOPHEN TAB 650MG DOSE (2X325MG) PO PRN (18:57)
[2019-02-20 22:00] VITALS: BP 117/76
[2019-02-21] MEDS: LEVOTHYROXINE 150MCG TABLET (0.15MG) PO SCH (05:08)
[2019-02-21 06:00] VITALS: BP 106/71
[2019-02-21 08:15] LABS: HEMATOCRIT 33.4 % (36.0-47.0); HEMOGLOBIN 10.7 g/dl (12.0-15.5); MEAN CORPUSCULAR HEMOGLOBIN 30.3 pg (27.0-33.0); MEAN CORPUSCULAR VOLUME 94.6 fl (80.0-96.0); NEUTROPHILS % 79.7 % (36.0-66.0); PLATELET COUNT, AUTOMATED 155 10^3/uL (150-450); RED BLOOD COUNT 3.53 10^6/uL (4.00-5.40); WHITE BLOOD COUNT 12.1 10^3/uL (4.0-10.0)
[2019-02-21 08:16] LABS: BASO % 0.2 % (0.0-1.0); EOS # 0.2 10^3/uL (0.0-0.5); EOS % 1.4 % (0.0-3.0); LYMPH # 1.2 10^3/uL (1.5-5.0); LYMPH % 9.6 % (24.0-44.0); MONO # 0.9 10^3/uL (0.0-0.8); MONO % 7.8 % (0.0-5.0); NEUTROPHILS # 9.6 10^3/uL (1.5-8.5)
[2019-02-21] MEDS: MAGNESIUM OXIDE 400 MG TAB (MAG-OX) PO SCH (08:32)
[2019-02-21] MEDS: NEPHRO-VIT TAB (NEPHROCAPS) PO SCH (08:32)
[2019-02-21 08:37] LABS: ALBUMIN 1.6 GM/DL (3.2-5.2); BILIRUBIN,TOTAL 2.7 MG/DL (0.2-1.0); CALCIUM LEVEL 8.6 MG/DL (8.8-10.2); CREATININE FOR GFR 4.14 MG/DL (0.55-1.30); GLOMERULAR FILTRATION RATE 11.6 (>45); POTASSIUM SERUM 3.6 MEQ/L (3.5-5.1); TOTAL PROTEIN 6.4 GM/DL (6.4-8.2)
--- NOTE | 2019-02-21 11:58 | IPNPDOC ---
Subjective Date Seen The patient was seen on 02/21/19. Subjective Chief Complaint/HPI No complaints this am. Working with PT. No fever or chills, no chest pain or sob. Objective Physical Examination General Exam: Positive: Alert, Cooperative, No Acute Distress Eye Exam: Positive: PERRLA, Conjunctiva & lids normal, EOMI; Negative: Sclera icteric ENT Exam: Positive: Atraumatic, Mucous membr. moist/pink, Pharynx Normal Neck Exam: Positive: Supple; Negative: JVD, thyromegaly Chest Exam: Positive: Clear to auscultation, Normal air movement Heart Exam: Positive: Rate Normal, Regular Rhythm, Normal S1, Normal S2; Negative: Murmurs, Rubs Abdomen Exam: Positive: Normal bowel sounds, Soft, Other (ostomy present in left quadrant); Negative: Tenderness, Hepatospenomegaly Extremity Exam: Positive: Edema; Negative: Clubbing, Cyanosis Skin Exam: Positive: Nl turgor and temperature; Negative: Breakdown, Lesion Neuro Exam: Positive: Normal Speech, Normal Tone Psych Exam: Positive: Mental status NL, Mood NL, Memory Intact, Oriented x 3 Assessment /Plan Assessment This is a 63-year-old female with PMH of ESRD on HD since oct 2018, Carcinoid tumor from 2005 recurrence with metastatic carcinoid tumor 2008 on chemotherapy since , bowel obstruction s/p colectomy with colostomy in 2012 , High output from colostomy, gout, hypothyroid whose in Dec 2018 and since then has been finding it very difficult to manage at home. She has lost about 60 lbs in the past year. Unable to eat much, early satiety, has been getting weaker and weaker and at present unable to stand up from a chair. Went to see PMD today and was sent to the ED for failure to thrive. Failure to thrive , weakness, unable to ambulate. probably due to her progressing cancer, cachexia. will get water pump installer consult PT evaluation Severe protein calorie malnutrition with BMI of 19.8, bitemporal wasting, wasting of muscles of all the mucles of the body, wasting of intercostal muscles. albumin 1.8 dietary consult. Abnormal LFTs this is new US shows multipe mets to liver. ESRD will continue with maintainence HD History of carcinoid tumor in the cecum and terminal ileum, status post a right hemicolectomy in 2005 and chemotherapy since 2008. she gets once a month at [place] but has been trying to set up her chemo treatm ents at [place] as since her ,s passing travelling has become difficult. also on octreotide. S/p colostomy after bowel obstruction in 2012 and segmental colectomy in the remaining colon. high output from there. Hypothyroidism. Continue home Synthroid. History of nephrolithiasis status post extracorporeal shock wave lithotripsy in the past. History of bowel obstruction with multiple abdominal surgeries in the past, status post segmental colon resection in 2012 with left colostomy bag present currently. H/o Hypothyroid and gout not on any meds at present VS, I&O, 24H, Fishbone Vital Signs/I&O Vital Signs Date Time Temp Pulse Resp B/P (MAP) Pulse Ox O2 Delivery O2 Flow Rate FiO2 02/21/19 06:00 98.3 83 18 106/71 (83) 99 Room Air I&O- Last 24 Hours up to 6 AM 02/21/19 05:59 Intake Total 1195 ml Output Total 500 ml Balance 695 ml Laboratory Data 24H LABS Laboratory Tests 2 02/21/19 07:46: Immature Granulocyte % (Auto) 1.3, Neutrophils (%) (Auto) 79.7H, Lymphocytes (%) (Auto) 9.6L, Monocytes (%) (Auto) 7.8H, Eosinophils (%) (Auto) 1.4, Basophils (%) (Auto) 0.2, Neutrophils # (Auto) 9.6H, Lymphocytes # (Auto) 1.2L, Monocytes # (Auto) 0.9H, Eosinophils # (Auto) 0.2, Basophils # (Auto) 0.0, Nucleated Red Blood Cells % (auto) 0.0, Anion Gap 8, Glomerular Filtration Rate 11.6L, Calcium Level 8.6L, Total Bilirubin 2.7H, Aspartate Amino Transf (AST/SGOT) 49H, Alanine Aminotransferase (ALT/SGPT) 49, Alkaline Phosphatase 762H, Total Protein 6.4, Albumin 1.6L, Albumin/Globulin Ratio 0.33L CBC/BMP Laboratory Tests 02/21/19 07:46 RICHIE COCHRAN MD Feb 21, 2019 11:58
[2019-02-21 14:00] VITALS: BP 126/77
--- NOTE | 2019-02-21 15:40 | IPN ---
DATE: 02/21/2019 SUBJECTIVE: The patient was seen and examined at the bedside today morning. She is lying in the bed. She was dialyzed yesterday. Very little fluid was removed. She reports that her leg edema is better. She still reports feeling very weak and tired. She is unable to walk around. She otherwise he is afebrile and hemodynamically stable. OBJECTIVE: Vital signs: Temperature is 98.2 degrees Fahrenheit, blood pressure 126/77, pulse is 88, respiratory of 70, saturating 99% on room air. Intake and output: There is no urine output recorded. Ultrafiltration with hemodialysis was 500 mL. Weight in the bed scale is 66.2 kg. PHYSICAL EXAMINATION: GENERAL: The patient is awake, alert, oriented times three, lying in bed, very weak and cachectic, chronically malnourished. HEAD AND NECK: The patient has bitemporal wasting. Mucous membranes are moist. Neck is supple. She has a right internal jugular (IJ) tunneled hemodialysis catheter. CARDIOVASCULAR: S1, S2, regular rate. No edema of the bilateral lower extremities. RESPIRATORY: Chest is clear to auscultation bilaterally. Bilateral equal air entry. No rales or rhonchi. ABDOMEN: Soft. Left lower quadrant ostomy was noted. MUSCULOSKELETAL: No clubbing or cyanosis. Pulses are 2+. CENTRAL NERVOUS SYSTEM: No focal deficit. Power is 5/5 in all extremities. LABORATORY REVIEW: CBC showed WBC of 12.1, hemoglobin 10.7, platelets are 155. BMP showed sodium 138, potassium 3.6, chloride 103, bicarbonate 27, BUN 28, creatinine is 4.1, calcium 8.6. Total bilirubin 2.7, AST 49, ALT 49, alkaline phosphatase is 762, albumin 1.6. CURRENT INPATIENT MEDICATIONS: The patient's medications were all reviewed by me. He is just on levothyroxine, magnesium, and multivitamin. ASSESSMENT AND PLAN: 1. End-stage renal disease. The patient is dialysis dependent. She was dialyzed yesterday according to her regular. Schedule next hemodialysis will be done on Saturday. 2. Protein calorie malnutrition. Continue Ensure daily. She is on regular diet. She is not on any fluid or carbohydrate restriction. 3. Metastatic carcinoid tumor. The patient has elevated total bilirubin and alkaline phosphatase. She has enumerate lesions in the liver. She follows up with hematology/oncology in [place], and she gets monthly [facility]ot Sandostatin 30 mg injections. 4. Hypothyroidism. Continue current dose of levothyroxine. DISPOSITION: The patient overall has a poor prognosis. She is very weak and tired, unable to walk around, and patient reports that she has been getting Sandostatin injections for the last 10 years almost, and her metastatic carcinoid lesions are stable, and she wants to follow up with hematology/oncology after discharge from the hospital. Overall, have believe the patient has a poor prognosis in the snf.
[2019-02-21 22:00] VITALS: BP 120/74
[2019-02-22] MEDS: LEVOTHYROXINE 150MCG TABLET (0.15MG) PO SCH (04:59)
[2019-02-22 06:00] VITALS: BP 116/74
[2019-02-22] MEDS: NEPHRO-VIT TAB (NEPHROCAPS) PO SCH (08:58)
[2019-02-22] MEDS: MAGNESIUM OXIDE 400 MG TAB (MAG-OX) PO SCH (08:58)
--- NOTE | 2019-02-22 11:34 | IPNPDOC ---
Subjective Date Seen The patient was seen on 02/22/19. Subjective Chief Complaint/HPI No complaints this morning. Due for HD tomorrow. Her main issue is standing up from sitting position in the regular height chairs . She could stand up when the seat was raised. Objective Physical Examination General Exam: Positive: Alert, Cooperative, No Acute Distress Eye Exam: Positive: PERRLA, Conjunctiva & lids normal, EOMI; Negative: Sclera icteric ENT Exam: Positive: Atraumatic, Mucous membr. moist/pink, Pharynx Normal Neck Exam: Positive: Supple; Negative: JVD, thyromegaly Chest Exam: Positive: Clear to auscultation, Normal air movement Heart Exam: Positive: Rate Normal, Regular Rhythm, Normal S1, Normal S2; Negative: Murmurs, Rubs Abdomen Exam: Positive: Normal bowel sounds, Soft, Other (ostomy present in left quadrant); Negative: Tenderness, Hepatospenomegaly Extremity Exam: Positive: Edema; Negative: Clubbing, Cyanosis Skin Exam: Positive: Nl turgor and temperature; Negative: Breakdown, Lesion Neuro Exam: Positive: Normal Speech, Normal Tone Psych Exam: Positive: Mental status NL, Mood NL, Memory Intact, Oriented x 3 Assessment /Plan Assessment This is a 63-year-old female with PMH of ESRD on HD since oct 2018, Carcinoid tumor from 2005 recurrence with metastatic carcinoid tumor 2008 on chemotherapy since , bowel obstruction s/p colectomy with colostomy in 2012 , High output from colostomy, gout, hypothyroid whose in Dec 2018 and since then has been finding it very difficult to manage at home. She has lost about 60 lbs in the past year. Unable to eat much, early satiety, has been getting weaker and weaker and at present unable to stand up from a chair. Went to see PMD today and was sent to the ED for failure to thrive. Failure to thrive , weakness, unable to ambulate. probably due to her progressing cancer, cachexia. will get magnetic tape composer operator consult PT evaluation Severe protein calorie malnutrition with BMI of 19.8, bitemporal wasting, wasting of muscles of all the mucles of the body, wasting of intercostal muscles. albumin 1.8 dietary consult. Abnormal LFTs this is new US shows multipe mets to liver. ESRD will continue with maintainence HD History of carcinoid tumor in the cecum and terminal ileum, status post a right hemicolectomy in 2005 and chemotherapy since 2008. she gets once a month at [place] [facility] but has been trying to set up her chemo treatments at [place] as since her ,s passing travelling has become difficult. also on octreotide. S/p colostomy after bowel obstruction in 2012 and segmental colectomy in the remaining colon. high output from there. Hypothyroidism. Continue home Synthroid. History of nephrolithiasis status post extracorporeal shock wave lithotripsy in the past. History of bowel obstruction with multiple abdominal surgeries in the past, status post segmental colon resection in 2012 with left colostomy bag present currently. H/o Hypothyroid and gout not on any meds at present VS, I&O, 24H, Fishbone Vital Signs/I&O Vital Signs Date Time Temp Pulse Resp B/P (MAP) Pulse Ox O2 Delivery O2 Flow Rate FiO2 02/22/19 06:00 98.6 90 16 116/74 (88) 98 Room Air I&O- Last 24 Hours up to 6 AM 02/22/19 06:00 Intake Total 1120 ml Balance 1120 ml RICHIE COCHRAN MD Feb 22, 2019 11:34
[2019-02-22 14:00] VITALS: BP 124/83
[2019-02-22] MEDS: ACETAMINOPHEN TAB 650MG DOSE (2X325MG) PO PRN (20:14)
[2019-02-22 22:00] VITALS: BP 109/72
[2019-02-23] MEDS: MAGNESIUM OXIDE 400 MG TAB (MAG-OX) PO SCH (05:48)
[2019-02-23] MEDS: LEVOTHYROXINE 150MCG TABLET (0.15MG) PO SCH (05:48)
[2019-02-23] MEDS: NEPHRO-VIT TAB (NEPHROCAPS) PO SCH (05:49)
[2019-02-23 06:00] VITALS: BP 107/70
[2019-02-23 08:16] LABS: HEMATOCRIT 34.7 % (36.0-47.0); HEMOGLOBIN 11.6 g/dl (12.0-15.5); MEAN CORPUSCULAR HEMOGLOBIN 30.9 pg (27.0-33.0); MEAN CORPUSCULAR HGB CONC 33.4 g/dl (32.0-36.5); MEAN CORPUSCULAR VOLUME 92.3 fl (80.0-96.0); PLATELET COUNT, AUTOMATED 178 10^3/uL (150-450); RED BLOOD COUNT 3.76 10^6/uL (4.00-5.40); WHITE BLOOD COUNT 14.7 10^3/uL (4.0-10.0)
[2019-02-23 08:39] LABS: CREATININE FOR GFR 6.25 MG/DL (0.55-1.30); GLOMERULAR FILTRATION RATE 7.2 (>45); POTASSIUM SERUM 3.9 MEQ/L (3.5-5.1)
--- NOTE | 2019-02-23 09:55 | IPN ---
DATE OF SERVICE: 02/22/2019 Ann is seen and examined this morning at the bedside. She reports she is having so-so oral intake and chronically poor appetite. She reports her leg edema is improved and she reports she is still feeling weak, especially in the knees, and has trouble getting up from a seated position Vital Signs: Temperature 98.6, pulse 90, respiratory rate 16, blood pressure 116/74, saturating 98% on room air. Intake yesterday was 1140. Weight in the bed scale today is 66.7 kg. General: The patient is seen awake, alert, oriented times three, lying in bed, weak, cachectic, emaciated, and malnourished appearing. Head and Neck: Bitemporal wasting. Mucous membranes are moist. Extraocular muscles are intact. Neck is supple. She has a tunneled hemodialysis catheter in the right IJ. Cardiac: S1, S2, regular rate . 1+ edema of the feet and ankles. Respiratory: Lungs are clear to auscultation bilaterally. Equal air entry. No rales or rhonchi. She is comfortable on room air. The abdomen is soft. There is a left lower quadrant ostomy. Musculoskeletal: No clubbing or cyanosis. Pulses are 2+. There is significant muscle wasting. Neurologic: No focal deficit. Awake, alert, oriented times three, interactive and conversational. LABS: There are no new labs today. INPATIENT MEDICATIONS: Reviewed by myself and no change from yesterday. PROBLEMS: 1. End-stage renal disease on hemodialysis on a Saturday, Saturday, Saturday schedule via a tunneled hemodialysis catheter. She will be dialyzed tomorrow. We will try to remove up to 1 liter of fluid as tolerated by her hemodynamics. She generally does not tolerate significant fluid removal with hemodialysis. She does have significant output from her ostomy. 2. Protein calorie malnutrition. Encourage adequate caloric intake. She is receiving Ensure. She is on a regular diet and she is not on any fluid or carbohydrate restriction. 3. Anemia of chronic renal failure. Hemoglobin is 10.7, which is optimal for end-stage renal disease and Aranesp is currently not indicated. 4. Failure to thrive and ambulatory dysfunction likely related to her overall debilitation, cachexia, progressive cancer, muscle wasting, and protein calorie malnutrition. Managed as per primary team and the patient is receiving physical therapy.
--- NOTE | 2019-02-23 11:01 | IPNPDOC ---
Subjective Date Seen The patient was seen on 02/23/19. Subjective Chief Complaint/HPI No issues overnight. Has difficulty in standing up from sitting position. As per PFS will not be able to go to rehab due to being on Chemo. PT working with her. HD today. Objective Physical Examination General Exam: Positive: Alert, Cooperative, No Acute Distress Eye Exam: Positive: PERRLA, Conjunctiva & lids normal, EOMI; Negative: Sclera icteric ENT Exam: Positive: Atraumatic, Mucous membr. moist/pink, Pharynx Normal Neck Exam: Positive: Supple; Negative: JVD, thyromegaly Chest Exam: Positive: Clear to auscultation, Normal air movement Heart Exam: Positive: Rate Normal, Regular Rhythm, Normal S1, Normal S2; Negative: Murmurs, Rubs Abdomen Exam: Positive: Normal bowel sounds, Soft, Other (ostomy present in left quadrant); Negative: Tenderness, Hepatospenomegaly Extremity Exam: Positive: Edema; Negative: Clubbing, Cyanosis Skin Exam: Positive: Nl turgor and temperature; Negative: Breakdown, Lesion Neuro Exam: Positive: Normal Speech, Normal Tone Psych Exam: Positive: Mental status NL, Mood NL, Memory Intact, Oriented x 3 Assessment /Plan Assessment This is a 63-year-old female with PMH of ESRD on HD since oct 2018, Carcinoid tumor from 2005 recurrence with metastatic carcinoid tumor 2008 on chemotherapy since , bowel obstruction s/p colectomy with colostomy in 2012 , High output from colostomy, gout, hypothyroid whose in Dec 2018 and since then has been finding it very difficult to manage at home. She has lost about 60 lbs in the past year. Unable to eat much, early satiety, has been getting weaker and weaker and at present unable to stand up from a chair. Went to see PMD today and was sent to the ED for failure to thrive. Failure to thrive , weakness, unable to ambulate. probably due to her progressing cancer, cachexia. 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 Severe protein calorie malnutrition with BMI of 19.8, bitemporal wasting, wasting of muscles of all the muscles of the body, wasting of intercostal muscles. albumin 1.8 dietary consulted. Abnormal LFTs Her alkaline phosphatase has been slowly going up. US shows multiple mets to liver. However review of chart showed she had diffuse carcinoid mets to liver also in 2008. No abdominal symptoms. Leucocytosis No fever, no signs of infection will continue to monitor ? cancer related. ESRD will continue with maintainence HD History of carcinoid tumor in the cecum and terminal ileum, status post a right hemicolectomy in 2005 and chemotherapy since 2008. she gets once a month at [facility] but has been trying to set up her chemo treatments at [facility] as since her ,s passing travelling has become difficult. also on octreotide. S/p colostomy after bowel obstruction in 2012 and segmental colectomy in the remaining colon. high output from there. Hypothyroidism. Continue home Synthroid. History of nephrolithiasis status post extracorporeal shock wave lithotripsy in the past. History of bowel obstruction with multiple abdominal surgeries in the past, status post segmental colon resection in 2012 with left colostomy bag present currently. H/o Hypothyroid and gout not on any meds at present VS, I&O, 24H, Fishbone Vital Signs/I&O Vital Signs Date Time Temp Pulse Resp B/P (MAP) Pulse Ox O2 Delivery O2 Flow Rate FiO2 02/23/19 06:00 98.2 90 18 107/70 (82) 97 Room Air I&O- Last 24 Hours up to 6 AM 02/23/19 06:00 Intake Total 1290 ml Balance 1290 ml RICHIE COCHRAN MD Feb 23, 2019 06:56
[2019-02-23] MEDS ORDERED: HEPARIN 1,000 UNITS/ML 10ML VIAL (FOR RADIOLOGY& DIALYSIS ONLY) XX ONE (13:15)
[2019-02-23] MEDS ORDERED: HEPARIN 1,000 UNITS/ML 10ML VIAL (FOR RADIOLOGY& DIALYSIS ONLY) IV ONE (13:15)
[2019-02-23 13:31] VITALS: BP 108/71
--- NOTE | 2019-02-23 14:06 | IPN ---
DATE: 02/23/2019 SUBJECTIVE: The patient is seen and examined this morning in the hemodialysis unit receiving her maintenance treatment. She complains of weakness and trouble bearing weight with her knees. Otherwise, denies any new complaints or issues, is tolerating dialysis without any problems. She reports that she will not be able to go to rehabilitation due to receiving chemotherapy. Physical therapy is working with her. PHYSICAL EXAMINATION: VITAL SIGNS: Temperature 98.2, pulse 90, respiratory rate 18, blood pressure 107/70, saturating 97% on room air. Intake yesterday was 01/1970 weight on the bed scale today is not recorded. GENERAL: The patient is seen in the hemodialysis unit receiving her treatment awake, alert, oriented times three, lying in bed week, cachectic, emaciated, malnourished appearing. HEAD AND NECK: Bitemporal wasting. Mucous membranes are moist. Extraocular muscles are intact. Pupils are round and reactive to light. The neck is supple. She has a tunneled hemodialysis catheter in the right IJ which is presently in use. CARDIAC: S1, S2, regular rate. 1+ edema of the feet and ankles. LUNGS: Are clear to auscultation bilaterally. Equal air entry. She is comfortable on room air. No rales or rhonchi. ABDOMEN: Soft. There is a left lower quadrant ostomy. MUSCULOSKELETAL: There is significant muscle wasting. There is no clubbing or cyanosis. There is pedal edema. NEUROLOGIC: No focal deficit awake, alert, oriented times three, interactive and conversational. SKIN: Normal turgor and temperature. LABORATORIES: White count 14.7, hemoglobin 11.6, sodium 135, potassium 3.9, BUN 56. INPATIENT MEDICATIONS: Reviewed by myself and no change from prior. PROBLEMS: 1. End-stage renal disease on hemodialysis on a Saturday, Saturday, Saturday schedule via tunneled hemodialysis catheter. She is dialyzed today. She has usually fairly minimal amount of fluid removed. Her volume status is acceptable. Her electrolytes are acceptable as well. Her PermaCath is in use. She is pending fistula creation as an outpatient. 2. Protein calorie malnutrition. Albumin is less than two. She is encouraged for caloric intake. She is receiving Ensure. She is not on any sort of fluid or dietary restrictions. 3. Anemia of chronic renal failure. Hemoglobin is 11.6, which is optimal. She is not receiving any erythropoietin stimulating agents at present. 4. Failure to thrive and ambulatory dysfunction related to her overall debilitation, end stage renal disease, cachexia, protein calorie malnutrition, malignancy, muscle wasting. Goes to [facility] once monthly and is on octreotide. She is apparently not suitable for rehabilitation due to her malignancy treatment.
[2019-02-23] MEDS: LIDOCAINE 5% (LIDODERM) PATCH TD SCH (20:19)
[2019-02-23] MEDS: ACETAMINOPHEN TAB 650MG DOSE (2X325MG) PO PRN (21:58)
[2019-02-23 23:56] VITALS: BP 108/69
[2019-02-24 05:54] VITALS: BP 108/66
[2019-02-24] MEDS: LEVOTHYROXINE 150MCG TABLET (0.15MG) PO SCH (05:54)
[2019-02-24 06:55] LABS: HEMATOCRIT 31.2 % (36.0-47.0); HEMOGLOBIN 10.4 g/dl (12.0-15.5); MEAN CORPUSCULAR HGB CONC 33.3 g/dl (32.0-36.5); MEAN CORPUSCULAR VOLUME 92.9 fl (80.0-96.0); PLATELET COUNT, AUTOMATED 155 10^3/uL (150-450); RED BLOOD COUNT 3.36 10^6/uL (4.00-5.40); WHITE BLOOD COUNT 13.4 10^3/uL (4.0-10.0)
[2019-02-24 07:30] LABS: CALCIUM LEVEL 8.9 MG/DL (8.8-10.2); CREATININE FOR GFR 4.36 MG/DL (0.55-1.30); GLOMERULAR FILTRATION RATE 10.9 (>45); PHOSPHORUS LEVEL 3.5 MG/DL (2.5-4.9); POTASSIUM SERUM 3.9 MEQ/L (3.5-5.1)
[2019-02-24] MEDS ORDERED: LIDOCAINE 5% (LIDODERM) PATCH TD SCH (09:00)
[2019-02-24] MEDS: NEPHRO-VIT TAB (NEPHROCAPS) PO SCH (09:23)
[2019-02-24] MEDS: **NOTE PATIENT COMMENT** MISC XX SCH (09:24)
[2019-02-24] MEDS: MAGNESIUM OXIDE 400 MG TAB (MAG-OX) PO SCH (09:24)
--- NOTE | 2019-02-24 12:46 | IPN ---
DATE: 02/24/2019 Ann is seen and examined this morning at the bedside. Reports she has no complaints. Received a lidocaine patch for back pain and feels that it helped. Tolerated dialysis yesterday without any issues. Vital signs: Temperature 97.4, pulse 78, respiratory rate 18, blood pressure 108/66, saturating 100% on room air. Intake yesterday was 920. Dialysis yesterday removed 500, weight in the bed scale today is not recorded. General: The patient is seen awake, alert, oriented, comfortable in bed. Appears older than stated age and frail and emaciated malnourished appearing. Head and neck: Bitemporal wasting. Mucous membranes are moist. Extraocular muscles are intact. Pupils are round and reactive to light. Neck is supple. There is a tunneled hemodialysis catheter present in the right internal jugular (IJ). Cardiac: S1, S2, regular rate. 1+ edema of the feet and ankles. She is wearing compression stockings. Lungs were clear to auscultation bilaterally. Equal air entry. No rale or rhonchi comfortable on room air. Abdomen is soft. There is a left lower quadrant ostomy. Musculoskeletal: There is significant muscle wasting. There is no clubbing or cyanosis. There is 1+ edema in the legs. There is compression stockings in place. Neurologic: No focal deficit. Awake, alert, oriented times three, interactive and conversational. LABS: White count 13.4, hemoglobin 10.4. Sodium 135, potassium 3.9, phosphorus 3.5. INPATIENT MEDICATIONS: Reviewed by myself. She received a lidocaine patch yesterday. Remainder of medications are unchanged as compared to prior. PROBLEMS: 1. End-stage renal disease on hemodialysis on Saturday, Saturday, Saturday schedule via a tunneled hemodialysis catheter. She is well dialyzed. Volume status is acceptable. We removed a minimal amount of fluid with her treatments. She has significant output from her ostomy. Her electrolytes are acceptable. Perma-Cath is in use. 2. Protein calorie malnutrition: Albumin less than two. She is taking supplemental drinks including Nepro. She is not on any sort of fluid or dietary restrictions. 3. Anemia of chronic renal failure, hemoglobin is at goal. She is not receiving any erythropoietin stimulating agents at present. 4. Failure to thrive, ambulatory dysfunction related to her overall debilitation and end-stage renal disease, metastatic cancer, protein calorie malnutrition. She is apparently not suitable for rehabilitation due to her chemotherapy.
[2019-02-24 14:00] VITALS: BP 113/71
[2019-02-24] MEDS: ACETAMINOPHEN TAB 650MG DOSE (2X325MG) PO PRN ×2 (16:36→22:46)
--- NOTE | 2019-02-24 18:43 | IPNPDOC ---
Text Note Date of Service The patient was seen on 02/24/19. NOTE Subjective: -No issues overnight. -Reports difficulty with appetite, especially for hospital food. Reports that her son is bringing her scallops today because she is trying to eat her favorite foods to improve her nutritional status -Reports getting out of bed is not that difficult but standing from the chair is quite difficult for her. -Is now planning on working with PT until she can be discharged to her son and zzdsmfho-fh-wbl's house before she goes home since she lives alone and cannot go to [facility] because of the cost of her monthly chemo. Objective Vitals: See below General Exam: Cachectic woman, in no distress Eye Exam: PERRLA, Conjunctiva & lids normal, EOMI ENT Exam: Atraumatic, Mucous membr. moist/pink, Pharynx Normal Neck Exam: Supple, no JVD or thyromegaly Chest Exam: Clear to auscultation, Normal air movement Heart Exam: Rate Normal, Regular Rhythm, Normal S1, Normal S2, no mrg Abdomen Exam: has an ostomy on the LLQ, normoactive bowel sounds, NTND Extremity Exam: 2+ dependent chronic LE edema to midshins, WWP, no clubbing or cyanosis Skin Exam: Normal turgor and temperature, hyperpigmented skin but no lesions, rashes or bruising Neuro Exam: Normal Speech, moves all extremities spontaneously Psych Exam: AOx3 Labs: Reviewed Hgb 10.4, Hct 31.2, Cr 4.36 Assessment 63-year-old W with ESRD on HD, Carcinoid tumor since 2005 w/ recurrence with m ets in 2008 on chemotherapy since, bowel obstruction s/p colectomy with colostomy in 2012 , high output colostomy, gout, hypothyroid whose in Dec 2018 and since then has been finding it very difficult to manage at home with massive weight loss and admitted for failure to thrive. Failure to thrive , weakness, unable to ambulate: Likely due to her progressing cancer, cachexia. 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 -albumin 1.8 -dietary consulted, on supplements, unrestricted diet, and home diet with family trying to bring in her favorite foods Abnormal LFTs -Her alkaline phosphatase has been slowly going up. -US shows multiple mets to liver. However review of chart showed she had diffuse carcinoid mets to liver also in 2008. -No abdominal symptoms. -will monitor for now Leukocytosis: No fever, no signs of infection will continue to monitor ? cancer related. -will monitor, improving ESRD will continue with maintainence HD History of carcinoid tumor in the cecum and terminal ileum, status post a right hemicolectomy in 2005 and chemotherapy since 2008. -she gets once a month at [facility] but has been trying to set up her chemo treatments at [facility] as since her 's passing travelling has become difficult. also on octreotide. -S/p colostomy after bowel obstruction in 2012 and segmental colectomy in the remaining colon, high output from there. Hypothyroidism. -Continue home Synthroid. Dispo: Working with PT for conditioning for safe discharge home VS,Fishbone, I+O VS, Fishbone, I+O Laboratory Tests 02/24/19 06:15 Vital Signs Date Time Temp Pulse Resp B/P (MAP) Pulse Ox O2 Delivery O2 Flow Rate FiO2 02/24/19 14:00 98.2 85 17 113/71 (85) 97 Room Air I&O- Last 24 Hours up to 6 AM 02/24/19 06:00 Intake Total 1200 ml Output Total 500 ml Balance 700 ml GERMAN IRVIN MD Feb 24, 2019 18:43
[2019-02-24 20:47] VITALS: BP 113/73
[2019-02-24] MEDS: LIDOCAINE 5% (LIDODERM) PATCH TD SCH (21:12)
[2019-02-25] MEDS: ACETAMINOPHEN TAB 650MG DOSE (2X325MG) PO PRN (05:08)
[2019-02-25] MEDS: NEPHRO-VIT TAB (NEPHROCAPS) PO SCH (05:08)
[2019-02-25] MEDS: LEVOTHYROXINE 150MCG TABLET (0.15MG) PO SCH (05:08)
[2019-02-25] MEDS: MAGNESIUM OXIDE 400 MG TAB (MAG-OX) PO SCH (05:09)
[2019-02-25 05:19] VITALS: BP 114/75
[2019-02-25 06:44] LABS: HEMATOCRIT 32.7 % (36.0-47.0); HEMOGLOBIN 10.9 g/dl (12.0-15.5); MEAN CORPUSCULAR HEMOGLOBIN 30.7 pg (27.0-33.0); MEAN CORPUSCULAR HGB CONC 33.3 g/dl (32.0-36.5); MEAN CORPUSCULAR VOLUME 92.1 fl (80.0-96.0); PLATELET COUNT, AUTOMATED 176 10^3/uL (150-450); RED BLOOD COUNT 3.55 10^6/uL (4.00-5.40); WHITE BLOOD COUNT 13.5 10^3/uL (4.0-10.0)
[2019-02-25 07:06] LABS: CALCIUM LEVEL 8.8 MG/DL (8.8-10.2); CREATININE FOR GFR 5.29 MG/DL (0.55-1.30); GLOMERULAR FILTRATION RATE 8.7 (>45); POTASSIUM SERUM 4.3 MEQ/L (3.5-5.1)
[2019-02-25] MEDS: **NOTE PATIENT COMMENT** MISC XX SCH (08:00)
--- NOTE | 2019-02-25 10:57 | DS.PDOC ---
Discharge Summary General Date of Admission Feb 19, 2019 at 17:52 Date of Discharge 02/25/2019 Attending Physician: GERMAN IRVIN MD Discharge Summary PROCEDURES PERFORMED DURING STAY: None ADMITTING DIAGNOSES: 1. Failure to thrive DISCHARGE DIAGNOSES: 1. Failure to thrive 2. ESRD on HD 3. Metastatic gastrointestinal carcinoid 4. History of bowel obstruction s/p colon resection with colostomy c/b chronic high output from colostomy 5. Gout 6. Hypothyroid. COMPLICATIONS/CHIEF COMPLAINT: Esrd;Failure To Thrive In Adult;Liver Ca W/Mets. HISTORY OF PRESENT ILLNESS: 63-year-old W with ESRD on HD since oct 2018, gastrointestinal carcinoid tumor diagnosed in 2005 w/ recurrence with mets in 2008 on chemotherapy since that she receives in [place], bowel obstruction s/p colectomy with colostomy in 2012 c/b chronic high output, gout, hypothyroidism, whose in Dec 2018 and since then has been finding it very difficult to manage at home, with recent dramatic 60 lbs weight loss in the past year with poor PO, early satiety, and increasing weakness who presented from home with severe weakness with inability stand up from a chair. HOSPITAL COURSE: On presentation, she was hemodynamically stable and afebrile but notably severely cachectic and weak. She was admitted to medicine for failure to thrive and consultation was made to PT, OT and nutrition. Given her poor nutritional status, she was started on nutritional supplements and encouraged to take PO that she prefers with an unrestricted diet. On working with PT, their initial recommendation was for STR but given her monthly chemo that is costly, STR placement would be difficult and so the decision was made to try and improve her conditioning while in the hospital with plan for discharge home with her son and daughter in law for the first few weeks before she goes home where she lives alone, hopefully giving her enough time to improve for safe discharge home. During her course in the hospital, her alkaline phosphatase was noted to be slowly uptrending and this was presumed to be secondary to her her known and noted liver mets and she had no acute abdominal complaints. She also had a moderate leukocytosis without any signs of infection, fever and complaints that slowly downtrended. She was otherwise maintained on her outpatient HD schedule with nephrology onboard for her ESRD without any complications. Upon PT re- evaluation, she was cleared for home discharge and is now being discharged home with her son and [id number]-gou. DISCHARGE MEDICATIONS: Please see below. ALLERGIES: Please see below. PHYSICAL EXAMINATION ON DISCHARGE: VITAL SIGNS: Please see below. GENERAL:Cachectic, NAD HEENT: NCAT, bitemporal wasting, PERRLA, EOMI, anicteric, MMM NECK: No thyromegaly, adenopathy or JVD CARDIOVASCULAR EXAMINATION: RRR, no mrg RESPIRATORY EXAMINATION: CTAB ABDOMINAL EXAMINATION: Scaphoid abdomen, normoactive sounds, LLQ ostomy bag, non tendre EXTREMITIES: thin, no edema, warm SKIN: No lesions or rashes NEUROLOGICAL EXAMINATION: CN2-12 grossly intact, 4/5 strength throughout PSYCHIATRIC EXAMINATION: AOx3 LABORATORY DATA: Please see below. IMAGING: Abdominal US: Pleural space: Right-sided pleural effusion. Liver: Markedly heterogeneous hepatic echotexture with innumerable masses, largest measuring up to by 0.8 cm. Gallbladder: Previous cholecystectomy. Common bile duct: Normal. No stones. No dilation. Pancreas: Pancreas is poorly evaluated. Right kidney: Echogenic kidneys compatible with chronic medical renal disease. No hydronephrosis. Left kidney: 2 cm inferior left renal cyst. Spleen: Normal. No splenomegaly. Aorta: Visualized abdominal aorta is non-aneurysmal. Inferior vena cava: Normal. Intraperitoneal space: Moderate ascites. IMPRESSION: 1. Innumerable hepatic masses compatible with hepatic metastatic disease. 2. Moderate ascites. 3. Previous cholecystectomy. PROGNOSIS: poor with poor nutrition and high output ostomy and metastatic carcinoid tumor ACTIVITY: As tolerated DIET: Regular with nutritional supplements DISCHARGE PLAN: Home to son and tlvykrku-bj-zfs's home as she gains strength to return home where she lives alone DISPOSITION: Home with family DISCHARGE INSTRUCTIONS: 1. Please follow up with your PCP within 1-2 weeks of discharge, and will need oncology follow up with her regular oncologist as she has missed chemotherapy in 01/2020 and her nutritional and functional status may affect her eligibility for further treatment at this time. ITEMS TO FOLLOWUP ON ON OUTPATIENT: 1. Failure to thrive 2. Malnutrition with anorexia 3. Deconditioning 4. Metastatic carcinoid DISCHARGE CONDITION: Stable TIME SPENT ON DISCHARGE: 41 minutes. Vital Signs/I&Os Vital Signs Date Time Temp Pulse Resp B/P (MAP) Pulse Ox O2 Delivery O2 Flow Rate FiO2 02/25/19 05:19 97.4 76 18 114/75 (88) 99 Room Air I&O- Last 24 Hours up to 6 AM 02/25/19 06:00 Intake Total 2470 ml Output Total 0 ml Balance 2470 ml Laboratory Data Labs 24H Laboratory Tests 2 02/25/19 06:20: Nucleated Red Blood Cells % (auto) 0.0, Anion Gap 8, Glomerular Filtration Rate 8.7L, Calcium Level 8.8 CBC/BMP Laboratory Tests 02/25/19 06:20 Discharge Medications Scheduled Folic Acid/Vit B Complex and C (Raegan-Thalia Tablet) 0.8 Mg Tablet, 1 TAB PO DAILY, (Reported) Levothyroxine Sodium (Synthroid) 150 Mcg Tab, 150 MCG PO DAILY, (Reported) Magnesium Oxide (Magnesium Oxide) 400 Mg Tablet, 400 MG PO DAILY, (Reported) Octreotide Acetate (Octreotide Acetate) 50 Mcg/Ml Inj, 30 MCG IM QMONTH, (Reported) RECEIVES IN [place] MONTHLY Allergies Coded Allergies: Contrast Media (Verified Allergy, Intermediate, RADIOPAQUE CONTRAST - HIVES, 01/19/19) Iodinated Contrast Media (Verified Allergy, Intermediate, hives, 01/19/19) iodine (Verified Allergy, Intermediate, hives, 01/19/19) iopamidol (Verified Allergy, Intermediate, hives, 01/19/19) metformin (Verified Adverse Reaction, Mild, diarrhea, 01/19/19) GERMAN IRVIN MD Feb 25, 2019 08:26
[2019-02-25] MEDS ORDERED: HEPARIN 1,000 UNITS/ML 10ML VIAL (FOR RADIOLOGY& DIALYSIS ONLY) XX ONE (11:00)
[2019-02-25] MEDS ORDERED: HEPARIN 1,000 UNITS/ML 10ML VIAL (FOR RADIOLOGY& DIALYSIS ONLY) IV ONE (11:00)
[2019-02-25] MEDS ORDERED: LIDO5TD TD (11:06)
--- NOTE | 2019-02-25 11:13 | IPNPDOC ---
Text Note Date of Service The patient was seen on 02/25/19. NOTE Subjective: -No issues overnight. -Reports continued difficulty with appetite no matter which food she receives, had expected to eat more of the food that was brought in from home -Continued weakness but actively engaging PT as best she can -Is now planning to be discharged to her son and dtihbsnp-bk-vay's house before she goes home since she lives alone and cannot go to [facility] because of the cost of her monthly chemo. Objective Vitals: See below General Exam: Cachectic woman, in no distress Eye Exam: PERRLA, Conjunctiva & lids normal, EOMI ENT Exam: Atraumatic, Mucous membr. moist/pink, Pharynx Normal Neck Exam: Supple, no JVD or thyromegaly Chest Exam: Clear to auscultation, Normal air movement Heart Exam: Rate Normal, Regular Rhythm, Normal S1, Normal S2, no mrg Abdomen Exam: has an ostomy on the LLQ, normoactive bowel sounds, NTND Extremity Exam: 2+ dependent chronic LE edema to midshins, WWP, no clubbing or cyanosis Skin Exam: Normal turgor and temperature, hyperpigmented skin but no lesions, rashes or bruising Neuro Exam: Normal Speech, moves all extremities spontaneously Psych Exam: AOx3 Labs: Reviewed Hgb 10.9, Hct 32.7, Cr 5.29 Assessment 63-year-old W with ESRD on HD, Carcinoid tumor since 2005 w/ recurrence with mets in 2008 on chemotherapy since, bowel obstruction s/p colectomy with colostomy in 2012, high output colostomy, gout, hypothyroid whose in Dec 2018 and since then has been finding it very difficult to manage at home with massive weight loss and admitted for failure to thrive now cleared by PT for discharge to home with family until she is well enough to return to her home where she lives alone. Failure to thrive , weakness, unable to ambulate: Likely due to her progressing cancer, cachexia. 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 -albumin 1.8 -dietary consulted, on supplements, unrestricted diet Abnormal LFTs -Her alkaline phosphatase was elevated, with US showing multiple mets to liver, that had been previously noted, without current abdominal pain Leukocytosis: stable -No fever, no signs of infection -will continue to monitor -? cancer related. ESRD -to continue with maintainence HD History of carcinoid tumor in the cecum and terminal ileum, status post a right hemicolectomy in 2005 and chemotherapy since 2008. -she gets once a month in [place] but has been trying to set up her chemo treatments at [facility] as since her 's passing travelling has become difficult. Also on octreotide. -S/p colostomy after bowel obstruction in 2012 and segmental colectomy in the remaining colon, high output from there. -Will need outpatient conversations with her oncologist as her nutritional status and ECOG score are poor and may affect decision to continue with treatment Hypothyroidism. -Continue home Synthroid. Dispo: Home with family VS,Mariusz, I+O VS, Mariusz, I+O Laboratory Tests 02/25/19 06:20 Vital Signs Date Time Temp Pulse Resp B/P (MAP) Pulse Ox O2 Delivery O2 Flow Rate FiO2 02/25/19 05:19 97.4 76 18 114/75 (88) 99 Room Air I&O- Last 24 Hours up to 6 AM 02/25/19 06:00 Intake Total 2470 ml Output Total 0 ml Balance 2470 ml GERMAN IRVIN MD Feb 25, 2019 08:41
--- NOTE | 2019-02-25 12:28 | IPN ---
DATE: 02/25/2019 General: Ann is seen and examined in the hemodialysis unit receiving her maintenance treatment. She is discharge pending after dialysis. She denies any new complaints. Reports stable leg edema. Denies shortness of breath. Vital Signs: Temperature 97.4, pulse 76, respiratory rate 18, blood pressure 114/75, saturating 99% on room air. Intake yesterday was 2.2 liters. Weight in the bed scale today is not recorded. General: The patient is seen awake, alert, oriented, comfortable, receiving her hemodialysis treatment. Appears older than stated age and frail and emaciated, chronically ill-appearing, bitemporal wasting. Mucous membranes are moist. Extraocular muscles are intact. Pupils are round and reactive to light. Neck is supple. There is a tunneled hemodialysis catheter present in the right chest wall, which is in use. Cardiac: S1, S2, regular rate, 1+ edema of the legs and feet. She is wearing compression stockings. Her edema is chronic and stable. Lungs are clear to auscultation bilaterally. Equal air entry. No rale or rhonchi, comfortable on room air. Abdomen is soft. There is a left lower quadrant ostomy. There are bowel sounds. Musculoskeletal: Shows significant muscle wasting. There is no clubbing, cyanosis. There is chronic pitting edema in the legs and compression stockings in place. Neurologic: No focal deficit. Awake, alert, oriented times three, interactive, conversational. LABS: White count 13.5, hemoglobin 10.9, platelet 176. Sodium 133, potassium 4.3. INPATIENT MEDICATIONS: Reviewed by myself and no changes compared to yesterday. PROBLEMS: 1. End-stage renal disease on hemodialysis on Saturday, Saturday, Saturday schedule via a tunneled hemodialysis catheter. She is well dialyzed. She has chronic peripheral edema. Otherwise, her volume status is acceptable. We remove a minimal amount of fluid with her treatments because of high output from her ostomy and because of hypotension of hemodialysis. Her electrolytes are acceptable. Her PermaCath is in use. She is for possible fistula creation next week as an outpatient. 2. Protein calorie malnutrition. Albumin less than 2. She is chronically malnourished. She has metastatic malignancy. Continue with protein supplementation. She is not on any sort of fluid or dietary restrictions. 3. Anemia of chronic renal failure. Hemoglobin is at goal. She is not receiving any erythropoietin stimulating agents at present. 4. Failure to thrive, ambulatory dysfunction related to overall debilitation metastatic cancer, chronic renal failure, protein calorie malnutrition. She is apparently not suitable for rehabilitation due to her chemotherapy. She is seeing her oncologist in [place] on 03/11/2019. She is advised to discuss her overall prognosis with him.
[2019-02-25 14:25] VITALS: BP 118/78
[2019-02-25] MEDS ORDERED: TYLETAB14 PO (14:39)
== END 2019-02-25 15:50 | disposition home health service (06) | DRG 640 ==
LOC: M ED 15:13 → M ED INP 17:52 → ENRESERV 18:08 → M MS5PR 18:45
PROVIDERS: ADMIT Internal Medicine Nephrology; ATTEND Internal Medicine
DX: E43 Unspecified severe protein-calorie malnutrition (principal); N18.6 End stage renal disease; C18.0 Malignant neoplasm of cecum; R18.8 Other ascites; C78.7 Secondary malignant neoplasm of liver and intrahepatic bile duct; Z68.1 Body mass index [BMI] 19.9 or less, adult; R62.7 Adult failure to thrive; M10.9 Gout, unspecified; E03.9 Hypothyroidism, unspecified; Z93.3 Colostomy status; Z79.899 Other long term (current) drug therapy; Z91.041 Radiographic dye allergy status; Z88.8 Allergy status to other drugs, medicaments and biological substances; D63.1 Anemia in chronic kidney disease